=== PATIENT | female | born 1950 | race Caucasian/White ===

== ENCOUNTER 2020-11-15 23:40 | Emergency (ER) | payer MEDICARE, MEDICAID, SELFPAY ==
[2020-11-15 23:39] VITALS: BP 165/71; PULSE 100; RESP 16; TEMP 36.9; O2SAT 99
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
[2020-11-16 00:31] LABS: Basophils Absolute Auto 0.1 K/mm3 (0.0-0.1); Basophils Percent Auto 0.6 % (0.2-1.2); Eosinophils Absolute Auto 0.1 K/mm3 (0-0.3); Eosinophils Percent Auto 1.2 % (0-4.4); Hematocrit 37.6 % (37.0-47.0); Hemoglobin 12.4 g/dL (12.0-15.0); Immature Granulocyte Absolute 0.03 K/mm3 (0.00-0.031); Immature Granulocyte Percent A 0.3 % (0-0.5); Lymphocytes Absolute Auto 2.46 K/mm3 (0.9-3.2); Lymphocytes Percent Auto 27.6 % (18.3-44.2); Mean Corpuscular Hemoglobin 31.6 pg (26-34); Mean Corpuscular Volume 95.7 fl (80-100); Mean Platelet Volume 8.7 fl (7.4-10.4); Monocytes Percent Auto 10.7 % (2.6-8.5); Neutrophils Absolute Auto 5.3 K/mm3 (1.3-6.7); Neutrophils Percent Auto 59.6 % (45.5-73.1); Platelet Count Result 274 k/mm3 (150-375); Red Blood Count 3.93 M/mm3 (4.2-5.4); White Blood Count 8.9 K/mm3 (4.5-10.0)
[2020-11-16 00:46] LABS: Alanine Aminotransferase 27 U/L (4-35); Albumin Level 3.9 g/dL (3.5-5.1); Alkaline Phosphatase 78 U/L (38-126); Anion Gap 6 mmol/L (8-16); Aspartate Amino Transferase 43 U/L (14-36); Bilirubin,Total 0.4 mg/dL (0.2-1.3); Blood Urea Nitrogen 13 mg/dL (7-17); Calcium 9.2 mg/dL (8.4-10.2); Carbon Dioxide 25 mmol/L (22-30); Chloride 108 mmol/L (98-107); Estimated CRCL calculation 72 ml/min; Estimated Glomerular Filt Rate > 60; Glucose 98 mg/dL (65-105); Potassium 3.4 mmol/L (3.4-5.0); Sodium 139 mmol/L (137-145)
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
[2020-11-16 01:16] LABS: Thyroid Stimulating Hormone 0.803 uIU/mL (0.465-4.680)
--- NOTE | 2020-11-16 01:19 | PC.NURSE ---
Pt refusing straight cath at this time. States she will try to urinate soon but wanted to drink some orange juice first.
[2020-11-16 02:11] LABS: Add Urine Microscopic? YES; Appearance Urine Clear (Clear); Bilirubin Urine Negative (Negative); Blood Urine Negative (Negative); Color Urine Yellow (Yellow); Glucose Urine UA Negative (Negative); Ketones Urine 1+ mg/dL (Negative); Leukocyte Esterase Ur Trace LEU/UL (Negative); Mucus Urine Few /lpf; Nitrate Urine Negative (Negative); Protein Urine 1+ mg/dL (Negative); RBC Urine 0-2 /hpf (0-2); Specific Grav Ur 1.017 (1.001-1.035); Squamous Epithelial Cell Urine Rare /hpf (Few); Urobilinogen Urine Negative mg/dL (<2.0)
[2020-11-16 02:20] LABS: Amphetamine Screen Urine Negative (Negative); Barbiturate Screen Urine Negative (Negative); Benzodiazepines Screen Urine Negative (Negative); Cannabinoid Screen Urine Negative (Negative); Cocaine Screen Urine Negative (Negative); Methadone Screen Urine Negative (Negative); Opiate Screen Urine Negative (Negative); Phencyclidine Screen Urine Negative (Negative)
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
[2020-11-16 02:56] LABS: Ethanol < 10 mg/dL (<10)
--- NOTE | 2020-11-16 04:27 | PC.NURSE ---
Attempting to discharge patient. Daughter unable to pick her up at this time. Pt thinks that [place] PD will be picking her up. Pts daughter states that she should have money for a cab. Will discuss this option with patient.
== END 2020-11-16 04:46 | disposition home or self-care (01) ==
PROVIDERS: Emergency Provider Emergency Medicine; PCP Internal Medicine
DX: F23 Brief psychotic disorder (principal); F31.9 Bipolar disorder, unspecified; Z79.899 Other long term (current) drug therapy
CPT/HCPCS: 36415; 80053; 80307; 81001; 84443; 85025; 99283

== ENCOUNTER 2021-05-15 10:29 | Outpatient (CLI) | payer MEDICARE, MEDICAID, SELFPAY ==
--- NOTE | ~2021-05-15 | MM_ITS ---
EXAMINATION: MM screening beatriz BI w [facility] HISTORY: Screening mammogram TECHNIQUE: Craniocaudal and mediolateral oblique 3-D tomosynthesis images were obtained and synthetic 2-D images were generated. CAD analysis was submitted and interpreted. COMPARISON: No prior mammogram is available for comparison at this institution. BREAST PARENCHYMAL COMPOSITION: There are scattered areas of fibroglandular density. FINDINGS: There is no evidence of suspicious mass, calcification, or architectural distortion to sugg est malignancy in either breast. There has been no suspicious interval change. IMPRESSION: 1. No mammographic evidence of malignancy. 2. Recommend routine screening mammography in one year. BI-RADS Category 1: Negative Reviewed, dictated and finalized at location A.
== END 2021-05-15 10:30 | disposition home or self-care (01) ==
PROVIDERS: PCP Internal Medicine
DX: Z12.31 Encounter for screening mammogram for malignant neoplasm of breast (principal)
CPT/HCPCS: 77063; 77067

== ENCOUNTER 2022-02-19 11:04 | Outpatient (CLI) | payer OTHER, SELFPAY | END 2022-02-19 11:05 | disposition home or self-care (01) | PROVIDERS: Visit Provider Otolaryngology | DX: H90.3 Sensorineural hearing loss, bilateral (principal) | CPT/HCPCS: 92557; 92567 ==

== ENCOUNTER 2022-06-11 10:00 | Outpatient (RCR) | payer OTHER, SELFPAY | END 2022-06-11 23:59 | disposition home or self-care (01) | LOC: ANHAUDIO 10:00 | PROVIDERS: Visit Provider Otolaryngology | DX: Z46.1 Encounter for fitting and adjustment of hearing aid (principal) | CPT/HCPCS: 99199; V5160; V5261 ==

== ENCOUNTER 2024-11-06 05:56 | Inpatient (IN) | payer MEDICARE, MEDICAID, SELFPAY ==
[2024-11-06] VITALS (39 sets, daily range): BP systolic 109–150; BP diastolic 47–76; PULSE 73–105; RESP 12–26; TEMP 36.4–38; O2SAT 88–99; BMI 27.8; BMI 28.5
--- NOTE | ~2024-11-06 | XR_ITS ---
CHEST RADIOGRAPH CLINICAL HISTORY: leukocytosis . COMPARISON: 11/06/2024 TECHNIQUE: Single portable view of the chest. FINDINGS The cardiomediastinal silhouette is enlarged, unchanged. The lungs are clear. Visualized osseous structures and soft tissues are unremarkable. IMPRESSION: No focal infiltrate or effusion. Reviewed, dictated and finalized at location A. MENT CONTROL ASSISTANT
--- NOTE | ~2024-11-06 | XR_ITS ---
HISTORY: right hip pain. NO TRAUMA COMPARISON: Reference is made to CT examination of the abdomen and pelvis performed less than 24 lakhwinder rs earlier TECHNIQUE: 2 views of the right hip along with an AP view of the pelvis FINDINGS: Cortical irregularity is identified within the right femoral head, possibly representing an impacted fracture of the right femoral neck for which cross-sectional imaging (noncontrast enhanced CT examina tion of the pelvis) is suggested for further evaluation Normal mineralization. IMPRESSION: As above. Reviewed, dictated and finalized at location A. ANICAL DEVELOPER PROVER IMPRESSION: As above.
--- NOTE | ~2024-11-06 | US_ITS ---
EXAM: PELVIC ULTRASOUND HISTORY: ovarian cyst per CT postmenopausal COMPARISON: . Reference is made to the CT examination of the abdomen and pelvis performed on the same day FINDINGS: UTERUS: 8.6 x 2.5 x 4.6 cm. The uterus is anteverted and anteflexed. The endometrial complex is poorly visualized RIGHT OVARY: Despite prolonged interrogation, the right ovary was not visualized. LEFT OVARY: Despite prolonged interrogation, the left ovary was not visualized. No free fluid is identified within the pelvis. IMPRESSION: Limited evaluation of the female pelvis without visualization of either ovary, as detailed above. Reviewed, dictated and finalized at location A. TRUCTION MANAGER
--- NOTE | ~2024-11-06 | CT_ITS ---
CLINICAL INDICATION: Abdominal pain COMPARISON: None. TECHNIQUE: Multiple contiguous axial images of the abdomen and pelvis were performed following the ad ministration of with 100 mL Omnipaque-350 intravenous contrast. Examination is limited by streak artifact from the patient's left hand remaining along the anterior p ortion of the body. The dose-length product (DLP) was 789.25 mGy-cm. Automated exposure control and iterative reconstruction technique were employed. FINDINGS/OBSERVATIONS: Visualized lower thorax: Bilateral small pleural effusions with adjacent compressive atelectasis. The remainder of the bilateral lung bases are clear. The heart is of normal size, without pericardial effusion. Small hiatal hernia is present. Liver: The liver enhances homogeneously, and is not enlarged measuring 15 cm in longitudinal dimension. Gallbladder and biliary system: The gallbladder is minimally distended, and otherwise unremarkable. Pancreas: The pancreas enhances homogeneously and demonstrates fatty atrophy, without ductal dilatation. Spleen: The spleen enhances homogeneously and is not enlarged measuring 6 cm in longitudinal dimension. Kidneys: 12 x 10 mm exophytic soft tissue attenuation focus within the medial margin of the upper pole of the left kidney, too small to characterize on the current examination. Pararenal cyst within the right kidney. The remainder of the bilateral kidneys enhance symmetrically and are without hydronephrosis or renal calculi. Adrenal glands: Unremarkable. Gastrointestinal tract: Colonic diverticulosis without surrounding inflammatory change. Fecal stasis within the descending colon. Appendix: The appendix is not definitively visualized. However, no pericecal inflammatory change is identified suggest the presence of acute appendicitis. Vasculature: Calcified atherosclerotic disease without aneurysmal dilatation Lymph nodes: No pathologically enlarged or morphologically suspicious lymph nodes within the retroperitoneum or at the root of the mesentery. Pelvic structures: The bladder is distended, and otherwise unremarkable. The uterus is anteverted and anteflexed. Within the right hemipelvis is a rounded oval-shaped focus of decreased attenuation measuring 39 x 32 x 36 mm, for which a ovarian cyst is suspected. Body wall and musculoskeletal: Small fat-containing umbilical hernia. Severe degenerative disease within the lumbosacral and lower thoracic spine, with dextroscoliotic cur vature. IMPRESSION: No acute intra-abdominal findings. Innumerable nonacute findings, as detailed above. Indeterminate soft tissue attenuation focus within the left kidney for which focused ultrasound may b e performed nonemergently versus contrast-enhanced MRI Reviewed, dictated and finalized at location A. ERY STARTER IMPRESSION: No acute intra-abdominal findings. Innumerable nonacute findings, as detailed above. Indeterminate soft tissue attenuation focus within the left kidney for which fo cused ultrasound may be performed nonemergently versus contrast-enhanced MRI
--- NOTE | ~2024-11-06 | CT_ITS ---
History: Lethargy PROCEDURE: CT head without contrast. COMPARISON: 11/06/2024 TECHNIQUE: Axial imaging of the head performed from the skull base to the vertex without IV contrast. Sagittal a nd coronal reformations obtained. DLP: 681 mGy-cm FINDINGS: The ventricles are enlarged. The dilatation of the ventricles is proportional to the degree of sulcal prominence, not uncommon in the senescent brain. Decreased attenuation is identified within the periventricular white matter, likely secondary to micr ovascular ischemic disease, in a patient of this age. There is no mass, mass effect or midline shift. There is no abnormal extra-axial fluid collection or intracranial hemorrhage. Visualized paranasal sinuses are clear. The mastoid air cells are well aerated. No acute displaced fractures within the overlying cranium. Impression: No acute intracranial hemorrhage or suspicious mass effect. Reviewed, dictated and finalized at location A. PRODUCER Impression: No acute intracranial hemorrhage or suspicious mass effect.
--- NOTE | ~2024-11-06 | CT_ITS ---
Non-contrast CT scan of the Pelvis Clinical indication: Right hip pain Technique: 2.5 mm axial scans were obtained through the pelvis without intravenous or oral contrast. Dose reduction technique was used on this scan by utilizing automated exposure control and iterative reconstruction technique. The dose-length product (DLP) was 356.72 mGy-cm. Findings: Visualized bowel loops are unremarkable. There is a probable 3.1 cm right ovarian cyst. No other adnexal mass seen. Urinary bladder unremarkable. No ascites. Visualized aorta demonstrates no e vidence for aneurysm. No soft tissue mass or fluid collection seen about the pelvis. Visualized musculature appears grossly intact. No asymmetric muscle atrophy evident. No acute fracture or dislocation seen. There is mild degenerative change of the right hip joint. Ther e is minimal degenerative change left hip joint. SI joints are intact. There is extensive facet arthr opathy the visualized lower lumbar spine. Impression: No acute fracture or dislocation. Mild degenerative changes overall, as detailed above. Probable 3.1 cm right ovarian cyst. Pelvic ultrasound recommended to further assess given patient age . Reviewed, dictated and finalized at [facility]. EDITATION COORDINATOR Impression: No acute fracture or dislocation. Mild degenerative changes overall, as detailed above. Probable 3.1 cm right ovarian cyst. Pelvic ultrasound recommended to further as sess given patient age.
--- NOTE | ~2024-11-06 | XR_ITS ---
EXAMINATION: [id number] DATE: 11/11/2024 13:04 INDICATION: Right knee pain. TECHNIQUE: 2 views of right knee were obtained. COMPARISON: None. FINDINGS: Alignment is normal. No fracture. There is mild tricompartmental osteoarthritis. No knee cristo int effusion. IMPRESSION: 1. Mild right knee osteoarthritis. Reviewed, dictated and finalized at location B. INSTRUCTOR
--- NOTE | ~2024-11-06 | CT_ITS ---
History: Altered mental status PROCEDURE: CT head without contrast. COMPARISON: None TECHNIQUE: Axial imaging of the head performed from the skull base to the vertex without IV contrast. Sagittal a nd coronal reformations obtained. DLP: 681 mGy-cm FINDINGS: The ventricles are enlarged. The dilatation of the ventricles is proportional to the degree of sulcal prominence, not uncommon in the senescent brain. Decreased attenuation is identified within the periventricular white matter, likely secondary to micr ovascular ischemic disease, in a patient of this age. There is no mass, mass effect or midline shift. There is no abnormal extra-axial fluid collection or intracranial hemorrhage. Visualized paranasal sinuses are clear. The mastoid air cells are well aerated. No acute displaced fractures within the overlying cranium. Impression: No acute intracranial hemorrhage or suspicious mass effect. Reviewed, dictated and finalized at location A. ALLMENT ACCOUNT CHECKER Impression: No acute intracranial hemorrhage or suspicious mass effect.
--- NOTE | ~2024-11-06 | XR_ITS ---
CHEST RADIOGRAPH CLINICAL HISTORY: AMS . COMPARISON: None available TECHNIQUE: Single portable view of the chest. FINDINGS The cardiomediastinal silhouette is unremarkable. Increased interstitial markings within the left mid to lower lung field, possibly an early infiltrate . The remainder of the lungs are clear. Prior right-sided rib fractures are present. Remaining visualized osseous structures are remarkable. IMPRESSION: Possible early infiltrate within the left mid to lower lung field Reviewed, dictated and finalized at location A. SAMPLER
--- NOTE | 2024-11-06 06:11 | ECG_ITS ---
Test Date: 2024-11-06 06:16:18 Measurements Intervals Dresser Rate: 79 P: 73 NH: 130 QRS: 49 QRSD: 108 T: 29 QT: 381 QTc: 437 Interpretive Statements SINUS RHYTHM NONSPECIFIC T-WAVE ABNORMALITY No previous ECG available for comparison Electronically Signed On 11-06-2024 10:07:29 [employer] DRYING MACHINE OPERATOR by Stevenson Munoz M.D.
[2024-11-06 06:25] LABS: Basophils Percent Auto 0.4 % (0.2-1.2); Eosinophils Absolute Auto 0.3 K/mm3 (0-0.3); Eosinophils Percent Auto 2.5 % (0-4.4); Hematocrit 38.5 % (37.0-47.0); Hemoglobin 12.4 g/dL (12.0-15.0); Immature Granulocyte Absolute 0.04 K/mm3 (0.00-0.031); Immature Granulocyte Percent A 0.4 % (0-0.5); Lymphocytes Percent Auto 22.8 % (18.3-44.2); Mean Corpuscular HGB Conc 32.2 g/dl (32-36); Mean Corpuscular Hemoglobin 30.5 pg (26-34); Mean Corpuscular Volume 94.6 fl (80-100); Monocytes Percent Auto 8.7 % (2.6-8.5); Neutrophils Absolute Auto 7.5 K/mm3 (1.3-6.7); Neutrophils Percent Auto 65.2 % (45.5-73.1); Platelet Count Result 297 k/mm3 (150-375); Red Blood Count 4.07 M/mm3 (4.2-5.4); Red Cell Distribution Width 12.6 % (11.5-14.5); White Blood Count 11.4 K/mm3 (4.5-10.0)
[2024-11-06] MEDS: SODIUM CHLORIDE 0.9% IV 1,000 ML 999 ML IV CONT ×2 (06:31)
[2024-11-06] MEDS: ACETAMINOPHEN 650 MG SUPPOSITORY RECTAL (06:32)
[2024-11-06 06:37] LABS: Alanine Aminotransferase 24 U/L (6-35); Albumin Level 3.8 g/dL (3.5-5.1); Alkaline Phosphatase 82 U/L (38-126); Anion Gap 9 mmol/L (4-12); Aspartate Amino Transferase 22 U/L (14-36); Bilirubin,Total 0.6 mg/dL (0.2-1.3); Blood Urea Nitrogen 11 mg/dL (7-17); Calcium 9.3 mg/dL (8.4-10.2); Carbon Dioxide 27 mmol/L (22-30); Chloride 101 mmol/L (98-107); Estimated CRCL calculation 41 ml/min; Estimated Glomerular Filt Rate 53; Glucose 110 mg/dL (65-110); Potassium 4.1 mmol/L (3.4-5.0); Sodium 137 mmol/L (137-145)
[2024-11-06 06:40] LABS: Alveolar/Arterial O2 Gradient 48.5 mmHg; Base Excess ABG 1.2 mEq/l (+/-2.0); Fractional Inspired Oxygen 21 %; HCO3 ABG 25.1 mEq/l (22.0-26.0); Oxygen Content ABG 16.2 %vol (16.0-22.0); Oxygen Saturation ABG 90.6 % (95.0-100.0); Oxyhemoglobin 88.7 % THb (90.0-100.0); PCO2 ABG 37.5 mmHg (35.0-45.0); PO2 ABG 56.3 mmHg (80.0-100.0); PO2 FiO2 Ratio Arterial Blood 2.68 %; pH ABG 7.444 (7.350-7.450)
[2024-11-06 06:41] LABS: Device ROOM AIR; Modified Allen's Test Pass; Site Drawn RIGHT RADIAL
[2024-11-06 06:43] LABS: Lactic Acid Reflex 1.1 mmol/L (0.7-2.0)
[2024-11-06 06:45] LABS: INR 2.7
[2024-11-06 06:46] LABS: Partial Thromboplastin Time 49.6 Seconds (22.3-36.8)
[2024-11-06 06:54] LABS: Amphetamine Screen Urine Negative (Negative); Barbiturate Screen Urine Negative (Negative); Benzodiazepines Screen Urine Negative (Negative); Cannabinoid Screen Urine Negative (Negative); Cocaine Screen Urine Negative (Negative); Methadone Screen Urine Negative (Negative); Opiate Screen Urine Negative (Negative); Phencyclidine Screen Urine Negative (Negative)
[2024-11-06 07:00] LABS: Alanine Aminotransferase 24 U/L (6-35); Albumin Level 3.7 g/dL (3.5-5.1); Alkaline Phosphatase 81 U/L (38-126); Anion Gap 7 mmol/L (4-12); Aspartate Amino Transferase 33 U/L (14-36); Bilirubin,Total 0.7 mg/dL (0.2-1.3); Blood Urea Nitrogen 11 mg/dL (7-17); Calcium 9.3 mg/dL (8.4-10.2); Carbon Dioxide 28 mmol/L (22-30); Chloride 102 mmol/L (98-107); Estimated CRCL calculation 40 ml/min; Estimated Glomerular Filt Rate 52; Glucose 108 mg/dL (65-110); Lipase 21 U/L (23-300); Phosphorus 3.8 mg/dL (2.5-4.5); Potassium 4.1 mmol/L (3.4-5.0); Sodium 137 mmol/L (137-145)
[2024-11-06 07:04] LABS: Ethanol < 10 mg/dL (<10)
[2024-11-06 07:06] LABS: NT Pro B Type Natriuretic Pept 44 pg/mL (19.9-100); Troponin I < 0.012 ng/mL (0.000-0.034)
[2024-11-06 07:08] LABS: Influenza A QL RT-PCR Negative (Negative); Influenza B QL RT-PCR Negative (Negative); RSV RNA, RT-PCR Negative (Negative); SARS-CoV-2 RNA PCR Negative (Negative)
[2024-11-06 07:16] LABS: Creatine Kinase 36 U/L (30-135)
[2024-11-06 07:18] LABS: Add Urine Microscopic? YES; Appearance Urine Cloudy (Clear); Bacteria Urine Rare /hpf; Bilirubin Urine Negative (Negative); Blood Urine Negative (Negative); Color Urine Yellow (Yellow); Glucose Urine UA Negative (Negative); Ketones Urine Negative (Negative); Leukocyte Esterase Ur 3+ LEU/UL (Negative); Need Manual Microscopic Reviewed; Nitrate Urine Negative (Negative); Protein Urine Negative (Negative); RBC Urine 0-2 /hpf (0-2); Specific Grav Ur 1.012 (1.001-1.035); Squamous Epithelial Cell Urine None Seen /hpf (Few); Urobilinogen Urine 0.2 mg/dL (<2.0); WBC Urine >100 /hpf (0-3)
[2024-11-06 07:25] LABS: Thyroid Stimulating Hormone Reflex 0.422 uIU/mL (0.465-4.68)
--- NOTE | 2024-11-06 07:32 | ED_ITS ---
HPI - General Adult General Chief complaint: Shortness of Breath/Dyspnea Stated complaint: Altered Mental Status Time Seen by Provider: 11/06/24 06:52 History of Present Illness HPI narrative: 74-year-old female present to the emergency department for evaluation after being found unresponsive at her care facility. Patient was minimally responsive upon arrival to the emergency department. At time of evaluation patient is more alert and appropriate. Patient does awake to voice and patient denies any major complaints but states she does have some abdominal pain to palpation. Related Data Home Medications ?Medication ?Instructions ?Recorded ?Confirmed ?Last Taken ?Type amlodipine 10 mg tablet (Norvasc) 10 mg PO DAILY 11/06/24 11/06/24 11/05/24 History atorvastatin 10 mg tablet 40 mg 11/06/24 11/05/24 History benztropine 0.5 mg tablet 0.5 mg PO BID 11/06/24 11/06/24 11/05/24 History carvedilol 3.125 mg tablet 3.125 mg PO BID 11/06/24 11/06/24 11/05/24 History cyanocobalamin (vitamin B-12) 1,000 mcg PO DAILY 11/06/24 11/06/24 11/05/24 History 1,000 mcg capsule famotidine 20 mg tablet 20 mg PO DAILY 11/06/24 11/06/24 11/05/24 History furosemide 40 mg tablet 40 mg PO DAILY 11/06/24 11/06/24 11/05/24 History furosemide 40 mg tablet mg 11/06/24 11/05/24 History gabapentin 300 mg capsule mg 11/06/24 11/05/24 History lamotrigine 100 mg tablet 100 mg PO DAILY 11/06/24 11/06/24 11/05/24 History (Lamictal) loratadine 10 mg tablet mg 11/06/24 11/05/24 History montelukast 10 mg tablet 10 mg PO DAILY 11/06/24 11/06/24 11/05/24 History potassium chloride 20 mEq 20 meq PO TID 11/06/24 11/06/24 11/05/24 History tablet,extended release (K-Tab) quetiapine 200 mg tablet 200 mg PO HS 11/06/24 11/06/24 11/05/24 History risperidone 0.25 mg tablet 0.25 mg PO BID 11/06/24 11/06/24 11/05/24 History rivaroxaban 10 mg tablet 20 mg PO DAILY 11/06/24 11/06/24 11/05/24 History sennosides 8.6 mg-docusate sodium 2 tab-cap PO BID 11/06/24 11/06/24 11/05/24 History 50 mg capsule (Senna Plus) sertraline 50 mg tablet 50 mg PO DAILY 11/06/24 11/06/24 11/05/24 History Allergies Allergy/AdvReac Type Severity Reaction Status Date / Time No Known Allergies Allergy Unverified 10/07/18 16:47 Review of Systems 2 Review of Systems: All systems reviewed & are unremarkable except as noted in HPI and below Exam 2 Narrative: APPEARANCE: Somnolent but responsive to voice HEAD: normocephalic, atraumatic. EYES: PERRLA/EOMI, conjunctivae clear. NOSE: Normal no drainage EARS:TMS clear with good light reflex. THROAT: Pharynx clear, no exudate. NECK: Supple. No adenopathy, no masses. RESPIRATORY: Airway patent, respirations nonlabored. Clear to auscultation bilaterally, no rales, rhonchi, wheezing. CARDIOVASCULAR: Regular rate and rhythm without murmurs rubs or gallops. ABDOMINAL: Mild abdominal tenderness to palpation MUSCULOSKELETAL: Moves all extremities. Strength/ROM intact, No edema, No calf tenderness. NEURO: Alert. Cranial nerves II through XII intact. Good gait. Good coordination SKIN: Warm, dry. Normal Color Course Vital Signs Vital signs: Vital Signs Temperature 100.4 F H 11/06/24 05:52 Pulse Rate 83 11/06/24 05:52 Respiratory Rate 13 11/06/24 05:52 Blood Pressure 139/53 L 11/06/24 05:52 Pulse Oximetry 95 11/06/24 05:52 Oxygen Delivery Room Air 11/06/24 05:52 Temperature 98.6 F 11/06/24 16:45 Pulse Rate 94 11/06/24 16:45 Respiratory Rate 20 11/06/24 16:45 Blood Pressure 139/69 11/06/24 16:45 Pulse Oximetry 98 11/06/24 16:45 Oxygen Delivery Room Air 11/06/24 07:18 Medical Decision Making [facility] Narrative Medical decision making narrative: 74-year-old female presented emergency department for evaluation for a unresponsive episode. Patient had a low-grade fever upon arrival to the emergency department. Patient does have a leukocytosis of 11.4 the stable hemoglobin of 12.4. INR is 2.7. No significant abnormalities the patient's CMP with a negative troponin, UA was concerning for infection with leukocyte esterase positive with greater than 100 white blood cells urine cultures were ordered and patient was started on antibiotics for UTI. Patient was negative Phalen's for RSV and for COVID. Patient was reported to be unresponsive when she 1st arrived to the emergency department but patient is now more responsive and denies any current complaints. CT scan was ordered to evaluate for colitis, diverticulitis due to the lower abdominal pain and CT abdomen pelvis showed no acute abnormalities. CT brain was also read as no evidence of acute intracranial hemorrhage, no mass effect, no midline shift. Patient was initially febrile upon arrival emergency department so I suspect this may have been an underlying cause of her increased somnolence. One patient's fever was treated patient became more alert and appropriate. Differential Diagnosis Differential Diagnosis: CVA, TIA, subdural hematoma, subarachnoid hemorrhage, fever, sepsis, UTI Vital Signs Vital Signs: Vital Signs Temperature 100.4 F H 11/06/24 05:52 Pulse Rate 83 11/06/24 05:52 Respiratory Rate 13 11/06/24 05:52 Blood Pressure 139/53 L 11/06/24 05:52 Pulse Oximetry 95 11/06/24 05:52 Oxygen Delivery Room Air 11/06/24 05:52 Temperature 98.6 F 11/06/24 16:45 Pulse Rate 94 11/06/24 16:45 Respiratory Rate 20 11/06/24 16:45 Blood Pressure 139/69 11/06/24 16:45 Pulse Oximetry 98 11/06/24 16:45 Oxygen Delivery Room Air 11/06/24 07:18 Lab Data Lab results reviewed: Yes I reviewed the patient's lab results. 11/06/24 06:16 11/06/24 06:16 Labs: Lab Results 11/06/24 11/06/24 11/06/24 Range/Units 06:16 06:16 06:16 WBC 11.4 H (4.5-10.0) K/mm3 RBC 4.07 L (4.2-5.4) M/mm3 Hgb 12.4 (12.0-15.0) g/dL Hct 38.5 (37.0-47.0) % MCV 94.6 (80-100) fl MCH 30.5 (26-34) pg MCHC 32.2 (32-36) g/dl RDW 12.6 (11.5-14.5) % Plt Count 297 (150-375) k/mm3 MPV 9.0 (7.4-10.4) fl Immature Gran % (Auto) 0.4 (0-0.5) % Neut % (Auto) 65.2 (45.5-73.1) % Lymph % (Auto) 22.8 (18.3-44.2) % [place] % (Auto) 8.7 H (2.6-8.5) % Eos % (Auto) 2.5 (0-4.4) % Baso % (Auto) 0.4 (0.2-1.2) % Lymph # (Auto) 2.60 (0.9-3.2) K/mm3 [place] # (Auto) 1.0 H (0.1-0.6) K/mm3 Eos # (Auto) 0.3 (0-0.3) K/mm3 Baso # (Auto) 0.0 (0.0-0.1) K/mm3 Abs Immat Gran (auto) 0.04 H (0.00-0.031) K/mm3 Absolute Neuts (auto) 7.5 H (1.3-6.7) K/mm3 Absolute Nucleated RBC 0.000 (0.0-0.012) K/mm3 Nucleated RBC % 0.0 (0.0-0.2) % PT 29.0 H (11.1-14.7) Seconds INR 2.7 APTT 49.6 H (22.3-36.8) Seconds Sodium 137 137 (137-145) mmol/L Potassium 4.1 4.1 (3.4-5.0) mmol/L Chloride 101 (98-107) mmol/L Carbon Dioxide (22-30) mmol/L Anion Gap (4-12) mmol/L BUN (7-17) mg/dL Creatinine (0.7-1.0) mg/dL Estim Creat Clear Calc ml/min Estimated GFR (59 - ) Glucose (65-110) mg/dL Lactic Acid (0.7-2.0) mmol/L Calcium (8.4-10.2) mg/dL Phosphorus (2.5-4.5) mg/dL Magnesium (1.6-2.3) mg/dL Total Bilirubin (0.2-1.3) mg/dL AST (14-36) U/L ALT (6-35) U/L Alkaline Phosphatase (38-126) U/L Total Creatine Kinase (30-135) U/L Troponin I (0.000-0.034) ng/mL NT-Pro-B Natriuret Pep (19.9-100) pg/mL Total Protein (6.3-8.2) g/dL Albumin (3.5-5.1) g/dL Lipase (23-300) U/L TSH (Reflex) (0.465-4.68) uIU/mL Free T4 (0.78-2.19) ng/dL Total T3 (0.97-1.69) NG/ML Urine Color (Yellow) Urine Appearance (Clear) Urine pH (5.0-9.0) Ur Specific [place] (1.001-1.035) Urine Protein (Negative) mg/dL Urine Glucose (UA) (Negative) mg/dL Urine Ketones (Negative) mg/dL Ur Blood (Man) (Negative) Urine Nitrate (Negative) Urine Bilirubin (Negative) Urine Urobilinogen (<2.0) mg/dL Add Ur Microanalysis Leukocyte Esterase Rfl (Negative) MARGOTH/UL Urine RBC (0-2) /hpf Urine WBC (0-3) /hpf Ur Squamous Epith Cells (Few) /hpf Urine Bacteria /hpf Urine Casts Urine Opiates Screen (Negative) Urine Methadone Screen (Negative) Ur Barbiturates Screen (Negative) Ur Phencyclidine Scrn (Negative) Ur Amphetamine Screen (Negative) U Benzodiazepines Scrn (Negative) Urine Cocaine Screen (Negative) U Cannabinoids Screen (Negative) Ethyl Alcohol (<10) mg/dL Influenza A (RT-PCR) (Negative) Influenza B (RT-PCR) (Negative) RSV (RT-PCR) (Negative) SARS-CoV-2 RNA (RT-PCR) (Negative) 11/06/24 11/06/24 11/06/24 Range/Units 06:16 06:16 06:16 WBC (4.5-10.0) K/mm3 RBC (4.2-5.4) M/mm3 Hgb (12.0-15.0) g/dL Hct (37.0-47.0) % MCV (80-100) fl MCH (26-34) pg MCHC (32-36) g/dl RDW (11.5-14.5) % Plt Count (150-375) k/mm3 MPV (7.4-10.4) fl Immature Gran % (Auto) (0-0.5) % Neut % (Auto) (45.5-73.1) % Lymph % (Auto) (18.3-44.2) % [place] % (Auto) (2.6-8.5) % Eos % (Auto) (0-4.4) % Baso % (Auto) (0.2-1.2) % Lymph # (Auto) (0.9-3.2) K/mm3 [place] # (Auto) (0.1-0.6) K/mm3 Eos # (Auto) (0-0.3) K/mm3 Baso # (Auto) (0.0-0.1) K/mm3 Abs Immat Gran (auto) (0.00-0.031) K/mm3 Absolute Neuts (auto) (1.3-6.7) K/mm3 Absolute Nucleated RBC (0.0-0.012) K/mm3 Nucleated RBC % (0.0-0.2) % PT (11.1-14.7) Seconds INR APTT (22.3-36.8) Seconds Sodium (137-145) mmol/L Potassium (3.4-5.0) mmol/L Chloride 102 (98-107) mmol/L Carbon Dioxide 27 28 (22-30) mmol/L Anion Gap 9 7 (4-12) mmol/L BUN 11 (7-17) mg/dL Creatinine (0.7-1.0) mg/dL Estim Creat Clear Calc ml/min Estimated GFR (59 - ) Glucose (65-110) mg/dL Lactic Acid (0.7-2.0) mmol/L Calcium (8.4-10.2) mg/dL Phosphorus (2.5-4.5) mg/dL Magnesium (1.6-2.3) mg/dL Total Bilirubin (0.2-1.3) mg/dL AST (14-36) U/L ALT (6-35) U/L Alkaline Phosphatase (38-126) U/L Total Creatine Kinase (30-135) U/L Troponin I (0.000-0.034) ng/mL NT-Pro-B Natriuret Pep (19.9-100) pg/mL Total Protein (6.3-8.2) g/dL Albumin (3.5-5.1) g/dL Lipase (23-300) U/L TSH (Reflex) (0.465-4.68) uIU/mL Free T4 (0.78-2.19) ng/dL Total T3 (0.97-1.69) NG/ML Urine Color (Yellow) Urine Appearance (Clear) Urine pH (5.0-9.0) Ur Specific [place] (1.001-1.035) Urine Protein (Negative) mg/dL Urine Glucose (UA) (Negative) mg/dL Urine Ketones (Negative) mg/dL Ur Blood (Man) (Negative) Urine Nitrate (Negative) Urine Bilirubin (Negative) Urine Urobilinogen (<2.0) mg/dL Add Ur Microanalysis Leukocyte Esterase Rfl (Negative) MARGOTH/UL Urine RBC (0-2) /hpf Urine WBC (0-3) /hpf Ur Squamous Epith Cells (Few) /hpf Urine Bacteria /hpf Urine Casts Urine Opiates Screen (Negative) Urine Methadone Screen (Negative) Ur Barbiturates Screen (Negative) Ur Phencyclidine Scrn (Negative) Ur Amphetamine Screen (Negative) U Benzodiazepines Scrn (Negative) Urine Cocaine Screen (Negative) U Cannabinoids Screen (Negative) Ethyl Alcohol (<10) mg/dL Influenza A (RT-PCR) (Negative) Influenza B (RT-PCR) (Negative) RSV (RT-PCR) (Negative) SARS-CoV-2 RNA (RT-PCR) (Negative) 11/06/24 11/06/24 11/06/24 Range/Units 06:16 06:16 06:16 WBC (4.5-10.0) K/mm3 RBC (4.2-5.4) M/mm3 Hgb (12.0-15.0) g/dL Hct (37.0-47.0) % MCV (80-100) fl MCH (26-34) pg MCHC (32-36) g/dl RDW (11.5-14.5) % Plt Count (150-375) k/mm3 MPV (7.4-10.4) fl Immature Gran % (Auto) (0-0.5) % Neut % (Auto) (45.5-73.1) % Lymph % (Auto) (18.3-44.2) % [place] % (Auto) (2.6-8.5) % Eos % (Auto) (0-4.4) % Baso % (Auto) (0.2-1.2) % Lymph # (Auto) (0.9-3.2) K/mm3 [place] # (Auto) (0.1-0.6) K/mm3 Eos # (Auto) (0-0.3) K/mm3 Baso # (Auto) (0.0-0.1) K/mm3 Abs Immat Gran (auto) (0.00-0.031) K/mm3 Absolute Neuts (auto) (1.3-6.7) K/mm3 Absolute Nucleated RBC (0.0-0.012) K/mm3 Nucleated RBC % (0.0-0.2) % PT (11.1-14.7) Seconds INR APTT (22.3-36.8) Seconds Sodium (137-145) mmol/L Potassium (3.4-5.0) mmol/L Chloride (98-107) mmol/L Carbon Dioxide (22-30) mmol/L Anion Gap (4-12) mmol/L BUN 11 (7-17) mg/dL Creatinine 1.03 H 1.04 H (0.7-1.0) mg/dL Estim Creat Clear Calc 41 40 ml/min Estimated GFR 53 L (59 - ) Glucose (65-110) mg/dL Lactic Acid (0.7-2.0) mmol/L Calcium (8.4-10.2) mg/dL Phosphorus (2.5-4.5) mg/dL Magnesium (1.6-2.3) mg/dL Total Bilirubin (0.2-1.3) mg/dL AST (14-36) U/L ALT (6-35) U/L Alkaline Phosphatase (38-126) U/L Total Creatine Kinase (30-135) U/L Troponin I (0.000-0.034) ng/mL NT-Pro-B Natriuret Pep (19.9-100) pg/mL Total Protein (6.3-8.2) g/dL Albumin (3.5-5.1) g/dL Lipase (23-300) U/L TSH (Reflex) (0.465-4.68) uIU/mL Free T4 (0.78-2.19) ng/dL Total T3 (0.97-1.69) NG/ML Urine Color (Yellow) Urine Appearance (Clear) Urine pH (5.0-9.0) Ur Specific [place] (1.001-1.035) Urine Protein (Negative) mg/dL Urine Glucose (UA) (Negative) mg/dL Urine Ketones (Negative) mg/dL Ur Blood (Man) (Negative) Urine Nitrate (Negative) Urine Bilirubin (Negative) Urine Urobilinogen (<2.0) mg/dL Add Ur Microanalysis Leukocyte Esterase Rfl (Negative) MARGOTH/UL Urine RBC (0-2) /hpf Urine WBC (0-3) /hpf Ur Squamous Epith Cells (Few) /hpf Urine Bacteria /hpf Urine Casts Urine Opiates Screen (Negative) Urine Methadone Screen (Negative) Ur Barbiturates Screen (Negative) Ur Phencyclidine Scrn (Negative) Ur Amphetamine Screen (Negative) U Benzodiazepines Scrn (Negative) Urine Cocaine Screen (Negative) U Cannabinoids Screen (Negative) Ethyl Alcohol (<10) mg/dL Influenza A (RT-PCR) (Negative) Influenza B (RT-PCR) (Negative) RSV (RT-PCR) (Negative) SARS-CoV-2 RNA (RT-PCR) (Negative) 11/06/24 11/06/24 11/06/24 Range/Units 06:16 06:16 06:16 WBC (4.5-10.0) K/mm3 RBC (4.2-5.4) M/mm3 Hgb (12.0-15.0) g/dL Hct (37.0-47.0) % MCV (80-100) fl MCH (26-34) pg MCHC (32-36) g/dl RDW (11.5-14.5) % Plt Count (150-375) k/mm3 MPV (7.4-10.4) fl Immature Gran % (Auto) (0-0.5) % Neut % (Auto) (45.5-73.1) % Lymph % (Auto) (18.3-44.2) % [place] % (Auto) (2.6-8.5) % Eos % (Auto) (0-4.4) % Baso % (Auto) (0.2-1.2) % Lymph # (Auto) (0.9-3.2) K/mm3 [place] # (Auto) (0.1-0.6) K/mm3 Eos # (Auto) (0-0.3) K/mm3 Baso # (Auto) (0.0-0.1) K/mm3 Abs Immat Gran (auto) (0.00-0.031) K/mm3 Absolute Neuts (auto) (1.3-6.7) K/mm3 Absolute Nucleated RBC (0.0-0.012) K/mm3 Nucleated RBC % (0.0-0.2) % PT (11.1-14.7) Seconds INR APTT (22.3-36.8) Seconds Sodium (137-145) mmol/L Potassium (3.4-5.0) mmol/L Chloride (98-107) mmol/L Carbon Dioxide (22-30) mmol/L Anion Gap (4-12) mmol/L BUN (7-17) mg/dL Creatinine (0.7-1.0) mg/dL Estim Creat Clear Calc ml/min Estimated GFR 52 L (59 - ) Glucose 110 108 (65-110) mg/dL Lactic Acid (0.7-2.0) mmol/L Calcium 9.3 9.3 (8.4-10.2) mg/dL Phosphorus 3.8 (2.5-4.5) mg/dL Magnesium 2.0 (1.6-2.3) mg/dL Total Bilirubin 0.6 (0.2-1.3) mg/dL AST (14-36) U/L ALT (6-35) U/L Alkaline Phosphatase (38-126) U/L Total Creatine Kinase (30-135) U/L Troponin I (0.000-0.034) ng/mL NT-Pro-B Natriuret Pep (19.9-100) pg/mL Total Protein (6.3-8.2) g/dL Albumin (3.5-5.1) g/dL Lipase (23-300) U/L TSH (Reflex) (0.465-4.68) uIU/mL Free T4 (0.78-2.19) ng/dL Total T3 (0.97-1.69) NG/ML Urine Color (Yellow) Urine Appearance (Clear) Urine pH (5.0-9.0) Ur Specific [place] (1.001-1.035) Urine Protein (Negative) mg/dL Urine Glucose (UA) (Negative) mg/dL Urine Ketones (Negative) mg/dL Ur Blood (Man) (Negative) Urine Nitrate (Negative) Urine Bilirubin (Negative) Urine Urobilinogen (<2.0) mg/dL Add Ur Microanalysis Leukocyte Esterase Rfl (Negative) MARGOTH/UL Urine RBC (0-2) /hpf Urine WBC (0-3) /hpf Ur Squamous Epith Cells (Few) /hpf Urine Bacteria /hpf Urine Casts Urine Opiates Screen (Negative) Urine Methadone Screen (Negative) Ur Barbiturates Screen (Negative) Ur Phencyclidine Scrn (Negative) Ur Amphetamine Screen (Negative) U Benzodiazepines Scrn (Negative) Urine Cocaine Screen (Negative) U Cannabinoids Screen (Negative) Ethyl Alcohol (<10) mg/dL Influenza A (RT-PCR) (Negative) Influenza B (RT-PCR) (Negative) RSV (RT-PCR) (Negative) SARS-CoV-2 RNA (RT-PCR) (Negative) 11/06/24 11/06/24 11/06/24 Range/Units 06:16 06:16 06:16 WBC (4.5-10.0) K/mm3 RBC (4.2-5.4) M/mm3 Hgb (12.0-15.0) g/dL Hct (37.0-47.0) % MCV (80-100) fl MCH (26-34) pg MCHC (32-36) g/dl RDW (11.5-14.5) % Plt Count (150-375) k/mm3 MPV (7.4-10.4) fl Immature Gran % (Auto) (0-0.5) % Neut % (Auto) (45.5-73.1) % Lymph % (Auto) (18.3-44.2) % [place] % (Auto) (2.6-8.5) % Eos % (Auto) (0-4.4) % Baso % (Auto) (0.2-1.2) % Lymph # (Auto) (0.9-3.2) K/mm3 [place] # (Auto) (0.1-0.6) K/mm3 Eos # (Auto) (0-0.3) K/mm3 Baso # (Auto) (0.0-0.1) K/mm3 Abs Immat Gran (auto) (0.00-0.031) K/mm3 Absolute Neuts (auto) (1.3-6.7) K/mm3 Absolute Nucleated RBC (0.0-0.012) K/mm3 Nucleated RBC % (0.0-0.2) % PT (11.1-14.7) Seconds INR APTT (22.3-36.8) Seconds Sodium (137-145) mmol/L Potassium (3.4-5.0) mmol/L Chloride (98-107) mmol/L Carbon Dioxide (22-30) mmol/L Anion Gap (4-12) mmol/L BUN (7-17) mg/dL Creatinine (0.7-1.0) mg/dL Estim Creat Clear Calc ml/min Estimated GFR (59 - ) Glucose (65-110) mg/dL Lactic Acid (0.7-2.0) mmol/L Calcium (8.4-10.2) mg/dL Phosphorus (2.5-4.5) mg/dL Magnesium (1.6-2.3) mg/dL Total Bilirubin 0.7 (0.2-1.3) mg/dL AST 22 33 (14-36) U/L ALT 24 24 (6-35) U/L Alkaline Phosphatase 82 (38-126) U/L Total Creatine Kinase (30-135) U/L Troponin I (0.000-0.034) ng/mL NT-Pro-B Natriuret Pep (19.9-100) pg/mL Total Protein (6.3-8.2) g/dL Albumin (3.5-5.1) g/dL Lipase (23-300) U/L TSH (Reflex) (0.465-4.68) uIU/mL Free T4 (0.78-2.19) ng/dL Total T3 (0.97-1.69) NG/ML Urine Color (Yellow) Urine Appearance (Clear) Urine pH (5.0-9.0) Ur Specific [place] (1.001-1.035) Urine Protein (Negative) mg/dL Urine Glucose (UA) (Negative) mg/dL Urine Ketones (Negative) mg/dL Ur Blood (Man) (Negative) Urine Nitrate (Negative) Urine Bilirubin (Negative) Urine Urobilinogen (<2.0) mg/dL Add Ur Microanalysis Leukocyte Esterase Rfl (Negative) MARGOTH/UL Urine RBC (0-2) /hpf Urine WBC (0-3) /hpf Ur Squamous Epith Cells (Few) /hpf Urine Bacteria /hpf Urine Casts Urine Opiates Screen (Negative) Urine Methadone Screen (Negative) Ur Barbiturates Screen (Negative) Ur Phencyclidine Scrn (Negative) Ur Amphetamine Screen (Negative) U Benzodiazepines Scrn (Negative) Urine Cocaine Screen (Negative) U Cannabinoids Screen (Negative) Ethyl Alcohol (<10) mg/dL Influenza A (RT-PCR) (Negative) Influenza B (RT-PCR) (Negative) RSV (RT-PCR) (Negative) SARS-CoV-2 RNA (RT-PCR) (Negative) 11/06/24 11/06/24 11/06/24 Range/Units 06:16 06:16 06:16 WBC (4.5-10.0) K/mm3 RBC (4.2-5.4) M/mm3 Hgb (12.0-15.0) g/dL Hct (37.0-47.0) % MCV (80-100) fl MCH (26-34) pg MCHC (32-36) g/dl RDW (11.5-14.5) % Plt Count (150-375) k/mm3 MPV (7.4-10.4) fl Immature Gran % (Auto) (0-0.5) % Neut % (Auto) (45.5-73.1) % Lymph % (Auto) (18.3-44.2) % [place] % (Auto) (2.6-8.5) % Eos % (Auto) (0-4.4) % Baso % (Auto) (0.2-1.2) % Lymph # (Auto) (0.9-3.2) K/mm3 [place] # (Auto) (0.1-0.6) K/mm3 Eos # (Auto) (0-0.3) K/mm3 Baso # (Auto) (0.0-0.1) K/mm3 Abs Immat Gran (auto) (0.00-0.031) K/mm3 Absolute Neuts (auto) (1.3-6.7) K/mm3 Absolute Nucleated RBC (0.0-0.012) K/mm3 Nucleated RBC % (0.0-0.2) % PT (11.1-14.7) Seconds INR APTT (22.3-36.8) Seconds Sodium (137-145) mmol/L Potassium (3.4-5.0) mmol/L Chloride (98-107) mmol/L Carbon Dioxide (22-30) mmol/L Anion Gap (4-12) mmol/L BUN (7-17) mg/dL Creatinine (0.7-1.0) mg/dL Estim Creat Clear Calc ml/min Estimated GFR (59 - ) Glucose (65-110) mg/dL Lactic Acid (0.7-2.0) mmol/L Calcium (8.4-10.2) mg/dL Phosphorus (2.5-4.5) mg/dL Magnesium (1.6-2.3) mg/dL Total Bilirubin (0.2-1.3) mg/dL AST (14-36) U/L ALT (6-35) U/L Alkaline Phosphatase 81 (38-126) U/L Total Creatine Kinase 36 (30-135) U/L Troponin I < 0.012 (0.000-0.034) ng/mL NT-Pro-B Natriuret Pep 44 (19.9-100) pg/mL Total Protein 7.0 7.0 (6.3-8.2) g/dL Albumin 3.8 3.7 (3.5-5.1) g/dL Lipase 21 L (23-300) U/L TSH (Reflex) 0.422 L (0.465-4.68) uIU/mL Free T4 1.70 (0.78-2.19) ng/dL Total T3 1.18 (0.97-1.69) NG/ML Urine Color (Yellow) Urine Appearance (Clear) Urine pH (5.0-9.0) Ur Specific [place] (1.001-1.035) Urine Protein (Negative) mg/dL Urine Glucose (UA) (Negative) mg/dL Urine Ketones (Negative) mg/dL Ur Blood (Man) (Negative) Urine Nitrate (Negative) Urine Bilirubin (Negative) Urine Urobilinogen (<2.0) mg/dL Add Ur Microanalysis Leukocyte Esterase Rfl (Negative) MARGOTH/UL Urine RBC (0-2) /hpf Urine WBC (0-3) /hpf Ur Squamous Epith Cells (Few) /hpf Urine Bacteria /hpf Urine Casts Urine Opiates Screen (Negative) Urine Methadone Screen (Negative) Ur Barbiturates Screen (Negative) Ur Phencyclidine Scrn (Negative) Ur Amphetamine Screen (Negative) U Benzodiazepines Scrn (Negative) Urine Cocaine Screen (Negative) U Cannabinoids Screen (Negative) Ethyl Alcohol < 10 (<10) mg/dL Influenza A (RT-PCR) (Negative) Influenza B (RT-PCR) (Negative) RSV (RT-PCR) (Negative) SARS-CoV-2 RNA (RT-PCR) (Negative) 11/06/24 11/06/24 Range/Units 06:24 09:17 WBC (4.5-10.0) K/mm3 RBC (4.2-5.4) M/mm3 Hgb (12.0-15.0) g/dL Hct (37.0-47.0) % MCV (80-100) fl MCH (26-34) pg MCHC (32-36) g/dl RDW (11.5-14.5) % Plt Count (150-375) k/mm3 MPV (7.4-10.4) fl Immature Gran % (Auto) (0-0.5) % Neut % (Auto) (45.5-73.1) % Lymph % (Auto) (18.3-44.2) % [place] % (Auto) (2.6-8.5) % Eos % (Auto) (0-4.4) % Baso % (Auto) (0.2-1.2) % Lymph # (Auto) (0.9-3.2) K/mm3 [place] # (Auto) (0.1-0.6) K/mm3 Eos # (Auto) (0-0.3) K/mm3 Baso # (Auto) (0.0-0.1) K/mm3 Abs Immat Gran (auto) (0.00-0.031) K/mm3 Absolute Neuts (auto) (1.3-6.7) K/mm3 Absolute Nucleated RBC (0.0-0.012) K/mm3 Nucleated RBC % (0.0-0.2) % PT (11.1-14.7) Seconds INR APTT (22.3-36.8) Seconds Sodium (137-145) mmol/L Potassium (3.4-5.0) mmol/L Chloride (98-107) mmol/L Carbon Dioxide (22-30) mmol/L Anion Gap (4-12) mmol/L BUN (7-17) mg/dL Creatinine (0.7-1.0) mg/dL Estim Creat Clear Calc ml/min Estimated GFR (59 - ) Glucose (65-110) mg/dL Lactic Acid 1.1 (0.7-2.0) mmol/L Calcium (8.4-10.2) mg/dL Phosphorus (2.5-4.5) mg/dL Magnesium (1.6-2.3) mg/dL Total Bilirubin (0.2-1.3) mg/dL AST (14-36) U/L ALT (6-35) U/L Alkaline Phosphatase (38-126) U/L Total Creatine Kinase (30-135) U/L Troponin I < 0.012 (0.000-0.034) ng/mL NT-Pro-B Natriuret Pep (19.9-100) pg/mL Total Protein (6.3-8.2) g/dL Albumin (3.5-5.1) g/dL Lipase (23-300) U/L TSH (Reflex) (0.465-4.68) uIU/mL Free T4 (0.78-2.19) ng/dL Total T3 (0.97-1.69) NG/ML Urine Color Yellow (Yellow) Urine Appearance Cloudy H (Clear) Urine pH 6.0 (5.0-9.0) Ur Specific [place] 1.012 (1.001-1.035) Urine Protein Negative (Negative) mg/dL Urine Glucose (UA) Negative (Negative) mg/dL Urine Ketones Negative (Negative) mg/dL Ur Blood (Man) Negative (Negative) Urine Nitrate Negative (Negative) Urine Bilirubin Negative (Negative) Urine Urobilinogen 0.2 (<2.0) mg/dL Add Ur Microanalysis Reviewed Leukocyte Esterase Rfl 3+ H (Negative) MARGOTH/UL Urine RBC 0-2 (0-2) /hpf Urine WBC >100 H (0-3) /hpf Ur Squamous Epith Cells None seen (Few) /hpf Urine Bacteria Rare /hpf Urine Casts 11-20 Urine Opiates Screen Negative (Negative) Urine Methadone Screen Negative (Negative) Ur Barbiturates Screen Negative (Negative) Ur Phencyclidine Scrn Negative (Negative) Ur Amphetamine Screen Negative (Negative) U Benzodiazepines Scrn Negative (Negative) Urine Cocaine Screen Negative (Negative) U Cannabinoids Screen Negative (Negative) Ethyl Alcohol (<10) mg/dL Influenza A (RT-PCR) Negative (Negative) Influenza B (RT-PCR) Negative (Negative) RSV (RT-PCR) Negative (Negative) SARS-CoV-2 RNA (RT-PCR) Negative (Negative) ABG Data ABG results: 11/06/24 06:30 Puncture Site Right radial ABG pH 7.444 ABG pCO2 37.5 ABG pO2 56.3 L ABG PO2/FiO2 Ratio 2.68 ABG HCO3 25.1 ABG O2 Saturation 90.6 L ABG O2 Content 16.2 ABG Base Excess 1.2 A-a Gradient 48.5 Oxyhemoglobin 88.7 L Total Hemoglobin 13.0 O2 Delivery Device Room air O2 Liters/Min Not Reportable FiO2 21 Imaging Data Radiologist's impression: Impressions Head CT 11/06/24 08:52 Impression: No acute intracranial hemorrhage or suspicious mass effect. Abdomen/Pelvis CT 11/06/24 09:00 IMPRESSION: No acute intra-abdominal findings. Innumerable nonacute findings, as detailed above. Indeterminate soft tissue attenuation focus within the left kidney for which focused ultrasound may be performed nonemergently versus contrast-enhanced MRI Chest X-Ray 11/06/24 09:19 IMPRESSION: Possible early infiltrate within the left mid to lower lung field Discharge Plan Discharge Clinical Impression: AMS (altered mental status), Acute UTI Patient Disposition: Still a Patient Condition: Serious
[2024-11-06] MEDS: SODIUM CHLORIDE 0.9% IV 200 ML 999 ML IV CONT (08:27)
[2024-11-06 08:57] LABS: Total Triiodothyronine (T3) 1.18 NG/ML (0.97-1.69)
--- NOTE | 2024-11-06 09:18 | ECG_ITS ---
Test Date: 2024-11-06 09:28:26 Measurements Intervals [place] Rate: 82 P: 65 WA: 124 QRS: 56 QRSD: 106 T: -25 QT: 368 QTc: 432 Interpretive Statements SINUS RHYTHM NONSPECIFIC T-WAVE ABNORMALITY Compared to ECG 11/06/2024 06:16:18 No significant changes Electronically Signed On 11-06-2024 10:09:20 VINYL INSTALLER by Stevenson Munoz M.D.
[2024-11-06 09:42] LABS: Troponin I < 0.012 ng/mL (0.000-0.034)
--- NOTE | 2024-11-06 10:56 | PC.NURSE ---
Called [facility] spoke with nurse Robert requested facesheet, dx, meds, all paperwork to be faxed to ED at [phone]
[2024-11-06 16:44] LABS: Glucose Point of Care 100 mg/dl (65-105)
--- NOTE | 2024-11-06 17:44 | P.HP_ITS ---
H&P: HPI History of Present Illness Date/Time: 11/06/24 17:44 Chief Complaint: Altered mental status Narrative: ER-HPI narrative: 74-year-old female present to the emergency department for evaluation after being found unresponsive at her care facility. Patient was minimally responsive upon arrival to the emergency department. At time of evaluation patient is more alert and appropriate. Patient does awake to voice and patient denies any major complaints but states she does have some abdominal pain to palpation. Currently patient is more awake, poor historian not sure why she is here, she did complaints of abdominal pain, but not sure about urinary symptoms however her is suspicious for UTI with 3+ leukocytes Esterase and >100 WBC, patient is started on ceftriaxone from ER, will continue will follow up urine culture. With concern for AMS patient had ct scan of head which is showed no acute intracranial hemorrhage or suspicious mass effect. will continue to monitor and have PT/OT evaluate. Review of Systems Review of Systems: All systems reviewed & are unremarkable except as noted in HPI and below PMFSH Social History Social History Smoking status: Never smoker Alcohol intake: never Substance use: never Substance use type: does not use Do You Feel Safe in your Home?: Yes Lack of Transportation: No Lack of Food: Never True Current Housing: I Have Housing Concerned About Future Housing: No Difficulty Paying Gas/Electric Bills: No Difficulty Paying for Meds: No Currently Unemployed: No Education: Decline to Answer Difficulty w/ Childcare or Family Care: No Spiritual care concerns: No Meds Home Medications and Allergies Home Medications ?Medication ?Instructions ?Recorded ?Confirmed ?Type acetaminophen 325 mg tablet 650 mg PO Q6H PRN pain 11/06/24 11/06/24 History (Tylenol) amlodipine 10 mg tablet (Norvasc) 10 mg PO DAILY 11/06/24 11/06/24 History atorvastatin 40 mg tablet (Lipitor) 40 mg PO HS 11/06/24 11/06/24 History benztropine 0.5 mg tablet 0.5 mg PO BID 11/06/24 11/06/24 History bisacodyl 10 mg rectal suppository 10 mg RECTAL DAILY PRN constipation 11/06/24 11/06/24 History carvedilol 3.125 mg tablet 3.125 mg PO BID 11/06/24 11/06/24 History cholecalciferol (vitamin D3) 25 1,000 unit PO DAILY 11/06/24 11/06/24 History mcg (1,000 unit) capsule cyanocobalamin (vitamin B-12) 1,000 mcg PO DAILY 11/06/24 11/06/24 History 1,000 mcg capsule famotidine 20 mg tablet 20 mg PO DAILY 11/06/24 11/06/24 History furosemide 40 mg tablet 40 mg PO DAILY 11/06/24 11/06/24 History furosemide 40 mg tablet 40 mg PO DAILY 11/06/24 11/06/24 History gabapentin 300 mg capsule 300 mg PO HS 11/06/24 11/06/24 History lactulose 10 gram/15 mL oral 30 ml PO PRN 11/06/24 11/06/24 History solution (Enulose) lamotrigine 100 mg tablet 100 mg PO DAILY 11/06/24 11/06/24 History (Lamictal) loperamide 2 mg tablet 2 mg PO Q8H PRN loose stool 11/06/24 11/06/24 History (Anti-Diarrheal (loperamide)) loratadine 10 mg tablet 10 mg PO DAILY 11/06/24 11/06/24 History magnesium citrate 296 ml PO DAILY PRN constipation 11/06/24 11/06/24 History magnesium hydroxide 400 mg/5 mL 30 ml PO HS PRN constipation 11/06/24 11/06/24 History oral suspension montelukast 10 mg tablet 10 mg PO DAILY 11/06/24 11/06/24 History multivitamin with minerals-folic 1 tablet PO DAILY 11/06/24 11/06/24 History acid 0.4 mg tablet ondansetron HCl 4 mg tablet 4 mg PO Q6H PRN nausea and vomiting 11/06/24 11/06/24 History polyethylene glycol 3350 17 17 g PO DAILY 11/06/24 11/06/24 History gram/dose oral powder potassium chloride 20 mEq 20 meq PO TID 11/06/24 11/06/24 History tablet,extended release (K-Tab) quetiapine 200 mg tablet 200 mg PO HS 11/06/24 11/06/24 History risperidone 0.25 mg tablet 0.25 mg PO BID 11/06/24 11/06/24 History risperidone microspheres 25 mg/2 25 mg IM Q14D 11/06/24 11/06/24 History mL intramuscular susp,ext release (Risperdal Consta) rivaroxaban 10 mg tablet 20 mg PO DAILY 11/06/24 11/06/24 History sennosides 8.6 mg-docusate sodium 2 tab-cap PO BID 11/06/24 11/06/24 History 50 mg capsule (Senna Plus) sertraline 50 mg tablet 50 mg PO DAILY 11/06/24 11/06/24 History Allergies Allergy/AdvReac Type Severity Reaction Status Date / Time No Known Allergies Allergy Unverified 10/07/18 16:47 Vital Signs Vital Signs - 24 hr 11/06/24 05:52 11/06/24 06:11 11/06/24 06:11 Temperature 38.0 C H Pulse Rate 83 79 Respiratory Rate 13 Blood Pressure 139/53 L Pulse Oximetry 95 94 Oxygen Delivery Room Air Room Air 11/06/24 06:11 11/06/24 06:16 11/06/24 06:31 Temperature Pulse Rate 79 83 78 Respiratory Rate 26 H 20 13 Blood Pressure 130/53 L 130/54 L 122/69 Pulse Oximetry 94 94 96 Oxygen Delivery 11/06/24 06:32 11/06/24 06:45 11/06/24 07:00 Temperature 36.9 C Pulse Rate 77 73 75 Respiratory Rate 13 13 13 Blood Pressure 134/50 L Pulse Oximetry 92 92 94 Oxygen Delivery 11/06/24 07:18 11/06/24 07:18 11/06/24 08:00 Temperature 37.2 C Pulse Rate 80 Respiratory Rate Blood Pressure Pulse Oximetry 96 Oxygen Delivery Room Air 11/06/24 08:15 11/06/24 08:16 11/06/24 08:30 Temperature Pulse Rate 90 88 93 Respiratory Rate 13 14 17 Blood Pressure 133/48 L Pulse Oximetry 88 L 94 Oxygen Delivery 11/06/24 08:48 11/06/24 09:00 11/06/24 09:01 Temperature Pulse Rate 83 82 82 Respiratory Rate 12 13 13 Blood Pressure 117/53 L Pulse Oximetry 96 98 Oxygen Delivery 11/06/24 09:02 11/06/24 09:17 11/06/24 09:31 Temperature Pulse Rate 81 81 81 Respiratory Rate 13 15 12 Blood Pressure 136/51 L Pulse Oximetry 94 96 99 Oxygen Delivery 11/06/24 09:46 11/06/24 09:47 11/06/24 10:16 Temperature Pulse Rate 90 89 96 Respiratory Rate 16 14 12 Blood Pressure 130/54 L 116/48 L Pulse Oximetry 98 99 Oxygen Delivery 11/06/24 10:17 11/06/24 10:31 11/06/24 10:49 Temperature Pulse Rate 104 H 98 86 Respiratory Rate 13 14 14 Blood Pressure 113/65 Pulse Oximetry Oxygen Delivery 11/06/24 11:16 11/06/24 11:44 11/06/24 11:46 Temperature 36.4 C L Pulse Rate 98 87 Respiratory Rate 18 17 Blood Pressure 126/76 150/60 H Pulse Oximetry 94 98 Oxygen Delivery 11/06/24 12:01 11/06/24 12:16 11/06/24 12:31 Temperature Pulse Rate 82 81 81 Respiratory Rate 12 16 13 Blood Pressure 122/64 109/61 119/68 Pulse Oximetry 96 93 94 Oxygen Delivery 11/06/24 13:31 11/06/24 13:46 11/06/24 14:01 Temperature Pulse Rate 86 85 84 Respiratory Rate 15 15 14 Blood Pressure 145/69 H 132/69 138/69 Pulse Oximetry 97 Oxygen Delivery 11/06/24 14:46 11/06/24 15:16 11/06/24 16:45 Temperature 36.6 C 37.0 C Pulse Rate 103 H 105 H 94 Respiratory Rate 19 20 20 Blood Pressure 150/69 H 143/67 H 139/69 Pulse Oximetry 98 Oxygen Delivery Exam Narrative: Patient is comfortable, NAD HEENT: eyes are clear and none icteric LUNGS:CTA HEART: RR S1S2 ABD: BS+, Soft and nontender Lower extremities: no edema SKIN: nonjaundiced Neuro: grossly intact. H&P: Results Labs Labs: Short CBC 11/06/24 Range/Units 06:16 WBC 11.4 H (4.5-10.0) K/mm3 Hgb 12.4 (12.0-15.0) g/dL Hct 38.5 (37.0-47.0) % Plt Count 297 (150-375) k/mm3 BMP 11/06/24 11/06/24 11/06/24 06:16 06:16 06:16 Sodium 137 137 Potassium 4.1 4.1 Chloride 101 Carbon Dioxide BUN Creatinine Glucose Calcium 11/06/24 11/06/24 11/06/24 06:16 06:16 06:16 Sodium Potassium Chloride 102 Carbon Dioxide 27 28 BUN 11 11 Creatinine 1.03 H Glucose Calcium 11/06/24 11/06/24 11/06/24 06:16 06:16 06:16 Sodium Potassium Chloride Carbon Dioxide BUN Creatinine 1.04 H Glucose 110 108 Calcium 9.3 9.3 Cardiac Enzymes 11/06/24 11/06/24 Range/Units 06:16 09:17 Total Creatine Kinase 36 (30-135) U/L Troponin I < 0.012 < 0.012 (0.000-0.034) ng/mL Liver Function 11/06/24 11/06/24 11/06/24 Range/Units 06:16 06:16 06:16 Total Bilirubin 0.6 0.7 (0.2-1.3) mg/dL AST 22 33 (14-36) U/L ALT 24 (6-35) U/L Alkaline Phosphatase (38-126) U/L Albumin (3.5-5.1) g/dL 11/06/24 11/06/24 11/06/24 Range/Units 06:16 06:16 06:16 Total Bilirubin (0.2-1.3) mg/dL AST (14-36) U/L ALT 24 (6-35) U/L Alkaline Phosphatase 82 81 (38-126) U/L Albumin 3.8 3.7 (3.5-5.1) g/dL Urine 11/06/24 Range/Units 06:24 Urine Color Yellow (Yellow) Urine Appearance Cloudy H (Clear) Urine pH 6.0 (5.0-9.0) Ur Specific [place] 1.012 (1.001-1.035) Urine Protein Negative (Negative) mg/dL Urine Glucose (UA) Negative (Negative) mg/dL Assessment and Plan Assessment and plan (1) Acute UTI: Code(s): N39.0 - Urinary tract infection, site not specified Status: Acute (2) AMS (altered mental status): Code(s): R41.82 - Altered mental status, unspecified Status: Acute (3) Hypertension: Code(s): I10 - Essential (primary) hypertension Status: Acute (4) Bipolar 1 disorder: Code(s): F31.9 - Bipolar disorder, unspecified Status: Acute Plan Currently patient is more awake, poor historian not sure why she is here, she did complaints of abdominal pain, but not sure about urinary symptoms however her is suspicious for UTI with 3+ leukocytes Esterase and >100 WBC, patient is started on ceftriaxone from ER, will continue will follow up urine culture. With concern for AMS patient had ct scan of head which is showed no acute intracranial hemorrhage or suspicious mass effect. will continue to monitor and have PT/OT evaluate. Quality VTE Prophylaxis VTE prophylaxis: pharmacologic ordered Hospitalist [facility] Advance Care Plan I have confirmed that the patient's Advanced Care Plan is present, code status is documented, or surrogate decision maker is listed in patient medical record.: Yes Medication Reconciliation I have utilized all available resources to obtain, update and review the patients current medications (includes all prescriptions, OTC, herbals, cannabis, and nutritional supplements).: Yes
[2024-11-06] MEDS: carvediloL 3.125 MG TABLET PO (21:49)
[2024-11-06] MEDS: QUEtiapine FUMARATE 100 MG TABLET 200 MG PO (21:49)
[2024-11-07] VITALS (10 sets, daily range): BP systolic 128–152; BP diastolic 47–60; PULSE 66–92; RESP 16–18; TEMP 36.6–37.1; O2SAT 92–94; BMI 28.5
[2024-11-07 07:09] LABS: Hematocrit 32.6 % (37.0-47.0); Hemoglobin 10.5 g/dL (12.0-15.0); Mean Corpuscular HGB Conc 32.2 g/dl (32-36); Mean Corpuscular Hemoglobin 30.4 pg (26-34); Mean Corpuscular Volume 94.5 fl (80-100); Mean Platelet Volume 9.4 fl (7.4-10.4); Platelet Count Result 256 k/mm3 (150-375); Red Blood Count 3.45 M/mm3 (4.2-5.4); Red Cell Distribution Width 12.5 % (11.5-14.5); White Blood Count 10.7 K/mm3 (4.5-10.0)
[2024-11-07 07:21] LABS: Anion Gap 6 mmol/L (4-12); Blood Urea Nitrogen 5 mg/dL (7-17); Calcium 8.9 mg/dL (8.4-10.2); Carbon Dioxide 25 mmol/L (22-30); Chloride 107 mmol/L (98-107); Estimated CRCL calculation 63 ml/min; Estimated Glomerular Filt Rate > 60; Glucose 89 mg/dL (65-110); Magnesium 1.7 mg/dL (1.6-2.3); Potassium 3.4 mmol/L (3.4-5.0); Sodium 138 mmol/L (137-145)
[2024-11-07] MEDS: lamoTRIgine 100 MG TABLET PO (09:04)
[2024-11-07] MEDS: POTASSIUM CHLORIDE 20 MEQ ER TABLET PO ×3 (09:04→16:14)
[2024-11-07] MEDS: SENNA/DOCUSATE SODIUM TABLET 2 TAB PO (09:04)
[2024-11-07] MEDS: risperiDONE 0.25 MG TABLET PO ×2 (09:05→16:14)
[2024-11-07] MEDS: CYANOCOBALAMIN 1,000 MCG TABLET 1000 MCG PO (09:05)
[2024-11-07] MEDS: BENZTROPINE MESYLATE 0.5 MG TABLET PO ×2 (09:05→16:15)
[2024-11-07] MEDS: FAMOTIDINE 20 MG TABLET PO (09:05)
[2024-11-07] MEDS: amLODIPine BESYLATE 10 MG TABLET PO (09:05)
[2024-11-07] MEDS: FUROSEMIDE 40 MG TABLET PO (09:05)
[2024-11-07] MEDS: SERTRALINE HCL 50 MG TABLET PO (09:05)
[2024-11-07] MEDS: RIVAROXABAN 10 MG TABLET 20 MG PO (09:05)
[2024-11-07] MEDS: MONTELUKAST SODIUM 10 MG TABLET PO (09:05)
[2024-11-07] MEDS: carvediloL 3.125 MG TABLET PO ×2 (09:06→21:15)
--- NOTE | 2024-11-07 13:35 | PM.IMPN ---
Progress Note: A&P Assessment and Plan (1) Acute UTI: Code(s): N39.0 - Urinary tract infection, site not specified Status: Acute (2) AMS (altered mental status): Code(s): R41.82 - Altered mental status, unspecified Status: Acute (3) Hypertension: Code(s): I10 - Essential (primary) hypertension Status: Acute (4) Bipolar 1 disorder: Code(s): F31.9 - Bipolar disorder, unspecified Status: Acute Plan Currently patient is more awake, poor historian not sure why she is here, she did complaints of abdominal pain, but not sure about urinary symptoms however her is suspicious for UTI with 3+ leukocytes Esterase and >100 WBC, patient is started on ceftriaxone from ER, will continue will follow up urine culture. With concern for AMS patient had ct scan of head which is showed no acute intracranial hemorrhage or suspicious mass effect. will continue to monitor and have PT/OT evaluate. today patient is little more awake, feels better, will conitnue ceftriaxone and follow up with urine culture, will have PT/OT evaluate the patient and patient will benefit going to acute rehab Subjective Date/time seen: 11/07/24 13:35 Interval history: Currently patient is more awake, poor historian not sure why she is here, she did complaints of abdominal pain, but not sure about urinary symptoms however her is suspicious for UTI with 3+ leukocytes Esterase and >100 WBC, patient is started on ceftriaxone from ER, will continue will follow up urine culture. With concern for AMS patient had ct scan of head which is showed no acute intracranial hemorrhage or suspicious mass effect. will continue to monitor and have PT/OT evaluate. today patient is little more awake, feels better, will conitnue ceftriaxone and follow up with urine culture, will have PT/OT evaluate the patient and patient will benefit going to acute rehab Review of Systems Review of Systems: All systems reviewed & are unremarkable except as noted in HPI and below Exam Narrative: Patient is comfortable, NAD HEENT: eyes are clear and none icteric LUNGS:CTA HEART: RR S1S2 ABD: BS+, Soft and nontender Lower extremities: no edema SKIN: nonjaundiced Neuro: grossly intact. Objective Data Vital Signs Vital Signs: Vital Signs - 24 hr 11/06/24 13:46 11/06/24 14:01 11/06/24 14:46 Temperature 36.6 C Pulse Rate 85 84 103 H Respiratory Rate 15 14 19 Blood Pressure 132/69 138/69 150/69 H Pulse Oximetry Oxygen Delivery 11/06/24 15:16 11/06/24 16:45 11/06/24 17:45 Temperature 37.0 C 37.0 C Pulse Rate 105 H 94 100 Respiratory Rate 20 20 Blood Pressure 143/67 H 139/69 143/59 H Pulse Oximetry 98 95 Oxygen Delivery 11/06/24 20:00 11/06/24 20:01 11/06/24 21:48 Temperature 36.6 C Pulse Rate 98 93 Respiratory Rate 16 Blood Pressure 140/47 L Pulse Oximetry 93 Oxygen Delivery Room Air 11/07/24 00:03 11/07/24 04:01 11/07/24 06:00 Temperature 37.1 C Pulse Rate 85 77 85 Respiratory Rate 16 Blood Pressure 149/47 H Pulse Oximetry 92 Oxygen Delivery 11/07/24 09:06 Temperature Pulse Rate 90 Respiratory Rate Blood Pressure Pulse Oximetry Oxygen Delivery Intake/Output Intake/Output: Intake & Output 11/04/24 11/05/24 11/06/24 11/07/24 23:59 23:59 23:59 23:59 Intake Total 2250 450 Output Total 1000 450 Balance 1250 0 Meds/Results Medications: Active Medications Generic Name Dose Route Start Last Admin Trade Name Freq PRN Reason Stop Dose Admin Acetaminophen 650 mg 11/06/24 09:54 Acetaminophen 650 Mg Suppository RECTAL Q6H PRN Mild Pain (1-3) or Fever Amlodipine Besylate 10 mg 11/07/24 09:00 11/07/24 09:05 Amlodipine Besylate 10 Mg Tablet PO 10 mg DAILY ADAM Administration Benztropine Mesylate 0.5 mg 11/07/24 09:00 11/07/24 09:05 Benztropine Mesylate 0.5 Mg Tablet PO 0.5 mg BID ADAM Administration Carvedilol 3.125 mg 11/06/24 21:00 11/07/24 09:06 Carvedilol 3.125 Mg Tablet PO 3.125 mg Q12HR ADAM Administration Cyanocobalamin 1,000 mcg 11/07/24 09:00 11/07/24 09:05 Cyanocobalamin 1,000 Mcg Tablet PO 1,000 mcg DAILY ADAM Administration Famotidine 20 mg 11/07/24 09:00 11/07/24 09:05 Famotidine 20 Mg Tablet PO 20 mg DAILY ADAM Administration Furosemide 40 mg 11/07/24 09:00 11/07/24 09:05 Furosemide 40 Mg Tablet PO 40 mg DAILY ADAM Administration Ceftriaxone Sodium 1 gm in 50 mls @ 100 mls/hr 11/07/24 06:00 11/07/24 05:18 Rocephin 1 Gm/Ns 50 Ml IVPB 100 mls/hr Q24H ADAM Administration Lamotrigine 100 mg 11/07/24 09:00 11/07/24 09:04 Lamotrigine 100 Mg Tablet PO 100 mg DAILY ADAM Administration Montelukast Sodium 10 mg 11/07/24 09:00 11/07/24 09:05 Montelukast Sodium 10 Mg Tablet PO 10 mg DAILY ADAM Administration Potassium Chloride 20 meq 11/07/24 09:00 11/07/24 12:24 Potassium Chloride 20 Meq Er Tablet PO 20 meq TID ADAM Administration Quetiapine Fumarate 200 mg 11/06/24 21:00 11/06/24 21:49 Quetiapine Fumarate 100 Mg Tablet PO 200 mg HS ADAM Administration Risperidone 0.25 mg 11/07/24 09:00 11/07/24 09:05 Risperidone 0.25 Mg Tablet PO 0.25 mg BID ADAM Administration Rivaroxaban 20 mg 11/07/24 09:00 11/07/24 09:05 Rivaroxaban 10 Mg Tablet PO 20 mg DAILY ADAM Administration Senna/Docusate Sodium 2 tab 11/07/24 09:00 11/07/24 09:04 Senna/Docusate Sodium Tablet PO 2 tab BID ADAM Administration Sertraline HCl 50 mg 11/07/24 09:00 11/07/24 09:05 Sertraline Hcl 50 Mg Tablet PO 50 mg DAILY ADAM Administration Radiology Results: ITS Impressions Head CT 11/06/24 08:52 Impression: No acute intracranial hemorrhage or suspicious mass effect. Abdomen/Pelvis CT 11/06/24 09:00 IMPRESSION: No acute intra-abdominal findings. Innumerable nonacute findings, as detailed above. Indeterminate soft tissue attenuation focus within the left kidney for which focused ultrasound may be performed nonemergently versus contrast-enhanced MRI Chest X-Ray 11/06/24 09:19 IMPRESSION: Possible early infiltrate within the left mid to lower lung field Labs Labs: Laboratory Results - last 24 hr 11/06/24 11/07/24 16:42 06:18 WBC 10.7 H RBC 3.45 L Hgb 10.5 L Hct 32.6 L MCV 94.5 MCH 30.4 MCHC 32.2 RDW 12.5 Plt Count 256 MPV 9.4 Sodium 138 Potassium 3.4 Chloride 107 Carbon Dioxide 25 Anion Gap 6 BUN 5 L D Creatinine 0.65 L Estim Creat Clear Calc 63 Estimated GFR > 60 Glucose 89 POC Capillary Glucose 100 Calcium 8.9 Magnesium 1.7 Quality VTE Prophylaxis VTE prophylaxis: pharmacologic ordered
[2024-11-07] MEDS: QUEtiapine FUMARATE 100 MG TABLET 200 MG PO (21:15)
[2024-11-08] VITALS (11 sets, daily range): BP systolic 139–152; BP diastolic 49–67; PULSE 65–93; RESP 18–20; TEMP 36.4–36.5; O2SAT 92–98
[2024-11-08] MEDS: ACETAMINOPHEN 325 MG TABLET 650 MG PO ×2 (00:50→09:16)
[2024-11-08 06:47] LABS: Hematocrit 34.1 % (37.0-47.0); Mean Corpuscular HGB Conc 32.3 g/dl (32-36); Mean Corpuscular Hemoglobin 29.8 pg (26-34); Mean Corpuscular Volume 92.4 fl (80-100); Mean Platelet Volume 9.3 fl (7.4-10.4); Platelet Count Result 279 k/mm3 (150-375); Red Blood Count 3.69 M/mm3 (4.2-5.4); Red Cell Distribution Width 12.2 % (11.5-14.5); White Blood Count 10.4 K/mm3 (4.5-10.0)
[2024-11-08 06:58] LABS: Anion Gap 8 mmol/L (4-12); Blood Urea Nitrogen 6 mg/dL (7-17); Calcium 9.3 mg/dL (8.4-10.2); Carbon Dioxide 26 mmol/L (22-30); Chloride 102 mmol/L (98-107); Estimated CRCL calculation 63 ml/min; Estimated Glomerular Filt Rate > 60; Glucose 112 mg/dL (65-110); Magnesium 1.8 mg/dL (1.6-2.3); Potassium 3.9 mmol/L (3.4-5.0); Sodium 136 mmol/L (137-145)
[2024-11-08] MEDS: SENNA/DOCUSATE SODIUM TABLET 2 TAB PO ×2 (09:17→17:26)
[2024-11-08] MEDS: FUROSEMIDE 40 MG TABLET PO (09:17)
[2024-11-08] MEDS: BENZTROPINE MESYLATE 0.5 MG TABLET PO ×2 (09:17→17:26)
[2024-11-08] MEDS: lamoTRIgine 100 MG TABLET PO (09:17)
[2024-11-08] MEDS: RIVAROXABAN 10 MG TABLET 20 MG PO (09:17)
[2024-11-08] MEDS: POTASSIUM CHLORIDE 20 MEQ ER TABLET PO ×3 (09:17→17:26)
[2024-11-08] MEDS: carvediloL 3.125 MG TABLET PO ×2 (09:17→20:23)
[2024-11-08] MEDS: SERTRALINE HCL 50 MG TABLET PO (09:18)
[2024-11-08] MEDS: MONTELUKAST SODIUM 10 MG TABLET PO (09:18)
[2024-11-08] MEDS: FAMOTIDINE 20 MG TABLET PO (09:18)
[2024-11-08] MEDS: CYANOCOBALAMIN 1,000 MCG TABLET 1000 MCG PO (09:19)
[2024-11-08] MEDS: amLODIPine BESYLATE 10 MG TABLET PO (09:19)
[2024-11-08] MEDS: risperiDONE 0.25 MG TABLET PO ×2 (09:19→17:26)
--- NOTE | 2024-11-08 11:03 | PCPTNOTE ---
1100: HOLD PT evaluation due to increased hip pain; discussed pt with YANNICK Ricci.
[2024-11-08] MEDS: MORPHINE SULFATE (*CRX) 2 MG/ML INJ IV PUSH ×2 (11:10→17:26)
--- NOTE | 2024-11-08 16:49 | PM.IMPN ---
Progress Note: A&P Assessment and Plan (1) Acute UTI: Code(s): N39.0 - Urinary tract infection, site not specified Status: Acute (2) AMS (altered mental status): Code(s): R41.82 - Altered mental status, unspecified Status: Acute (3) Hypertension: Code(s): I10 - Essential (primary) hypertension Status: Acute (4) Bipolar 1 disorder: Code(s): F31.9 - Bipolar disorder, unspecified Status: Acute Plan Acute UTI Continue Rocephin monitor urine cultures AMS improving patient was awake and answering questions ?baseline Right hip pain CT plevis no fractrue ortho consulted to re-examine patient and CT for fracture HTN titrate home meds with clinical course Bipolar disorder continue home meds DVt prophylaxis on Xarelto Subjective Date/time seen: 11/08/24 16:49 Interval history: patient complained of right hip pain and was unable to move it this morning due to pain CT did not show any fracture, ortho consulted Review of Systems Review of Systems: All systems reviewed & are unremarkable except as noted in HPI and below Exam Narrative: Patient is comfortable, NAD HEENT: eyes are clear and none icteric LUNGS:CTA HEART: RR S1S2 ABD: BS+, Soft and nontender Lower extremities: unable to move RLE due to pain at the hip SKIN: nonjaundiced Neuro: grossly intact. Objective Data Vital Signs Vital Signs: Vital Signs - 24 hr 11/07/24 20:00 11/07/24 20:00 11/07/24 21:46 Temperature 97.9 F Pulse Rate 92 91 Respiratory Rate 18 Blood Pressure 152/55 H Pulse Oximetry 94 Oxygen Delivery Room Air 11/08/24 00:00 11/08/24 04:00 11/08/24 06:00 Temperature 97.6 F Pulse Rate 93 65 85 Respiratory Rate 18 Blood Pressure 152/66 H Pulse Oximetry 97 Oxygen Delivery 11/08/24 08:00 11/08/24 09:17 11/08/24 10:18 Temperature Pulse Rate 79 Respiratory Rate Blood Pressure Pulse Oximetry 92 Oxygen Delivery Room Air Room Air 11/08/24 14:00 Temperature 97.6 F Pulse Rate 76 Respiratory Rate 18 Blood Pressure 150/67 H Pulse Oximetry 98 Oxygen Delivery Intake/Output Intake/Output: Intake & Output 11/05/24 11/06/24 11/07/2425 23:59 23:59 23:59 23:59 Intake Total 2250 980 1220 Output Total 1000 4315 1350 Balance 3383 -992 -464 Meds/Results Medications: Active Medications Generic Name Dose Route Start Last Admin Trade Name Freq PRN Reason Stop Dose Admin Acetaminophen 650 mg 11/07/24 23:09 11/08/24 09:16 Acetaminophen 325 Mg Tablet PO 650 mg Q6H PRN Administration Mild Pain (1-3) or Fever Amlodipine Besylate 10 mg 11/07/24 09:00 11/08/24 09:19 Amlodipine Besylate 10 Mg Tablet PO 10 mg DAILY ADAM Administration Benztropine Mesylate 0.5 mg 11/07/24 09:00 11/08/24 09:17 Benztropine Mesylate 0.5 Mg Tablet PO 0.5 mg BID ADAM Administration Carvedilol 3.125 mg 11/06/24 21:00 11/08/24 09:17 Carvedilol 3.125 Mg Tablet PO 3.125 mg Q12HR ADAM Administration Cyanocobalamin 1,000 mcg 11/07/24 09:00 11/08/24 09:19 Cyanocobalamin 1,000 Mcg Tablet PO 1,000 mcg DAILY ADAM Administration Famotidine 20 mg 11/07/24 09:00 11/08/24 09:18 Famotidine 20 Mg Tablet PO 20 mg DAILY ADAM Administration Furosemide 40 mg 11/07/24 09:00 11/08/24 09:17 Furosemide 40 Mg Tablet PO 40 mg DAILY ADAM Administration Ceftriaxone Sodium 1 gm in 50 mls @ 100 mls/hr 11/07/24 06:00 11/08/24 05:45 Rocephin 1 Gm/Ns 50 Ml IVPB 100 mls/hr Q24H ADAM Administration Lamotrigine 100 mg 11/07/24 09:00 11/08/24 09:17 Lamotrigine 100 Mg Tablet PO 100 mg DAILY ADAM Administration Montelukast Sodium 10 mg 11/07/24 09:00 11/08/24 09:18 Montelukast Sodium 10 Mg Tablet PO 10 mg DAILY ADAM Administration Morphine Sulfate 2 mg 11/08/24 09:49 11/08/24 11:10 Morphine Sulfate (*Crx) 2 Mg/Ml Inj IV PUSH 2 mg Q4H PRN Administration Pain Rated 7-10 Potassium Chloride 20 meq 11/07/24 09:00 11/08/24 12:26 Potassium Chloride 20 Meq Er Tablet PO 20 meq TID ADAM Administration Quetiapine Fumarate 200 mg 11/06/24 21:00 11/07/24 21:15 Quetiapine Fumarate 100 Mg Tablet PO 200 mg HS ADAM Administration Risperidone 0.25 mg 11/07/24 09:00 11/08/24 09:19 Risperidone 0.25 Mg Tablet PO 0.25 mg BID ADAM Administration Rivaroxaban 20 mg 11/07/24 09:00 11/08/24 09:17 Rivaroxaban 10 Mg Tablet PO 20 mg DAILY ADAM Administration Senna/Docusate Sodium 2 tab 11/07/24 09:00 11/08/24 09:17 Senna/Docusate Sodium Tablet PO 2 tab BID ADAM Administration Sertraline HCl 50 mg 11/07/24 09:00 11/08/24 09:18 Sertraline Hcl 50 Mg Tablet PO 50 mg DAILY ADAM Administration Radiology Results: ITS Impressions Head CT 11/06/24 08:52 Impression: No acute intracranial hemorrhage or suspicious mass effect. Abdomen/Pelvis CT 11/06/24 09:00 IMPRESSION: No acute intra-abdominal findings. Innumerable nonacute findings, as detailed above. Indeterminate soft tissue attenuation focus within the left kidney for which focused ultrasound may be performed nonemergently versus contrast-enhanced MRI Chest X-Ray 11/06/24 09:19 IMPRESSION: Possible early infiltrate within the left mid to lower lung field Hip/Pelvis X-Ray 11/07/24 22:02 IMPRESSION: As above. Pelvis CT 11/08/24 06:23 Impression: No acute fracture or dislocation. Mild degenerative changes overall, as detailed above. Probable 3.1 cm right ovarian cyst. Pelvic ultrasound recommended to further assess given patient age. Labs Labs: Laboratory Results - last 24 hr 11/08/24 06:04 WBC 10.4 H RBC 3.69 L Hgb 11.0 L Hct 34.1 L MCV 92.4 MCH 29.8 MCHC 32.3 RDW 12.2 Plt Count 279 MPV 9.3 Sodium 136 L Potassium 3.9 Chloride 102 Carbon Dioxide 26 Anion Gap 8 BUN 6 L Creatinine 0.65 L Estim Creat Clear Calc 63 Estimated GFR > 60 Glucose 112 H Calcium 9.3 Magnesium 1.8 Quality VTE Prophylaxis VTE prophylaxis: pharmacologic ordered
[2024-11-08] MEDS: QUEtiapine FUMARATE 100 MG TABLET 200 MG PO (20:23)
[2024-11-09] VITALS (11 sets, daily range): BP systolic 121–167; BP diastolic 56–73; PULSE 87–111; RESP 14–16; TEMP 36.2–37.1; O2SAT 90–97
[2024-11-09 06:29] LABS: Basophils Percent Auto 0.3 % (0.2-1.2); Eosinophils Absolute Auto 0.1 K/mm3 (0-0.3); Hematocrit 37.9 % (37.0-47.0); Hemoglobin 12.5 g/dL (12.0-15.0); Immature Granulocyte Absolute 0.03 K/mm3 (0.00-0.031); Immature Granulocyte Percent A 0.3 % (0-0.5); Lymphocytes Absolute Auto 1.96 K/mm3 (0.9-3.2); Lymphocytes Percent Auto 17.2 % (18.3-44.2); Mean Corpuscular Hemoglobin 30.1 pg (26-34); Mean Corpuscular Volume 91.3 fl (80-100); Mean Platelet Volume 9.2 fl (7.4-10.4); Monocytes Absolute Auto 0.9 K/mm3 (0.1-0.6); Monocytes Percent Auto 8.2 % (2.6-8.5); Neutrophils Absolute Auto 8.3 K/mm3 (1.3-6.7); Platelet Count Result 340 k/mm3 (150-375); Red Blood Count 4.15 M/mm3 (4.2-5.4); Red Cell Distribution Width 12.1 % (11.5-14.5); White Blood Count 11.4 K/mm3 (4.5-10.0)
[2024-11-09 06:42] LABS: Alanine Aminotransferase 27 U/L (6-35); Albumin Level 3.8 g/dL (3.5-5.1); Alkaline Phosphatase 89 U/L (38-126); Anion Gap 11 mmol/L (4-12); Aspartate Amino Transferase 31 U/L (14-36); Bilirubin,Total 0.5 mg/dL (0.2-1.3); Blood Urea Nitrogen 7 mg/dL (7-17); Calcium 10.2 mg/dL (8.4-10.2); Carbon Dioxide 26 mmol/L (22-30); Chloride 101 mmol/L (98-107); Estimated CRCL calculation 61 ml/min; Estimated Glomerular Filt Rate > 60; Glucose 130 mg/dL (65-110); Magnesium 2.1 mg/dL (1.6-2.3); Potassium 4.2 mmol/L (3.4-5.0); Sodium 138 mmol/L (137-145)
--- NOTE | 2024-11-09 08:07 | P.CONOP_ITS ---
Assessment and Plan Assessment and plan (1) Acute right hip pain: Code(s): M25.551 - Pain in right hip Status: Acute Assessment and Plan: 74-year-old with history of altered mental status. Reportedly complained of hip pain prior. No complaints at this time. Radiographs and CT scan show no acute changes. Recommend conservative care with ice and anti-inflammatories. Okay to mobilize and ambulate with weight-bearing as tolerated. May require PT/ OT. Will probably require placement. No further surgical input indicated at this time. History of Present Illness HPI Consult date: 11/09/24 Requesting physician: Casey Maguire MD Chief complaint: RT hip pain Narrative: 74-year-old found down at her care facility and brought to the emergency room. Found to have UTI and altered mental status. After admitting the patient to the floor, apparently she complained of right hip pain. Right hip x-ray and CT scan performed. At this time she has no complaints of pain. Review of Systems 2 Constitutional: Constitutional: Denies fever(s) Eyes: Eyes: Denies blurry vision ENT: Reports Normal hearing present Cardiovascular: Cardiovascular: Denies chest pain and Denies dyspnea Respiratory: Respiratory: Denies dyspnea and Denies wheezing Gastrointestinal: Gastrointestinal: Denies abdominal pain Genitourinary: Genitourinary: Denies urinary urgency Musculoskeletal: Musculoskeletal: Reports as per HPI and Denies numbness Integumentary/Breasts: Skin/Breast: Denies changing lesions and Denies sores Neurologic: Reports Normal hearing present, Denies behavioral changes, Denies confusion, Denies numbness and Denies convulsions Psychiatric: Psychiatric: Denies behavioral changes, Denies confusion and Denies hallucinations Endocrine: Endocrine: Denies heat intolerance Hematologic/Lymphatic: Hematologic/Lymphatic: Denies easy bleeding Allergic/Immunologic: Allergic/Immunologic: Denies wheezing PMFSH Past Medical History Medical History (Updated 11/09/24 @ 08:16 by Jeronimo Osorio MD) Acute right hip pain Social History Social History Smoking status: Never smoker Alcohol intake: never Substance use: never Substance use type: does not use Do You Feel Safe in your Home?: Yes Lack of Transportation: No Lack of Food: Never True Current Housing: I Have Housing Concerned About Future Housing: No Difficulty Paying Gas/Electric Bills: No Difficulty Paying for Meds: No Currently Unemployed: No Education: Decline to Answer Difficulty w/ Childcare or Family Care: No Spiritual care concerns: No Meds Home Medications and Allergies Home Medications ?Medication ?Instructions ?Recorded ?Confirmed ?Type acetaminophen 325 mg tablet 650 mg PO Q6H PRN pain 11/06/24 11/06/24 History (Tylenol) amlodipine 10 mg tablet (Norvasc) 10 mg PO DAILY 11/06/24 11/06/24 History atorvastatin 40 mg tablet (Lipitor) 40 mg PO HS 11/06/24 11/06/24 History benztropine 0.5 mg tablet 0.5 mg PO BID 11/06/24 11/06/24 History bisacodyl 10 mg rectal suppository 10 mg RECTAL DAILY PRN constipation 11/06/24 11/06/24 History carvedilol 3.125 mg tablet 3.125 mg PO BID 11/06/24 11/06/24 History cholecalciferol (vitamin D3) 25 1,000 unit PO DAILY 11/06/24 11/06/24 History mcg (1,000 unit) capsule cyanocobalamin (vitamin B-12) 1,000 mcg PO DAILY 11/06/24 11/06/24 History 1,000 mcg capsule famotidine 20 mg tablet 20 mg PO DAILY 11/06/24 11/06/24 History furosemide 40 mg tablet 40 mg PO DAILY 11/06/24 11/06/24 History furosemide 40 mg tablet 40 mg PO DAILY 11/06/24 11/06/24 History gabapentin 300 mg capsule 300 mg PO HS 11/06/24 11/06/24 History lactulose 10 gram/15 mL oral 30 ml PO PRN 11/06/24 11/06/24 History solution (Enulose) lamotrigine 100 mg tablet 100 mg PO DAILY 11/06/24 11/06/24 History (Lamictal) loperamide 2 mg tablet 2 mg PO Q8H PRN loose stool 11/06/24 11/06/24 History (Anti-Diarrheal (loperamide)) loratadine 10 mg tablet 10 mg PO DAILY 11/06/24 11/06/24 History magnesium citrate 296 ml PO DAILY PRN constipation 11/06/24 11/06/24 History magnesium hydroxide 400 mg/5 mL 30 ml PO HS PRN constipation 11/06/24 11/06/24 History oral suspension montelukast 10 mg tablet 10 mg PO DAILY 11/06/24 11/06/24 History multivitamin with minerals-folic 1 tablet PO DAILY 11/06/24 11/06/24 History acid 0.4 mg tablet ondansetron HCl 4 mg tablet 4 mg PO Q6H PRN nausea and vomiting 11/06/24 11/06/24 History polyethylene glycol 3350 17 17 g PO DAILY 11/06/24 11/06/24 History gram/dose oral powder potassium chloride 20 mEq 20 meq PO TID 11/06/24 11/06/24 History tablet,extended release (K-Tab) quetiapine 200 mg tablet 200 mg PO HS 11/06/24 11/06/24 History risperidone 0.25 mg tablet 0.25 mg PO BID 11/06/24 11/06/24 History risperidone microspheres 25 mg/2 25 mg IM Q14D 11/06/24 11/06/24 History mL intramuscular susp,ext release (Risperdal Consta) rivaroxaban 10 mg tablet 20 mg PO DAILY 11/06/24 11/06/24 History sennosides 8.6 mg-docusate sodium 2 tab-cap PO BID 11/06/24 11/06/24 History 50 mg capsule (Senna Plus) sertraline 50 mg tablet 50 mg PO DAILY 11/06/24 11/06/24 History Allergies Allergy/AdvReac Type Severity Reaction Status Date / Time No Known Allergies Allergy Unverified 10/07/18 16:47 Vital Signs Vital Signs - 24 hr 11/08/24 09:17 11/08/24 10:18 11/08/24 12:00 Temperature Pulse Rate 79 80 Respiratory Rate Blood Pressure Pulse Oximetry 92 Oxygen Delivery Room Air 11/08/24 14:00 11/08/24 20:00 11/08/24 20:23 Temperature 97.6 F Pulse Rate 76 85 76 Respiratory Rate 18 Blood Pressure 150/67 H Pulse Oximetry 98 Oxygen Delivery 11/08/24 21:54 11/09/24 00:00 11/09/24 04:00 Temperature 97.7 F Pulse Rate 88 88 87 Respiratory Rate 20 Blood Pressure 139/49 L Pulse Oximetry 95 Oxygen Delivery 11/09/24 06:00 Temperature 98.0 F Pulse Rate 89 Respiratory Rate 16 Blood Pressure 143/62 H Pulse Oximetry 92 Oxygen Delivery Exam 2 Const: General: healthy appearing; No in distress or confusion HENMT: Head: normal to inspection, normocephalic and atraumatic Eyes: Conjunctivae: conjunctivae normal Sclera: sclerae normal Neck: Neck: supple and nontender Resp: Effort & Inspection: normal respiratory effort and no audible wheezes Cardio: Rate: regular rate Rhythm: regular rhythm Skin: General skin exam: no rashes or lesions noted Extrem: Right upper extremity: normal to inspection Left upper extremity: n ormal to inspection Right lower extremity: hip/thigh Details: tenderness Location: of the hip Location: anteriorly, swelling ( Mild) Location: at the hip, abnormal ROM Details: pain with active ROM during Details: with ABduction and with flexion, pain with resistance to Details: to ABduction and to flexion and with range as follows ( flexion 90, external rotation 30, internal rotation 20, abduction 40) and crepitus Location: at the hip; no deformity and no unusual warmth and foot Details: normal capillary refill, toes with normal ROM, vascular exam Details: dorsalis pedis pulse present and motor-sensory exam Details: light-touch normal; no tenderness; no edema Left lower extremity: normal to inspection Results Labs 11/09/24 05:47 11/09/24 05:47 Labs: Abnormal lab results 11/09/24 Range/Units 05:47 WBC 11.4 H (4.5-10.0) K/mm3 RBC 4.15 L (4.2-5.4) M/mm3 Lymph % (Auto) 17.2 L (18.3-44.2) % [place] # (Auto) 0.9 H (0.1-0.6) K/mm3 Absolute Neuts (auto) 8.3 H (1.3-6.7) K/mm3 Creatinine 0.67 L (0.7-1.0) mg/dL Glucose 130 H (65-110) mg/dL H & H 11/06/24 11/07/24 11/08/24 Range/Units 06:16 06:18 06:04 Hgb 12.4 10.5 L 11.0 L (12.0-15.0) g/dL Hct 38.5 32.6 L 34.1 L (37.0-47.0) % 11/09/24 Range/Units 05:47 Hgb 12.5 (12.0-15.0) g/dL Hct 37.9 (37.0-47.0) % Coagulation 11/06/24 Range/Units 06:16 INR 2.7 All other labs normal. Diagnostic results Hip x-ray: image reviewed ( Pelvis and right hip radiographs show mild degenerative changes, no fracture.) Hip CT: image reviewed ( Right hip CT scan shows mild degenerative changes, no fracture or acute changes.)
--- NOTE | 2024-11-09 08:45 | PC.NURSE ---
RN assessed patient at 0845. Patient sleeping. RN will come back for medication pass.
--- NOTE | 2024-11-09 10:15 | PC.NURSE ---
This RN attempted to do medication pass again. Patient sleeping. RN woke patient up again. Patient said yeah and then fell back asleep. RN had [employer] grab a blood sugar check due to patient looking lethargic and falling back asleep. RN having [employer] grab an updated set of vitals as well (see VITALS).
[2024-11-09 10:19] LABS: Glucose Point of Care 138 mg/dl (65-105)
--- NOTE | 2024-11-09 10:59 | PM.IMPN ---
Progress Note: A&P Assessment and Plan (1) Acute UTI: Code(s): N39.0 - Urinary tract infection, site not specified Status: Acute (2) AMS (altered mental status): Code(s): R41.82 - Altered mental status, unspecified Status: Acute (3) Hypertension: Code(s): I10 - Essential (primary) hypertension Status: Acute (4) Bipolar 1 disorder: Code(s): F31.9 - Bipolar disorder, unspecified Status: Acute Plan Acute UTI Continue Rocephin Urine culture negative AMS improving now at baseline patient was awake and answering questions Right hip pain CT plevis no fractrue ortho re evaluated and noted no fractures and patient will contineu with PT/Ot and placement PRN pain control HTN titrate home meds with clinical course Bipolar disorder continue home meds DVt prophylaxis on Xarelto PT/OT for placement eval Subjective Date/time seen: 11/09/24 10:59 Interval history: patient complained of right hip pain and was unable to move it this morning due to pain CT did not show any fracture, ortho consulted Review of Systems Review of Systems: All systems reviewed & are unremarkable except as noted in HPI and below Exam Narrative: Patient is comfortable, NAD HEENT: eyes are clear and none icteric LUNGS:CTA HEART: RR S1S2 ABD: BS+, Soft and nontender Lower extremities: unable to move RLE due to pain at the hip SKIN: nonjaundiced Neuro: grossly intact. Objective Data Vital Signs Vital Signs: Vital Signs - 24 hr 11/08/24 12:00 11/08/24 14:00 11/08/24 20:00 Temperature 97.6 F Pulse Rate 80 76 85 Respiratory Rate 18 Blood Pressure 150/67 H Pulse Oximetry 98 Oxygen Delivery 11/08/24 20:23 11/08/24 21:54 11/09/24 00:00 Temperature 97.7 F Pulse Rate 76 88 88 Respiratory Rate 20 Blood Pressure 139/49 L Pulse Oximetry 95 Oxygen Delivery 11/09/24 04:00 11/09/24 06:00 11/09/24 08:45 Temperature 98.0 F Pulse Rate 87 89 Respiratory Rate 16 Blood Pressure 143/62 H Pulse Oximetry 92 Oxygen Delivery Room Air 11/09/24 08:45 11/09/24 10:40 Temperature 97.1 F L Pulse Rate 97 93 Respiratory Rate 14 Blood Pressure 143/56 H Pulse Oximetry 90 Oxygen Delivery Intake/Output Intake/Output: Intake & Output 11/06/24 11/07/24 11/08/24 11/09/24 23:59 23:59 23:59 23:59 Intake Total 2250 980 1627 50 Output Total 1000 1400 1950 950 Balance 6960 -420 -323 -900 Meds/Results Medications: Active Medications Generic Name Dose Route Start Last Admin Trade Name Freq PRN Reason Stop Dose Admin Acetaminophen 650 mg 11/07/24 23:09 11/08/24 09:16 Acetaminophen 325 Mg Tablet PO 650 mg Q6H PRN Administration Mild Pain (1-3) or Fever Amlodipine Besylate 10 mg 11/07/24 09:00 11/08/24 09:19 Amlodipine Besylate 10 Mg Tablet PO 10 mg DAILY ADAM Administration Benztropine Mesylate 0.5 mg 11/07/24 09:00 11/08/24 17:26 Benztropine Mesylate 0.5 Mg Tablet PO 0.5 mg BID ADAM Administration Carvedilol 3.125 mg 11/06/24 21:00 11/08/24 20:23 Carvedilol 3.125 Mg Tablet PO 3.125 mg Q12HR ADAM Administration Cyanocobalamin 1,000 mcg 11/07/24 09:00 11/08/24 09:19 Cyanocobalamin 1,000 Mcg Tablet PO 1,000 mcg DAILY ADAM Administration Famotidine 20 mg 11/07/24 09:00 11/08/24 09:18 Famotidine 20 Mg Tablet PO 20 mg DAILY ADAM Administration Furosemide 40 mg 11/07/24 09:00 11/08/24 09:17 Furosemide 40 Mg Tablet PO 40 mg DAILY ADAM Administration Ceftriaxone Sodium 1 gm in 50 mls @ 100 mls/hr 11/07/24 06:00 11/09/24 06:22 Rocephin 1 Gm/Ns 50 Ml IVPB Infused Q24H ADAM Infusion Lamotrigine 100 mg 11/07/24 09:00 11/08/24 09:17 Lamotrigine 100 Mg Tablet PO 100 mg DAILY ADAM Administration Montelukast Sodium 10 mg 11/07/24 09:00 11/08/24 09:18 Montelukast Sodium 10 Mg Tablet PO 10 mg DAILY ADAM Administration Morphine Sulfate 2 mg 11/08/24 09:49 11/08/24 17:26 Morphine Sulfate (*Crx) 2 Mg/Ml Inj IV PUSH 2 mg Q4H PRN Administration Pain Rated 7-10 Potassium Chloride 20 meq 11/07/24 09:00 11/08/24 17:26 Potassium Chloride 20 Meq Er Tablet PO 20 meq TID ADAM Administration Quetiapine Fumarate 200 mg 11/06/24 21:00 11/08/24 20:23 Quetiapine Fumarate 100 Mg Tablet PO 200 mg HS ADAM Administration Risperidone 0.25 mg 11/07/24 09:00 11/08/24 17:26 Risperidone 0.25 Mg Tablet PO 0.25 mg BID ADAM Administration Rivaroxaban 20 mg 11/07/24 09:00 11/08/24 09:17 Rivaroxaban 10 Mg Tablet PO 20 mg DAILY ADAM Administration Senna/Docusate Sodium 2 tab 11/07/24 09:00 11/08/24 17:26 Senna/Docusate Sodium Tablet PO 2 tab BID ADAM Administration Sertraline HCl 50 mg 11/07/24 09:00 11/08/24 09:18 Sertraline Hcl 50 Mg Tablet PO 50 mg DAILY ADAM Administration Radiology Results: ITS Impressions Head CT 11/06/24 08:52 Impression: No acute intracranial hemorrhage or suspicious mass effect. Abdomen/Pelvis CT 11/06/24 09:00 IMPRESSION: No acute intra-abdominal findings. Innumerable nonacute findings, as detailed above. Indeterminate soft tissue attenuation focus within the left kidney for which focused ultrasound may be performed nonemergently versus contrast-enhanced MRI Chest X-Ray 11/06/24 09:19 IMPRESSION: Possible early infiltrate within the left mid to lower lung field Hip/Pelvis X-Ray 11/07/24 22:02 IMPRESSION: As above. Pelvis CT 11/08/24 06:23 Impression: No acute fracture or dislocation. Mild degenerative changes overall, as detailed above. Probable 3.1 cm right ovarian cyst. Pelvic ultrasound recommended to further assess given patient age. Pelvis Ultrasound 11/08/24 18:47 IMPRESSION: Limited evaluation of the female pelvis without visualization of either ovary, as detailed above. Labs Labs: Laboratory Results - last 24 hr 11/09/24 11/09/24 05:47 10:16 WBC 11.4 H RBC 4.15 L Hgb 12.5 Hct 37.9 MCV 91.3 MCH 30.1 MCHC 33.0 RDW 12.1 Plt Count 340 MPV 9.2 Immature Gran % (Auto) 0.3 Neut % (Auto) 73.0 Lymph % (Auto) 17.2 L Forrest % (Auto) 8.2 Eos % (Auto) 1.0 Baso % (Auto) 0.3 Lymph # (Auto) 1.96 Forrest # (Auto) 0.9 H Eos # (Auto) 0.1 Baso # (Auto) 0.0 Abs Immat Gran (auto) 0.03 Absolute Neuts (auto) 8.3 H Absolute Nucleated RBC 0.000 Nucleated RBC % 0.0 Sodium 138 Potassium 4.2 Chloride 101 Carbon Dioxide 26 Anion Gap 11 BUN 7 Creatinine 0.67 L Estim Creat Clear Calc 61 Estimated GFR > 60 Glucose 130 H POC Capillary Glucose 138 H Calcium 10.2 Magnesium 2.1 Total Bilirubin 0.5 AST 31 ALT 27 Alkaline Phosphatase 89 Total Protein 8.0 Albumin 3.8 Quality VTE Prophylaxis VTE prophylaxis: pharmacologic ordered
--- NOTE | 2024-11-09 11:06 | PC.NURSE ---
RN spoke with Joanna (director) of therapy services and informed her that ortho cleared her for PT/OT services. Patient therapy has been on hold until ortho clearence. Joanna stated that she would add patient back to list for PT/OT to see her for evaluation.
--- NOTE | 2024-11-09 13:20 | PC.NURSE ---
RN gave update to patient's daughter Bekah via telephone in regards to patient status. Bekah requested to be updated daily by nursing staff. Bekah also requested patients knee be scanned and to have the hospitalist call her at his convenience. RN will inform hospitalist Andrez know of patient's daughters requests.
--- NOTE | 2024-11-09 17:25 | PC.NURSE ---
RN spoke with hospitalist Andrez in regards to patient sleeping all day, not wanting to wake up and eat dinner, or wake up for medications. New orders placed.
--- NOTE | 2024-11-09 17:26 | PC.NURSE ---
Patient off of unit to CT
[2024-11-09] MEDS: carvediloL 3.125 MG TABLET PO (20:31)
[2024-11-10] VITALS (11 sets, daily range): BP systolic 127–142; BP diastolic 53–65; PULSE 65–98; RESP 12–18; TEMP 36.2–36.8; O2SAT 92–95
[2024-11-10 06:46] LABS: Hematocrit 38.6 % (37.0-47.0); Hemoglobin 12.3 g/dL (12.0-15.0); Mean Corpuscular HGB Conc 31.9 g/dl (32-36); Mean Corpuscular Volume 94.1 fl (80-100); Mean Platelet Volume 9.3 fl (7.4-10.4); Platelet Count Result 340 k/mm3 (150-375); Red Cell Distribution Width 12.5 % (11.5-14.5); White Blood Count 13.1 K/mm3 (4.5-10.0)
[2024-11-10 06:55] LABS: Anion Gap 9 mmol/L (4-12); Blood Urea Nitrogen 16 mg/dL (7-17); Calcium 10.4 mg/dL (8.4-10.2); Carbon Dioxide 27 mmol/L (22-30); Chloride 104 mmol/L (98-107); Estimated CRCL calculation 47 ml/min; Estimated Glomerular Filt Rate > 60; Glucose 119 mg/dL (65-110); Magnesium 2.5 mg/dL (1.6-2.3); Potassium 4.3 mmol/L (3.4-5.0); Sodium 140 mmol/L (137-145)
--- NOTE | 2024-11-10 08:46 | PCPTNOTE ---
attempted PT eval, pt confused and unable to answer her name/location/year, pt refused to get out of bed despite multiple efforts and education on the importance of mobility and getting out of bed for improving pain, will follow
[2024-11-10] MEDS: MONTELUKAST SODIUM 10 MG TABLET PO (09:05)
[2024-11-10] MEDS: POTASSIUM CHLORIDE 20 MEQ ER TABLET PO ×3 (09:05→17:51)
[2024-11-10] MEDS: SERTRALINE HCL 50 MG TABLET PO (09:05)
[2024-11-10] MEDS: risperiDONE 0.25 MG TABLET PO ×2 (09:06→17:50)
[2024-11-10] MEDS: RIVAROXABAN 10 MG TABLET 20 MG PO (09:06)
[2024-11-10] MEDS: CYANOCOBALAMIN 1,000 MCG TABLET 1000 MCG PO (09:06)
[2024-11-10] MEDS: SENNA/DOCUSATE SODIUM TABLET 2 TAB PO ×2 (09:06→17:50)
[2024-11-10] MEDS: carvediloL 3.125 MG TABLET PO ×2 (09:06→22:02)
[2024-11-10] MEDS: FAMOTIDINE 20 MG TABLET PO (09:06)
[2024-11-10] MEDS: amLODIPine BESYLATE 10 MG TABLET PO (09:06)
[2024-11-10] MEDS: BENZTROPINE MESYLATE 0.5 MG TABLET PO ×2 (09:07→17:50)
[2024-11-10] MEDS: FUROSEMIDE 40 MG TABLET PO (09:07)
[2024-11-10] MEDS: lamoTRIgine 100 MG TABLET PO (09:07)
--- NOTE | 2024-11-10 09:52 | PCNFU ---
Nutrition Follow-Up Complete: Suboptimal po intake related to appetite and alertness as evidenced by pt refusal of breakfast PO intake 75% of meals - Goal is not being met. Progressing slowly with intakes 0-40% Goal: Pt current nutrition is Heart healthy diet, Ensure compact with 220 kcal and 9 g protein each. Nutrition recommendation: Encourage PO intake. Wake before mealtime to allow pt to become alert for meal. Continue current orders. Agree with orders. Last recorded weight is 73.1 kg. Bowel Motility: Last BM recorded 11/04/23. senna on board Labs Reviewed: Glu 119, Mag 2.5 Meds Noted: Senna Skin: No skin issues Additional Notes: Pt is more alert, appetite is poor. Supplements are ordered. Continue orders. Monitor intake, wt, labs. Follow up in 5 days.
--- OUTSIDE RECORDS SUMMARY | 2024-11-10 10:05 | XMS_ITS | Referral Summary ---
Author Organization [facility] [place] Address [address] [place] [address] Care Team Providers Care Physical Therapy Manager Name Role Phone SohaDarcy gomez ALINE Primary Care Provider + [phone] Javi Limon MD Unavailable [phone] Encounters Date Type Department Care Team Description 10/21/2024 Telephone [facility] Pulmonology [address] [facility] [address] [place] [address] Javi Limon MD 09/28/2024 10:34 PM [employer] - 10/10/2024 1:22 PM [employer] Hospital Encounter [address] [phone] Es Chakraborty MD Edwards, Cady Beedy, MD Lee, Lyndon K., MD Flores-Ruiz, Jaime E., MD Altered mental status, unspecified altered mental status type (Primary Dx); Fever, unspecified fever cause; Hypoxia; History of lung biopsy; Acute pulmonary embolism without acute cor pulmonale, unspecified pulmonary embolism type (HCC) Discharge Disposition: Discharge to [facility] 10/05/2024 Telephone [facility] Pulmonology [address] [facility] [facility] [address] [place] [address] Javi Limon MD 10/04/2024 8:50 AM [employer] Ancillary Procedure [facility] Vascular Lab [address] [address] 09/28/2024 2:09 PM [employer] - 09/28/2024 11:59 PM [employer] Hospital Encounter [facility] Radiology [address] [place] [address] Rin Cordero MD Discharge Disposition: Discharge to home or self care 09/28/2024 11:58 AM [employer] - 09/28/2024 11:59 PM [employer] Hospital Encounter [facility] Interventional Pulmonology [address] [place] [address] Lung nodule Discharge Disposition: Discharge to home or self care 09/27/2024 Telephone [facility] Interventional Pulmonology [address] [place] [address] Lisa Begum RN 09/05/2024 Telephone [facility] Pulmonary [address] [facility] [address]th [place] [address] [place] [address] Lanre Sanchez, RMA 09/01/2024 Orders Only [facility] Pulmonary [address] [facility] [address]th [place] [address] [place] [address] Lanre Sanchez, RMA Lung nodule (Primary Dx) 09/01/2024 Telephone [facility] Pulmonary [address] [facility] 8th [place] [address] [place] [address] Lanre Sanchez, RMA 08/31/2024 Telephone [facility] Pulmonary [address] [facility] 8th [place] [address] [place] [address] Lanre Sanchez., RMA 08/26/2024 8:00 AM [employer] - 08/26/2024 11:59 PM [employer] Hospital Encounter [facility] Medical Office Building [address] [address] Lung nodule Discharge Disposition: Discharge to home or self care 08/17/2024 2:22 PM CDT - 08/17/2024 11:59 PM CDT Hospital Encounter [facility] Respiratory Therapy [address] [place] [address] Nicotine dependence, cigarettes, uncomplicated Discharge Disposition: Discharge to home or self care 08/12/2024 7:52 AM CDT - 08/12/2024 11:59 PM CDT Hospital Encounter [facility] 1 [facility] 1st [place] [address] Discharge Disposition: Discharge to home or self care 08/10/2024 2:20 PM CDT [facility] [place] [address] Pulmonary embolism, unspecified chronicity, unspecified pulmonary embolism type, unspecified whether acute cor pulmonale present (HCC) from Last 3 Months Allergies Active Allergy Reactions Criticality Noted Date Comments Lorazepam Hives Medium 03/14/2024 Ziprasidone Hcl Shortness of breath High 03/14/2024 Medications gabapentin (NEURONTIN) 300 mg capsule Take 1 capsule (300 mg total) by mouth nightly Active carvediloL (COREG) 3.125 mg tabletIndications: hypertension Take 1 tablet (3.125 mg total) by mouth 2 (two) times a day with meals Active cyanocobalamin (Vitamin B-12) 1,000 mcg tabletIndications: Prevention of Vitamin B12 Deficiency Take 1 tablet (1,000 mcg total) by mouth daily Active famotidine (PEPCID) 20 mg tabletIndications: gastroesophageal reflux disease Take 1 tablet (20 mg total) by mouth daily Active loratadine (CLARITIN) 10 mg tabletIndications: Allergic Rhinitis Take 1 tablet (10 mg total) by mouth daily Active cholecalciferol 25 mcg (1,000 unit) tablet Take 1 tablet (1,000 Units total) by mouth daily Active amLODIPine (NORVASC) 10 mg tablet Take 1 tablet (10 mg total) by mouth daily Active fluticasone propionate (FLONASE) 50 mcg/actuation nasal spray Administer 2 sprays into each nostril daily Active walker misc 1 Units continuously as needed (When Walking) Wheeled [place] 1 each 06/26/20 24 Active furosemide (LASIX) 40 mg tabletIndications: hypertension Take 1 tablet (40 mg total) by mouth daily 30 tablet 07/15/20 24 Active lamoTRIgine (LaMICtal) 100 mg tabletIndications: depression Take 1 tablet (100 mg total) by mouth daily 30 tablet 07/15/20 24 Active montelukast (SINGULAIR) 10 mg tabletIndications: Seasonal Allergic Rhinitis Take 1 tablet (10 mg total) by mouth daily 30 tablet 07/15/20 24 Active polyethylene glycol (MIRALAX) 17 gram packetIndications: constipation Take 1 packet (17 g total) by mouth daily 07/15/20 24 Active senna-docusate (PERICOLACE) 8.6-50 mgIndications:Slow transit constipation Take 2 tablets by mouth 2 (two) times a day 07/15/20 Active sertraline (ZOLOFT) 50 mg tabletIndications: Bipolar affective disorder, currently depressed, moderate (CMS/HCC) (HCC) Take 1 tablet (50 mg total) by mouth daily 30 tablet 07/15/20 Active atorvastatin (LIPITOR) 40 mg tablet Take 1 tablet (40 mg total) by mouth nightly 30 tablet 11 10/10/20 24 Active benztropine (COGENTIN) 0.5 mg tablet Take 1 tablet (0.5 mg total) by mouth 2 (two) times a day as needed for tremors 10/10/20 24 Active QUEtiapine (SEROquel) 200 mg tablet Take 1 tablet (200 mg total) by mouth nightly 30 tablet 10/10/20 24 Active risperiDONE microspheres (RisperDAL CONSTA) 25 mg/2 mL injection Inject 2 mL (25 mg total) into the muscle as instructed every 14 (fourteen) days 10/21/19 25 Active rivaroxaban (XARELTO) 20 mg tabletIndications: Venous Thrombosis Take 1 tablet (20 mg total) by mouth daily with dinner 10/10/20 Active traZODone (DESYREL) 50 mg tablet Take 1 tablet (50 mg total) by mouth nightly as needed for sleep 10/10/20 24 Active ondansetron ODT (ZOFRAN-ODT) 4 mg disintegrating tabletIndications: Nausea and Vomiting Take 1 tablet (4 mg total) by mouth every 6 (six) hours as needed for nausea or vomiting 10/10/20 Active oxyCODONE (ROXICODONE) 5 mg immediate release tabletIndications: Pain Take 1 tablet (5 mg total) by mouth every 6 (six) hours as needed for pain for up to 7 doses 7 tablet 10/10/20 24 Active Active Problems Problem Noted Date Diagnosed Date Positive blood culture 10/05/2024 Pneumonia 10/04/2024 Assessment & Plan (10/09/2024 6:[address] [employer]ER): See fever for more information No more O2 requirement Urinary retention 10/01/2024 Assessment & Plan (10/05/2024 6:12 PM [employer]SEM[employer]ER): Possibly related to psychotropics vs poor mobility - Straight cath 09/30 x 1 - Servin placed 10/01 for PVR > 400 ml - Pass voiding trial on 10/03. Remove servin. Discharge planning issues 09/30/2024 Assessment & Plan (10/10/2024 10:44 AM AIRPLANE [employer] ASSEMBLER): Daughter Bekah Rader expresses concern about functional decline over the past several year/months. Patient reportedly has not been adequately caring for herself (e.g., not bathing) at her [facility]. Daughter is open to the possibility of long-term placement at a NH or even short-term placement as a temporizing measure with the goal of pursuing long-term placement on an outpatient basis. - CM & SW notified of situation - PT & OT engaged for evaluation and assistance - DC SNF today Altered mental status, unspe cified altered mental status type 09/29/2024 Assessment & Plan (10/09/2024 6:47 PM AIRPLANE [employer] ASSEMBLER): She experienced acute onset confusion the day after bronchoscopy. This was attributed to PNM and polypharmacy. A head CT revealed a small area of age-indeterminate hypodensity within the left thalamus, possibly representing an acute or subacute lacunar infarct. A brain MRI and MRA showed no acute intracranial abnormalities. Neurology was consulted and concluded the cause was likely toxic metabolic encephalopathy. Psychiatry was also consulted, and medication adjustments were made. Her mental status subsequently resolved. Resolved Pulmonary embolism 09/29/2024 Assessment & Plan (10/09/2024 6:44 PM [employer]PL[employer]SEMBLER): She was recently diagnosed with acute bilateral segmental PE and started on Xarelto. An outpatient hypercoagulability workup was negative, and she is currently following up with outpatient pulmonology. A CT PE demonstrated a small acute pulmonary embolism in a subsegmental branch of the left lower lobe. It was unclear if this represented a new PE while off Xarelto prior to bronchoscopy or a resolving PE from her prior diagnosis. - She was started on heparin gtt and subsequently transitioned back to home Xarelto. Chronic heart failure with p reserved ejection fraction (HFpEF) ([facility]) 09/29/2024 Assessment & Plan (09/29/2024 6:27 AM AIRPLANE [employer] ASSEMBLER): Chronic diastolic dysfunction noted on TTE in 06/2024. Appears euvolemic. Continue home maintenance Lasix 40 mg daily Fever 09/29/2024 Assessment & Plan (10/09/2024 6:43 PM AIRPL[employer] ASSEMBLER): She underwent an ambulatory bronchoscopy on 09/28 for a right middle lobe nodule. The following day, she developed a fever, tachypnea, fever, confusion and a new oxygen requirement. A CT PE revealed a small PE and right upper lobe pneumonia. UA and RVP were negative. The fever was believed to be due to pneumonia. She was started on cefepime and vancomycin for 2 days, then transitioned to Augmentin to complete a 5-day course of antibiotics. Nicotine dependence, cigarettes, uncomplicated 1 Slow transit constipation 07/12/2024 Assessment & Plan (07/15/2024 11:48 AM CDT): Much improved with daily MiraLax, senna S2 tabs b.i.d. Assessment & Plan (07/12/2024 12:32 PM CDT): We will increase Emely Colace to 2 tablets b.i.d., discontinue Colace. Continue daily MiraLax, add milk of magnesia p.r.n. Chronic renal failure, stage 2 (mild) 07/04/2024 Assessment & Plan (07/15/2024 11:49 AM CDT): Renal function remains at baseline with a GFR of 60 Assessment & Plan (07/05/2024 2:09 PM CDT): Renal function about at baseline, current BUN/creatinine 14/0.99 with a GFR of 60 Bipolar affective disorder, currently depressed, moderate (CMS/HCC) 06/29/2024 Assessment & Plan (07/15/2024 11:53 AM CDT): Vs dx of schizophrenia. Patient follows with psychiatry at [facility]. Patient was noted by family that she was more lethargic during the day. Seroquel q.a.m. was discontinued with benefit. Continue only Seroquel 300 mg q.h.s., no other adjustments were made to psychiatric medications. Patient was encouraged to discuss further medication reduction with Psychiatry as an outpatient. Assessment & Plan (07/12/2024 12:31 PM CDT): Vs schizophrenia. Patient is cooperative with care, no behaviors. She is making good progress in therapy without impulsivity. Continue multidrug regimen including lamotrigine 100 mg daily, lithium 150 mg b.i.d., Seroquel 100 mg daily, 300 mg q.h.s., risperidone 25 mg IM every 2 weeks, 0.25 mg b.i.d. p.o., sertraline 50 mg daily, trazodone 50 mg q.h.s. Assessment & Plan (07/08/2024 4:29 PM CDT): Versus schizophrenia. Mood is stable although patient is anxious to discharge. Patient is without behaviors, she is making progress in therapy and will likely discharge next week. Continue multi-drug regimen with Seroquel, trazodone, Lamictal, sertraline, Risperdal, lithium. Assessment & Plan (07/01/2024 5:41 PM CDT): Per family underlying dx is schizophrenia. Currently mood is stable, patient participating well in therapy and has no behaviors. We will continue multidrug regimen including Risperdal IM every 2 weeks, p.o. b.i.d., sertraline daily, Lamictal daily, trazodone q.h.s., Seroquel b.i.d. and lithium b.i.d. GDR not recommended as patient would be at risk for the stabilization. [facility] follows [facility] Assessment & Plan (07/01/2024 8:34 AM CDT): Her historical records indicate bipolarity but her guardian Inés reports that her active diagnosis is schizophrenia. As she is currently stable, we will continue the intended and ordered lithium 150 mg p.o. b.i.d., Seroquel 100 mg daily, 300 mg HS, risperidone 25 mg IM q.2 weeks, in 0.25 mg p.o. b.i.d., sertraline 50 mg daily, Lamictal 100 mg daily, and trazodone 50 mg HS. I advise against a gradual dose reduction because of risk of destabilization outweighs the benefit of a GDR. Intervertebral disc disorder 06/29/2024 Non-toxic nodular goiter 06/29/2024 Assessment & Plan (07/01/2024 8:31 AM CDT): This is not an active medical problem and she should follow up with the primary provider post discharge Osteoarthritis 06/29/2024 Overview (06/29/2024): bilateral hips Multiple subsegmental pulmon ford emboli without acute cor pulmonale 06/23/2024 Assessment & Plan (07/15/2024 11:48 AM CDT): We will complete starting dose Xarelto, we will discharge home with Xarelto 20 mg daily Assessment & Plan (07/12/2024 12:30 PM CDT): Pulmonary status stable, no chest pain. Continue Xarelto - currently receiving 15 mg b.i.d. through 07/17, then will start 20 mg daily Assessment & Plan (07/08/2024 4:30 PM CDT): Pulmonary status stable, no oxygen requirements, no chest pain. Continue Xarelto Assessment & Plan (07/01/2024 5:42 PM CDT): Pulmonary status currently stable, no need for supplemental O2. Continue Xarelto, transition to 20 mg daily on 07/17/2024. Assessment & Plan (07/01/2024 8:31 AM CDT): This is subacute but currently stable. We will continue Xarelto as ordered by the hospitalist. That is 15 mg p.o. b.i.d. through July 17 then beginning 20 mg daily. This should continue after she leaves the facility and she should follow up with her primary provider. Swelling of left lower extremity 06/23/2024 Pulmonary nodule 06/23/2024 Assessment & Plan (10/09/2024 6:53 PM AIRPLANE [employer] ASSEMBLER): She is being followed by pulmonology for a pulmonary nodule. A recent PET-CT showed findings consistent with bronchogenic carcinoma and mildly FDG-avid right axillary lymph nodes, which are nonspecific but suspicious for metastatic disease. Bronchoscopy was performed on 09/28/24, but cytology was non-diagnostic for the mass lesion. She has a follow-up appointment with pulmonology on 10/21/2024. Assessment & Plan (07/01/2024 8:34 AM CDT): Continue follow up with primary provider and Pulmonary Leukocytosis 06/23/2024 Assessment & Plan (07/15/2024 11:49 AM CDT): Resolved, last WBC 9.8 Assessment & Plan (07/01/2024 8:32 AM CDT): This is a chronic medical problem. It is stable. We will continue to do follow up lab. I plan no active treatment but advised that she follow up with her primary provider post discharge Hyperlipidemia 06/23/2024 Assessment & Plan (09/29/2024 6:27 AM AIRPLANE [employer]SEMBLER): Continue home statin Assessment & Plan (07/15/2024 11:48 AM CDT): Stable, continue atorvastatin Assessment & Plan (07/01/2024 8:30 AM CDT): This is chronic and currently stable. Our dietitian will follow. We will continue atorvastatin 10 mg HS Neuropathic pain 06/23/2024 Assessment & Plan (07/15/2024 11:54 AM CDT): Stable, continue gabapentin Assessment & Plan (07/08/2024 4:30 PM CDT): Pain is well controlled, continue gabapentin 300 mg q.h.s., p.r.n. Tylenol Assessment & Plan (07/05/2024 2:09 PM CDT): Pain overall well controlled, continue gabapentin 300 mg q.h.s. Assessment & Plan (07/01/2024 8:34 AM CDT): This is chronic and stable. Continue gabapentin 300 mg HS Bipolar disorder 06/23/2024 Assessment & Plan (10/05/2024 6:03 PM AIRPLANE [employer] ASSEMBLER): Not currently in exacerbation. - Psychiatry was consulted- Risperdal consta 25mg IM q2 weeks (next dose to be given 10/07/24), benztropine from scheduled to PRN, stop lithium, stop oral risperidone, continue lamotrigine 100mg daily/quetiapine 200mg qHS/ sertraline 50mg. - FU outpatient psychiatry Acute hypoxic respiratory failure 06/23/2024 Primary hypertension 03/15/2024 Assessment & Plan (09/29/2024 6:27 AM AIRPLANE [employer] ASSEMBLER): Continue home amlodipine, carvedilol Assessment & Plan (07/15/2024 11:48 AM CDT): Blood pressure well controlled, continue multi-drug regimen with Lasix, Coreg, Norvasc Assessment & Plan (07/12/2024 12:28 PM CDT): BP stable, continue Norvasc 10 mg daily, Coreg 3.125 mg b.i.d., Lasix 40 mg daily Assessment & Plan (07/08/2024 4:28 PM CDT): Blood pressure remains labile, continue Lasix, carvedilol, Norvasc Assessment & Plan (07/05/2024 2:08 PM CDT): Blood pressure stable, continue Norvasc 10 mg daily, carvedilol 3.125 mg b.i.d., Lasix 40 mg daily, Assessment & Plan (07/01/2024 5:42 PM CDT): Blood pressure controlled, continue multidrug regimen including Lasix, carvedilol, amlodipine Assessment & Plan (07/01/2024 8:30 AM CDT): This is currently stable but we will be monitoring her vital signs for trending. We will continue amlodipine 10 mg daily, carvedilol 3.125 mg p.o. b.i.d., Lasix 40 mg daily, and we will monitor for variation from expectation. Tobacco abuse 03/15/2024 Resolved Problems Problem Noted Date Diagnosed Date Resolved Date Elevated serum creatinine 10/01/2024 Assessment & Plan (10/03/2024 12:[address] [employer]ANE [employer] ASSEMBLER): Baseline 0.9-1, up to 1.16 on 10/01. Does not meet RINKU criteria yet. Poor oral intake, limited urine production (not oliguric) with bladder scans overnight showing only ~300 ml in the bladder. - Stable around 1-1.1 Encephalopathy 10/01/2024 10/01/2024 Hypoxia 09/29/2024 10/04/2024 Assessment & Plan (09/30/2024 12:12 PM AIRPLANE G[employer] ASSEMBLER): Requiring 2L O2 in the ED to maintain oxygenation > 90%. Per ED nursing, desaturation seems to occur while patient is in deep sleep, possibly representing DAYNE. - saturating 98% on 1L NC. Wean to RA and spot check Chest pain 03/20/2024 07/01/2024 Chest pain due to GERD 03/14/202407/01 Social History Tobacco Use Types Packs/Day Years Used Date Smoking Tobacco: Former Cigarettes 0.5 0.8 1 11/19/2022 - 06/19/2024 Smokeless Tobacco: Never Alcohol Use Standard Drinks/Week Comments Yes 0 (1 standard drink = 0.6 oz pur e alcohol) [facility] Utilities Answer Date Recorded In the past 12 months has e electric, gas, oil, or water company threatened to shut off services in your home? No 06/24/2024 Social Connection and Isolat ion Panel [NHANES] Answer Date Recorded In a typical week, how many times do you talk on the phone with family, friends, or neighbors? More than three times a week 06/24/2024 How often do you get togethe r with friends or relatives? More than three times a week 06/24/2024 How often do you attend chur ch or latter day services? Never 06/24/2024 Do you belong to any clubs o r organizations such as restorationist groups, unions, fraternal or athletic groups, or school groups? No 06/24/2024 How often do you attend meet ings of the clubs or organizations you belong to? Never 06/24/2024 Are you , , di vorced, , never , or living with a partner? Never 06/24/2024 AUDIT-C Answer Date Recorded Q1: How often do you have a drink containing alcohol? Never 09/28/2024 Q2: How many drinks containi ng alcohol do you have on a typical day when you are drinking? Patient does not drink Q3: How often do you have si x or more drinks on one occasion? Never 09/28/2024 Overall Financial Resource Strain (CARDIA) Answe r Date Recorded How hard is it for you to pa y for the very basics like food, housing, medical care, and heating? Not hard at all 06/24/2024 Hunger Vital Sign Answer Date Recorded Within the past 12 months, y ou worried that your food would run out before you got the money to buy more. Never true 09/28/20 24 Within the past 12 months, t he food you bought just didn't last and you didn't have money to get more. Never true 09/28/2024 PRAPARE - Transportation Answer Date Re corded In the past 12 months, has l ack of transportation kept you from medical appointments or from getting medications? No 03/2024 In the past 12 months, has l ack of transportation kept you from meetings, work, or from getting things needed for daily living? No 06/24/2024 Housing Stability Vital Sign Answer Patrick e Recorded In the last 12 months, was t here a time when you were not able to pay the mortgage or rent on time? No 06/24/2024 In the past 12 months, how m any times have you moved where you were living? 0 06/24/2024 At any time in the past 12 [address] [place], were you homeless or living in a assisted (including now)? No 06/24/2024 Personal Safety Answer Date Recorded Have you ever been in or are you currently in a harmful physical or emotional relationship or is someone making you feel afraid or unsafe? Denies 09/29/2024 Comments No Sex and Gender Information Value Date Recorded Sex Assigned at Not on file Legal Sex Female 1:18 AM [employer] Gender Identity Not on file Sexual Orientation Not on file Last Filed Vital Signs Vital Sign Reading Time Taken Comments Blood Pressure 115/48 10/10/2024 10:25 AM AIRPLANE [employer]ER Pulse 89 10/10/2024 10:25 AM [employer]PLANE [employer]ER Temperature 36.6 ??C (97.9 ??F) 10/10/2024 7:50 AM CS T Respiratory Rate 19 10/10/2024 7:50 AM AIRPLANE [employer]SEMBLER Oxygen Saturation 96% 10/10/2024 10: 25 AM [employer]PLANE [employer]ER Inhaled Oxygen Concentration - - Weight 71.1 kg (156 lb 12.8 oz) 10/07/2024 4:34 AM AIRPLANE [employer]SEMBLER Height 157.5 cm (5' 2.01 ) 09/29/2024 4:37 PM CS T Body Mass Index 28.67 09/29/2024 4:37 PM [employer]PLANE [employer]BLER Plan of Treatment Not on file Procedures Procedure Name Priority Date/Time Associated Diagnosis Comments EGFR Routine 10/08/2024 5:04 AM [employer]ANE [employer]ER DIFFERENTIAL AUTO Routine 10/08/2024 5:0 4 AM [employer]ANE [employer]ER BASIC METABOLIC PANEL Routine 10/08/2024 5:04 AM [employer]PLANE [employer]ER CBC WITH AUTO DIFFERENTIAL Routine 10/08/2024 5:04 AM [employer]ANE [employer]ER EGFR Routine 10/07/2024 4:39 AM [employer]PLANE [employer]ER DIFFERENTIAL AUTO Routine 10/07/2024 4:3 9 AM [employer]ANE [employer]ER BASIC METABOLIC PANEL Routine 10/07/2024 4:39 AM AIRPLANE [employer] AS[employer]BLER CBC WITH AUTO DIFFERENTIAL Routine 10/07/2024 4:39 AM [employer]PLANE [employer]ER EGFR Routine 10/06/2024 3:57 AM [employer]PLANE [employer]BLER DIFFERENTIAL AUTO Routine 10/06/2024 3:5 7 AM [employer]PLANE [employer]ER BASIC METABOLIC PANEL Routine 10/06/2024 3:57 AM AIRPLANE [employer] ASSEMBLER CBC WITH AUTO DIFFERENTIAL Routine 10/06/2024 3:57 AM AIRPLANE [employer]ER EGFR Routine 10/05/2024 4:30 AM AIRPLANE [employer]BLER DIFFERENTIAL AUTO Routine 10/05/2024 4:3 0 AM [employer]PLANE [employer]ER BASIC METABOLIC PANEL Routine 10/05/2024 4:30 AM AIRPLANE [employer]ER CBC WITH AUTO DIFFERENTIAL Routine 10/05/2024 4:30 AM AIRPLANE [employer] AS[employer]BLER US VEIN DUPLEX UPPER EXTREMITY LEFT LIMITED IP Routine 10/04/2024 9:37 AM [employer]PLANE [employer]ER EGFR Routine 10/04/2024 4:45 AM AIRPLANE [employer] AS[employer]BLER DIFFERENTIAL AUTO Routine 10/04/2024 4:4 5 AM [employer]PLANE [employer]ER BASIC METABOLIC PANEL Routine 10/04/2024 4:45 AM AIRPLANE [employer] ASSEMBLER CBC WITH AUTO DIFFERENTIAL Routine 10/04/2024 4:45 AM AIRPLANE [employer] ASSEMBLER EGFR Routine 10/03/2024 4:27 AM [employer] DIFFERENTIAL AUTO Routine 10/03/2024 4:2 7 AM [employer] BASIC METABOLIC PANEL Routine 10/03/2024 4:27 AM [employer] CBC WITH AUTO DIFFERENTIAL Routine 10/03/2024 4:27 AM [employer] FOLATE Routine 10/02/2024 8:28 PM [employer] VITAMIN B12 Routine 10/02/2024 8:28 PM [employer] HEPATITIS C ANTIBODY Routine 10/02/2024 8:28 PM [employer] HEPATITIS B SURFACE ANTIGEN Routine 10/02/2024 8:28 PM [employer] HIV 1/2 ANTIBODY PLUS P24 ANTIGEN Routine 10/02/2024 8:28 PM [employer] RPR Routine 10/02/2024 8:28 PM [employer] EGFR Routine 10/02/2024 4:39 AM [employer] DIFFERENTIAL AUTO Routine 10/02/2024 4:3 9 AM [employer] BASIC METABOLIC PANEL Routine 10/02/2024 4:39 AM [employer] CBC WITH AUTO DIFFERENTIAL Routine 10/02/2024 4:39 AM [employer] VANCOMYCIN LEVEL TROUGH Timed 10/02/2024 4:39 AM [employer] MRI BRAIN WO CONTRAST IP Routine 10/01/2024 2:33 PM [employer] URINALYSIS, MICROSCOPIC ONLY Routine 10/01/2024 12:52 PM [employer] URINALYSIS AND REFLEX TO MICROSCOPIC AND CULTURE Routine 10/01/2024 12:52 PM [employer] EGFR Routine 10/01/2024 7:01 AM [employer] DIFFERENTIAL AUTO Routine 10/01/2024 7:0 1 AM [employer] BASIC METABOLIC PANEL Routine 10/01/2024 7:01 AM [employer] CBC WITH AUTO DIFFERENTIAL Routine 10/01/2024 7:01 AM [employer] MRI BRAIN W WO MRA HEAD WO CONTRAST MRA NECK W WO CONTRAST IP Routine 10/01/2024 5:46 AM [employer] CT HEAD WO CONTRAST Critical/Life-T hreatening 09/30/2024 2:18 PM [employer] BLOOD GAS, VENOUS STAT 09/30/2024 1:3 5 PM [employer] POCT GLUCOSE DEVICE Routine 09/30/2024 1 :14 PM [employer] EGFR Routine 09/30/2024 4:20 AM [employer] DIFFERENTIAL AUTO Routine 09/30/2024 4:2 0 AM [employer] BASIC METABOLIC PANEL Routine 09/30/2024 4:20 AM [employer]ANE [employer] CBC WITH AUTO DIFFERENTIAL Routine 09/30/2024 4:20 AM [employer] CRITICAL RESULT CALLBACK HEMATOLOGY STAT 09/29/2024 11:37 AM [employer] APTT STAT 09/29/2024 11:37 AM [employer] THYROID FUNCTION CASCADE Timed 09/29/2024 6:39 AM [employer] LITHIUM LEVEL Timed 09/29/2024 6:39 AM [employer]ANE [employer] BLOOD GAS, VENOUS Timed 09/29/2024 6:3 9 AM [employer]ANE [employer] PRO B-TYPE NATRIURETIC PEPTIDE Timed 09/29/2024 6:39 AM [employer] TROPONIN I HIGH-SENSITIVITY Timed 09/29/2024 6:39 AM [employer] INFECTION PREVENTION MRSA ONLY (STAPHYLOCOCCUS AUREUS) CULTURE Routine 09/29/2024 6:39 AM [employer] URINALYSIS, MICROSCOPIC ONLY STAT 09/29/2024 4:23 AM [employer]ANE [employer] APTT STAT 09/29/2024 4:23 AM [employer] PROTIME-INR STAT 09/29/2024 4:23 AM [employer]ANE [employer] RESPIRATORY PATHOGEN PANEL Routine 09/29/2024 4:23 AM [employer] URINALYSIS AND REFLEX TO MICROSCOPIC AND CULTURE STAT 09/29/2024 4:23 AM [employer] CT CHEST PE W CONTRAST ED 09/29/2024 1:26 AM [employer] BLOOD CULTURE Routine 09/29/2024 12:44 AM [employer]ANE [employer] BLOOD CULTURE Routine 09/29/2024 12:44 AM [employer] EGFR STAT 09/28/2024 11:53 PM [employer]ANE [employer] DIFFERENTIAL AUTO STAT 09/28/2024 11:53 PM [employer]ANE [employer] COMPREHENSIVE METABOLIC PANEL STAT 09/28/2024 11:53 PM [employer]ANE [employer] CBC WITH AUTO DIFFERENTIAL STAT 09/28/2024 11:53 PM [employer]ANE [employer] XR CHEST PA LATERAL 2 VIEWS ED 09/28/2024 11:46 PM [employer]ANE [employer] XR CHEST 1 VIEW IP Routine 09/28/2024 2:32 PM [employer]ANE [employer] CYTOLOGY Routine 09/28/2024 1:42 PM [employer] BRONCHOSCOPY Routine 09/28/2024 1:18 PM [employer]ANE [employer] Lung nodule PET/CT FDG SKULL TO THIGH Schedule Routine, Read Routine (OP Routine) 08/26/2024 9:38 AM [employer] Lung nodule POCT GLUCOSE DEVICE Routine 08/26/2024 8 :08 AM [employer] PULMONARY FUNCTION TEST (PFT) Routine 08/17/2024 3:22 PM CDT Nicotine dependence, cigarettes, uncomplicated F5 (FVL) AND F2 (PROTHROMBIN) MUTATIONS Routine 08/10/2024 2:27 PM CDT Pulmonary embolism, unspecified chronicity, unspecified pulmonary embolism type, unspecified whether acute cor pulmonale present (HCC) DIAGNOSTIC MAMMOGRAM BILATERAL W MOHSEN Schedule Routine, Read Routine (OP Routine) 06/10/2024 2:19 PM CDT Mass of right breast, unspecified quadrant from Last 3 Months or Most Recently Relevant to Health Maintenance Results * eGFR (10/08/2024 5:[address] [employer]) eGFR 60 >=60 mL/min/1. 73 m2 Comment: Interpretive Data Reference Interval Normal ?>/= 90 mL/min/1.73m2 Mildly decreased* ? 60 - 89 mL/min/1.73m2 Mildly to moderately decreased ?45 - 59 mL/min/1.73m2 Moderately to severely decreased ??30 - 44 mL/min/1.73m2 Severely decreased ?15 - 29 mL/min/1.73m2 Kidney Failure ?< 15 ??mL/min/1.73m2 *Relative to young adult level Estimated glomerular filtration rate is determined by the 2020 CKD-EPI equation recommended by the National Kidney Foundation (A Unifying Approach to GFR Estimation: Recommendations of the NKF-ASK Task Force on Reassessing the Inclusion of Race in Diagnosing Kidney Disease, JASN 202). The CKD-EPI equation should not be used for patients with unstable renal function and has not been validated in children and those over 70. Current interpretive data was last reviewed 2021. Blood 10/08/2024 5:04 [address] [employer] 10/08/2024 6:02 AM [employer]ANE [employer] us Estuardo Abrams MD LAB BLOOD ORDERABLES Final Resu lt [facility] Department [place] [address] * (ABNORMAL) Differential, auto (10/08/2024 5:[address] [employer]) Neutrophil abs 5.1 1.5 - 6.5 K/cumm Imm gran abs 0.0 0.0 - 0.1 K/cumm [facility] Lymphocyte abs 4.1(H) 0.8 - 3.3 K/cumm [facility] Monocyte abs 1.1(H) 0.2 - 0.8 K/cumm [facility] Eosinophil abs 0.4 0.0 - 0.5 K/cumm [facility] Basophil abs 0.0 0.0 - 0.1 K/cumm [facility] Neutrophil pct 47.4 % [facility] Comment: Interpretive Data Percent cell count reference ranges are not reported, since discordance with absolute values may lead to misinterpretation of CBC data. Current Interpretive Data was last revised on 2018. Imm gran pct 0.4 % [facility] Comment: Interpretive Data Percent cell count reference ranges are not reported, since discordance with absolute values may lead to misinterpretation of CBC data. Current Interpretive Data was last revised on 2018. Lymphocyte pct 38.0 % [facility] Comment: Interpretive Data Percent cell count reference ranges are not reported, since discordance with absolute values may lead to misinterpretation of CBC data. Current Interpretive Data was last revised on 2018. Monocyte pct 10.6 % [facility] Comment: Interpretive Data Percent cell count reference ranges are not reported, since discordance with absolute values may lead to misinterpretation of CBC data. Current Interpretive Data was last revised on 2018. Eosinophil pct 3.3 % [facility] Comment: Interpretive Data Percent cell count reference ranges are not reported, since discordance with absolute values may lead to misinterpretation of CBC data. Current Interpretive Data was last revised on 2018. Basophil pct 0.3 % [facility] Comment: Interpretive Data Percent cell count reference ranges are not reported, since discordance with absolute values may lead to misinterpretation of CBC data. Current Interpretive Data was last revised on 2018. Blood 10/08/2024 5:04 AM [employer] 10/08/2024 6:03 AM [employer]ANE [employer] us Estuardo Abrams MD LAB BLOOD ORDERABLES Final Resu lt [facility] Department [place] [address] * (ABNORMAL) CBC with auto differential (10/08/2024 5:04 AM [employer]ANE [employer]) WBC 10.8(H) 3.8 - 9.9 K/cumm Hgb 11.8(L) 11.9 - 15.5 g/dL [facility] Hct 35.5(L) 35.6 - 45.5 % [facility] Plt 326 150 - 400 K/cumm [facility] MPV 9.5 9.1 - 12.3 fL [facility] RBC 3.85(L) 3.90 - 5.20 M/cumm [facility] MCV 92.2 81.3 - 96.4 fL [facility] MCH 30.6 27.1 - 33.3 pg [facility] MCHC 33.2 32.3 - 35.7 g/dL [facility] RDW CV 12.3 11.1 - 14.9 % [facility] RDW SD 41.3 35.7 - 48.1 fL [facility] NRBC abs 0.00 0.00 - 0.01 K/cumm [facility] Blood 10/08/2024 5:04 AM [employer] 10/08/2024 6:03 AM [employer]ANE [employer] Estuardo Abrams MD LAB BLOOD ORDERABLES Final Resu lt Performing Organization Address City/[facility]/ZIP Co de Phone Number [facility] [place] [address] * Basic metabolic panel (10/08/2024 5:04 AM [employer]ANE [employer]) [facility] Sodium 142 135 - 145 mmol/L Potassium, pl 3.8 3.3 - 4.9 mmol/L [facility] Chloride 103 97 - 110 mmol/L [facility] CO2 28 22 - 32 mmol/L [facility] Anion gap 11 2 - 15 mmol/L [facility] BUN 14 6 - 25 mg/dL [facility] Creatinine 0.99 0.60 - 1.10 mg/dL [facility] Glucose 93 70 - 199 mg/dL [facility] Comment: Interpretive Data Fasting glucose >/= 126 mg/dl is diagnostic for diabetes. ?? Fasting is defined as no caloric intake for at least 8 hours. Fasting glucose between 100 mg/dl to 125 mg/dl is diagnostic of prediabetes. In a patient with classic symptoms of hyperglycemia or hyperglycemic crisis, a random glucose >/= 200 mg/dl is diagnostic for diabetes. In the absence of unequivocal hyperglycemia, results should be confirmed by repeat testing. The classification and Diagnosis of Diabetes Diabetes Care 2021; 46: S19-S40. Current interpretive data was last revised 2022. Calcium 9.9 8.5 - 10.3 mg/dL [facility] Blood 10/08/2024 5:04 AM [employer] 10/08/2024 6:02 AM [employer]ANE [employer] Result [facility] Estuardo Abrams MD LAB BLOOD ORDERABLES Final Resu lt Performing Organization Address [facility]/ZIP Co de Phone Number [facility] Department [place] [address] * (ABNORMAL) eGFR (10/07/2024 4:39 AM AIRPLANE [employer]) eGFR 59(L) >=60 mL/min/1. 73 m2 Comment: Interpretive Data Reference Interval Normal ?>/= 90 mL/min/1.73m2 Mildly decreased* ? 60 - 89 mL/min/1.73m2 Mildly to moderately decreased ?45 - 59 mL/min/1.73m2 Moderately to severely decreased ??30 - 44 mL/min/1.73m2 Severely decreased ?15 - 29 mL/min/1.73m2 Kidney Failure ?< 15 ??mL/min/1.73m2 *Relative to young adult level Estimated glomerular filtration rate is determined by the 2020 CKD-EPI equation recommended by the National Kidney Foundation (A Unifying Approach to GFR Estimation: Recommendations of the NKF-ASK Task Force on Reassessing the Inclusion of Race in Diagnosing Kidney Disease, JASN 2020). The CKD-EPI equation should not be used for patients with unstable renal function and has not been validated in children and those over 70. Current interpretive data was last reviewed 2021. Blood 10/07/2024 4:39 AM [employer]PLANE [employer] 10/07/2024 5:23 AM [employer]ANE [employer] us Estuardo Abrams MD LAB BLOOD ORDERABLES Final Resu lt [facility] Department of Laboratories [place], [place] [id number] * (ABNORMAL) Differential, auto (10/07/2024 4:39 AM AIRPLANE [employer]) Neutrophil abs 5.3 1.5 - 6.5 K/cumm Imm gran abs 0.1 0.0 - 0.1 K/cumm [facility] Lymphocyte abs 3.6(H) 0.8 - 3.3 K/cumm [facility] Monocyte abs 1.1(H) 0.2 - 0.8 K/cumm [facility] Eosinophil abs 0.4 0.0 - 0.5 K/cumm [facility] Basophil abs 0.0 0.0 - 0.1 K/cumm [facility] Neutrophil pct 50.9 % [facility] Comment: Interpretive Data Percent cell count reference ranges are not reported, since discordance with absolute values may lead to misinterpretation of CBC data. Current Interpretive Data was last revised on 2018. Imm gran pct 0.6 % [facility] Comment: Interpretive Data Percent cell count reference ranges are not reported, since discordance with absolute values may lead to misinterpretation of CBC data. Current Interpretive Data was last revised on 2018. Lymphocyte pct 34.5 % [facility] Comment: Interpretive Data Percent cell count reference ranges are not reported, since discordance with absolute values may lead to misinterpretation of CBC data. Current Interpretive Data was last revised on 2018. Monocyte pct 10.1 % [facility] Comment: Interpretive Data Percent cell count reference ranges are not reported, since discordance with absolute values may lead to misinterpretation of CBC data. Current Interpretive Data was last revised on 2018. Eosinophil pct 3.5 % [facility] Comment: Interpretive Data Percent cell count reference ranges are not reported, since discordance with absolute values may lead to misinterpretation of CBC data. Current Interpretive Data was last revised on 2018. Basophil pct 0.4 % [facility] Comment: Interpretive Data Percent cell count reference ranges are not reported, since discordance with absolute values may lead to misinterpretation of CBC data. Current Interpretive Data was last revised on 2018. Blood 10/07/2024 4:39 AM [employer]PLANE [employer] 10/07/2024 5:24 AM AIRPLANE [employer] us Estuardo Abrams MD LAB BLOOD ORDERABLES Final Resu lt [facility] Department [place] [address] * (ABNORMAL) CBC with auto differential (10/07/2024 4:39 AM AIRPLANE [employer]) [facility] WBC 10.5(H) 3.8 - 9.9 K/cumm Hgb 11.5(L) 11.9 - 15.5 g/dL [facility] Hct 35.4(L) 35.6 - 45.5 % [facility] Plt 325 150 - 400 K/cumm [facility] MPV 9.1 9.1 - 12.3 fL [facility] RBC 3.76(L) 3.90 - 5.20 M/cumm [facility] MCV 94.1 81.3 - 96.4 fL [facility] MCH 30.6 27.1 - 33.3 pg [facility] MCHC 32.5 32.3 - 35.7 g/dL [facility] RDW CV 12.5 11.1 - 14.9 % [facility] RDW SD 43.1 35.7 - 48.1 fL [facility] NRBC abs 0.00 0.00 - 0.01 K/cumm [facility] Blood 10/07/2024 4:39 AM AIRPLANE [employer] 10/07/2024 5:24 AM [employer]PLANE [employer] us Estuardo Abrams MD LAB BLOOD ORDERABLES Final Resu lt [facility] Department [place] [address] * Basic metabolic panel (10/07/2024 4:39 AM AIRPLANE [employer]) [facility] Sodium 139 135 - 145 mmol/L Potassium, pl 3.9 3.3 - 4.9 mmol/L [facility] Chloride 104 97 - 110 mmol/L [facility] CO2 29 22 - 32 mmol/L [facility] Anion gap 6 2 - 15 mmol/L [facility] BUN 16 6 - 25 mg/dL [facility] Creatinine 1.01 0.60 - 1.10 mg/dL [facility] Glucose 97 70 - 199 mg/dL [facility] Comment: Interpretive Data Fasting glucose >/= 126 mg/dl is diagnostic for diabetes. ?? Fasting is defined as no caloric intake for at least 8 hours. Fasting glucose between 100 mg/dl to 125 mg/dl is diagnostic of prediabetes. In a patient with classic symptoms of hyperglycemia or hyperglycemic crisis, a random glucose >/= 200 mg/dl is diagnostic for diabetes. In the absence of unequivocal hyperglycemia, results should be confirmed by repeat testing. The classification and Diagnosis of Diabetes Diabetes Care 2022; 46: S19-S40. Current interpretive data was last revised 2022. Calcium 9.6 8.5 - 10.3 mg/dL [facility] Blood 10/07/2024 4:39 AM AIRPLANE [employer] 10/07/2024 5:23 AM AIRPLANE [employer] us Estuardo Abrams MD LAB BLOOD ORDERABLES Final Resu lt [facility] [place] [address] * (ABNORMAL) eGFR (10/06/2024 3:57 AM AIRPLANE [employer]) eGFR 50(L) >=60 mL/min/1. 73 m2 Comment: Interpretive Data Reference Interval Normal ?>/= 90 mL/min/1.73m2 Mildly decreased* ? 60 - 89 mL/min/1.73m2 Mildly to moderately decreased ?45 - 59 mL/min/1.73m2 Moderately to severely decreased ??30 - 44 mL/min/1.73m2 Severely decreased ?15 - 29 mL/min/1.73m2 Kidney Failure ?< 15 ??mL/min/1.73m2 *Relative to young adult level Estimated glomerular filtration rate is determined by the 2020 CKD-EPI equation recommended by the National Kidney Foundation (A Unifying Approach to GFR Estimation: Recommendations of the NKF-ASK Task Force on Reassessing the Inclusion of Race in Diagnosing Kidney Disease, JASN 202). The CKD-EPI equation should not be used for patients with unstable renal function and has not been validated in children and those over 70. Current interpretive data was last reviewed 2021. Blood 10/06/2024 3:57 AM [employer]PLANE [employer] 10/06/2024 4:50 AM AIRPLANE [employer] us Estuardo Abrams MD LAB BLOOD ORDERABLES Final Resu lt [facility] [place] [address] * (ABNORMAL) Differential, auto (10/06/2024 3:57 AM AIRPLANE [employer]) Neutrophil abs 5.0 1.5 - 6.5 K/cumm Imm gran abs 0.0 0.0 - 0.1 K/cumm [facility] Lymphocyte abs 4.0(H) 0.8 - 3.3 K/cumm [facility] Monocyte abs 1.1(H) 0.2 - 0.8 K/cumm [facility] Eosinophil abs 0.4 0.0 - 0.5 K/cumm [facility] Basophil abs 0.0 0.0 - 0.1 K/cumm [facility] Neutrophil pct 47.2 % [facility] Comment: Interpretive Data Percent cell count reference ranges are not reported, since discordance with absolute values may lead to misinterpretation of CBC data. Current Interpretive Data was last revised on 2018. Imm gran pct 0.4 % [facility] Comment: Interpretive Data Percent cell count reference ranges are not reported, since discordance with absolute values may lead to misinterpretation of CBC data. Current Interpretive Data was last revised on 2018. Lymphocyte pct 37.8 % [facility] Comment: Interpretive Data Percent cell count reference ranges are not reported, since discordance with absolute values may lead to misinterpretation of CBC data. Current Interpretive Data was last revised on 2018. Monocyte pct 10.6 % [facility] Comment: Interpretive Data Percent cell count reference ranges are not reported, since discordance with absolute values may lead to misinterpretation of CBC data. Current Interpretive Data was last revised on 2018. Eosinophil pct 3.7 % [facility] Comment: Interpretive Data Percent cell count reference ranges are not reported, since discordance with absolute values may lead to misinterpretation of CBC data. Current Interpretive Data was last revised on 2018. Basophil pct 0.3 % [facility] Comment: Interpretive Data Percent cell count reference ranges are not reported, since discordance with absolute values may lead to misinterpretation of CBC data. Current Interpretive Data was last revised on 2018. Blood 10/06/2024 3:57 AM [employer]PLANE [employer] 10/06/2024 4:50 AM AIRPLANE [employer] us Estuardo Abrams MD LAB BLOOD ORDERABLES Final Resu lt [facility] [place] [address] * (ABNORMAL) CBC with auto differential (10/06/2024 3:57 AM AIRPLANE [employer]) WBC 10.6(H) 3.8 - 9.9 K/cumm Hgb 11.9 11.9 - 15.5 g/dL [facility] Hct 35.5(L) 35.6 - 45.5 % [facility] Plt 307 150 - 400 K/cumm [facility] MPV 9.5 9.1 - 12.3 fL [facility] RBC 3.81(L) 3.90 - 5.20 M/cumm [facility] MCV 93.2 81.3 - 96.4 fL [facility] MCH 31.2 27.1 - 33.3 pg [facility] MCHC 33.5 32.3 - 35.7 g/dL [facility] RDW CV 12.5 11.1 - 14.9 % [facility] RDW SD 42.7 35.7 - 48.1 fL [facility] NRBC abs 0.00 0.00 - 0.01 K/cumm [facility] Blood 10/06/2024 3:57 AM [employer]PLANE [employer] 10/06/2024 4:50 AM [employer]PLANE [employer] Estuardo Abrams MD LAB BLOOD ORDERABLES Final Resu lt Performing Organization Address [facility] Co de Phone Number [facility] Department [place] [address] * (ABNORMAL) Basic metabolic panel (10/06/2024 3:57 AM AIRPLANE [employer]) [facility] Sodium 142 135 - 145 mmol/L Potassium, pl 3.7 3.3 - 4.9 mmol/L [facility] Chloride 104 97 - 110 mmol/L [facility] CO2 27 22 - 32 mmol/L [facility] Anion gap 11 2 - 15 mmol/L [facility] BUN 17 6 - 25 mg/dL [facility] Creatinine 1.15(H) 0.60 - 1.10 mg/dL [facility] Glucose 114 70 - 199 mg/dL [facility] Comment: Interpretive Data Fasting glucose >/= 126 mg/dl is diagnostic for diabetes. ?? Fasting is defined as no caloric intake for at least 8 hours. Fasting glucose between 100 mg/dl to 125 mg/dl is diagnostic of prediabetes. In a patient with classic symptoms of hyperglycemia or hyperglycemic crisis, a random glucose >/= 200 mg/dl is diagnostic for diabetes. In the absence of unequivocal hyperglycemia, results should be confirmed by repeat testing. The classification and Diagnosis of Diabetes Diabetes Care 2021; 46: S19-S40. Current interpretive data was last revised 2022. Calcium 9.9 8.5 - 10.3 mg/dL [facility] Blood 10/06/2024 3:57 AM [employer]PLANE [employer] 10/06/2024 4:50 AM [employer]PLANE [employer] Estuardo Abrams MD LAB BLOOD ORDERABLES Final Resu lt Performing Organization Address [facility]/ZIP Co de Phone Number [facility] [place] [address] * (ABNORMAL) eGFR (10/05/2024 4:30 AM AIRPLANE [employer]) eGFR 54(L) >=60 mL/min/1. 73 m2 Comment: Interpretive Data Reference Interval Normal ?>/= 90 mL/min/1.73m2 Mildly decreased* ? 60 - 89 mL/min/1.73m2 Mildly to moderately decreased ?45 - 59 mL/min/1.73m2 Moderately to severely decreased ??30 - 44 mL/min/1.73m2 Severely decreased ?15 - 29 mL/min/1.73m2 Kidney Failure ?< 15 ??mL/min/1.73m2 *Relative to young adult level Estimated glomerular filtration rate is determined by the 2020 CKD-EPI equation recommended by the National Kidney Foundation (A Unifying Approach to GFR Estimation: Recommendations of the NKF-ASK Task Force on Reassessing the Inclusion of Race in Diagnosing Kidney Disease, JASN 2020). The CKD-EPI equation should not be used for patients with unstable renal function and has not been validated in children and those over 70. Current interpretive data was last reviewed 2021. Blood 10/05/2024 4:30 AM [employer]PLANE [employer] 10/05/2024 5:01 AM [employer]ANE [employer] us Estuardo Abrams MD LAB BLOOD ORDERABLES Final Resu lt [facility] Department [place] [address] * (ABNORMAL) Differential, auto (10/05/2024 4:30 [address] AIR[employer]ANE [employer]) Neutrophil abs 7.4(H) 1.5 - 6.5 K/cumm Imm gran abs 0.1 0.0 - 0.1 K/cumm [facility] Lymphocyte abs 2.9 0.8 - 3.3 K/cumm [facility] Monocyte abs 1.3(H) 0.2 - 0.8 K/cumm [facility] Eosinophil abs 0.3 0.0 - 0.5 K/cumm [facility] Basophil abs 0.0 0.0 - 0.1 K/cumm [facility] Neutrophil pct 61.9 % [facility] Comment: Interpretive Data Percent cell count reference ranges are not reported, since discordance with absolute values may lead to misinterpretation of CBC data. Current Interpretive Data was last revised on 2018. Imm gran pct 0.4 % [facility] Comment: Interpretive Data Percent cell count reference ranges are not reported, since discordance with absolute values may lead to misinterpretation of CBC data. Current Interpretive Data was last revised on 2018. Lymphocyte pct 23.9 % [facility] Comment: Interpretive Data Percent cell count reference ranges are not reported, since discordance with absolute values may lead to misinterpretation of CBC data. Current Interpretive Data was last revised on 2018. Monocyte pct 10.7 % [facility] Comment: Interpretive Data Percent cell count reference ranges are not reported, since discordance with absolute values may lead to misinterpretation of CBC data. Current Interpretive Data was last revised on 2018. Eosinophil pct 2.8 % [facility] Comment: Interpretive Data Percent cell count reference ranges are not reported, since discordance with absolute values may lead to misinterpretation of CBC data. Current Interpretive Data was last revised on 2018. Basophil pct 0.3 % [facility] Comment: Interpretive Data Percent cell count reference ranges are not reported, since discordance with absolute values may lead to misinterpretation of CBC data. Current Interpretive Data was last revised on 2018. Blood 10/05/2024 4:30 AM [employer]ANE [employer] 10/05/2024 5:01 AM AIRPLANE [employer] us Estuardo Abrams MD LAB BLOOD ORDERABLES Final Resu lt [facility] Department [place] [address] * (ABNORMAL) CBC with auto differential (10/05/2024 4:30 AM AIRPLANE [employer]) [facility] WBC 11.9(H) 3.8 - 9.9 K/cumm Hgb 12.4 11.9 - 15.5 g/dL [facility] Hct 37.0 35.6 - 45.5 % [facility] Plt 314 150 - 400 K/cumm [facility] MPV 9.2 9.1 - 12.3 fL [facility] RBC 4.10 3.90 - 5.20 M/cumm [facility] MCV 90.2 81.3 - 96.4 fL [facility] MCH 30.2 27.1 - 33.3 pg [facility] MCHC 33.5 32.3 - 35.7 g/dL [facility] RDW CV 12.5 11.1 - 14.9 % [facility] RDW SD 41.1 35.7 - 48.1 fL [facility] NRBC abs 0.00 0.00 - 0.01 K/cumm [facility] Blood 10/05/2024 4:30 AM [employer]PLANE [employer] 10/05/2024 5:01 AM AIRPLANE [employer] us Estuardo Abrams MD LAB BLOOD ORDERABLES Final Resu lt [facility] [place] [address] * Basic metabolic panel (10/05/2024 4:30 AM AIRPLANE [employer]) [facility] Sodium 140 135 - 145 mmol/L Potassium, pl 3.4 3.3 - 4.9 mmol/L [facility] Chloride 102 97 - 110 mmol/L [facility] CO2 28 22 - 32 mmol/L [facility] Anion gap 10 2 - 15 mmol/L [facility] BUN 17 6 - 25 mg/dL [facility] Creatinine 1.08 0.60 - 1.10 mg/dL [facility] Glucose 100 70 - 199 mg/dL [facility] Comment: Interpretive Data Fasting glucose >/= 126 mg/dl is diagnostic for diabetes. ?? Fasting is defined as no caloric intake for at least 8 hours. Fasting glucose between 100 mg/dl to 125 mg/dl is diagnostic of prediabetes. In a patient with classic symptoms of hyperglycemia or hyperglycemic crisis, a random glucose >/= 200 mg/dl is diagnostic for diabetes. In the absence of unequivocal hyperglycemia, results should be confirmed by repeat testing. The classification and Diagnosis of Diabetes Diabetes Care 202; 46: S19-S40. Current interpretive data was last revised 2022. Calcium 10.0 8.5 - 10.3 mg/dL [facility] Blood 10/05/2024 4:30 AM AIRPLANE [employer] 10/05/2024 5:01 AM AIRPLANE [employer] us Estuardo Abrams MD LAB BLOOD ORDERABLES Final Resu lt [facility] Department [place] [address] * US Vein Duplex Upper Extremity Left Limited, Unilateral (10/04/2024 9:37 AM AIRPLANE [employer]) Anatomical Region Laterality Modality Vascular Left Ultrasound 10/04/2024 9:14 AM AIRPLANE [employer] Narrative 10/06/2024 12:16 AM AIRPLANE [employer] [facility] - Department of Vascular Surgery, Vascular Laboratory [address] [place] [id number] Upper Extremity Venous Ultrasound Report Patient Name: BIRGIT EDWARDS R : 1950 (74y 5m) Study Date: 10/04/2024 9:14:27 AM Gender: F [facility]: [facility] Location: [id number] Ref Provider: ESTUARDO ABRAMS ?Quality: Adequate Order Provider: ESTUARDO ABRAMS ?? PROCEDURES: Vascular Report: Venous Duplex imaging was performed in the left upper extremity. The internal jugular, subclavian and axillary veins were evaluated for patency, spontaneity and phasicity with Doppler, compression and augmentation maneuvers. The brachial, basilic and cephalic veins were also evaluated with compression maneuvers. ?? INDICATIONS: Swelling, Upper Extremity, Left - ?? FINDINGS: Performing Retail Field Supervisor: Dianelys Garcia, [facility], [place]. Left: Venous Doppler signals in the left upper extremity are within normal limits for spontaneity and phasicity; normal response to compression maneuvers. No evidence of superficial vein thrombus in the left upper extremity. Comments: Contralateral subclavian vein is imaged for comparison and is patent. Unilateral (limited study) performed per M.D. order. ?? CONCLUSIONS: 1. No evidence of acute deep vein thrombosis in the left upper extremity. 2. No evidence of superficial vein thrombus in the left upper extremity. ?? HISTORY: Previous thrombophlebitis. ?? PREVIOUS STUDIES: Previous study performed on 06/24/2024 (positive SVT). ?? DISCLAIMER: The study images and the final report will be retained in the patient chart by the Vascular Laboratory for the legally required time period. This chart constitutes the legal record of any testing performed. ?? ATTESTATION: I have reviewed and interpreted the pertinent images and measurements of this study. I attest to the conclusions in the final report that is provided above. Electronically Signed By: Jean Ngo MD FACS 10/06/2024 12:16:15 AM AIRPLANE [employer] Procedure Note Jean Ngo MD - 10/06/2024 [facility] - Department of Vascular Surgery,Vascular Laboratory [address] [place] [address] Upper Extremity Venous Ultrasound Report Patient Name: BIRGIT EDWARDS R : 1950 (74y 5m) Study Date: 10/04/2024 9:14:27 AM Gender: F Tech: [facility] Location: [id number] Ref Provider: ESTUARDO ABRAMS Quality: Adequate Order Provider: ESTUARDO ABRAMS PROCEDURES: Vascular Report: Venous Duplex imaging was performed in the left upper extremity. Theinternal jugular, subclavian and axillary veins were evaluated for patency, spontaneity andphasicity with Doppler, compression and augmentation maneuvers. The brachial, basilic andcephalic veins were also evaluated with compression maneuvers. INDICATIONS: Swelling, Upper Extremity, Left - FINDINGS: Performing Retail Field Supervisor: Dianelys Garcia, [facility], T. Left: Venous Doppler signals in the left upper extremity are within normallimits for spontaneity and phasicity; normal response to compression maneuvers. Noevidence of superficial vein thrombus in the left upper extremity. Comments: Contralateral subclavian vein is imaged for comparison and is patent.Unilateral (limited study) performed per M.D. order. CONCLUSIONS: 1. No evidence of acute deep vein thrombosis in the left upperextremity. 2. No evidence of superficial vein thrombus in the left upper extremity. HISTORY: Previous thrombophlebitis. PREVIOUS STUDIES: Previous study performed on 06/24/2024 (positive SVT). DISCLAIMER: The study images and the final report will be retained in the patientchart by the Vascular Laboratory for the legally required time period. This chartconstitutes the legal record of any testing performed. ATTESTATION: I have reviewed and interpreted the pertinent images and measurements ofthis study. I attest to the conclusions in the final report that is provided above. Electronically Signed By: Jean Ngo MD [facility] 10/06/2024 12:16:15 AM AIRPLANE [employer] us Estuardo Abrams MD [facility] US PROCEDURES Final Result * (ABNORMAL) eGFR (10/04/2024 4:45 [address] AIRPLANE [employer]) eGFR 57(L) >=60 mL/min/1. 73 m2 Comment: Interpretive Data Reference Interval Normal ?>/= 90 mL/min/1.73m2 Mildly decreased* ? 60 - 89 mL/min/1.73m2 Mildly to moderately decreased ?45 - 59 mL/min/1.73m2 Moderately to severely decreased ??30 - 44 mL/min/1.73m2 Severely decreased ?15 - 29 mL/min/1.73m2 Kidney Failure ?< 15 ??mL/min/1.73m2 *Relative to young adult level Estimated glomerular filtration rate is determined by the 2020 CKD-EPI equation recommended by the National Kidney Foundation (A Unifying Approach to GFR Estimation: Recommendations of the NKF-ASK Task Force on Reassessing the Inclusion of Race in Diagnosing Kidney Disease, JASN 202). The CKD-EPI equation should not be used for patients with unstable renal function and has not been validated in children and those over 70. Current interpretive data was last reviewed 2021. Blood 10/04/2024 4:45 AM AIRPLANE [employer] 10/04/2024 5:28 AM AIRPLANE [employer] us Estuardo Abrams MD LAB BLOOD ORDERABLES Final Resu lt [facility] [place] [address] * (ABNORMAL) Differential, auto (10/04/2024 4:45 AM AIRPLANE [employer]) Neutrophil abs 7.0(H) 1.5 - 6.5 K/cumm Imm gran abs 0.1 0.0 - 0.1 K/cumm [facility] Lymphocyte abs 2.6 0.8 - 3.3 K/cumm [facility] Monocyte abs 1.2(H) 0.2 - 0.8 K/cumm [facility] Eosinophil abs 0.4 0.0 - 0.5 K/cumm [facility] Basophil abs 0.0 0.0 - 0.1 K/cumm [facility] Neutrophil pct 61.8 % [facility] Comment: Interpretive Data Percent cell count reference ranges are not reported, since discordance with absolute values may lead to misinterpretation of CBC data. Current Interpretive Data was last revised on 2018. Imm gran pct 0.4 % [facility] Comment: Interpretive Data Percent cell count reference ranges are not reported, since discordance with absolute values may lead to misinterpretation of CBC data. Current Interpretive Data was last revised on 2018. Lymphocyte pct 23.2 % [facility] Comment: Interpretive Data Percent cell count reference ranges are not reported, since discordance with absolute values may lead to misinterpretation of CBC data. Current Interpretive Data was last revised on 2018. Monocyte pct 10.9 % [facility] Comment: Interpretive Data Percent cell count reference ranges are not reported, since discordance with absolute values may lead to misinterpretation of CBC data. Current Interpretive Data was last revised on 2018. Eosinophil pct 3.3 % [facility] Comment: Interpretive Data Percent cell count reference ranges are not reported, since discordance with absolute values may lead to misinterpretation of CBC data. Current Interpretive Data was last revised on 2018. Basophil pct 0.4 % [facility] Comment: Interpretive Data Percent cell count reference ranges are not reported, since discordance with absolute values may lead to misinterpretation of CBC data. Current Interpretive Data was last revised on 2018. Blood 10/04/2024 4:45 AM AIRPLANE [employer] 10/04/2024 5:32 AM AIRPLANE [employer] us Estuardo Abrams MD LAB BLOOD ORDERABLES Final Resu lt Performing Organization Address City/[facility] Co de Phone Number [facility] Department [place] [address] * (ABNORMAL) CBC with auto differential (10/04/2024 4:45 AM AIRPLANE [employer]) WBC 11.3(H) 3.8 - 9.9 K/cumm Hgb 11.9 11.9 - 15.5 g/dL [facility] Hct 35.8 35.6 - 45.5 % [facility] Plt 289 150 - 400 K/cumm [facility] MPV 9.1 9.1 - 12.3 fL [facility] RBC 3.81(L) 3.90 - 5.20 M/cumm [facility] MCV 94.0 81.3 - 96.4 fL [facility] MCH 31.2 27.1 - 33.3 pg [facility] MCHC 33.2 32.3 - 35.7 g/dL [facility] RDW CV 12.5 11.1 - 14.9 % [facility] RDW SD 42.9 35.7 - 48.1 fL [facility] NRBC abs 0.00 0.00 - 0.01 K/cumm [facility] Blood 10/04/2024 4:45 AM AIRPLANE [employer] 10/04/2024 5:32 AM AIRPLANE [employer] Estuardo Abrams MD LAB BLOOD ORDERABLES Final Resu lt [facility] Department [place] [address] * Basic metabolic panel (10/04/2024 4:45 AM AIRPLANE [employer]ER) Pathologist [facility] Sodium 140 135 - 145 mmol/L Potassium, pl 3.5 3.3 - 4.9 mmol/L [facility] Chloride 100 97 - 110 mmol/L [facility] CO2 27 22 - 32 mmol/L [facility] Anion gap 13 2 - 15 mmol/L [facility] BUN 13 6 - 25 mg/dL [facility] Creatinine 1.04 0.60 - 1.10 mg/dL [facility] Glucose 103 70 - 199 mg/dL [facility] Comment: Interpretive Data Fasting glucose >/= 126 mg/dl is diagnostic for diabetes. ?? Fasting is defined as no caloric intake for at least 8 hours. Fasting glucose between 100 mg/dl to 125 mg/dl is diagnostic of prediabetes. In a patient with classic symptoms of hyperglycemia or hyperglycemic crisis, a random glucose >/= 200 mg/dl is diagnostic for diabetes. In the absence of unequivocal hyperglycemia, results should be confirmed by repeat testing. The classification and Diagnosis of Diabetes Diabetes Care 202; 46: S19-S40. Current interpretive data was last revised 2022. Calcium 9.9 8.5 - 10.3 mg/dL [facility] Blood 10/04/2024 4:45 AM AIRPLANE [employer] 10/04/2024 5:28 AM AIRPLANE [employer] us Estuardo Abrams MD LAB BLOOD ORDERABLES Final Resu lt [facility] [place] [address] * (ABNORMAL) eGFR (10/03/2024 4:27 AM AIRPLANE [employer]) Pathologist [facility] eGFR 52(L) >=60 mL/min/1. 73 m2 Comment: Interpretive Data Reference Interval Normal ?>/= 90 mL/min/1.73m2 Mildly decreased* ? 60 - 89 mL/min/1.73m2 Mildly to moderately decreased ?45 - 59 mL/min/1.73m2 Moderately to severely decreased ??30 - 44 mL/min/1.73m2 Severely decreased ?15 - 29 mL/min/1.73m2 Kidney Failure ?< 15 ??mL/min/1.73m2 *Relative to young adult level Estimated glomerular filtration rate is determined by the 2020 CKD-EPI equation recommended by the National Kidney Foundation (A Unifying Approach to GFR Estimation: Recommendations of the NKF-ASK Task Force on Reassessing the Inclusion of Race in Diagnosing Kidney Disease, JASN 2020). The CKD-EPI equation should not be used for patients with unstable renal function and has not been validated in children and those over 70. Current interpretive data was last reviewed 2021. Blood 10/03/2024 4:27 AM AIRPLANE [employer]ER 10/03/2024 5:20 AM AIRPLANE [employer] us Estuardo Abrams MD LAB BLOOD ORDERABLES Final Resu lt [facility] [place] [address] * (ABNORMAL) Differential, auto (10/03/2024 4:27 AM AIRPLANE [employer]BLER) Pathologist [facility] Neutrophil abs 6.0 1.5 - 6.5 K/cumm Imm gran abs 0.1 0.0 - 0.1 K/cumm [facility] Lymphocyte abs 3.2 0.8 - 3.3 K/cumm [facility] Monocyte abs 1.2(H) 0.2 - 0.8 K/cumm [facility] Eosinophil abs 0.3 0.0 - 0.5 K/cumm [facility] Basophil abs 0.1 0.0 - 0.1 K/cumm [facility] Neutrophil pct 55.6 % [facility] Comment: Interpretive Data Percent cell count reference ranges are not reported, since discordance with absolute values may lead to misinterpretation of CBC data. Current Interpretive Data was last revised on 2018. Imm gran pct 0.5 % [facility] Comment: Interpretive Data Percent cell count reference ranges are not reported, since discordance with absolute values may lead to misinterpretation of CBC data. Current Interpretive Data was last revised on 2018. Lymphocyte pct 29.6 % [facility] Comment: Interpretive Data Percent cell count reference ranges are not reported, since discordance with absolute values may lead to misinterpretation of CBC data. Current Interpretive Data was last revised on 2018. Monocyte pct 10.8 % [facility] Comment: Interpretive Data Percent cell count reference ranges are not reported, since discordance with absolute values may lead to misinterpretation of CBC data. Current Interpretive Data was last revised on 2018. Eosinophil pct 3.0 % [facility] Comment: Interpretive Data Percent cell count reference ranges are not reported, since discordance with absolute values may lead to misinterpretation of CBC data. Current Interpretive Data was last revised on 2018. Basophil pct 0.5 % [facility] Comment: Interpretive Data Percent cell count reference ranges are not reported, since discordance with absolute values may lead to misinterpretation of CBC data. Current Interpretive Data was last revised on 2018. Blood 10/03/2024 4:27 AM AIRPLANE [employer] 10/03/2024 5:20 AM AIRPLANE [employer] us Estuardo Abrams MD LAB BLOOD ORDERABLES Final Resu lt [facility] Department of Laboratories [place], [place] [id number] * (ABNORMAL) CBC with auto differential (10/03/2024 4:27 AM AIRPLANE [employer]) WBC 10.8(H) 3.8 - 9.9 K/cumm Hgb 11.8(L) 11.9 - 15.5 g/dL [facility] Hct 36.5 35.6 - 45.5 % [facility] Plt 277 150 - 400 K/cumm [facility] MPV 9.5 9.1 - 12.3 fL [facility] RBC 3.87(L) 3.90 - 5.20 M/cumm [facility] MCV 94.3 81.3 - 96.4 fL [facility] MCH 30.5 27.1 - 33.3 pg [facility] MCHC 32.3 32.3 - 35.7 g/dL [facility] RDW CV 12.6 11.1 - 14.9 % [facility] RDW SD 43.3 35.7 - 48.1 fL [facility] NRBC abs 0.00 0.00 - 0.01 K/cumm [facility] Blood 10/03/2024 4:27 AM AIRPLANE [employer] 10/03/2024 5:20 AM AIRPLANE [employer] us Estuardo Abrams MD LAB BLOOD ORDERABLES Final Resu lt [facility] [place] [address] * (ABNORMAL) Basic metabolic panel (10/03/2024 4:27 AM AIRPLANE [employer]ER) Sodium 142 135 - 145 mmol/L Potassium, pl 4.0 3.3 - 4.9 mmol/L [facility] Chloride 104 97 - 110 mmol/L [facility] CO2 28 22 - 32 mmol/L [facility] Anion gap 10 2 - 15 mmol/L [facility] BUN 16 6 - 25 mg/dL [facility] Creatinine 1.11(H) 0.60 - 1.10 mg/dL [facility] Glucose 86 70 - 199 mg/dL [facility] Comment: Interpretive Data Fasting glucose >/= 126 mg/dl is diagnostic for diabetes. ?? Fasting is defined as no caloric intake for at least 8 hours. Fasting glucose between 100 mg/dl to 125 mg/dl is diagnostic of prediabetes. In a patient with classic symptoms of hyperglycemia or hyperglycemic crisis, a random glucose >/= 200 mg/dl is diagnostic for diabetes. In the absence of unequivocal hyperglycemia, results should be confirmed by repeat testing. The classification and Diagnosis of Diabetes Diabetes Care 2021; 46: S19-S40. Current interpretive data was last revised 2022. Calcium 9.9 8.5 - 10.3 mg/dL [facility] Blood 10/03/2024 4:27 AM AIRPLANE [employer] 10/03/2024 5:20 AM AIRPLANE [employer]ER Estuardo Abrams MD LAB BLOOD ORDERABLES Final Resu lt Performing Organization Address [facility] Co de Phone Number [facility] [place] [address] * HIV 1/2 Antibody plus p24 Antigen Blood (10/02/2024 8:[address] AIRPLANE [employer]ER) HIV 1/2 ab + p24 ag Nonreactive Nonreactive Comment:Nonreactive for HIV- 1 antigen and HIV-1/HIV-2 antibodies. No laboratory evidence of HIV infection. If acute HIV infection is suspected, consider testing for HIV-1 RNA. Current interpretive data was last revised on 22. Blood 10/02/2024 8:28 PM AIRPLANE [employer]ER 10/02/2024 11:03 PM AIRPLANE [employer]ER Estuardo Abrams MD LAB MICROBIOLOGY - GENERAL ORDE RABLES Final Result Performing Organization Address [facility] Co de Phone Number [facility] Department [place] [place] [address] * Hepatitis C antibody Blood (10/02/2024 8:28 PM AIRPLANE [employer]SEMBLER) Hep C Ab Nonreactive Nonreactive Comment:Antibodies to HCV no t detected. Does NOT exclude the possibility of recent exposure to HCV. Current interpretive data was last revised on 22 Blood 10/02/2024 8:28 PM [employer]PLANE [employer] 10/02/2024 9:25 PM AIRPLANE [employer]ER Estuardo Abrams MD LAB MICROBIOLOGY - GENERAL ORDE RABLES Final Result Performing Organization Address [facility] Co de Phone Number [facility] [place] [address] * RPR Blood (10/02/2024 8:28 PM AIRPLANE [employer]SEMBLER) RPR Nonreactive Nonreactive Blood 10/02/2024 8:28 PM AIRPLANE [employer]ER 10/02/2024 9:26 PM AIRPLANE [employer] us Estuardo Abrams MD LAB MICROBIOLOGY - GENERAL ORDE RABLES Final Result Performing Organization Address [facility] Co de Phone Number [facility] [place] [address] * Hepatitis B Surface Antigen Blood (10/02/2024 8:28 PM AIRPLANE [employer]ER) HepBsAg Nonreactive Nonreactive Blood 10/02/2024 8:28 PM AIRPLANE [employer]ER 10/02/2024 9:25 PM AIRPLANE [employer]ER us Estuardo Abrams MD LAB MICROBIOLOGY - GENERAL ORDE RABLES Final Result Performing Organization Address [facility] Co de Phone Number [facility] [place] [address] * Folate (10/02/2024 8:28 PM AIRPLANE [employer]) Folic acid 13.1 >=5.0 ng/mL Blood 10/02/2024 8:28 PM AIRPLANE [employer] 10/02/2024 9:[address] [employer] Estuardo Abrams MD LAB BLOOD ORDERABLES Final Resu lt Performing Organization Address City/[facility] Co de Phone Number [facility] [place] [address] * Vitamin B12 (10/02/2024 8:[address] [employer]) Vitamin B12 793 230 - 1,250 pg/mL Blood 10/02/2024 8:[address] [employer] 10/02/2024 9:[address] [employer] us Estuardo Abrams MD LAB BLOOD ORDERABLES Final Resu lt [facility] [place] [address] * (ABNORMAL) eGFR (10/02/2024 4:[address] [employer]) Pathologist [facility] eGFR 55(L) >=60 mL/min/1. 73 m2 Comment: Interpretive Data Reference Interval Normal ?>/= 90 mL/min/1.73m2 Mildly decreased* ? 60 - 89 mL/min/1.73m2 Mildly to moderately decreased ?45 - 59 mL/min/1.73m2 Moderately to severely decreased ??30 - 44 mL/min/1.73m2 Severely decreased ?15 - 29 mL/min/1.73m2 Kidney Failure ?< 15 ??mL/min/1.73m2 *Relative to young adult level Estimated glomerular filtration rate is determined by the 2020 CKD-EPI equation recommended by the National Kidney Foundation (A Unifying Approach to GFR Estimation: Recommendations of the NKF-ASK Task Force on Reassessing the Inclusion of Race in Diagnosing Kidney Disease, JASN 2020). The CKD-EPI equation should not be used for patients with unstable renal function and has not been validated in children and those over 70. Current interpretive data was last reviewed 2021. Blood 10/02/2024 4:[address] [employer] 10/02/2024 6:35 [address] AIR[address] [employer] us Estuardo Abrams MD LAB BLOOD ORDERABLES Final Resu lt [facility] [place] [address] * (ABNORMAL) Differential, auto (10/02/2024 4:[address] [employer]) Neutrophil abs 6.1 1.5 - 6.5 K/cumm Imm gran abs 0.0 0.0 - 0.1 K/cumm [facility] Lymphocyte abs 2.7 0.8 - 3.3 K/cumm [facility] Monocyte abs 1.2(H) 0.2 - 0.8 K/cumm [facility] Eosinophil abs 0.4 0.0 - 0.5 K/cumm [facility] Basophil abs 0.0 0.0 - 0.1 K/cumm [facility] Neutrophil pct 58.8 % [facility] Comment: Interpretive Data Percent cell count reference ranges are not reported, since discordance with absolute values may lead to misinterpretation of CBC data. Current Interpretive Data was last revised on 2018. Imm gran pct 0.3 % [facility] Comment: Interpretive Data Percent cell count reference ranges are not reported, since discordance with absolute values may lead to misinterpretation of CBC data. Current Interpretive Data was last revised on 2018. Lymphocyte pct 25.6 % [facility] Comment: Interpretive Data Percent cell count reference ranges are not reported, since discordance with absolute values may lead to misinterpretation of CBC data. Current Interpretive Data was last revised on 2018. Monocyte pct 11.6 % [facility] Comment: Interpretive Data Percent cell count reference ranges are not reported, since discordance with absolute values may lead to misinterpretation of CBC data. Current Interpretive Data was last revised on 2018. Eosinophil pct 3.4 % [facility] Comment: Interpretive Data Percent cell count reference ranges are not reported, since discordance with absolute values may lead to misinterpretation of CBC data. Current Interpretive Data was last revised on 2018. Basophil pct 0.3 % [facility] Comment: Interpretive Data Percent cell count reference ranges are not reported, since discordance with absolute values may lead to misinterpretation of CBC data. Current Interpretive Data was last revised on 2018. Blood 10/02/2024 4:[address] [employer] 10/02/2024 6:35 AM [address] [employer] Estuardo Abrams MD LAB BLOOD ORDERABLES Final Resu lt Performing Organization Address City/[facility]/ZIP Co de Phone Number [facility] Department [place] [place] [address] * (ABNORMAL) CBC with auto differential (10/02/2024 4:[address] [employer]) WBC 10.4(H) 3.8 - 9.9 K/cumm Hgb 11.5(L) 11.9 - 15.5 g/dL [facility] Hct 35.7 35.6 - 45.5 % [facility] Plt 305 150 - 400 K/cumm [facility] MPV 9.7 9.1 - 12.3 fL [facility] RBC 3.78(L) 3.90 - 5.20 M/cumm [facility] MCV 94.4 81.3 - 96.4 fL [facility] MCH 30.4 27.1 - 33.3 pg [facility] MCHC 32.2(L) 32.3 - 35.7 g/dL [facility] RDW CV 12.9 11.1 - 14.9 % [facility] RDW SD 44.8 35.7 - 48.1 fL [facility] NRBC abs 0.00 0.00 - 0.01 K/cumm [facility] Blood 10/02/2024 4:39 [address] [employer] 10/02/2024 6:35 AM [address] [employer] us Estuardo Abrams MD LAB BLOOD ORDERABLES Final Resu lt Performing Organization Address [facility]/ZIP Co de Phone Number [facility] Department [place] [place] [address] * (ABNORMAL) Vancomycin level trough 30 minutes prior to 4th dose (10/02/2024 4:[address] [employer]) Vancomycin trough 4.5(L) 10.0 - 20.0 mcg/mL Blood 10/02/2024 4:39 [address] [employer] 10/02/2024 6:35 AM AIRPLANE [employer] Narrative [facility] - 10/02/2024 7:[address] [employer] 30 minutes prior to 4th dose us Estuardo Abrams MD LAB BLOOD ORDERABLES Final Resu lt [facility] Department [place] [address] * Basic metabolic panel (10/02/2024 4:[address] [employer]) Pathologist [facility] Sodium 141 135 - 145 mmol/L Potassium, pl 4.0 3.3 - 4.9 mmol/L [facility] Chloride 105 97 - 110 mmol/L [facility] CO2 25 22 - 32 mmol/L [facility] Anion gap 11 2 - 15 mmol/L [facility] BUN 12 6 - 25 mg/dL [facility] Creatinine 1.07 0.60 - 1.10 mg/dL [facility] Glucose 83 70 - 199 mg/dL [facility] Comment: Interpretive Data Fasting glucose >/= 126 mg/dl is diagnostic for diabetes. ?? Fasting is defined as no caloric intake for at least 8 hours. Fasting glucose between 100 mg/dl to 125 mg/dl is diagnostic of prediabetes. In a patient with classic symptoms of hyperglycemia or hyperglycemic crisis, a random glucose >/= 200 mg/dl is diagnostic for diabetes. In the absence of unequivocal hyperglycemia, results should be confirmed by repeat testing. The classification and Diagnosis of Diabetes Diabetes Care 2021; 46: S19-S40. Current interpretive data was last revised 2022. Calcium 9.5 8.5 - 10.3 mg/dL [facility] Blood 10/02/2024 4:39 AM [address] [employer] 10/02/2024 6:35 AM AIRPLANE [employer] us Estuardo Abrams MD LAB BLOOD ORDERABLES Final Resu lt [facility] [place] [address] * MRI Brain WO Contrast (10/01/2024 2:[address] [employer]) Anatomical Region Laterality Modality Head and Neck N/A Magnetic Resonan ce 10/01/2024 2:[address] [employer] Impressions 10/01/2024 3:[address] [employer] No acute intracranial abnormalities. Dictated by: Danny Choi D.O. The radiology attending physician has personally reviewed this study, and had reviewed and/or edited this written report and agrees with it. Electronically signed by: Lev Carter MD Narrative 10/01/2024 3:[address] [employer] EXAMINATION: Magnetic resonance imaging (MRI) of the brain and brainstem without contrast HISTORY: Mental status change TECHNIQUE: Multiplanar multi-weighted MRI of the brain and brainstem was performed without intravenous contrast using the general brain protocol. COMPARISON: MR brain 10/01/2024 FINDINGS: The scalp and calvarium are normal. The superior sagittal sinus demonstrates normal venous flow. The corpus callosum is normal in shape and signal intensity. The posterior fossa is unremarkable. The pituitary and sella are normal. The brainstem and craniocervical junction are unremarkable. Diffusion weighted images reveal no hyperintensities to suggest acute cerebral infarction. The susceptibility weighted sequences reveal no evidence of acute or chronic hemorrhage. The ventricles are normal in size and position without evidence of hydrocephalus. ??Redemonstrated remote left thalamic infarct.Global parenchymal volume loss with mild periventricular and subcortical T2/FLAIR hyperintensities likely represent mild chronic microangiopathic ischemic changes. Apparent posterior leptomeningeal FLAIR hyperintensity is most likely artifact/technique related. The paranasal sinuses are normal. The visualized portions of the mastoids are unremarkable. The orbits appear normal. Normal flow voids are demonstrated in the carotid arteries and basilar artery. Procedure Note Lev Carter MD PhD - 10/01/2024 EXAMINATION: Magnetic resonance imaging (MRI) of the brain and brainstem without contrast HISTORY: Mental status change TECHNIQUE: Multiplanar multi-weighted MRI of the brain and brainstem was performed without intravenous contrast using the general brain protocol. COMPARISON: MR brain 10/01/2024 FINDINGS: The scalp and calvarium are normal. The superior sagittal sinus demonstrates normal venous flow. The corpus callosum is normal in shape and signal intensity. The posterior fossa is unremarkable. The pituitary and sella are normal. The brainstem and craniocervical junction are unremarkable. Diffusion weighted images reveal no hyperintensities to suggest acute cerebral infarction. The susceptibility weighted sequences reveal no evidence of acute or chronic hemorrhage. The ventricles are normal in size and position without evidence of hydrocephalus. Redemonstrated remote left thalamic infarct.Global parenchymal volume loss with mild periventricular and subcortical T2/FLAIR hyperintensities likely represent mild chronic microangiopathic ischemic changes. Apparent posterior leptomeningeal FLAIR hyperintensity is most likely artifact/technique related. The paranasal sinuses are normal. The visualized portions of the mastoids are unremarkable. The orbits appear normal. Normal flow voids are demonstrated in the carotid arteries and basilar artery. IMPRESSION: No acute intracranial abnormalities. Dictated by: Danny Choi D.O. The radiology attending physician has personally reviewed this study, and had reviewed and/or edited this written report and agrees with it. Electronically signed by: Lev Carter MD Estuardo Abrams MD [facility] MRI PROCEDURES Final Result * (ABNORMAL) Urinalysis reflex to microscopic and culture Urine (10/01/2024 12:[address] [employer]) Color, ur Straw Yellow Clarity, ur Clear Clear [facility] Specific gravity, ur 1.009 1.003 - 1.030 [facility] pH, urine 7.0 [facility] Comment: Interpretive Data ? Urine pH is affected by diet, medications, systemic acid-base disturbances, and renal tubular function. ??pH may affect urinary stone formation. ??For example, urine pH below 6.0 may help reduce the tendency for calcium phosphate stones and pH greater than 6.0 may reduce the tendency for uric acid stone formation. Source: ThromboVision Current Interpretive Data was last revised on 2017 Protein, ur ql Negative Negative [facility] Glucose, ur ql Negative Negative [facility] Ketones, ur Negative Negative [facility] Bilirubin, ur Negative Negative [facility] Blood, ur 2+(A) Negative [facility] Urobilinogen, ur <2.0 <2.0 mg/dL [facility] Nitrite, ur Negative Negative [facility] Leukocyte esterase, ur Negative Negative [facility] UA reflex comment Reflex to microscopic UA will be performed. [facility] Urine 10/01/2024 12:5 [address] [employer] 10/01/2024 1:15 [address] [employer] us Estuardo Abrams MD LAB MICROBIOLOGY - GENERAL ORDE [facility] Final Result Performing Organization Address [facility] de Phone Number [facility] [place] [address] * (ABNORMAL) Urinalysis, microscopic only (10/01/2024 12:[address] [employer]) WBC, ur 0-5 0 - 5 /HPF RBC, ur 21-50(A) 0 - 2 /HPF [facility] Mucous, ur Present(A) [facility] Culture Reflex Comment Reflex conditions for urine culture (WBC >10) not met. [facility] Urine 10/01/2024 12:5 2 [address] [employer] 10/01/2024 1:15 [address] [employer] us Estuardo Abrams MD LAB URINE ORDERABLES Final Resu lt Performing Organization Address [facility] de Phone Number [facility] [place] [address] * (ABNORMAL) eGFR (10/01/2024 7:[address] [employer]) eGFR 50(L) >=60 mL/min/1. 73 m2 Comment: Interpretive Data Reference Interval Normal ?>/= 90 mL/min/1.73m2 Mildly decreased* ? 60 - 89 mL/min/1.73m2 Mildly to moderately decreased ?45 - 59 mL/min/1.73m2 Moderately to severely decreased ??30 - 44 mL/min/1.73m2 Severely decreased ?15 - 29 mL/min/1.73m2 Kidney Failure ?< 15 ??mL/min/1.73m2 *Relative to young adult level Estimated glomerular filtration rate is determined by the 2020 CKD-EPI equation recommended by the National Kidney Foundation (A Unifying Approach to GFR Estimation: Recommendations of the NKF-ASK Task Force on Reassessing the Inclusion of Race in Diagnosing Kidney Disease, JASN 202). The CKD-EPI equation should not be used for patients with unstable renal function and has not been validated in children and those over 70. Current interpretive data was last reviewed 2021. Blood 10/01/2024 7:01 [address] [employer] 10/01/2024 7:35 AM AIRPLANE [employer] us Estuardo Abrams MD LAB BLOOD ORDERABLES Final Resu lt [facility] [place] [address] * (ABNORMAL) Differential, auto (10/01/2024 7:01 [address]ANE [employer]) Neutrophil abs 6.3 1.5 - 6.5 K/cumm Imm gran abs 0.0 0.0 - 0.1 K/cumm [facility] Lymphocyte abs 2.2 0.8 - 3.3 K/cumm [facility] Monocyte abs 1.2(H) 0.2 - 0.8 K/cumm [facility] Eosinophil abs 0.3 0.0 - 0.5 K/cumm [facility] Basophil abs 0.0 0.0 - 0.1 K/cumm [facility] Neutrophil pct 63.2 % [facility] Comment: Interpretive Data Percent cell count reference ranges are not reported, since discordance with absolute values may lead to misinterpretation of CBC data. Current Interpretive Data was last revised on 2018. Imm gran pct 0.4 % [facility] Comment: Interpretive Data Percent cell count reference ranges are not reported, since discordance with absolute values may lead to misinterpretation of CBC data. Current Interpretive Data was last revised on 2018. Lymphocyte pct 21.6 % [facility] Comment: Interpretive Data Percent cell count reference ranges are not reported, since discordance with absolute values may lead to misinterpretation of CBC data. Current Interpretive Data was last revised on 2018. Monocyte pct 11.6 % [facility] Comment: Interpretive Data Percent cell count reference ranges are not reported, since discordance with absolute values may lead to misinterpretation of CBC data. Current Interpretive Data was last revised on 2018. Eosinophil pct 2.9 % [facility] Comment: Interpretive Data Percent cell count reference ranges are not reported, since discordance with absolute values may lead to misinterpretation of CBC data. Current Interpretive Data was last revised on 2018. Basophil pct 0.3 % [facility] Comment: Interpretive Data Percent cell count reference ranges are not reported, since discordance with absolute values may lead to misinterpretation of CBC data. Current Interpretive Data was last revised on 2018. Blood 10/01/2024 7:01 [address] [employer] 10/01/2024 7:21 AM AIRPLANE [employer] us Estuardo Abrams MD LAB BLOOD ORDERABLES Final Resu lt [facility] [place] [address] * (ABNORMAL) CBC with auto differential (10/01/2024 7:01 AM AIRPLANE [employer]) WBC 10.0(H) 3.8 - 9.9 K/cumm Hgb 11.6(L) 11.9 - 15.5 g/dL [facility] Hct 36.1 35.6 - 45.5 % [facility] Plt 289 150 - 400 K/cumm [facility] MPV 9.1 9.1 - 12.3 fL [facility] RBC 3.78(L) 3.90 - 5.20 M/cumm [facility] MCV 95.5 81.3 - 96.4 fL [facility] MCH 30.7 27.1 - 33.3 pg [facility] MCHC 32.1(L) 32.3 - 35.7 g/dL [facility] RDW CV 13.2 11.1 - 14.9 % [facility] RDW SD 46.5 35.7 - 48.1 fL [facility] NRBC abs 0.00 0.00 - 0.01 K/cumm [facility] Blood 10/01/2024 7:01 AM AIRPLANE [employer] 10/01/2024 7:21 AM AIRPLANE [employer] us Estuardo Abrams MD LAB BLOOD ORDERABLES Final Resu lt [facility] [place] [address] * (ABNORMAL) Basic metabolic panel (10/01/2024 7:01 AM AIRPLANE [employer]) Sodium 142 135 - 145 mmol/L Potassium, pl 3.5 3.3 - 4.9 mmol/L [facility] Chloride 106 97 - 110 mmol/L [facility] CO2 26 22 - 32 mmol/L [facility] Anion gap 10 2 - 15 mmol/L [facility] BUN 10 6 - 25 mg/dL [facility] Creatinine 1.16(H) 0.60 - 1.10 mg/dL [facility] Glucose 96 70 - 199 mg/dL [facility] Comment: Interpretive Data Fasting glucose >/= 126 mg/dl is diagnostic for diabetes. ?? Fasting is defined as no caloric intake for at least 8 hours. Fasting glucose between 100 mg/dl to 125 mg/dl is diagnostic of prediabetes. In a patient with classic symptoms of hyperglycemia or hyperglycemic crisis, a random glucose >/= 200 mg/dl is diagnostic for diabetes. In the absence of unequivocal hyperglycemia, results should be confirmed by repeat testing. The classification and Diagnosis of Diabetes Diabetes Care 202; 46: S19-S40. Current interpretive data was last revised 2022. Calcium 9.2 8.5 - 10.3 mg/dL [facility] Blood 10/01/2024 7:01 AM AIRPLANE [employer] 10/01/2024 7:21 AM AIRPLANE [employer] us Estuardo Abrams MD LAB BLOOD ORDERABLES Final Resu lt [facility] [place] [address] * MRI Brain MRA Head MRA Neck W WO Contrast (10/01/2024 5:46 [address] AIRPLANE [employer]) Anatomical Region Laterality Modality Head and Neck N/A Magnetic Resonan ce 10/01/2024 10:3 5 AM AIRPLANE [employer] Impressions 10/01/2024 11:03 [address] AIRPLANE [employer] 1. No acute intracranial abnormalities. 2. No intracranial arterial large vessel occlusion or severe stenosis. 3. Essentially nondiagnostic neck MRA. ??Cannot exclude high-grade left ICA origin stenosis based on the motion limited images. Dictated by: Danny Choi D.O. The radiology attending physician has personally reviewed this study, and had reviewed and/or edited this written report and agrees with it. Electronically signed by: Lev Carter MD Narrative 10/01/2024 11:[address] [employer] EXAMINATION: 1. Magnetic resonance imaging (MRI) of the brain and brainstem without and with contrast 2. Magnetic resonance angiography (MRA) of the [id number] without and with contrast 3. Magnetic resonance angiography (MRA) of the neck without and with contrast HISTORY: Stroke follow-up. ??Left thalamic hypodensity. TECHNIQUE: Multiplanar multi-weighted MRI of the brain and brainstem was performed without and with intravenous contrast using the general brain protocol. Magnetic resonance angiography of the [id number] was performed using a separate data acquisition with a non-contrast iguz-ib-efcqlk technique and a post-contrast technique to produce axial thin-slice source images. These images were then used to generate maximum intensity projection (MIP) images. Magnetic resonance angiography of the neck was performed using a separate data acquisition with a non-contrast awuu-rb-hksrvt technique and a post-contrast technique to produce thin-slice source images. These images were then used to generate maximum intensity projection (MIP) images. Contrast information: 20 mL Gadoterate Meglumine COMPARISON: CT head 09/30/2024. FINDINGS: MRI BRAIN: The scalp and calvarium are normal. The superior sagittal sinus demonstrates normal venous flow. The corpus callosum is normal in shape and signal intensity. The posterior fossa is unremarkable. The pituitary and sella are normal. The brainstem and craniocervical junction are unremarkable. Diffusion weighted images reveal no hyperintensities to suggest acute cerebral infarction. The susceptibility weighted sequences reveal no evidence of acute or chronic hemorrhage. The ventricles are normal in size and position without evidence of hydrocephalus. ??Remote left thalamic lacunar infarct. ??Global parenchymal volume loss with mild periventricular and subcortical T2/FLAIR hyperintensities likely represent mild chronic microangiopathic ischemic changes. The paranasal sinuses are normal. The visualized portions of the mastoids are unremarkable. The orbits appear normal. Normal flow voids are demonstrated in the carotid arteries and basilar artery. There is no abnormal contrast enhancement. MRA NECK: Evaluation is limited due to motion artifact. Essentially nondiagnostic cervical MRA. ??Left internal carotid artery origin stenosis cannot be excluded. MRA HEAD: The internal carotid arteries in the head are of normal caliber. There are no areas of vascular narrowing. The [id number]-ma-Lxicvj is complete with a very small caliber left P-comm. The anterior and middle cerebral arteries are normal. The vertebral arteries are codominant. The basilar artery is normal. The posterior cerebral arteries are normal. There is no aneurysm or vascular malformation identified. Although MRA is a screening examination, catheter angiography remains the definitive study for small aneurysms, vasculitis, and other vascular abnormalities. Procedure Note Lev Carter MD PhD - 10/01/2024 EXAMINATION: 1. Magnetic resonance imaging (MRI) of the brain and brainstem without and with contrast 2. Magnetic resonance angiography (MRA) of the uisufh-xh-Fcbjmz without and with contrast 3. Magnetic resonance angiography (MRA) of the neck without and with contrast HISTORY: Stroke follow-up. Left thalamic hypodensity. TECHNIQUE: Multiplanar multi-weighted MRI of the brain and brainstem was performed without and with intravenous contrast using the general brain protocol. Magnetic resonance angiography of the buhmjm-et-Moglff was performed using a separate data acquisition with a non-contrast yiga-ud-pjhlsj technique and a post-contrast technique to produce axial thin-slice source images. These images were then used to generate maximum intensity projection (MIP) images. Magnetic resonance angiography of the neck was performed using a separate data acquisition with a non-contrast iqwl-jz-eyviul technique and a post-contrast technique to produce thin-slice source images. These images were then used to generate maximum intensity projection (MIP) images. Contrast information: 20 mL Gadoterate Meglumine COMPARISON: CT head 09/30/2024. FINDINGS: MRI BRAIN: The scalp and calvarium are normal. The superior sagittal sinus demonstrates normal venous flow. The corpus callosum is normal in shape and signal intensity. The posterior fossa is unremarkable. The pituitary and sella are normal. The brainstem and craniocervical junction are unremarkable. Diffusion weighted images reveal no hyperintensities to suggest acute cerebral infarction. The susceptibility weighted sequences reveal no evidence of acute or chronic hemorrhage. The ventricles are normal in size and position without evidence of hydrocephalus. Remote left thalamic lacunar infarct. Global parenchymal volume loss with mild periventricular and subcortical T2/FLAIR hyperintensities likely represent mild chronic microangiopathic ischemic changes. The paranasal sinuses are normal. The visualized portions of the mastoids are unremarkable. The orbits appear normal. Normal flow voids are demonstrated in the carotid arteries and basilar artery. There is no abnormal contrast enhancement. MRA NECK: Evaluation is limited due to motion artifact. Essentially nondiagnostic cervical MRA. Left internal carotid artery origin stenosis cannot be excluded. MRA HEAD: The internal carotid arteries in the head are of normal caliber. There are no areas of vascular narrowing. The [id number] is complete with a very small caliber left P-comm. The anterior and middle cerebral arteries are normal. The vertebral arteries are codominant. The basilar artery is normal. The posterior cerebral arteries are normal. There is no aneurysm or vascular malformation identified. Although MRA is a screening examination, catheter angiography remains the definitive study for small aneurysms, vasculitis, and other vascular abnormalities. IMPRESSION: 1. No acute intracranial abnormalities. 2. No intracranial arterial large vessel occlusion or severe stenosis. 3. Essentially nondiagnostic neck MRA. Cannot exclude high-grade left ICA origin stenosis based on the motion limited images. Dictated by: Danny Choi D.O. The radiology attending physician has personally reviewed this study, and had reviewed and/or edited this written report and agrees with it. Electronically signed by: Lev Carter MD us Estuardo Abrams MD IMG MRI PROCEDURES Final Result * CT Head WO Contrast (09/30/2024 2:18 PM [employer]) Anatomical Region Laterality Modality Head and Neck N/A Computed Tomogra phy 09/30/2024 2:[address] [employer] Impressions 09/30/2024 2:[address] [employer] 1. ??Small area of age indeterminate hypodensity within the left thalamus which may represent an acute/subacute lacunar infarct in the appropriate clinical setting. ??Correlate with patient's symptoms and consider MRI of the brain for confirmation as clinically warranted. 2. ??No acute hemorrhage. The Critical results were discussed with Estuardo Abrams MD by Dr. Lau on 09/30/2024 at 2:28 PM. Dictated by: Gama Lau D.O. The radiology attending physician has personally reviewed this study, and had reviewed and/or edited this written report and agrees with it. Electronically signed by: Nayana Hilliard M.D. Narrative 09/30/2024 2:[address] [employer] [employer] EXAMINATION: CT head without contrast HISTORY: 74 years-old Female with Mental status change, unknown cause. Somnolent, sleepiness. TECHNIQUE: CT of the head was performed with images acquired from skull base to vertex without intravenous contrast. COMPARISON: Whole-body PET/CT of 08/26/2024. ??CT sinuses 01/11/2008. FINDINGS: Small area of age indeterminate hypodensity within the left thalamus. There is no acute intracranial hemorrhage. ??Mild generalized cerebral and cerebellar volume loss. ??Mild periventricular hypoattenuation, nonspecific and most commonly seen with chronic small vessel ischemic disease. Ventricles are of normal size and morphology. No mass effect or midline shift is present. ??The visualized portions of the orbits are normal. The visualized portions of the mastoids are normal. The visualized portions of the paranasal sinuses are normal. No fractures are identified. ??Right TMJ arthrosis. Procedure Note Nayana Rachel MD - 09/30/2024 EXAMINATION: CT head without contrast HISTORY: 74 years-old Female with Mental status change, unknown cause. Somnolent, sleepiness. TECHNIQUE: CT of the head was performed with images acquired from skull base to vertex without intravenous contrast. COMPARISON: Whole-body PET/CT of 08/26/2024. CT sinuses 01/11/2008. FINDINGS: Small area of age indeterminate hypodensity within the left thalamus. There is no acute intracranial hemorrhage. Mild generalized cerebral and cerebellar volume loss. Mild periventricular hypoattenuation, nonspecific and most commonly seen with chronic small vessel ischemic disease. Ventricles are of normal size and morphology. No mass effect or midline shift is present. The visualized portions of the orbits are normal. The visualized portions of the mastoids are normal. The visualized portions of the paranasal sinuses are normal. No fractures are identified. Right TMJ arthrosis. IMPRESSION: 1. Small area of age indeterminate hypodensity within the left thalamus which may represent an acute/subacute lacunar infarct in the appropriate clinical setting. Correlate with patient's symptoms and consider MRI of the brain for confirmation as clinically warranted. 2. No acute hemorrhage. The Critical results were discussed with Estuardo Abrams MD by Dr. Lau on 09/30/2024 at 2:28 PM. Dictated by: Gama Lau D.O. The radiology attending physician has personally reviewed this study, and had reviewed and/or edited this written report and agrees with it. Electronically signed by: Nayana Hilliard M.D. Estuardo Abrams MD IMG CT PROCEDURES Final Result * (ABNORMAL) Blood gas, venous (09/30/2024 1:35 [address] [employer]) pH, Venous 7.42 7.32 - 7.43 PCO2, Venous 38(L) 40 - 50 mmHg [facility] PO2, Venous 123 mmHg [facility] Comment: Interpretive Data No Reference Range Established Current Interpretive Data was last revised on 2018. HCO3 Venous, Calculated 26 20 - 30 mmol/L [facility] BE, venous 1 mmol/L [facility] Comment: Interpretive Data No Reference Range Established Current Interpretive Data was last revised on 2018. Blood 09/30/2024 1:[address] [employer] [employer] 09/30/2024 1:[address] [employer] us Estuardo Abrams MD LAB BLOOD ORDERABLES Final Resu lt Performing Organization Address [facility] de Phone Number [facility] [place] [address] * POCT glucose (09/30/2024 1:[address] [employer] [employer]) Glucose, POC 162 70 - 199 mg/dL Blood 09/30/2024 1:[address] [employer] [employer] 09/30/2024 1:[address] [employer] us Estuardo Abrams MD LAB POCT ORDERABLES - DEVICE Fi nal Result Performing Organization Address [facility] Phone Number [facility] [place] [address] * eGFR (09/30/2024 4:[address] [employer] [employer]) eGFR 67 >=60 mL/min/1. 73 m2 Comment: Interpretive Data Reference Interval Normal ?>/= 90 mL/min/1.73m2 Mildly decreased* ? 60 - 89 mL/min/1.73m2 Mildly to moderately decreased ?45 - 59 mL/min/1.73m2 Moderately to severely decreased ??30 - 44 mL/min/1.73m2 Severely decreased ?15 - 29 mL/min/1.73m2 Kidney Failure ?< 15 ??mL/min/1.73m2 *Relative to young adult level Estimated glomerular filtration rate is determined by the 2020 CKD-EPI equation recommended by the National Kidney Foundation (A Unifying Approach to GFR Estimation: Recommendations of the NKF-ASK Task Force on Reassessing the Inclusion of Race in Diagnosing Kidney Disease, JASN 202). The CKD-EPI equation should not be used for patients with unstable renal function and has not been validated in children and those over 70. Current interpretive data was last reviewed 2021. Blood 09/30/2024 4:[address] [employer] 09/30/2024 4:54 AM [employer] us Estuardo Abrams MD LAB BLOOD ORDERABLES Final Resu lt [facility] [place] [address] * (ABNORMAL) Differential, auto (09/30/2024 4:[address] [employer]) Neutrophil abs 9.2(H) 1.5 - 6.5 K/cumm Imm gran abs 0.0 0.0 - 0.1 K/cumm [facility] Lymphocyte abs 1.4 0.8 - 3.3 K/cumm [facility] Monocyte abs 0.8 0.2 - 0.8 K/cumm [facility] Eosinophil abs 0.2 0.0 - 0.5 K/cumm [facility] Basophil abs 0.0 0.0 - 0.1 K/cumm [facility] Neutrophil pct 78.3 % [facility] Comment: Interpretive Data Percent cell count reference ranges are not reported, since discordance with absolute values may lead to misinterpretation of CBC data. Current Interpretive Data was last revised on 2018. Imm gran pct 0.3 % [facility] Comment: Interpretive Data Percent cell count reference ranges are not reported, since discordance with absolute values may lead to misinterpretation of CBC data. Current Interpretive Data was last revised on 2018. Lymphocyte pct 12.1 % [facility] Comment: Interpretive Data Percent cell count reference ranges are not reported, since discordance with absolute values may lead to misinterpretation of CBC data. Current Interpretive Data was last revised on 2018. Monocyte pct 7.0 % [facility] Comment: Interpretive Data Percent cell count reference ranges are not reported, since discordance with absolute values may lead to misinterpretation of CBC data. Current Interpretive Data was last revised on 2018. Eosinophil pct 2.0 % [facility] Comment: Interpretive Data Percent cell count reference ranges are not reported, since discordance with absolute values may lead to misinterpretation of CBC data. Current Interpretive Data was last revised on 2018. Basophil pct 0.3 % [facility] Comment: Interpretive Data Percent cell count reference ranges are not reported, since discordance with absolute values may lead to misinterpretation of CBC data. Current Interpretive Data was last revised on 2018. Blood 09/30/2024 4:20 [address] [employer] 09/30/2024 4:54 AM [employer] us Estuardo Abrams MD LAB BLOOD ORDERABLES Final Resu lt [facility] Department [place] [address] * (ABNORMAL) CBC with auto differential (09/30/2024 4:20 [address] [employer]) WBC 11.8(H) 3.8 - 9.9 K/cumm Hgb 11.4(L) 11.9 - 15.5 g/dL [facility] Hct 35.4(L) 35.6 - 45.5 % [facility] Plt 292 150 - 400 K/cumm [facility] MPV 9.0(L) 9.1 - 12.3 fL [facility] RBC 3.74(L) 3.90 - 5.20 M/cumm [facility] MCV 94.7 81.3 - 96.4 fL [facility] MCH 30.5 27.1 - 33.3 pg [facility] MCHC 32.2(L) 32.3 - 35.7 g/dL [facility] RDW CV 13.5 11.1 - 14.9 % [facility] RDW SD 47.1 35.7 - 48.1 fL [facility] NRBC abs 0.00 0.00 - 0.01 K/cumm [facility] Blood 09/30/2024 4:20 [address] [employer] 09/30/2024 4:54 AM [employer] Estuardo Abrams MD LAB BLOOD ORDERABLES Final Resu lt Performing Organization Address City/[facility]/ZIP Co de Phone Number [facility] Department [place] [address] * (ABNORMAL) Basic metabolic panel (09/30/2024 4:[address] [employer] [employer]) Pathologist [facility] Sodium 142 135 - 145 mmol/L Potassium, pl 3.9 3.3 - 4.9 mmol/L [facility] Chloride 107 97 - 110 mmol/L [facility] CO2 26 22 - 32 mmol/L [facility] Anion gap 9 2 - 15 mmol/L [facility] BUN 5(L) 6 - 25 mg/dL [facility] Creatinine 0.91 0.60 - 1.10 mg/dL [facility] Glucose 126 70 - 199 mg/dL [facility] Comment: Interpretive Data Fasting glucose >/= 126 mg/dl is diagnostic for diabetes. ?? Fasting is defined as no caloric intake for at least 8 hours. Fasting glucose between 100 mg/dl to 125 mg/dl is diagnostic of prediabetes. In a patient with classic symptoms of hyperglycemia or hyperglycemic crisis, a random glucose >/= 200 mg/dl is diagnostic for diabetes. In the absence of unequivocal hyperglycemia, results should be confirmed by repeat testing. The classification and Diagnosis of Diabetes Diabetes Care 202; 46: S19-S40. Current interpretive data was last revised 2022. Calcium 9.2 8.5 - 10.3 mg/dL [facility] Blood 09/30/2024 4:20 [address] [employer] 09/30/2024 4:54 AM [employer] Estuardo Abrams MD LAB BLOOD ORDERABLES Final Resu lt Performing Organization Address [facility]/ZIP Co de Phone Number [facility] Department [place] [address] * Critical Result Callback Hematology (09/29/2024 11:37 [address] [employer]) Date Notified [id number] Time Notified 1456 MANUELA MONIQUE TestName aPTT [facility] Called/Read Back [place] [facility] Credentials MD MANUELA MONIQUE Called By troy LEDESMA Blood 09/29/2024 11:3 7 AM [employer] 09/29/2024 2:15 PM [employer] Anni Dai MD LAB BLOOD ORDERABLES Final Result Performing Organization Address [facility] Co de Phone Number [facility] Department [place] [address] * (ABNORMAL) aPTT (09/29/2024 11:37 [address] [employer]) Pathologist [facility] aPTT >150(C) 28 - 38 sec Comment: No clot detected in sample Repeated and verified - [id number] - 09/29/24, 2:54 PM Interpretive Data Heparin therapeutic range: 66.0 - 100.0 seconds. Range based on correlation with therapeutic heparin activity range of 0.3 - 0.7 Units/mL. Current interpretive data was last revised on 2023. Blood 09/29/2024 11:3 7 AM [employer] 09/29/2024 2:15 PM [employer] Anni Dai MD LAB BLOOD ORDERABLES Final Result [facility] Department [place] [address] * Troponin I high-sensitivity (09/29/2024 6:39 AM AIR[employer]) Pathologist [facility] Trop I hs <4 <=17 ng/L Comment: Interpretive Data For further hscTnI resources including the diagnostic algorithm and an aid in interpretation, copy and paste this link: [email or web address] Current Interpretive Data last revised 2020. Blood 09/29/2024 6:39 AM [employer] 09/29/2024 6:53 AM [employer] us Calvin Chavira MD LAB BLOOD ORDERABLES Fi nal Result [facility] [place] [address] * Pro B-type natriuretic peptide (09/29/2024 6:39 AM [employer]) NT-proBNP 104 <=300 pg/mL Comment: Interpretive Comments: A. Dyspnea in Acute Care Setting All Ages: ?< 300 pg/ml, acute heart failure unlikely. < 50 yrs: ?300 - 450 pg/ml, further investigation warranted. ? > 450 pg/ml, acute heart failure likely. 50 - 74 yrs: ? 300 - 900 pg/ml, further investigation warranted. ? > 900 pg/ml, acute heart failure likely . > or = 75 yrs: ? 450 - 1800 pg/ml, further investigation warranted. ? > 1800 pg/ml, acute heart failure likely. B. Non-acute Setting < 75 yrs ? < 125 pg/ml, rules out heart failure. ? > or = 125 pg/ml, further investigation warranted. > or = 75 yrs ?< 450 pg/ml, rules out heart failure. ? > or = 450 pg/ml, further investigation warranted. - Knowledge of each individual patient's NT-proBNP range may be more useful than using similar cut-points for every patient. Please note that marked elevations in NT-proBNP levels may be observed in state other than Left Ventricular Congestive Failure, including: acute coronary syndromes, right heart strain/failure (including pulmonary embolism and cor pulmonale), critical illness, renal failure, as well as advanced age. - References: 1. [place] COTE et.al. Eur Heart J. 2006:27:330-337. 2. Barbara JAQUEZ, Pete PEREZ. J. AM Kat Cardiol: Cardiovasc Imag. 2009;2: 216- 225. Interpretive Data Last Revised Date: 2018. Blood 09/29/2024 6:39 AM [employer] 09/29/2024 6:53 AM [employer] Calvin Chavira MD LAB BLOOD ORDERABLES Fi nal Result Performing Organization Address [facility] Co de Phone Number [facility] [place] [address] * Thyroid Function [place] (09/29/2024 6:39 AM AIRPLANE [employer]) TSH 2.02 0.30 - 4.20 mcIUnit/mL Blood 09/29/2024 6:39 AM [employer] 09/29/2024 6:53 AM [employer] Result [facility] Calvin Chavira MD LAB BLOOD ORDERABLES Fi nal Result Performing Organization Address [facility] Co de Phone Number [facility] [place] [address] * Infection Prevention MRSA Only (Staphylococcus aureus) Culture Nasal (09/29/2024 6:39 AM [employer]) Report Final Report: Negative Nasal 09/29/2024 6:39 AM [employer] 09/29/2024 7:08 AM [employer] Narrative [facility] 09/30/2024 8:26 AM [employer] Testing performed by [facility] ([phone]). Calvin Chavira MD LAB MICROBIOLOGY - GENE RAL ORDERABLES Final Result Performing Organization Address [facility] de Phone Number [facility] [place] [address] * Blood gas, venous (09/29/2024 6:39 AM AIR[employer]) pH, Venous 7.36 7.32 - 7.43 PCO2, Venous 44 40 - 50 mmHg [facility] PO2, Venous 50 mmHg [facility] Comment: Interpretive Data No Reference Range Established Current Interpretive Data was last revised on 2018. HCO3 Venous, Calculated 25 20 - 30 mmol/L [facility] BE, venous -1 mmol/L [facility] Comment: Interpretive Data No Reference Range Established Current Interpretive Data was last revised on 2018. Blood 09/29/2024 6:39 AM [employer] 09/29/2024 6:53 AM [employer] Calvin Chavira MD LAB BLOOD ORDERABLES Fi nal Result Performing Organization Address [facility] de Phone Number [facility] [place] [address] * (ABNORMAL) Parlier level (09/29/2024 6:39 AM [employer]) [facility] Parlier 0.3(L) 0.6 - 1.2 mmol/L Blood 09/29/2024 6:39 AM [employer] 09/29/2024 6:53 AM [employer] Calvin Chavira MD LAB BLOOD ORDERABLES Fi nal Result Performing Organization Address [facility] de Phone Number [facility] [place] [address] * (ABNORMAL) Urinalysis reflex to microscopic and culture Urine (09/29/2024 4:23 [address] [employer]) Color, ur Straw Yellow Clarity, ur Clear Clear [facility] Specific gravity, ur >1.042(H) 1.003 - 1.030 [facility] pH, urine 7.0 [facility] Comment: Interpretive Data ? Urine pH is affected by diet, medications, systemic acid-base disturbances, and renal tubular function. ??pH may affect urinary stone formation. ??For example, urine pH below 6.0 may help reduce the tendency for calcium phosphate stones and pH greater than 6.0 may reduce the tendency for uric acid stone formation. Source: [facility] Current Interpretive Data was last revised on 2017 Protein, ur ql 1+(A) Negative [facility] Glucose, ur ql Negative Negative [facility] Ketones, ur Negative Negative [facility] Bilirubin, ur Negative Negative [facility] Blood, ur Negative Negative [facility] Urobilinogen, ur <2.0 <2.0 mg/dL [facility] Nitrite, ur Negative Negative [facility] Leukocyte esterase, ur Negative Negative [facility] UA reflex comment Reflex to microscopic UA will be performed. [facility] Urine 09/29/2024 4:23 AM [employer] 09/29/2024 4:29 AM [employer] Es Chakraborty MD LAB MICROBIOLOGY - GENERA L ORDERABLES Final Result [facility] [place] [address] * Respiratory pathogen panel Nasopharyngeal (09/29/2024 4:23 AM [employer]) Influenza A RNA Not Detected Not Detected Influenza B RNA Not Detected Not Detected [facility] RSV RNA Not Detected Not Detected [facility] COVID-19 RNA Not Detected Not Detected [facility] Coronavirus 229E RNA Not Detected Not Detected [facility] Coronavirus HKU1 RNA Not Detected Not Detected [facility] Coronavirus NL63 RNA Not Detected Not Detected [facility] Coronavirus OC43 RNA Not Detected Not Detected [facility] Adenovirus DNA Not Detected Not Detected [facility] Metapneumovirus RNA Not Detected Not Detected [facility] Rhinovirus/Enterov irus RNA Not Detected Not Detected [facility] Parainfluenza 1 RNA Not Detected Not Detected [facility] Parainfluenza 2 RNA Not Detected Not Detected [facility] Parainfluenza 3 RNA Not Detected Not Detected [facility] Parainfluenza 4 RNA Not Detected Not Detected [facility] B. pertussis DNA Not Detected Not Detected [facility] B. parapertussis DNA Not Detected Not Detected [facility] C. pneumoniae DNA Not Detected Not Detected [facility] M. pneumoniae DNA Not Detected Not Detected [facility] Nasopharyngeal 09/29/2024 4: 23 AM [employer] 09/29/2024 5:06 AM [employer] Narrative [facility] - 09/29/2024 8:36 AM [employer] Is the Patient experiencing symptoms consistent with COVID?->Yes Surveillance testing for transplant patient?->No ??Interpretive Data The [employer] FilmArray Respiratory Panel (RP2.1) assay is a multiplexed real-time PCR based nucleic acid test capable of simultaneous qualitative detection and identification of multiple respiratory viral and bacterial nucleic acids, including SARS Coronavirus 2 (the causative agent of COVID-19). The following bacteria, viruses and virus subtypes can be identified using the FilmArray RP2.1 assay: Bordetella pertussis, Bordetella parapertussis, Chlamydia pneumoniae, Mycoplasma pneumoniae, Adenovirus, SARS Coronavirus 2, seasonal coronaviruses (Coronavirus HKU1, Coronavirus NL63, Coronavirus 229E, and Coronavirus OC43), Influenza A, Influenza A subtype H1, Influenza A subtype H3, Influenza A subtype 2009 H1, Influenza B, Metapneumovirus, Parainfluenza 1, Parainfluenza 2, Parainfluenza 3, Parainfluenza 4, RSV, Rhinovirus/Enterovirus. Due to the genetic similarity between human Rhinovirus and Enterovirus, the FilmArray RP2.1 assay cannot reliably differentiate them. Coronavirus OC43 may cross-react with some isolates of Coronavirus HKU1. ??A dual positive result may be due to cross-reactivity or may indicate a co-infection. The detection and identification of specific viral and bacterial nucleic acids from individuals exhibiting signs and symptoms of a respiratory infection aids in the diagnosis of respiratory infection if used in conjunction with other clinical and epidemiological information. ??The results of this test should not be used as the sole basis for diagnosis, treatment, or other management decisions. ??Negative results in the setting of a respiratory illness may be due to infection with pathogens that are not detected by this test. ??Positive results do not rule out infection/co-infection with other organisms. ??The agent(s) detected by the FilmArray RP2.1 may not be the definite cause of disease. ??Additional testing (lab, imaging, etc.) may be necessary when evaluating a patient with possible respiratory tract infection. The FilmArray RP2.1 assay has FDA clearance for testing of [employer] swabs. ??The performance of additional specimen types has been assessed by the performing laboratory. ??The performance characteristics of this assay have been determined by [facility] Infectious Disease Laboratory. Current interpretive data was last revised on 22. Es Chakraborty MD LAB MICROBIOLOGY - GENERA L ORDERABLES Final Result Performing Organization Address [facility] Co de Phone Number [facility] [place] [address] * (ABNORMAL) Urinalysis, microscopic only (09/29/2024 4:[address] [employer]) WBC, ur 0-5 0 - 5 /HPF RBC, ur 0-2 0 - 2 /HPF [facility] Epithelial cells, squamous, ur 1-5 0 - 5 /HPF [facility] Bacteria, ur Trace(A) [facility] Culture Reflex Comment Reflex conditions for urine culture (WBC >10) not met. [facility] Urine 09/29/2024 4:[address] [employer] [employer]ER 09/29/2024 4:29 AM [employer]ER Es Chakraborty MD LAB URINE ORDERABLES Rosie l Result Performing Organization Address [facility] Co de Phone Number [facility] [place] [address] * aPTT (09/29/2024 4:[address] [employer]SEM[employer]ER) aPTT 30 28 - 38 sec Comment: Code Blue Specimen Interpretive Data Heparin therapeutic range: 66.0 - 100.0 seconds. Range based on correlation with therapeutic heparin activity range of 0.3 - 0.7 Units/mL. Current interpretive data was last revised on 2023. Blood 09/29/2024 4:[address] [employer] [employer]ER 09/29/2024 4:29 AM [employer]SEM[employer]ER Lio Montana Jr., MD LAB BLOOD ORDERABLES F inal Result Performing Organization Address [facility] de Phone Number [facility] Department [place] [address] * (ABNORMAL) Protime-INR (09/29/2024 4:[address] [employer]ER) PT 13.8(H) 9.7 - 13.0 sec Comment:Code Blue Specimen INR 1.27(H) 0.90 - 1.20 [facility] Comment: Code Blue Specimen Interpretive data Oral anticoagulant therapeutic ranges: Venous thromboembolism prophylaxis or treatment: 2.0-3.0 CARDIOLOGY Standard range: 2.0-3.0 High-intensity range: 2.5-3.5 Refer to indication-specific guidelines for appropriate target ranges for prosthetic heart valve replacement. Current interpretive data was last revised on 2019. Blood 09/29/2024 4:[address] [employer]ER 09/29/2024 4:29 AM [employer]ER Lio Montana Jr., MD LAB BLOOD ORDERABLES F inal Result Performing Organization Address [facility] de Phone Number [facility] [place] [address] * CT Chest PE (CTA) W Contrast (09/29/2024 1:26 AM AIR[employer]ER) Anatomical Region Laterality Modality Body N/A Computed Tomogra phy 09/29/2024 2:40 AM [employer]ER Impressions 09/29/2024 10:52 AM [employer]ER 1. Small acute pulmonary embolism in a subsegmental branch of the left lower lobe. 2. Redemonstrated 1.1 cm right middle lobe pulmonary nodule with adjacent post bronchoscopic biopsy change. 3. New 9 mm groundglass nodule in the right upper lobe, likely infectious or inflammatory. Attention is recommended on follow-up. This report was telephoned by Dr. Verma to Dr. Montana on 09/29/2024 2:39 AM. Dictated by: Bekah Verma MD The radiology attending physician has personally reviewed this study, and had reviewed and/or edited this written report and agrees with it. Electronically signed by: Jerrell Watts M.D. Narrative 09/29/2024 10:[address] [employer] [employer]ER EXAMINATION: CT CHEST PE (CTA) W CONTRAST HISTORY: 74-year-old woman with a history of pulmonary embolus, off anticoagulation for 2 days for a bronchoscopic right middle lobe biopsy earlier today. Now presents with tachypnea, fever, and new oxygen requirement. TECHNIQUE: Computed tomographic images were acquired using a chest angiographic protocol optimized for pulmonary embolism. ??Contrast enhanced transaxial images were obtained following the intravenous administration of 95 ml of nonionic contrast. ??Multiplanar reformatted images and three-dimensional images were obtained on the 3-D workstation and sent to the PACS archival system. ?? COMPARISON: CT PE protocol 03/14/2024. FINDINGS: Small acute pulmonary embolism in a subsegmental branch of the left lower lobe (series 5, image 157). No evidence of right heart strain. Unchanged 4.0 cm right thyroid nodule. No thoracic lymphadenopathy. Common origin of the right brachiocephalic and left common carotid artery. Normal caliber of the thoracic aorta. Normal caliber of the main pulmonary artery. Stable mild cardiomegaly. No pericardial effusion. Coronary artery calcifications. Small hiatal hernia. No pleural effusion. Redemonstrated 1.1 cm right middle lobe pulmonary nodule, better visualized on the prior exam (series 6, image 72). Adjacent focal consolidation and atelectasis is favored to represent changes of recent bronchoscopic biopsy. New 9 mm groundglass nodule in the right upper lobe (series 6, image 67). Mild dependent atelectasis. No new suspicious pulmonary nodule. No pneumothorax. Limited images of the upper abdomen demonstrate an unchanged hypoattenuating subcentimeter lesion in peripheral segment 8 8, likely a cyst. Unchanged left renal cyst. No suspicious osseous lesion or acute fracture. Old seventh right rib fracture and left seventh left rib fracture. Normal vertebral body heights and alignment with mild degenerative changes in the thoracic spine. Procedure Note Jerrell Watts MD - 09/29/2024 EXAMINATION: CT CHEST PE (CTA) W CONTRAST HISTORY: 74-year-old woman with a history of pulmonary embolus, off anticoagulation for 2 days for a bronchoscopic right middle lobe biopsy earlier today. Now presents with tachypnea, fever, and new oxygen requirement. TECHNIQUE: Computed tomographic images were acquired using a chest angiographic protocol optimized for pulmonary embolism. Contrast enhanced transaxial images were obtained following the intravenous administration of 95 ml of nonionic contrast. Multiplanar reformatted images and three-dimensional images were obtained on the 3-D workstation and sent to the PACS archival system. COMPARISON: CT PE protocol 03/14/2024. FINDINGS: Small acute pulmonary embolism in a subsegmental branch of the left lower lobe (series 5, image 157). No evidence of right heart strain. Unchanged 4.0 cm right thyroid nodule. No thoracic lymphadenopathy. Common origin of the right brachiocephalic and left common carotid artery. Normal caliber of the thoracic aorta. Normal caliber of the main pulmonary artery. Stable mild cardiomegaly. No pericardial effusion. Coronary artery calcifications. Small hiatal hernia. No pleural effusion. Redemonstrated 1.1 cm right middle lobe pulmonary nodule, better visualized on the prior exam (series 6, image 72). Adjacent focal consolidation and atelectasis is favored to represent changes of recent bronchoscopic biopsy. New 9 mm groundglass nodule in the right upper lobe (series 6, image 67). Mild dependent atelectasis. No new suspicious pulmonary nodule. No pneumothorax. Limited images of the upper abdomen demonstrate an unchanged hypoattenuating subcentimeter lesion in peripheral segment 8 8, likely a cyst. Unchanged left renal cyst. No suspicious osseous lesion or acute fracture. Old seventh right rib fracture and left seventh left rib fracture. Normal vertebral body heights and alignment with mild degenerative changes in the thoracic spine. IMPRESSION: 1. Small acute pulmonary embolism in a subsegmental branch of the left lower lobe. 2. Redemonstrated 1.1 cm right middle lobe pulmonary nodule with adjacent post bronchoscopic biopsy change. 3. New 9 mm groundglass nodule in the right upper lobe, likely infectious or inflammatory. Attention is recommended on follow-up. This report was telephoned by Dr. Verma to Dr. Montana on 09/29/2024 2:39 AM. Dictated by: Bekah Vrema MD The radiology attending physician has personally reviewed this study, and had reviewed and/or edited this written report and agrees with it. Electronically signed by: Jerrell Watts M.D. Lio Montana Jr., MD IMG CT PROCEDURES Rosie l Result * Blood culture Blood (09/29/2024 12:44 AM AIR[employer]ER) Report Final Report: No growth Blood 09/29/2024 12:4 4 AM [employer]PLANE [employer]ER 09/29/2024 1:03 AM AIRPLANE [employer]SEMBLER Narrative [facility] - 10/03/2024 7:01 AM AIRPLANE [employer] ASSEMBLER From a different site than #1. Collection->Peripheral 1. ?Blood cultures are incubated for 4 days on a continuously monitored blood culture system. The first report of a negative culture is issued within 24 hours of receipt of the specimen in the laboratory. 2. ?Positive culture results are reported as soon as they are detected. 3. ?The most important factor for detection of microbes in the setting of bloodstream infection is the volume of blood submitted for culture. Failure to collect an optimal blood volume can result in false negative blood cultures. 4. ? For pediatric patients, the recommended blood volume to collect follows a weight based strategy. See the electronic test catalog for collection instructions. 5. ?For positive blood cultures, a rapid molecular test may be performed for organism identification using the bronson ePlex blood culture identification panel for gram positive (BCID-GP) and gram negative (BCID-GN) organisms. This nucleic acid amplification test detects microbial DNA in positive blood culture broth. This assay has been cleared by the [place] Food and Drug Administration and its performance characteristics have been verified by the [facility] Microbiology Laboratory. For questions about this culture, contact the Microbiology Laboratory at [phone]. Interpretive data was last revised on 24. Lio Montana Jr., MD LAB MICROBIOLOGY - GEN ERAL ORDERABLES Final Result [facility]EL[facility] [place] [address] * (ABNORMAL) Blood culture Blood (09/29/2024 12:[address] [employer]SEMBLER) Pathologist [facility] Direct Specimen Exam Molecular Analysis: Corynebacterium detected by bronson ePlex BCID-GP panel. Single positive culture may represent contamination. This test does not exclude the possibility of a mixed bacterial infection. Notification of: Corynebacterium ??called to and read back by: Victor Hugo Jenkins. [phone] on 09/30/2024 21:58:03 by: Corazon Hector.SD Direct Specimen Exam Stain: Gram Positive Bacilli Time to culture positivity (aerobic media): 41.9 hours Notification of: Gram Positive Bacilli called to and read back by: Victor Hugo Jenkins. [phone] on 09/30/2024 19:37:15 by: Corazon Hector.SD MANUELA MONIQUE Report Final Report: Corynebacterium species Single blood culture positive for this microorganism. ??Isolate is a possible contaminant. If a similar isolate is recovered from a second blood culture collected within 3 days of this culture, both will be evaluated and, if determined to be the same species, antimicrobial susceptibility testing will be performed. (.) [facility] Organism CORYNEBACTERIUM SPECIES [facility] Blood 09/29/2024 12:4 [address] [employer]ER 09/29/2024 1:03 AM [employer]ANE [employer]SEMBLER Narrative [facility] - 10/05/2024 2:34 [address] AIR[employer] [employer] ASSEMBLER Collection->Peripheral 1. ?Blood cultures are incubated for 4 days on a continuously monitored blood culture system. The first report of a negative culture is issued within 24 hours of receipt of the specimen in the laboratory. 2. ?Positive culture results are reported as soon as they are detected. 3. ?The most important factor for detection of microbes in the setting of bloodstream infection is the volume of blood submitted for culture. Failure to collect an optimal blood volume can result in false negative blood cultures. 4. ? For pediatric patients, the recommended blood volume to collect follows a weight based strategy. See the electronic test catalog for collection instructions. 5. ?For positive blood cultures, a rapid molecular test may be performed for organism identification using the bronson ePlex blood culture identification panel for gram positive (BCID-GP) and gram negative (BCID-GN) organisms. This nucleic acid amplification test detects microbial DNA in positive blood culture broth. This assay has been cleared by the [place] Food and Drug Administration and its performance characteristics have been verified by the [facility] Microbiology Laboratory. For questions about this culture, contact the Microbiology Laboratory at [phone]. Interpretive data was last revised on 24. us Lio Montana Jr., MD LAB MICROBIOLOGY - GEN ERAL ORDERABLES Final Result [facility] Department [place] [address] * (ABNORMAL) eGFR (09/28/2024 11:[address] [employer]SEMBLER) [facility] Signature eGFR 55(L) >=60 mL/min/1. 73 m2 Comment: Interpretive Data Reference Interval Normal ?>/= 90 mL/min/1.73m2 Mildly decreased* ? 60 - 89 mL/min/1.73m2 Mildly to moderately decreased ?45 - 59 mL/min/1.73m2 Moderately to severely decreased ??30 - 44 mL/min/1.73m2 Severely decreased ?15 - 29 mL/min/1.73m2 Kidney Failure ?< 15 ??mL/min/1.73m2 *Relative to young adult level Estimated glomerular filtration rate is determined by the 2020 CKD-EPI equation recommended by the National Kidney Foundation (A Unifying Approach to GFR Estimation: Recommendations of the NKF-ASK Task Force on Reassessing the Inclusion of Race in Diagnosing Kidney Disease, JASN 2020). The CKD-EPI equation should not be used for patients with unstable renal function and has not been validated in children and those over 70. Current interpretive data was last reviewed 2021. Blood 09/28/2024 11:5 3 [address] [employer] [employer]SEMBLER 09/29/2024 12:24 AM AIRPLANE [employer]SEM[employer]ER us Es Chakraborty MD LAB BLOOD ORDERABLES Rosie barnes Result [facility] Department [place] [address] * (ABNORMAL) Differential, auto (09/28/2024 11:[address] [employer]ER) Neutrophil abs 13.7(H) 1.5 - 6.5 K/cumm Imm gran abs 0.1 0.0 - 0.1 K/cumm [facility] Lymphocyte abs 1.8 0.8 - 3.3 K/cumm [facility] Monocyte abs 1.0(H) 0.2 - 0.8 K/cumm [facility] Eosinophil abs 0.0 0.0 - 0.5 K/cumm [facility] Basophil abs 0.0 0.0 - 0.1 K/cumm [facility] Neutrophil pct 82.4 % [facility] Comment: Interpretive Data Percent cell count reference ranges are not reported, since discordance with absolute values may lead to misinterpretation of CBC data. Current Interpretive Data was last revised on 2018. Imm gran pct 0.4 % [facility] Comment: Interpretive Data Percent cell count reference ranges are not reported, since discordance with absolute values may lead to misinterpretation of CBC data. Current Interpretive Data was last revised on 2018. Lymphocyte pct 10.6 % [facility] Comment: Interpretive Data Percent cell count reference ranges are not reported, since discordance with absolute values may lead to misinterpretation of CBC data. Current Interpretive Data was last revised on 2018. Monocyte pct 6.2 % [facility] Comment: Interpretive Data Percent cell count reference ranges are not reported, since discordance with absolute values may lead to misinterpretation of CBC data. Current Interpretive Data was last revised on 2018. Eosinophil pct 0.2 % [facility] Comment: Interpretive Data Percent cell count reference ranges are not reported, since discordance with absolute values may lead to misinterpretation of CBC data. Current Interpretive Data was last revised on 2018. Basophil pct 0.2 % [facility] Comment: Interpretive Data Percent cell count reference ranges are not reported, since discordance with absolute values may lead to misinterpretation of CBC data. Current Interpretive Data was last revised on 2018. Blood 09/28/2024 11:5 3 PM [employer]ER 09/29/2024 12:24 AM [employer]PLANE [employer]ER Es Chakraborty MD LAB BLOOD ORDERABLES Rosie barnes Result [facility] Department [place] [address] * (ABNORMAL) CBC with auto differential (09/28/2024 11:53 PM [employer] [employer]ER) WBC 16.6(H) 3.8 - 9.9 K/cumm Hgb 11.9 11.9 - 15.5 g/dL [facility] Hct 36.4 35.6 - 45.5 % [facility] Plt 299 150 - 400 K/cumm [facility] MPV 9.1 9.1 - 12.3 fL [facility] RBC 3.82(L) 3.90 - 5.20 M/cumm [facility] MCV 95.3 81.3 - 96.4 fL [facility] MCH 31.2 27.1 - 33.3 pg [facility] MCHC 32.7 32.3 - 35.7 g/dL [facility] RDW CV 13.3 11.1 - 14.9 % [facility] RDW SD 46.6 35.7 - 48.1 fL [facility] NRBC abs 0.00 0.00 - 0.01 K/cumm [facility] Blood 09/28/2024 11:5 3 PM [employer]ER 09/29/2024 12:24 AM [employer]PLANE [employer] Es Chakraborty MD LAB BLOOD ORDERABLES Rosie barnes Result [facility] [place] [address] * Comprehensive metabolic panel (09/28/2024 11:53 PM AIRPLANE [employer]ER) Sodium 142 135 - 145 mmol/L Potassium, pl 4.0 3.3 - 4.9 mmol/L [facility] Chloride 105 97 - 110 mmol/L [facility] CO2 24 22 - 32 mmol/L [facility] Anion gap 13 2 - 15 mmol/L [facility] BUN 8 6 - 25 mg/dL [facility] Creatinine 1.06 0.60 - 1.10 mg/dL [facility] Glucose 156 70 - 199 mg/dL [facility] Comment: Interpretive Data Fasting glucose >/= 126 mg/dl is diagnostic for diabetes. ?? Fasting is defined as no caloric intake for at least 8 hours. Fasting glucose between 100 mg/dl to 125 mg/dl is diagnostic of prediabetes. In a patient with classic symptoms of hyperglycemia or hyperglycemic crisis, a random glucose >/= 200 mg/dl is diagnostic for diabetes. In the absence of unequivocal hyperglycemia, results should be confirmed by repeat testing. The classification and Diagnosis of Diabetes Diabetes Care 202; 46: S19-S40. Current interpretive data was last revised 2022. Calcium 9.3 8.5 - 10.3 mg/dL [facility] Bilirubin, total 0.2 0.1 - 1.2 mg/dL [facility] Protein, pl 7.2 6.5 - 8.5 g/dL [facility] Albumin 3.9 3.5 - 5.0 g/dL [facility] Alk phos 65 40 - 130 Units/L [facility] ALT 7 7 - 45 Units/L [facility] AST 18 10 - 45 Units/L [facility] Blood 09/28/2024 11:5 3 PM [employer]ER 09/29/2024 12:24 AM [employer]PLANE [employer] Es Chakraborty MD LAB BLOOD ORDERABLES Rosie molly Result [facility] [place] [address] * XR Chest Pa Lateral 2 Vw (09/28/2024 11:46 PM AIR[employer] [employer]SEMBLER) Anatomical Region Laterality Modality Body, Chest N/A Computed Radiogr aphy 09/28/2024 11:5 4 [address] [employer] [employer]ER Impressions 09/29/2024 10:30 AM AIRPLANE [employer]ER The patient's known right lung nodule is better evaluated on prior PET/CT. No pleural effusion, pneumothorax, or new consolidation. Resolution of the mild opacity in the right mid lung. Stable cardiomediastinal silhouette. Dictated by: Bekah Verma MD The radiology attending physician has personally reviewed this study, and had reviewed and/or edited this written report and agrees with it. Electronically signed by: Jerrell Watts M.D. Narrative 09/29/2024 10:30 [address] [employer]ER EXAMINATION: XR CHEST PA LATERAL 2 VIEWS HISTORY: 74-year-old woman who presents with fever. COMPARISON: Chest radiograph 09/28/2024. Procedure Note Jerrell Watts MD - 09/29/2024 EXAMINATION: XR CHEST PA LATERAL 2 VIEWS HISTORY: 74-year-old woman who presents with fever. COMPARISON: Chest radiograph 09/28/2024. IMPRESSION: The patient's known right lung nodule is better evaluated on prior PET/CT. No pleural effusion, pneumothorax, or new consolidation. Resolution of the mild opacity in the right mid lung. Stable cardiomediastinal silhouette. Dictated by: Bekah Verma MD The radiology attending physician has personally reviewed this study, and had reviewed and/or edited this written report and agrees with it. Electronically signed by: Jerrell Watts M.D. Es Chakraborty MD IMG XR PROCEDURES Final R esult * XR Chest 1 View (09/28/2024 2:32 PM AIRPLANE [employer]SEM[employer]ER) Anatomical Region Laterality Modality Body, Chest N/A Digital Radiogra phy 09/28/2024 3:18 [address] [employer] [employer]ER Impressions 09/28/2024 3:19 PM [employer]PL[employer]ER The current study is compared with the prior radiograph dated ??06/23/2024. Patient's known right lung nodule is better evaluated on prior PET/CT 08/26/[address] 06/23/2024. ??Hazy right mid lung opacity may be posterior layering effusion, post bronchoscopic change, or atelectasis. ??No pneumothorax. ??The cardiomediastinal silhouette is stable. Dictated by: Gregory Weiss M.D. The radiology attending physician has personally reviewed this study, and had reviewed and/or edited this written report and agrees with it. Electronically signed by: Lev Ramos M.D. Narrative 09/28/2024 3:19 [address] [employer] [employer]ER EXAMINATION: 1 view chest radiograph Procedure Note Lev Ramos MD - 09/28/2024 EXAMINATION: 1 view chest radiograph IMPRESSION: The current study is compared with the prior radiograph dated 06/23/2024. Patient's known right lung nodule is better evaluated on prior PET/CT 08/26/[address] 06/23/2024. Hazy right mid lung opacity may be posterior layering effusion, post bronchoscopic change, or atelectasis. No pneumothorax. The cardiomediastinal silhouette is stable. Dictated by: Gregory Weiss M.D. The radiology attending physician has personally reviewed this study, and had reviewed and/or edited this written report and agrees with it. Electronically signed by: Lev Ramos M.D. Rin Cordero MD IMG XR PROCEDURES Final Result * Cytology (09/28/2024 1:42 PM AIRPL[address] [employer]SEMBLER) Fluid (Lung (Cytology)) 09/28/2024 1:42 PM [employer] [employer]ER 09/28/2024 2:54 PM AIRPLANE [employer]ER Narrative [facility] - 10/02/2024 8:53 PM AIRPL[employer]ER EPIC results best viewed via link to PDF [facility] [place] [address] Note to Patients: This report may contain a detailed description of human tissue sent by a health care provider to the laboratory for pathologic evaluation. The content of this report is essential for diagnosis and may provide important critical findings. This information may be unfamiliar to patients to review without a medical professional present. It is advised that the patient review this report in the presence of a health care provider who can answer questions and explain the details. CYTOPATHOLOGY REPORT FINAL Patient Name: ?? BIRGIT EDWARDSMagen Gender: ??F : ??1950 (Age: 74) Address: ??[address] [place] [address] ??[id number] Hospital #: ??[id number] Taken:09/28/2024 Received:09/28/2024 Reported: 10/02/2024 Patient Type: [facility] Ancillary ?? Service: Pulmonary Location: Physician(s): ??MD Ced Almeida M.D. Amber Pendegraft, NP FINAL DIAGNOSIS A. ??Lung, right middle lobe, endobronchial ultrasound-guided fluoroscopy- assisted fine needle aspiration: ?- Non-diagnostic for mass lesion Comments The cell block confirms the diagnosis. pamo/09/29/2024 15:58 By this signature, I attest that the above diagnosis is based upon my personal examination of the slides(and/or other material indicated in the diagnosis). Kymberly R. Krigman, M.D. Report Electronically Reviewed and Signed Out By ??Kymberly Nick M.D. 10/02/2024 20:53:08 Cyrus CasasMagen Jimenez MS, CT(ASCP)PA Gross Description A. ??Lung, right middle lobe, endobronchial ultrasound guided, fluoroscopy assisted fine needle aspiration: ??6 Pap stained smear(s) and 6 Diff-Quik stained smear(s). ??1 cell block prepared from needle rinse tube. ??Aspirated by clinician. ??(LL) Clinical Diagnosis and History The patient is a 74-year-old woman with history of smoking who presents with a 1.2 cm lung nodule. Immediate Evaluation A. ??Lung, right middle lobe, endobronchial ultrasound guided, fluoroscopy assisted fine needle aspiration: ?? Evaluation Episode 1 Overall Adequacy: Inadequate for interpretation Evaluation Episode 2 Overall Adequacy: Inadequate for interpretation Evaluation Episode 3 Overall Adequacy: Inadequate for interpretation Total Evaluation Episodes: 3 Preliminary Diagnosis: Non- Diagnostic for mass lesion Apryl Wong 09-28-2024 REPORT IMAGES AND SCANNED DOCUMENTS, IF INCLUDED, ONLY VIEWABLE IN PDF VERSION OF REPORT The performance characteristics of some immunohistochemical stains, in-situ hybridization and fluorescence in-situ hybridization tests and immunophenotyping by flow cytometry cited in this report (if any) were determined by the Surgical Pathology and Flow Cytometry Departments at [facility] as part of an ongoing air quality technician program and in compliance with federally mandated regulations drawn from the Clinical Laboratory Improvement Act of 1988 (CLIA '88). ??Some of these tests rely on the use of analyte specific reagents and are subject to specific labeling requirements by the US Food and Drug Administration. ??Such diagnostic tests may only be performed in a facility that is certified by the Department of Health and Human Services as a high complexity laboratory under CLIA '88. ??The FDA has determined that such clearance or approval is not necessary. ??This test is used for clinical purposes. ??It should not be regarded as investigational or for research. ??Nevertheless, federal rules concerning the medical use of analyte specific reagents require that the following disclaimer be attached to the report: ??This test was developed and its performance characteristics determined by the Surgical Pathology and Flow Cytometry Departments of [facility]. ??It has not been cleared or approved by the U. S. Food and Drug Administration. Rin Cordero MD LAB CYTOLOGY ORDERABLES Final Result PATHOLOGY [facility] 3rd Floor [place], SUDHAKAR [phone] * Bronchoscopy -[facility] Interventional Pulm; Bronchoscopy, RADIAL BIOPSY (09/28/2024 1:[address] AIRPLANE GAST[employer]ER ASSEMBLER) Anatomical Region Laterality Modality Other Narrative Procedure Note Ced Price Chi, MD - 09/28/2024 1:18 PM CST [facility] Interventional Pulmonary Patient Name: Birgit Edwards Procedure Date: 09/28/2024 1:18 PM Date of : 1950 Admit Type: Outpatient Age: 74 Room: ROOM 1 Gender: Female Note Status: Finalized Procedure: Bronchoscopy, Convex EBUS, Radial EBUS, TBNA Indications: Right middle lobe nodule Providers: Ced Price M.D. Referring MD: Javi Limon M.D. Medicines: Lidocaine 1% applied to cords 10 mL, Lidocaine 1% subglottic space 20 mL, Remimazolam 17 mg IV,Fentanyl 200 mcg IV Complications: No immediate complications Procedure: Pre-Anesthesia Assessment: - The risks and benefits of the procedure and the sedation options and risks were discussed with the patient. All questions were answered and informed consent was obtained. After obtaining informed consent, the Bronchoscopewas introduced through the mouth, via laryngeal mask airway and advanced to the tracheobronchial tree of both lungs. the Bronchoscope was introduced through the and advanced to the. The procedure was accomplished without difficulty. The patienttolerated the procedure well. Estimated Blood Loss: Estimated blood loss was minimal. Findings: 1. Airway inspection The laryngeal mask airway is in good position. The vocal cords appear normal. The subglottic space is normal. The trachea is of normal caliber. The reymundo is sharp. The tracheobronchial tree was examinedto at least the first subsegmental level. Bronchial mucosa and anatomyare normal; there are no endobronchial lesions, and no secretions. 2. Convex EBUS The linear array EBUS scope was introduced through the mouth to the right middle lobe bronchus. No lesion could be identified within the right middle lobe using convex EBUS. 3. Radial EBUS The 1.7mm 20Mhz radial EBUS probe was advanced through the working channel of the 4mm bronchoscope and was used to examine the distal airways and lung parenchyma. A lesion was identified in a branch ofthe medial segment of the right middle lobe (RB5) using radial EBUS. The radial probe was positioned adjacent to the RML lesion. 4. TBNA Transbronchial needle aspiration times 6 was performed using aPeriview Flex 21 gauge needle advanced to the lesion in the RML through the working channel of the 4mm bronchoscope and was sent for routine cytology. The procedure was fluoroscopically guided. Moderate Sedation: Moderate (conscious) sedation was administered by the nurse and supervised by the physician performing the procedure. The patient's oxygen saturation, heart rate, blood pressure and response to carewere monitored. Total physician intraservice time was 56 minutes. Impression: - Radial EBUS, TBNA were performed from the right middle lobe Recommendation: - Await cytology results. Attending Participation: I was present and participated. Electronically signed by Dr. Price Ced Price M.D. 09/28/2024 2:18:41 PM Number of Addenda: 0 Note Initiated On: 09/28/2024 1:18 PM us Ced Price MD BRONCH ORDERABLES Final Re sult * PET/CT FDG Skull to Thigh (08/26/2024 9:38 [address] AIRPLANE [employer]AST[employer] ASSEMBLER) Anatomical Region Laterality Modality N/A Positron Emissio n Tomography (PET) 08/26/2024 11:4 [address] AIRPLANE [employer]ASTANK [employer]ER ASSEMBLER Narrative 08/26/2024 11:[address] AIRPLANE [employer]ASTANK [employer]ER ASSEMBLER EXAM DESCRIPTION: ?? PET/CT FDG SKULL TO THIGH REASON FOR STUDY: Pulmonary nodule, PET-CT for diagnosis and initial treatment strategy. RADIOPHARMACEUTICAL: 11.2 ??mCi F-18 Fluorodeoxyglucose (FDG) via a ??right hand IV site. TECHNIQUE: The patient's fasting blood glucose level, measured by glucometer before injection of FDG, was ??109 ??mg/dL. ??After intravenous administration of FDG, noncontrast CT images were obtained for attenuation correction and for fusion with emission PET images to allow for anatomical localization of PET findings. ??Emission PET images were then obtained. The area imaged spanned the region from the skull base to the thighs. The uptake time was approximately ?? 60 ??minutes. SUV max was normalized to body weight. COMPARISON: Chest CT 06/23/2024. ??Thyroid ultrasound 07/01/2021. FINDINGS: For reference, a region of interest of the ascending thoracic aorta has a maximal SUV of ??3.0 . ??For reference, a region of interest of the right hepatic lobe of the liver has a maximal SUV of ??4.0. Head: ??Normal FDG uptake is seen in the included portion of the brain. Neck: ??Moderate FDG activity of the lymphoid structures of the head neck. ?? There is enlargement of the right thyroid lobe, with a low-density right thyroid nodule 3.4 cm having low level metabolic activity. ??This has a maximal SUV of 3.1. Chest: ??In the medial aspect of the right middle lobe there is a 1.1 x 1 cm nodule maximal SUV 3.7. ??No other metabolically active nodules or masses. ??The heart is moderately enlarged. ??There is trace pleural fluid bilaterally with atelectasis. ??There is a mildly FDG avid right axillary lymph node level I posteriorly, this is 1.2 x 0.7 cm, maximal SUV 4.0. ??There are few other small mildly FDG avid right axillary lymph nodes, the other lymph nodes have a maximal SUV up to 2.1. ??No hypermetabolic supraclavicular, mediastinal, or hilar lymphadenopathy. Abdomen and Pelvis: Liver and spleen demonstrate normal physiologic activity. ?? Gallbladder is distended. ??Spleen, pancreas, and both adrenal glands are normal. ??There is a moderate hiatal hernia. ??There is activity of the distal esophagus maximal SUV 5.2. ??Physiologic excretion of FDG from the kidneys with expected accumulation of radiotracer within the urinary bladder. ??Physiologic bowel activity is seen elsewhere. ??No hypermetabolic abdominal or pelvic lymphadenopathy. ??There is a right adnexal cystic structure, 2.7 x 2.6 cm. ?? Bones: No acute or aggressive appearing osseous lesions are seen. ??There is a mild S shaped curvature of the thoracolumbar spine. 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 Mildly FDG avid right axillary lymph nodes are nonspecific but suspicious for metastatic disease. No evidence of FDG avid extrathoracic metastasis. Moderate hiatal hernia with activity of the distal esophagus, may consider endoscopy for further assessment. Non FDG avid right adnexal cystic structure 2.7 cm. ??A nonemergent outpatient routine ultrasound is recommended for further assessment. Right thyroid nodule 3.4 cm with low level metabolic activity, see previous ultrasound from 07/01/2021. ?? THIS IS AN ELECTRONICALLY VERIFIED FINAL REPORT 08/26/2024 11:53 AM - Electronically signed by ??Mateo Anderson M.D. CH: SUPA D: ??08/26/2024 11:53 AM T: ??08/26/2024 11:53 AM Report ID: [id number] Reading Location: ??[id number] Procedure Note Mateo Anderson Jr., MD - 08/26/2024 EXAM DESCRIPTION: PET/CT FDG SKULL TO THIGH REASON FOR STUDY: Pulmonary nodule, PET-CT for diagnosis and initialtreatment strategy. RADIOPHARMACEUTICAL: 11.2 mCi F-18 Fluorodeoxyglucose (FDG) via a righthand IV site. TECHNIQUE: The patient's fasting blood glucose level, measured byglucometer before injection of FDG, was 109 mg/dL. After intravenousadministration of FDG, noncontrast CT images were obtained for attenuation correction andfor fusion with emission PET images to allow for anatomical localization ofPET findings. Emission PET images were then obtained. The area imaged spannedthe region from the skull base to the thighs. The uptake time wasapproximately 60 minutes. SUV max was normalized to body weight. COMPARISON: Chest CT 06/23/2024. Thyroid ultrasound 07/01/2021. FINDINGS: For reference, a region of interest of the ascending thoracicaorta has a maximal SUV of 3.0 . For reference, a region of interest of theright hepatic lobe of the liver has a maximal SUV of 4.0. Head: Normal FDG uptake is seen in the included portion of the brain. Neck: Moderate FDG activity of the lymphoid structures of the head neck. There is enlargement of the right thyroid lobe, with a low-density right thyroid nodule 3.4 cm having low level metabolic activity. This has amaximal SUV of 3.1. Chest: In the medial aspect of the right middle lobe there is a 1.1 x 1cm nodule maximal SUV 3.7. No other metabolically active nodules or masses.The heart is moderately enlarged. There is trace pleural fluid bilaterallywith atelectasis. There is a mildly FDG avid right axillary lymph node level I posteriorly, this is 1.2 x 0.7 cm, maximal SUV 4.0. There are few othersmall mildly FDG avid right axillary lymph nodes, the other lymph nodes have a maximal SUV up to 2.1. No hypermetabolic supraclavicular, mediastinal, or hilar lymphadenopathy. Abdomen and Pelvis: Liver and spleen demonstrate normal physiologicactivity. Gallbladder is distended. Spleen, pancreas, and both adrenal glands are normal. There is a moderate hiatal hernia. There is activity of thedistal esophagus maximal SUV 5.2. Physiologic excretion of FDG from the kidneyswith expected accumulation of radiotracer within the urinary bladder.Physiologic bowel activity is seen elsewhere. No hypermetabolic abdominal or pelvic lymphadenopathy. There is a right adnexal cystic structure, 2.7 x 2.6 cm. Bones: No acute or aggressive appearing osseous lesions are seen. Thereis a mild S shaped curvature of the thoracolumbar spine. 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 Mildly FDG avid right axillary lymph nodes are nonspecific but suspiciousfor metastatic disease. No evidence of FDG avid extrathoracic metastasis. Moderate hiatal hernia with activity of the distal esophagus, mayconsider endoscopy for further assessment. Non FDG avid right adnexal cystic structure 2.7 cm. A nonemergentoutpatient routine ultrasound is recommended for further assessment. Right thyroid nodule 3.4 cm with low level metabolic activity, seeprevious ultrasound from 07/01/2021. THIS IS AN ELECTRONICALLY VERIFIED FINAL REPORT 08/26/2024 11:53 AM - Electronically signed by Mateo Anderson M.D. CH: Report ID: [id number] Reading Location: [place] [address] Javi Lmion MD IMG PET PROCEDURES Final Res ult * POCT glucose (08/26/2024 8:[address] [employer] ASSEM[employer]ER) [facility] Glucose, POC 109 70 - 199 mg/dL Comment:Testing performed by : [facility], [address] [place] [address]., [id number] Blood 08/26/2024 8:[address] [employer] [employer]ER ASSEMBLER 08/26/2024 8:[address] AIR[address] [employer]ER ASSEMBLER us Darcy Pendegraft [employer] LAB POCT ORDERABLES - DEVICE Final Result [facility] [address] [facility] Department [place] [address] * (ABNORMAL) Pulmonary Function Test - (08/17/2024 3:22 PM CDT) [facility] FVC POST 1.73(A) 1.84 - 3.30 L [facility] FEV1 POST 1.38(A) 1.42 - 2.51 L [facility] [id number] 80.18 64.22 - 89.88 % [facility] WTD01-61% POST 1.38 0.75 - 3.03 L/s [facility] PEF POST 4.33 3.88 - 6.84 L/s [facility] DLCOc SB 9.01(A) 13.87 - 25.34 ml/(min*mm Hg) [facility] DLCO/VA PRE 3.09 2.71 - 5.80 ml/(min*mm Hg*L) [facility] VA 2.91(A) 4.45 - 4.45 L [facility] TLC PRE 3.10(A) 3.62 - 5.59 L [facility] VC PRE 1.79 1.62 - 3.00 L [facility] IC PRE 1.26(A) 1.72 - 1.72 L [facility] FRC PL PRE 1.84 1.78 - 3.42 L [facility] ERV PRE 0.53(A) 0.58 - 0.58 L [facility] RV PRE 1.32(A) 1.44 - 2.59 L [facility] VTG 1.89 L [facility] RAW PRE 4.45(A) 3.06 - 3.06 cmH2O*s/L [facility] FVC PRE 1.66(A) 1.84 - 3.30 L [facility] FEV1 PRE 1.23(A) 1.42 - 2.51 L [facility] [id number]-UCG 74.36 64.22 - 89.88 % [facility] IRI67-83% PRE 0.88 0.75 - 3.03 L/s [facility] PEF PRE 4.20 3.88 - 6.84 L/s [facility] Anatomical Region Laterality Modality PFT 08/17/2024 2:35 PM CDT Narrative 08/19/2024 4:18 PM CDT Spirometry does not show obstruction. ?? No significant response to bronchodilators. ?? Flow volume loop is suggestive of restrictive pattern. ?? Lung volumes show mild restrictive ventilatory defect. ?? Gas exchange capacity is moderately reduced. ?? Electronically signed by Myah Tapia MD Javi Limon MD PFT ORDERABLES Final Result * F5 (FVL) and F2 (Prothrombin) Mutations (08/10/2024 2:27 PM CDT) [facility] Factor V Leiden F5 Normal Normal [facility] Comment:Testing performed by : [facility], [address] [place]., [address] Factor V Leiden Interpretation The patient is negative for the Factor V Leiden mutation (F5:c.1601G>A, p.R534Q) with two copies of the normal allele. MAN[facility]ELA Comment:Testing performed by : [facility], [address] [place]., [address] Prothrombin F2 Mutation Normal Normal [facility] Comment:Testing performed by : [facility], [address] [place] [address]., [address] Prothrombin F2 Interpretation The patient is negative for the prothrombin gene mutation (F2 c.*97G>A ([id number])) with two copies of the normal allele). MAN[facility]ELA Comment:Testing performed by : [facility], [address] [place]., [address] FVL and Prothrombin Specimen Blood [facility] Comment:Testing performed by : [facility], [address] [place] [address]., [address] FVL and Prothrombin Result Review Final report reviewed by: DANIELA Cohen, Bowstring Maker, on 08/12/2024 07:51:59 CDT. MAN[facility]ELA Comment: Interpretive Data Testing was performed simultaneously for the presence of the F5:c.1601G>A(R534Q) (aka Factor V Leiden) mutation and the F2:c.*97G>A mutation. The presence of either of these F5 or F2 variants increases the relative risk of venous thromboembolism (VTE) but is not predictive of a thrombotic event. The population allele frequency for F5:c.1601G>A(R534Q) is up to 5% in persons of ancestry and 1.2% in those with ancestry. ??The reported frequency among other ethnicities is less than 3%. The increased risk of VTE for adults is 4-8 fold for F5 heterozygotes and 80-fold higher for F5 homozygotes. The population allele frequency for the F2:c.*97G>A mutation is approximately 1-3% in persons of ancestry and 0.3% in those with ancestry. ??The reported frequency among other ethnicities is less than 2%. The increased risk of VTE for adults is 2-5 fold for F2 heterozygotes and is higher, though not well-defined, for F2 homozygotes. The risk of VTE in individuals heterozygous for both F2 & F5 is 20-fold higher. Absence of these mutations does not indicate a lack of risk for VTE. Genetic counseling is recommended. Method: This assay utilizes the Graphicly Xpert?? FII & FV qualitative in vitro diagnostic genotyping test for the detection of targeted FV and F2 alleles from sodium citrate or EDTA anticoagulated whole blood. This test is performed on the InstyBook?? Dx System which automates and integrates sample purification, nucleic acid amplification, and detection of the target sequence in whole blood using real- time Polymerase Chain Reaction (PCR) assays based on BioVidriaorpion?? PCR technology. Note: F5 (NM_000130.5):c.1601G>A, R534Q or Factor V Leiden is also referred to as c.1691G>A, p.R506Q in the literature. ?? FDA statement: The ProtoExchangeid Xpert?? FII & FV qualitative in vitro diagnostic genotyping test for use on specimens from adult populations. The case assistant did not evaluate testing on samples from pediatric patients (<18 years of age). The performance characteristics of this test on specimens from pediatric patients have been assessed by the [facility] and deemed acceptable for clinical reporting. The CepMeetings.ioid Xpert?? FII & FV genotyping test is FDA-cleared for testing unprocessed peripheral blood specimens containing either EDTA or sodium citrate. Processing of specimens submitted for reflex testing requires modifications from the case assistant's instructions. The performance characteristics of those modifications, if necessary, have been determined by [facility] in a manner consistent with CLIA requirements. Limitations and interfering substances: The performance of the Xpert?? Factor II & Factor V Assay was validated using the procedures provided in the package insert only. Results from the Xpert Factor II & Factor V Assay should be interpreted in conjunction with other laboratory and clinical data available to the clinician. Rare Factor V variants including but not limited to: F5:c.1599G>A, F5:c.1602A>C, F5:c.1606A>G, rare Factor II mutations and any additional SNPs in the probe binding region, may interfere with the target detection and yield an invalid result. Patients on heparin therapy and receiving blood transfusions may have interfering substances that potentially lead to invalid or erroneous results. References: 1. Cepheid Xpert?? Factor II and Factor V package insert. 301-0590, Rev. B. May 2017. 2. Bhanu RAMOS, et al; MG Factor V Leiden Working Group. Carolyn Med. 2001. 3:139- 48. 3. NAIN Waters, et al. Nature. 2019. 581:434? 443 4. Kristen COTE. Factor V Leiden Thrombophilia. 1998March 01 [Updated 2018 Oct 22]. Available from: https://www.ncbi.nlm.nih.gov/books/GVM4992/ 5. Philip PM, et al. N Engl J Med. 1995. 332:912-17. 6. Erich ALEGRE and Ruben PH. J Thromb Haemost. 2009. 7 Suppl 1:301? 4. 7. James S., et al. Carolyn Med. 2018. 20:1489? 1498 This test was performed at: [facility], [facility], [facility]#[id number], Eden Durbin, Ph.D., [place], [address], [place] Current interpretive data was last revised 2023. Testing performed by: [facility], [address] [facility], [place]., [address] Blood 08/10/2024 2:27 PM CDT 08/11/2024 9:07 AM CDT Javi Limon MD LAB GENETIC TESTING Final Re sult [facility] [place] [address] [facility] Department [place] [address] [facility] * Diagnostic Mammogram Bilateral W Mohsen (06/10/2024 2:19 PM CDT) Anatomical Region Laterality Modality Breast Bilateral Mammography 06/10/2024 3:51 PM CDT Narrative 06/10/2024 4:05 PM CDT EXAM DESCRIPTION: DIAGNOSTIC MAMMOGRAM BILATERAL W MOHSEN REASON FOR STUDY: 74-year-old female presents for evaluation of a reported palpable lump in her right breast, location of which is unspecified. ??Both the patient and her daughter deny any known palpable lump in either breast or other current breast complaint. ??Reviewing the patient's chart in [facility], no note specifying the location of the reported lump could be found. TECHNIQUE: ??CC and MLO views of the bilateral breasts were obtained with digital technique using breast tomosynthesis with C view. ?? COMPARISON: Mammograms dated 07/14/2022, 08/13/2018, and 03/23/2017 FINDINGS: DENSITY: There are scattered areas of fibroglandular density. MAMMOGRAM FINDINGS: There are multiple small scattered similar appearing round and oval circumscribed masses in both breasts. ??There are no suspicious microcalcifications or architectural distortion associated with any of these masses. ??The majority of these masses have increased in size from prior mammograms. ??However, based on their similar morphology, multiplicity, and bilaterality, these masses are considered to be benign, favored to represent benign cysts or other benign entities. ??No new suspicious masses, suspicious microcalcifications, or other suspicious findings are identified in either breast. IMPRESSION: 1. ?? Multiple similar appearing small round and oval circumscribed masses in both breasts are most consistent with benign entities (i.e. cysts or other benign masses) based on their morphology, multiplicity, and bilaterality. ??The site of the patient's reported palpable right breast lump has not been specified, and both the patient and her daughter deny any known palpable lump or other current breast complaint. ??Clinical follow-up and monthly breast self physical examination are recommended. ??If there is a specific location of the reported palpable breast lump, the patient could return for repeat diagnostic evaluation with the site of concern specified on the study order. ??Otherwise, annual screening mammography to be performed in 1 year is recommended. 2. ?? No definite new suspicious finding in either breast on mammogram. BIRADS: 2 ??Benign findings. I discussed these findings and recommendations with patient at the time of the examination. THIS IS AN ELECTRONICALLY VERIFIED FINAL REPORT 06/10/2024 4:05 PM - Electronically signed by ??Ulises Hernandez M.D. MD: D: ??06/10/2024 4:05 PM T: ??06/10/2024 4:05 PM Report ID: [id number] Reading Location: ??[facility] Corazon Humphrey PUTTY AND PATCH WORKER IMG MAMMO PROCEDURES Final Result from Last 3 Months or Most Recently Relevant to Health Maintenance Insurance * Guarantor: Birgit Edwards Account Type Relation to Patient Date of Phone Billing Address Personal/Family Self 1950 [id number] [place] [address] [employer] MEDICARE GOLD * Guarantor: Birgit Edwards Account Type Relation to Patient Date of Phone Billing Address Personal/Family Self [id number] [place] [address] [employer] MEDICARE * Guarantor: Birgit Edwards Account Type Relation to Patient Date of Phone Billing Address Personal/Family Self 1950 [id number] [place] [address] Advance Directives For more information, please contact: [phone] * Full Code (Latest Code Status on File) Date Activated Date Inactivated Comments 09/29/2024 5:10 AM 10/10/2024 10:51 PM * Full Code Date Activated Date Inactivated Comments 06/23/2024 5:52 PM 06/28/2024 6:18 PM * Full Code Date Activated Date Inactivated Comments 03/14/2024 4:39 PM 03/16/2024 12:35 AM * Full Code Date Activated Date Inactivated Comments 03/14/2024 2:40 PM 03/14/2024 4:39 PM Care Teams Physical Therapy Manager Relationship Specialty Start Date End Date Darcy Reddy NP PCP - General Family Medicine 11/29/21 Javi Limon MD [address] [place] [address] [place] [id number] Consulting Physician Pulmonary Disease 06/26/24
--- OUTSIDE RECORDS SUMMARY | 2024-11-10 10:05 | XMS_ITS | Referral Summary ---
Author Organization [facility] Address [address] [address] Care Team Providers Care Net Software Architect Name Role Phone Rashawn Fields MD Primary Care Provider [phone] Source Comments [facility],non-owned Affiliates and Associated Physician Practices is amultiple site organization consisting of ambulatory clinics and hospital sitesin [place], [place], [place] and [place]. This disclosure is being madepursuant to the Care Everywhere program and may not contain all information available regarding this patient. Last updated 18.[facility] Allergies No known active allergies Medications * Be aware that medications may not be up to date on this document. Alwaysverify current medications with the patient. Medication Sig Dispensed Refills Start Date End Date Status amLODIPine (NORVASC) 5 MG tablet Take 5 mg by mouth once daily Active atorvastatin (LIPITOR) 20 MG tablet Take 20 mg by mouth at bedtime Active fluticasone propionate (FLONASE) 50 MCG/ACT nasal spray [place] 2 sprays into each nostril once daily Active Azelastine HCl 137 MCG/SPRAY SOLN Active famotidine (PEPCID) 20 MG tablet Take 20 mg by mouth once daily Active gabapentin (NEURONTIN) 800 MG tablet Take 800 mg by mouth 2 times daily Active lamoTRIgine (LAMICTAL) 100 MG tablet Take 100 mg by mouth once daily 150 mg in the morning and 100 mg at night Active lamoTRIgine (LAMICTAL) 150 MG tablet Take 150 mg by mouth once daily 150 mg in the morning and 100 mg at night Active montelukast (SINGULAIR) 10 MG tablet Take 10 mg by mouth at bedtime Active Polyethylene Glycol 3350 (MIRALAX PO) Active QUEtiapine XR 24hr (SEROQUEL XR) 300 MG tablet Take 300 mg by mouth at bedtime Takes with 50 mg tab for total of 350 mg daily at hs Active valACYclovir (VALTREX) 500 MG tablet Take 500 mg by mouth 2 times daily Active QUEtiapine XR 24hr (SEROQUEL XR) 50 MG tablet Take 50 mg by mouth at bedtime Take with 300 mg tab; total of 350 mg daily Active azelastine (OPTIVAR) 0.05 % ophthalmic solution 1 drop once daily as needed Active acetaminophen (TYLENOL) 325 MG tablet Take 650 mg by mouth every 6 hours as needed Active aspirin (ASPIRIN) 81 MG chew tablet 81 mg once daily Acti ve carvedilol (COREG) 3.125 MG tablet 04/25/2022 Active vitamin D3 (CHOLECALCIFEROL) 25 MCG (1000 UNITS) tablet 10/26/2021 Active furosemide (LASIX) 40 MG tablet 05/05/2022 Active magnesium hydroxide (MILK OF MAGNESIA CONC) 2400 MG/10ML suspension Active sertraline (ZOLOFT) 25 MG tablet 05/14/2022 Active Active Problems No known active problems Social History Tobacco Use Types Packs/Day Years Used Date Smoking Tobacco: Never Smokeless Tobacco: Never Sex and Gender Information Value Date Recorded Sex Assigned at Not on file Gender Identity Not on file Sexual Orientation Not on file Last Filed Vital Signs Vital Sign Reading Time Taken Comments Blood Pressure 124/64 09/03/2018 4:29 PM OUTSIDE SALES INSPECTOR Pulse 75 09/03/2018 4:29 PM OUTSIDE SALES INSPECTOR Temperature 37 ??C (98.6 ??F) 09/03/2018 4:29 PM OUTSIDE SALES INSPECTOR Respiratory Rate 16 09/03/2018 4:29 PM OUTSIDE SALES INSPECTOR Oxygen Saturation - - Inhaled Oxygen Concentration - - Weight 68 kg (150 lb) 09/03/2018 4:29 PM OUTSIDE SALES INSPECTOR Height 157.5 cm (5' 2 ) 09/03/2018 4:29 PM OUTSIDE SALES INSPECTOR Body Mass Index 27.44 09/03/2018 4:29 PM OUTSIDE SALES INSPECTOR Plan of Treatment Not on file Procedures Procedure Name Priority Date/Time Associated Diagnosis Comments MAMMO BILAT SCREENING W DRU Routine 07/14/2022 11:23 AM CDT Breast cancer screening by mammogram DEXA BONE DENSITY AXIAL SKELETON Routine 07/08/2022 9:27 AM CDT Menopause Osteoporosis screening from Last 3 Months or Most Recently Relevant to Health Maintenance Results * MAMMO BILAT SCREENING W DUR (07/14/2022 11:23 AM CDT) Anatomical Region Laterality Modality Breast Bilateral Mammography 07/16/2022 2:00 PM CDT Impressions 07/16/2022 3:11 PM CDT IMPRESSION: ??Benign mammogram, without evidence of malignancy. RECOMMENDATION: Screening mammography in one year, pending no interval breast concerns. OVERALL ASSESSMENT: BI-RADS CATEGORY 2: BENIGN. Report dictated by Phillip Doe MD (vice president investor relations). Angelica Rodriguez MD (vice president investor relations) also assisted in the interpretation of this study. I, Natanael Davies MD have personally reviewed and interpreted this examination/study. > Interpreting Provider: Natanael Davies MD on 07/16/2022 3:11 PM Narrative 07/16/2022 3:11 PM CDT EX AMINATION: DIGITAL MAMMO BILAT SCREENING W DRU DATE: ??07/14/2022 HISTORY: ??Screening. ??Patient is not having any breast complaints today. COMPARISON: Bilateral screening mammogram dated 05/15/2021 from [facility] and 08/13/2018 from [facility] TECHNIQUE: ??Bilateral synthetic 2-D (C-view) digital mammogram images and bilateral digital breast tomosynthesis were obtained in the craniocaudal and mediolateral oblique projections. ??Additional projections were obtained to include the breasts in their entirety. ??10 views were obtained. Computer-aided detection (CAD) was utilized. BREAST PARENCHYMAL COMPOSITION: Category B: There are scattered areas of fibroglandular density. FINDINGS: There are no suspicious findings or evidence of malignancy on mammography. There are benign findings noted. Vascular and benign calcifications are noted. There is no significant change from the prior. Rashawn Fields MD MAMMO ORDERABLES * BONE DENSITY AXIAL SKELETON(1OR MORE SITES)[id number] (07/08/2022 9:27 AM CDT) Anatomical Region Laterality Modality Other 07/08/2022 1:47 PM CDT Narrative 07/08/2022 2:14 PM CDT PROCEDURE: ??DEXA BONE DENSITY AXIAL SKELETON, DATE/TIME OF EXAM: ??07/08/2022 9:27 AM, LOCATION ??[facility] INDICATION: Z78.0: Menopause Z13.820: Osteoporosis screening COMPARISON: None. LUMBAR SPINE (L1-L4): Bone mineral density (g/cm2): ??1.022 Current T-score: -0.2 ? LEFT FEMORAL NECK: ?? Bone mineral density (g/cm2): ??0.698 Current T-score: -1.4 ? BONE DENSITY ASSESSMENT: WHO Category: ??Osteopenia. FRAX CALCULATION The 10-year risk for a major osteoporotic fracture, %: 9.9 The 10-year risk for a hip fracture, %: ??1.4 Please see the PACS images for additional details. World Health Organization definitions of standard deviations relative to the mean T-score: Normal bone density = -1.0 and above Osteopenia = between -1.0 and -2.5 Osteoporosis = -2.5 and below > Dictated by Saeed Rubio MD (Public Policy Associate) 07/08/2022 1:48 PM Megan Sorensen DO have personally reviewed and interpreted this examination/study. > Interpreting Provider: Megan Robbins DO on 07/08/2022 2:14 PM Procedure Note Megan Robbins DO - 07/08/2022 PROCEDURE: DEXA BONE DENSITY AXIAL SKELETON, DATE/TIME OF EXAM:07/08/2022 9:27 AM, LOCATION [facility] INDICATION: Z78.0: Menopause Z13.820: Osteoporosis screening COMPARISON: None. LUMBAR SPINE (L1-L4): Bone mineral density (g/cm2): 1.022 Current T-score: -0.2 LEFT FEMORAL NECK: Bone mineral density (g/cm2): 0.698 Current T-score: -1.4 BONE DENSITY ASSESSMENT: WHO Category: Osteopenia. FRAX CALCULATION The 10-year risk for a major osteoporotic fracture, %: 9.9 The 10-year risk for a hip fracture, %: 1.4 Please see the PACS images for additional details. World Health Organization definitions of standard deviations relative to the mean T-score: Normal bone density = -1.0 and above Osteopenia = between -1.0 and -2.5 Osteoporosis = -2.5 and below > Dictated by Saeed Rubio MD (Public Policy Associate) 07/08/2022 1:48PM IMegan DO have personally reviewed and interpreted this examination/study. > Interpreting Provider: Megan Robbins DO on 07/08/2022 2:14 PM Ordering Provider Unlisted DEXA ORDER SHAWN from Last 3 Months or Most Recently Relevant to Health Maintenance Insurance Payer Benefit Plan / Group Subscriber ID Effective Dates Phone Address Type [place]ICARE [place] [id number] 2003-Pre sent [address] [place] [address] Medicare [facility] MEDICAID [id number] 2022-Pres ent [address] [place] [address] Medicaid Managed Care MEDICARE MANAGED CARE PLAN GENERIC MEDICARE AD[place]TE MEDIC[place] OF [place] [id number] 2021-Pre sent [address] [place] [address] Medicare-[place] aged Care Care Teams Net Software Architect Relationship Specialty Start Date End Date Rashawn Fields MD [address] [phone] PCP - General 01/07/22
--- OUTSIDE RECORDS SUMMARY | 2024-11-10 10:05 | XMS_ITS | Clinical Summary ---
Author Organization [facility] Address [address] [place] [address] Care Team Providers Care Hand Or Machine Paster Name Role Phone Rashawn Fields MD Primary Care Provider [phone] Source Comments [facility],non-owned Affiliates and Associated Physician Practices is amultiple site organization consisting of ambulatory clinics and hospital sitesin [place], [place], [place] and [place]. This disclosure is being madepursuant to the Care Everywhere program and may not contain all information available regarding this patient. Last updated 18.[facility] Allergies No known active allergies Medications * [...] fluticasone propionate (FLONASE) 50 MCG/ACT nasal spray [place] 2 sprays into each nostril once daily [...] Comments Blood Pressure 124/64 09/03/2018 4:29 PM PRIMER INSERTING MACHINE ADJUSTER Pulse 75 09/03/2018 4:29 PM PRIMER INSERTING MACHINE ADJUSTER Temperature 37 ??C (98.6 ??F) 09/03/2018 4:29 PM PRIMER INSERTING MACHINE ADJUSTER Respiratory Rate 16 09/03/2018 4:29 PM PRIMER INSERTING MACHINE ADJUSTER Oxygen Saturation - - Inhaled Oxygen Concentration - - Weight 68 kg (150 lb) 09/03/2018 4:29 PM PRIMER INSERTING MACHINE ADJUSTER Height 157.5 cm (5' 2 ) 09/03/2018 4:29 PM PRIMER INSERTING MACHINE ADJUSTER Body Mass Index 27.44 09/03/2018 4:29 PM PRIMER INSERTING MACHINE ADJUSTER Plan of Treatment Health Maintenance Due Date Last Done Comments COLOGUARD (AGES 45-75) - COL ON CA SCREENING 1950 COLON MONITORING 1950 COLONOSCOPY - COLON CA SCREENING 1950 CT COLONOGRAPHY - COLON CA SCREENING 1950 Colorectal Cancer Screening 1950 FIT - COLON CA SCREENING 1950 FLEX SIG - COLON CA SCREENING 1950 MEDICARE AWV ? 12 MONTHS 1950 HEPATITIS C SCREENING 04/02/1969 DTAP/TDAP/TD VACCINES (1 - Tdap) 1970 PNEUMOCOCCAL VACCINE 50+ (1 of 1 - PCV) 2001 ZOSTER VACCINE (1 of 2) 2001 COVID-19 VACCINE (1 - 2023-2 5 season) 2024 INFLUENZA VACCINE (#1) 2024 MAMMOGRAM 07/14/2024 07/14/2022 DEPRESSION SCREENING 10/19/2024 Respiratory Syncytial Virus (RSV) Vaccine Pt: or over 60 yrs (1 - 1-dose 75+ series) 2026 BONE DENSITY TESTING Completed 07/08/2022 HEPATITIS B VACCINE Aged Out No longe r eligible based on patient's age to complete this topic HIB VACCINE Aged Out No longer eligi ble based on patient's age to complete this topic HPV VACCINE Aged Out No longer eligi ble based on patient's age to complete this topic MENINGOCOCCAL (Group B) VACCINE Aged Out No longer eligible based on patient's age to complete this topic MENINGOCOCCAL VACCINE Aged Out No bria marshal eligible based on patient's age to complete this topic Procedures Procedure Name Priority Date/Time Associated Diagnosis Comments MAMMO BILAT SCREENING W DRU Routine 07/14/2022 11:23 AM CDT Breast cancer screening by mammogram DEXA BONE DENSITY AXIAL SKELETON Routine 07/08/2022 9:27 AM CDT Menopause Osteoporosis screening from Last 3 Months or Most Recently Relevant to Health Maintenance Results * MAMMO BILAT SCREENING W DRU (07/14/2022 11:23 AM CDT) Anatomical Region Laterality Modality Breast Bilateral Mammography 07/16/2022 2:00 PM CDT Impressions 07/16/2022 3:11 PM CDT IMPRESSION: ??Benign mammogram, without evidence of malignancy. RECOMMENDATION: Screening mammography in one year, pending no interval breast concerns. OVERALL ASSESSMENT: BI-RADS CATEGORY 2: BENIGN. Report dictated by Phillip Doe MD (vice president network development). Angelica Rodriguez MD (vice president network development) also assisted in the interpretation of this study. I, Natanael Davies MD have personally reviewed and interpreted this examination/study. > Interpreting Provider: Natanael Davies MD on 07/16/2022 3:11 PM Narrative 07/16/2022 3:11 PM CDT EX AMINATION: DIGITAL MAMMO BILAT SCREENING W DRU DATE: ??07/14/2022 HISTORY: ??Screening. ??Patient is not having any breast complaints today. COMPARISON: Bilateral screening mammogram dated 05/15/20[facility] and 08/13/2018 from [facility] TECHNIQUE: ??Bilateral synthetic 2-D (C-view) digital [...] ORDERABLES * BONE DENSITY AXIAL SKELETON(1OR MORE SITES)[id number] (07/08/2022 9:27 AM CDT) Anatomical Region Laterality Modality Other 07/08/2022 1:47 PM CDT Narrative 07/08/2022 2:14 PM CDT PROCEDURE: ??DEXA BONE DENSITY AXIAL SKELETON, DATE/TIME OF EXAM: ??07/08/2022 9:27 AM, LOCATION ??[facility] INDICATION: Z78.0: Menopause Z13.820: Osteoporosis screening COMPARISON: [...] below > Dictated by Saeed Rubio MD (Railroad Dispatcher) 07/08/2022 1:48 PM IMegan DO have personally reviewed and interpreted this examination/study. > Interpreting Provider: Megan Robbins DO on 07/08/2022 2:14 PM Procedure Note Megan Robbins DO - 07/08/2022 PROCEDURE: DEXA BONE DENSITY AXIAL SKELETON, DATE/TIME OF EXAM:07/08/2022 9:27 AM, LOCATION [facility] INDICATION: Z78.0: Menopause Z13.820: Osteoporosis screening COMPARISON: [...] below > Dictated by Saeed Rubio MD (Railroad Dispatcher) 07/08/2022 1:48PM IMegan DO have personally reviewed and interpreted this examination/study. > Interpreting Provider: Megan Robbins DO on 07/08/2022 2:14 PM Ordering Provider Unlisted DEXA ORDER SHAWN from Last 3 Months or Most Recently Relevant to Health Maintenance Insurance Payer Benefit Plan / Group Subscriber ID Effective Dates Phone Address Type [place] [id number] 2003-Pre sent [address] [facility] [address] Medicare [facility] MEDICAID [id number] 2022-Pres ent [address] [place] [address] Medicaid Managed Care MEDICARE MANAGED CARE PLAN GENERIC MEDICARE ADV [place] COMPLETE MEDICARE [place] OF [place] [id number] 2021-Pre sent [address] [place] [address] Medicare-[place] aged Care Care Teams Hand Or Machine Paster Relationship Specialty [place] [address] [place] [phone] [facility] - General 01/07/22
--- OUTSIDE RECORDS SUMMARY | 2024-11-10 10:05 | XMS_ITS | Clinical Summary ---
Author Organization [facility] Address [address] [place] [address]. [place], [place] [address] [place] [address] Care Team Providers Care Rolling Mill Operator Name Role Phone Corazon Humphrey MOTOR PATROL OPERATOR Primary Care Provider [phone] Social History Tobacco Use Types Packs/Day Years Used Date Smoking Tobacco: Never Assessed Comments Unknown Sex and Gender Information Value Date Recorded Sex Assigned at Not on file Legal Sex Female 4:16 PM CDT Gender Identity Not on file Sexual Orientation Not on file Plan of Treatment Health Maintenance Due Date Last Done Comments Colorectal Cancer Screening Colonoscopy (10 Years) 1950 Hepatitis C 1969 DTaP, Tdap and Td Vaccines ( 1 - Tdap) 1970 Mammogram Screening 1991 Zoster Vaccines (1 of 2) 2001 Annual Medicare Wellness Visit 2016 Dexa Scan (General) 2016 Pneumococcal Vaccine: 65+ Ye ars (1 of 1 - PCV) 2016 COVID-19 Vaccine ( - 2023-2 5 season) 2024 Influenza Adult (#1) 2024 RSV Immunization or 60+ Years (1 - 1-dose 75+ series) 2026 Meningococcal Vaccine Aged Out No bria marshal eligible based on patient's age to complete this topic RSV Immunizations Under 20 Months Aged Out No longer eligible based on patient's age to complete this topic Insurance [employer] Care Teams Rolling Mill Operator Relationship Specialty Start Date End Date Corazon Humphrey FNP [address] [phone] PCP - General NURSE PRACTITIONER 10/23/23
--- OUTSIDE RECORDS SUMMARY | 2024-11-10 10:05 | XMS_ITS | Patient Health Summary ---
Author Organization [facility] Address [address] [place] [address] Care Team Providers Care Bleach Liquor Maker Name Role Phone Rashawn Fields MD Primary Care Provider [phone] Note from [facility],non-owned Affiliates and Associated Physician Practices is amultiple site organization consisting of ambulatory clinics and hospital sitesin [place], [place], [place] and [place]. This disclosure is being madepursuant to the Care Everywhere program and may not contain all information available regarding this patient. Last updated 18.[facility] Allergies No known active allergies Medications * Be aware that medications may not be up to date on this document. Alwaysverify current medications with the patient. * amLODIPine (NORVASC) 5 MG tablet Take 5 mg by mouth once daily * atorvastatin (LIPITOR) 20 MG tablet Take 20 mg by mouth at bedtime * fluticasone propionate (FLONASE) 50 MCG/ACT nasal spray [place] 2 sprays into each nostril once daily * Azelastine HCl 137 MCG/SPRAY SOLN * famotidine (PEPCID) 20 MG tablet Take 20 mg by mouth once daily * gabapentin (NEURONTIN) 800 MG tablet Take 800 mg by mouth 2 times daily * lamoTRIgine (LAMICTAL) 100 MG tablet Take 100 mg by mouth once daily 150 mg in the morning and 100 mg at night * lamoTRIgine (LAMICTAL) 150 MG tablet Take 150 mg by mouth once daily 150 mg in the morning and 100 mg at night * montelukast (SINGULAIR) 10 MG tablet Take 10 mg by mouth at bedtime * Polyethylene Glycol 3350 (MIRALAX PO) * QUEtiapine XR 24hr (SEROQUEL XR) 300 MG tablet Take 300 mg by mouth at bedtime Takes with 50 mg tab for total of 350 mg daily at hs * valACYclovir (VALTREX) 500 MG tablet Take 500 mg by mouth 2 times daily * QUEtiapine XR 24hr (SEROQUEL XR) 50 MG tablet Take 50 mg by mouth at bedtime Take with 300 mg tab; total of 350 mg daily * azelastine (OPTIVAR) 0.05 % ophthalmic solution 1 drop once daily as needed * acetaminophen (TYLENOL) 325 MG tablet Take 650 mg by mouth every 6 hours as needed * aspirin (ASPIRIN) 81 MG chew tablet 81 mg once daily * carvedilol (COREG) 3.125 MG tablet(Started 04/25/2022) * vitamin D3 (CHOLECALCIFEROL) 25 MCG (1000 UNITS) tablet(Started 10/26/2021) * furosemide (LASIX) 40 MG tablet(Started 05/05/2022) * magnesium hydroxide (MILK OF MAGNESIA CONC) 2400 MG/10ML suspension * sertraline (ZOLOFT) 25 MG tablet(Started 05/14/2022) Active Problems No known active problems Social History Tobacco Use Types Packs/Day Years Used Date Smoking Tobacco: Never Smokeless Tobacco: Never Sex and Gender Information Value Date Recorded Sex Assigned at Not on file Gender Identity Not on file Sexual Orientation Not on file Last Filed Vital Signs Vital Sign Reading Time Taken Comments Blood Pressure 124/64 09/03/2018 4:29 PM [employer] Pulse 75 09/03/2018 4:29 PM [employer] Temperature 37 ??C (98.6 ??F) 09/03/2018 4:29 PM [employer] Respiratory Rate 16 09/03/2018 4:29 PM [employer] Oxygen Saturation - - Inhaled Oxygen Concentration - - Weight 68 kg (150 lb) 09/03/2018 4:29 PM [employer] Height 157.5 cm (5' 2 ) 09/03/2018 4:29 PM [employer] Body Mass Index 27.44 09/03/2018 4:29 PM [employer] Procedures * MAMMO BILAT SCREENING W DRU(Performed 07/14/2022) Performed for Breast cancer screening by mammogram * DEXA BONE DENSITY AXIAL SKELETON(Performed 07/08/2022) Performed for Menopause, Osteoporosis screening * INFLUENZA A+B - POINT OF CARE (AMB)(Performed 09/03/2018) Performed for Acute URI Results * MAMMO BILAT SCREENING W DRU (07/14/2022 11:23 AM CDT) Anatomical Region Laterality Modality Breast Bilateral Mammography 07/16/2022 2:00 PM CDT Impressions 07/16/2022 3:11 PM CDT IMPRESSION: ??Benign mammogram, without evidence of malignancy. RECOMMENDATION: Screening mammography in one year, pending no interval breast concerns. OVERALL ASSESSMENT: BI-RADS CATEGORY 2: BENIGN. Report dictated by Phillip Doe MD (regional vice president surgical sales). Angelica Rodriguez MD (regional vice president surgical sales) also assisted in the interpretation of this study. I, Natanael Davies MD have personally reviewed and interpreted this examination/study. > Interpreting Provider: Natanael Davies MD on 07/16/2022 3:11 PM Narrative 07/16/2022 3:11 PM CDT EX AMINATION: DIGITAL MAMMO BILAT SCREENING W DRU DATE: ??07/14/2022 HISTORY: ??Screening. ??Patient is not having any breast complaints today. COMPARISON: Bilateral screening mammogram dated [facility]15/2021 [facility] and 08/13/2018 from [facility] TECHNIQUE: ??Bilateral synthetic 2-D (C-view) digital [...] ORDERABLES * BONE DENSITY AXIAL SKELETON(1OR MORE SITES)[id number] (07/08/2022 9:27 AM CDT) Anatomical Region Laterality Modality Other 07/08/2022 1:47 PM CDT Narrative 07/08/2022 2:14 PM CDT PROCEDURE: ??DEXA BONE DENSITY AXIAL SKELETON, DATE/TIME OF EXAM: ??07/08/2022 9:27 AM, LOCATION ??[facility] INDICATION: Z78.0: Menopause Z13.820: Osteoporosis screening COMPARISON: [...] below > Dictated by Saeed Rubio MD (Placement Interviewer) 07/08/2022 1:48 PM IMegan DO have personally reviewed and interpreted this examination/study. > Interpreting Provider: Megan Robbins DO on 07/08/2022 2:14 PM Procedure Note Megan Robbins DO - 07/08/2022 PROCEDURE: DEXA BONE DENSITY AXIAL SKELETON, DATE/TIME OF EXAM:07/08/2022 9:27 AM, LOCATION [facility] INDICATION: Z78.0: Menopause Z13.820: Osteoporosis screening COMPARISON: [...] below > Dictated by Saeed Rubio MD (Placement Interviewer) 07/08/2022 1:48PM IMegan DO have personally reviewed and interpreted this examination/study. > Interpreting Provider: Megan Robbins DO on 07/08/2022 2:14 PM Ordering Provider Unlisted DEXA ORDER SHAWN * INFLUENZA A+B - POINT OF CARE (AMB) (09/03/2018 5:05 PM [employer]) Influenza A Antigen Rapid Negative Negative Influenza B Antigen Rapid Negative Negative Influenza Internal Control positive NEGATIVE - POSITIVE Influenza Lot Number [id number] Influenza Expiration Date 12/14/2019 Other NASOPHARYNGEAL SWAB / Unknown 09/03/2018 5:05 PM [employer] Nikki Abdi [employer]YING [employer] TENDER-HEALTH CARE MANAGER LAB - POINT OF CARE ORDERABLES Care Teams Bleach Liquor Maker Relationship Specialty Start Date End Date Rashawn Fields MD [address] [place] [id number] PCP - General 01/07/22
--- OUTSIDE RECORDS SUMMARY | 2024-11-10 10:05 | XMS_ITS | Clinical Summary ---
Author Organization [facility] Address [address] [place] [address] Care Team Providers Care Garage Hand Name Role Phone Barry Darcy MIRELES Primary Care Provider + [phone] Javi Limon MD Unavailable [phone] Allergies Active Allergy Reactions Criticality Noted Date [...] as instructed every 14 (fourteen) days 10/21/19 Active rivaroxaban (XARELTO) 20 mg tabletIndications: Venous Thrombosis Take 1 tablet (20 mg total) by mouth daily with dinner 10/10/20 Active traZODone (DESYREL) 50 mg tablet Take 1 tablet (50 mg total) by mouth nightly as needed for sleep 10/10/20 Active ondansetron ODT (ZOFRAN-ODT) 4 mg disintegrating tabletIndications: Nausea and Vomiting Take 1 tablet (4 mg total) by mouth every 6 (six) hours as needed for nausea or vomiting 10/10/20 24 Active oxyCODONE (ROXICODONE) 5 mg immediate release tabletIndications: Pain Take 1 tablet (5 mg total) by mouth every 6 (six) hours as needed for pain for up to 7 doses 7 tablet 10/10/20 Active Active Problems Problem Noted Date Diagnosed Date Positive blood culture 10/05/2024 Pneumonia 10/04/2024 Assessment & Plan (10/09/2024 6:43 PM LOOM CLEANER): See fever for more information No more O2 requirement Urinary retention 10/01/2024 Assessment & Plan (10/05/2024 6:12 PM LOOM CLEANER): Possibly related to psychotropics vs poor mobility - Straight cath 09/30 x 1 - Servin placed 10/01 for PVR > 400 ml - Pass voiding trial on 10/03. Remove servin. Discharge planning issues 09/30/2024 Assessment & Plan (10/10/2024 10:44 AM LOOM CLEANER): Daughter Bekah Rader expresses concern about functional decline over the past several year/months. Patient reportedly has not been adequately caring for herself (e.g., not bathing) at her [facility]. Daughter is open to the possibility of [...] 09/29/2024 Assessment & Plan (10/09/2024 6:47 PM LOOM CLEANER): She experienced acute onset confusion the day [...] 09/29/2024 Assessment & Plan (10/09/2024 6:44 PM LOOM CLEANER): She was recently diagnosed with acute bilateral [...] fraction (HFpEF) ([facility]) 09/29/2024 Assessment & Plan (09/29/2024 6:27 AM LOOM CLEANER): Chronic diastolic dysfunction noted on TTE in 06/2024. Appears euvolemic. Continue home maintenance Lasix 40 mg daily Fever 09/29/2024 Assessment & Plan (10/09/2024 6:43 PM LOOM CLEANER): She underwent an ambulatory bronchoscopy on 09/28 [...] of schizophrenia. Patient follows with psychiatry at [place]. Patient was noted by family that she [...] 06/23/2024 Assessment & Plan (10/09/2024 6:53 PM LOOM CLEANER): She is being followed by pulmonology for [...] 06/23/2024 Assessment & Plan (09/29/2024 6:27 AM LOOM CLEANER): Continue home statin Assessment & Plan (07/15/2024 [...] 06/23/2024 Assessment & Plan (10/05/2024 6:03 PM LOOM CLEANER): Not currently in exacerbation. - Psychiatry was consulted- Risperdal consta 25mg IM q2 weeks (next dose to be given 10/07/24), benztropine from scheduled to PRN, stop lithium, stop oral risperidone, continue lamotrigine 100mg daily/quetiapine 200mg qHS/ sertraline 50mg. - FU outpatient psychiatry Acute hypoxic respiratory failure 06/23/2024 Primary hypertension 03/15/2024 Assessment & Plan (09/29/2024 6:27 AM LOOM CLEANER): Continue home amlodipine, carvedilol Assessment & Plan [...] 10/01/2024 Assessment & Plan (10/03/2024 12:08 PM LOOM CLEANER): Baseline 0.9-1, up to 1.16 on 10/01. Does not meet RINKU criteria yet. Poor oral intake, limited urine production (not oliguric) with bladder scans overnight showing only ~300 ml in the bladder. - Stable around 1-1.1 Encephalopathy 10/01/2024 10/01/2024 Hypoxia 09/29/2024 10/04/2024 Assessment & Plan (09/30/2024 12:12 PM LOOM CLEANER): Requiring 2L O2 in the ED to maintain oxygenation > 90%. Per ED nursing, desaturation seems to occur while patient is in deep sleep, possibly representing DAYNE. - saturating 98% on 1L NC. Wean to RA and spot check Chest pain 03/20/2024 07/01/2024 Chest pain due to GERD 03/14/202407/01 Encounters Date Type Department Care Team Description 10/21/2024 Telephone [facility] Pulmonology [address] [facility] [address] [place] [phone] Javi Limon MD 10/05/2024 Telephone [facility] Pulmonology [address] [facility] [address] [place] [address] Javi Limon MD 10/04/2024 8:50 AM LOOM CLEANER Ancillary Procedure [facility] Vascular Lab IP [address] [phone] 09/28/2024 10:34 PM LOOM CLEANER - 10/10/2024 1:22 PM LOOM CLEANER Hospital Encounter [address] [address] Es Chakraborty MD Edwards, MD Savage Shanks Lyndon K., MD Flores-Ruiz, Jaime E., MD Altered mental status, unspecified altered mental status type (Primary Dx); Fever, unspecified fever cause; Hypoxia; History of lung biopsy; Acute pulmonary embolism without acute cor pulmonale, unspecified pulmonary embolism type (HCC) Discharge Disposition: Discharge to SNF 09/28/2024 2:09 PM LOOM CLEANER - 09/28/2024 11:59 PM LOOM CLEANER Hospital Encounter [facility] Radiology [address] [place] [address] Rin Cordero MD Discharge Disposition: Discharge to home or self care 09/28/2024 11:58 AM LOOM CLEANER - 09/28/2024 11:59 PM LOOM CLEANER Hospital Encounter [facility] Interventional Pulmonology [address] [place] [address] Lung nodule Discharge Disposition: Discharge to home or self care 09/27/2024 Telephone [facility] Interventional Pulmonology 1 [place] [address] Lisa Begum RN 09/05/2024 Telephone [facility] Pulmonary [address] [facility] [address]th [place] [address] [place] [phone] Lanre Sanchez., RMA 09/01/2024 Orders Only [facility] Pulmonary [address] [facility] [address] [place] [address] [place] [phone] AlgLanre enriquez S., RMA Lung nodule (Primary Dx) 09/01/2024 Telephone [facility] Pulmonary [address] [facility] [address] [place] [address] [place] [phone] Lanre Sanchez S., RMA 08/31/2024 Telephone [facility] Pulmonary [address] [facility] [address] [place] [address] [place] [address] Lanre Sanchez S., RMA 08/26/2024 8:00 AM LOOM CLEANER - 08/26/2024 11:59 PM LOOM CLEANER Hospital Encounter [facility] [address] [address] Lung nodule Discharge Disposition: Discharge to home or self care 08/17/2024 2:22 PM CDT - 08/17/2024 11:59 PM CDT Hospital Encounter [facility] Respiratory Therapy [facility] [place] [address] Nicotine dependence, cigarettes, uncomplicated Discharge Disposition: Discharge to home or self care 08/12/2024 7:52 AM CDT - 08/12/2024 11:59 PM CDT Hospital Encounter [facility] [address] [facility] 1st [place] [address] Discharge Disposition: Discharge to home or self care 08/10/2024 2:20 PM CDT Lab [facility] Lab [address] [place] [address] Pulmonary embolism, unspecified chronicity, unspecified pulmonary embolism type, unspecified whether acute cor pulmonale present (HCC) from Last 3 Months Medical History Medical History Date Comments Hypercholesteremia Hypertension Depression Hyperlipidemia Bipolar disorder (HCC) GERD (gastroesophageal reflux disease) Elevated serum creatinine 10/01/2024 Hypoxia 09/29/2024 Family History Medical History Relation Name Comments Stroke Father Relation Name Status Comments Father Social History Tobacco Use Types Packs/Day Years Used Date Smoking Tobacco: Former Cigarettes 0.5 0.8 1 11/19/2022 - 06/19/2024 Smokeless Tobacco: Never Alcohol Use Standard Drinks/Week Comments Yes 0 (1 standard drink = 0.6 oz pur e alcohol) [facility] Utilities Answer Date Recorded In the [...] often do you attend chur ch or sabianism services? Never 06/24/2024 Do you belong to any clubs o r organizations such as nondenominational groups, unions, fraternal or athletic groups, or [...] any time in the past 12 m [facility], were you homeless or living in a nursing home (including now)? No 06/24/2024 Personal Safety Answer Date Recorded Have you ever been in or are you currently in a harmful physical or emotional relationship or is someone making you feel afraid or unsafe? Denies 09/29/2024 Comments No Sex and Gender Information Value Date Recorded Sex Assigned at Not on file Legal Sex Female 1:18 AM LOOM CLEANER Gender Identity Not on file Sexual Orientation Not on file Obstetrics History Last Filed Vital Signs Vital Sign Reading Time Taken Comments Blood Pressure 115/48 10/10/2024 10:25 AM LOOM CLEANER Pulse 89 10/10/2024 10:25 AM LOOM CLEANER Temperature 36.6 ??C (97.9 ??F) 10/10/2024 7:50 AM CS T Respiratory Rate 19 10/10/2024 7:50 AM LOOM CLEANER Oxygen Saturation 96% 10/10/2024 10: 25 AM LOOM CLEANER Inhaled Oxygen Concentration - - Weight 71.1 kg (156 lb 12.8 oz) 10/07/2024 4:34 AM LOOM CLEANER Height 157.5 cm (5' 2.01 ) 09/29/2024 4:37 PM CS T Body Mass Index 28.67 09/29/2024 4:37 PM LOOM CLEANER Plan of Treatment Health Maintenance Due Date Last Done Comments Colon Cancer Screening-Colonoscopy 1950 Depression Screening 1950 Hepatitis B Screening 1969 Well Visit 65+ 2016 Osteoporosis Screening-Bone Density Scan 07/08/2024 07/08/2022, 07/08/2022, 01/06/2018, Additional history exists Breast Cancer Screening-Mammogram 06/10/2025 06/10/2024, 07/14/2022, 07/14/2022, Additional history exists Fall Risk Assessment 10/10/2025 10/10/2024 DTaP/Tdap/Td Vaccine (3 - Td or Tdap) 07/08/2027 07/08/2017, 07/07/2017 Pneumococcal vaccine 65+ Completed 019, 09/03/2018, 07/08/2017, Additional history exists Zoster Vaccine Completed 09/07/2019, 07/04/2019 Influenza Vaccine Completed 09/13/2024, , 09/03/2018, Additional history exists Hepatitis C Screening Completed 10/02/2024 Procedures Procedure Name Priority Date/Time Associated Diagnosis Comments EGFR Routine 10/08/2024 5:04 AM LOOM CLEANER DIFFERENTIAL AUTO Routine 10/08/2024 5:0 4 AM LOOM CLEANER BASIC METABOLIC PANEL Routine 10/08/2024 5:04 AM LOOM CLEANER CBC WITH AUTO DIFFERENTIAL Routine 10/08/2024 5:04 AM LOOM CLEANER EGFR Routine 10/07/2024 4:39 AM LOOM CLEANER DIFFERENTIAL AUTO Routine 10/07/2024 4:3 9 AM LOOM CLEANER BASIC METABOLIC PANEL Routine 10/07/2024 4:39 AM LOOM CLEANER CBC WITH AUTO DIFFERENTIAL Routine 10/07/2024 4:39 AM LOOM CLEANER EGFR Routine 10/06/2024 3:57 AM LOOM CLEANER DIFFERENTIAL AUTO Routine 10/06/2024 3:5 7 AM LOOM CLEANER BASIC METABOLIC PANEL Routine 10/06/2024 3:57 AM LOOM CLEANER CBC WITH AUTO DIFFERENTIAL Routine 10/06/2024 3:57 AM LOOM CLEANER EGFR Routine 10/05/2024 4:30 AM LOOM CLEANER DIFFERENTIAL AUTO Routine 10/05/2024 4:3 0 AM LOOM CLEANER BASIC METABOLIC PANEL Routine 10/05/2024 4:30 AM LOOM CLEANER CBC WITH AUTO DIFFERENTIAL Routine 10/05/2024 4:30 AM LOOM CLEANER US VEIN DUPLEX UPPER EXTREMITY LEFT LIMITED IP Routine 10/04/2024 9:37 AM LOOM CLEANER EGFR Routine 10/04/2024 4:45 AM LOOM CLEANER DIFFERENTIAL AUTO Routine 10/04/2024 4:4 5 AM LOOM CLEANER BASIC METABOLIC PANEL Routine 10/04/2024 4:45 AM LOOM CLEANER CBC WITH AUTO DIFFERENTIAL Routine 10/04/2024 4:45 AM LOOM CLEANER EGFR Routine 10/03/2024 4:27 AM LOOM CLEANER DIFFERENTIAL AUTO Routine 10/03/2024 4:2 7 AM LOOM CLEANER BASIC METABOLIC PANEL Routine 10/03/2024 4:27 AM LOOM CLEANER CBC WITH AUTO DIFFERENTIAL Routine 10/03/2024 4:27 AM LOOM CLEANER FOLATE Routine 10/02/2024 8:28 PM LOOM CLEANER VITAMIN B12 Routine 10/02/2024 8:28 PM LOOM CLEANER HEPATITIS C ANTIBODY Routine 10/02/2024 8:28 PM LOOM CLEANER HEPATITIS B SURFACE ANTIGEN Routine 10/02/2024 8:28 PM LOOM CLEANER HIV 1/2 ANTIBODY PLUS P24 ANTIGEN Routine 10/02/2024 8:28 PM LOOM CLEANER RPR Routine 10/02/2024 8:28 PM LOOM CLEANER EGFR Routine 10/02/2024 4:39 AM LOOM CLEANER DIFFERENTIAL AUTO Routine 10/02/2024 4:3 9 AM LOOM CLEANER BASIC METABOLIC PANEL Routine 10/02/2024 4:39 AM LOOM CLEANER CBC WITH AUTO DIFFERENTIAL Routine 10/02/2024 4:39 AM LOOM CLEANER VANCOMYCIN LEVEL TROUGH Timed 10/02/2024 4:39 AM LOOM CLEANER MRI BRAIN WO CONTRAST IP Routine 10/01/2024 2:33 PM LOOM CLEANER URINALYSIS, MICROSCOPIC ONLY Routine 10/01/2024 12:52 PM LOOM CLEANER URINALYSIS AND REFLEX TO MICROSCOPIC AND CULTURE Routine 10/01/2024 12:52 PM LOOM CLEANER EGFR Routine 10/01/2024 7:01 AM LOOM CLEANER DIFFERENTIAL AUTO Routine 10/01/2024 7:0 1 AM LOOM CLEANER BASIC METABOLIC PANEL Routine 10/01/2024 7:01 AM LOOM CLEANER CBC WITH AUTO DIFFERENTIAL Routine 10/01/2024 7:01 AM LOOM CLEANER MRI BRAIN W WO MRA HEAD WO CONTRAST MRA NECK W WO CONTRAST IP Routine 10/01/2024 5:[address] HEAD WO CONTRAST Critical/Life-T hreatening 09/30/2024 2:18 PM LOOM CLEANER BLOOD GAS, VENOUS STAT 09/30/2024 1:3 5 PM LOOM CLEANER POCT GLUCOSE DEVICE Routine 09/30/2024 1 :14 PM LOOM CLEANER EGFR Routine 09/30/2024 4:20 AM LOOM CLEANER DIFFERENTIAL AUTO Routine 09/30/2024 4:2 0 AM LOOM CLEANER BASIC METABOLIC PANEL Routine 09/30/2024 4:20 AM LOOM CLEANER CBC WITH AUTO DIFFERENTIAL Routine 09/30/2024 4:20 AM LOOM CLEANER CRITICAL RESULT CALLBACK HEMATOLOGY STAT 09/29/2024 11:37 AM LOOM CLEANER APTT STAT 09/29/2024 11:37 AM LOOM CLEANER THYROID FUNCTION CASCADE Timed 09/29/2024 6:39 AM LOOM CLEANER LITHIUM LEVEL Timed 09/29/2024 6:39 AM LOOM CLEANER BLOOD GAS, VENOUS Timed 09/29/2024 6:3 9 AM LOOM CLEANER PRO B-TYPE NATRIURETIC PEPTIDE Timed 09/29/2024 6:39 AM LOOM CLEANER TROPONIN I HIGH-SENSITIVITY Timed 09/29/2024 6:39 AM LOOM CLEANER INFECTION PREVENTION MRSA ONLY (STAPHYLOCOCCUS AUREUS) CULTURE Routine 09/29/2024 6:39 AM LOOM CLEANER URINALYSIS, MICROSCOPIC ONLY STAT 09/29/2024 4:23 AM LOOM CLEANER APTT STAT 09/29/2024 4:23 AM LOOM CLEANER PROTIME-INR STAT 09/29/2024 4:23 AM LOOM CLEANER RESPIRATORY PATHOGEN PANEL Routine 09/29/2024 4:23 AM LOOM CLEANER URINALYSIS AND REFLEX TO MICROSCOPIC AND CULTURE STAT 09/29/2024 4:[address] CHEST PE W CONTRAST ED 09/29/2024 1:26 AM LOOM CLEANER BLOOD CULTURE Routine 09/29/2024 12:44 AM LOOM CLEANER BLOOD CULTURE Routine 09/29/2024 12:44 AM LOOM CLEANER EGFR STAT 09/28/2024 11:53 PM LOOM CLEANER DIFFERENTIAL AUTO STAT 09/28/2024 11:53 PM LOOM CLEANER COMPREHENSIVE METABOLIC PANEL STAT 09/28/2024 11:53 PM LOOM CLEANER CBC WITH AUTO DIFFERENTIAL STAT 09/28/2024 11:53 PM LOOM CLEANER XR CHEST PA LATERAL 2 VIEWS ED 09/28/2024 11:46 PM LOOM CLEANER XR CHEST 1 VIEW IP Routine 09/28/2024 2:32 PM LOOM CLEANER CYTOLOGY Routine 09/28/2024 1:42 PM LOOM CLEANER BRONCHOSCOPY Routine 09/28/2024 1:18 PM LOOM CLEANER Lung nodule PET/CT FDG SKULL TO THIGH Schedule Routine, Read Routine (OP Routine) 08/26/2024 9:38 AM LOOM CLEANER Lung nodule POCT GLUCOSE DEVICE Routine 08/26/2024 8 :08 AM LOOM CLEANER PULMONARY FUNCTION TEST (PFT) Routine 08/17/2024 3:22 [...] Maintenance Results * eGFR (10/08/2024 5:04 AM LOOM CLEANER) eGFR 60 >=60 mL/min/1. 73 m2 Comment: [...] last reviewed 2021. Blood 10/08/2024 5:04 AM LOOM CLEANER 10/08/2024 6:02 AM LOOM CLEANER us Moreno Abrams MD LAB BLOOD ORDERABLES Final Resu lt [facility] Department [place] [address] * (ABNORMAL) Differential, auto (10/08/2024 5:04 AM LOOM CLEANER) Neutrophil abs 5.1 1.5 - 6.5 K/cumm Imm gran abs 0.0 0.0 - 0.1 K/cumm [facility] Lymphocyte abs 4.1(H) 0.8 - 3.3 K/cumm [facility] Monocyte abs 1.1(H) 0.2 - 0.8 K/cumm [facility] Eosinophil abs 0.4 0.0 - 0.5 K/cumm [facility] Basophil abs 0.0 0.0 - 0.1 K/cumm [facility] Neutrophil pct 47.4 % [facility] Comment: Interpretive Data Percent cell count reference ranges are not reported, since discordance with absolute values may lead to misinterpretation of CBC data. Current Interpretive Data was last revised on 2018. Imm gran pct 0.4 % [facility] Comment: Interpretive Data Percent cell count reference ranges are not reported, since discordance with absolute values may lead to misinterpretation of CBC data. Current Interpretive Data was last revised on 2018. Lymphocyte pct 38.0 % [facility] Comment: Interpretive Data Percent cell count reference ranges are not reported, since discordance with absolute values may lead to misinterpretation of CBC data. Current Interpretive Data was last revised on 2018. Monocyte pct 10.6 % [facility] Comment: Interpretive Data Percent cell count reference ranges are not reported, since discordance with absolute values may lead to misinterpretation of CBC data. Current Interpretive Data was last revised on 2018. Eosinophil pct 3.3 % [facility] Comment: Interpretive Data Percent cell count reference ranges are not reported, since discordance with absolute values may lead to misinterpretation of CBC data. Current Interpretive Data was last revised on 2018. Basophil pct 0.3 % [facility] Comment: Interpretive Data Percent cell count reference ranges are not reported, since discordance with absolute values may lead to misinterpretation of CBC data. Current Interpretive Data was last revised on 2018. Blood 10/08/2024 5:04 AM LOOM CLEANER 10/08/2024 6:03 AM LOOM CLEANER us Moreno Abrams MD LAB BLOOD ORDERABLES Final Resu lt Performing Organization Address [facility] de Phone Number [facility] Department [place] [address] * (ABNORMAL) CBC with auto differential (10/08/2024 5:04 AM LOOM CLEANER) [facility] WBC 10.8(H) 3.8 - 9.9 K/cumm Hgb 11.8(L) 11.9 - 15.5 g/dL [facility] Hct 35.5(L) 35.6 - 45.5 % [facility] Plt 326 150 - 400 K/cumm [facility] MPV 9.5 9.1 - 12.3 fL [facility] RBC 3.85(L) 3.90 - 5.20 M/cumm [facility] MCV 92.2 81.3 - 96.4 fL [facility] MCH 30.6 27.1 - 33.3 pg [facility] MCHC 33.2 32.3 - 35.7 g/dL [facility] RDW CV 12.3 11.1 - 14.9 % [facility] RDW SD 41.3 35.7 - 48.1 fL [facility] NRBC abs 0.00 0.00 - 0.01 K/cumm [facility] Blood 10/08/2024 5:04 AM LOOM CLEANER 10/08/2024 6:03 AM LOOM CLEANER Moreno Abrams MD LAB BLOOD ORDERABLES Final Resu lt Performing Organization Address [facility]/ZIP Co de Phone Number [facility] Department [place] [address] * Basic metabolic panel (10/08/2024 5:04 AM LOOM CLEANER) [facility] Sodium 142 135 - 145 mmol/L Potassium, pl 3.8 3.3 - 4.9 mmol/L [facility] Chloride 103 97 - 110 mmol/L [facility] CO2 28 22 - 32 mmol/L [facility] Anion gap 11 2 - 15 mmol/L [facility] BUN 14 6 - 25 mg/dL [facility] Creatinine 0.99 0.60 - 1.10 mg/dL [facility] Glucose 93 70 - 199 mg/dL [facility] Comment: Interpretive Data Fasting glucose >/= [...] 2022. Calcium 9.9 8.5 - 10.3 mg/dL [facility] Blood 10/08/2024 5:04 AM LOOM CLEANER 10/08/2024 6:02 AM LOOM CLEANER us Moreno Abrams MD LAB BLOOD ORDERABLES Final Resu lt [facility] One [facility] Department [place] [address] * (ABNORMAL) eGFR (10/07/2024 4:39 AM LOOM CLEANER) [facility] eGFR 59(L) >=60 mL/min/1. 73 m2 Comment: [...] last reviewed 2021. Blood 10/07/2024 4:39 AM LOOM CLEANER 10/07/2024 5:23 AM LOOM CLEANER us Moreno Abrams MD LAB BLOOD ORDERABLES Final Resu lt [facility] One [facility] Department [place] [address] * (ABNORMAL) Differential, auto (10/07/2024 4:39 AM LOOM CLEANER) Pathologist [facility] Neutrophil abs 5.3 1.5 - 6.5 K/cumm Imm gran abs 0.1 0.0 - 0.1 K/cumm [facility] Lymphocyte abs 3.6(H) 0.8 - 3.3 K/cumm [facility] Monocyte abs 1.1(H) 0.2 - 0.8 K/cumm [facility] Eosinophil abs 0.4 0.0 - 0.5 K/cumm [facility] Basophil abs 0.0 0.0 - 0.1 K/cumm [facility] Neutrophil pct 50.9 % [facility] Comment: Interpretive Data Percent cell count reference ranges are not reported, since discordance with absolute values may lead to misinterpretation of CBC data. Current Interpretive Data was last revised on 2018. Imm gran pct 0.6 % [facility] Comment: Interpretive Data Percent cell count reference ranges are not reported, since discordance with absolute values may lead to misinterpretation of CBC data. Current Interpretive Data was last revised on 2018. Lymphocyte pct 34.5 % [facility] Comment: Interpretive Data Percent cell count reference ranges are not reported, since discordance with absolute values may lead to misinterpretation of CBC data. Current Interpretive Data was last revised on 2018. Monocyte pct 10.1 % [facility] Comment: Interpretive Data Percent cell count reference ranges are not reported, since discordance with absolute values may lead to misinterpretation of CBC data. Current Interpretive Data was last revised on 2018. Eosinophil pct 3.5 % [facility] Comment: Interpretive Data Percent cell count reference ranges are not reported, since discordance with absolute values may lead to misinterpretation of CBC data. Current Interpretive Data was last revised on 2018. Basophil pct 0.4 % [facility] Comment: Interpretive Data Percent cell count reference ranges are not reported, since discordance with absolute values may lead to misinterpretation of CBC data. Current Interpretive Data was last revised on 2018. Blood 10/07/2024 4:39 AM LOOM CLEANER 10/07/2024 5:24 AM LOOM CLEANER us Moreno Abrams MD LAB BLOOD ORDERABLES Final Resu lt [facility] One [facility] Department [place] [address] * (ABNORMAL) CBC with auto differential (10/07/2024 4:39 AM LOOM CLEANER) WBC 10.5(H) 3.8 - 9.9 K/cumm Hgb 11.5(L) 11.9 - 15.5 g/dL [facility] Hct 35.4(L) 35.6 - 45.5 % [facility] Plt 325 150 - 400 K/cumm [facility] MPV 9.1 9.1 - 12.3 fL [facility] RBC 3.76(L) 3.90 - 5.20 M/cumm [facility] MCV 94.1 81.3 - 96.4 fL [facility] MCH 30.6 27.1 - 33.3 pg [facility] MCHC 32.5 32.3 - 35.7 g/dL [facility] RDW CV 12.5 11.1 - 14.9 % [facility] RDW SD 43.1 35.7 - 48.1 fL [facility] NRBC abs 0.00 0.00 - 0.01 K/cumm [facility] Blood 10/07/2024 4:39 AM LOOM CLEANER 10/07/2024 5:24 AM LOOM CLEANER Moreno Abrams MD LAB BLOOD ORDERABLES Final Resu lt Performing Organization Address City/State/[facility] Co de Phone Number [facility] One [facility] Department [place] [address] * Basic metabolic panel (10/07/2024 4:39 AM LOOM CLEANER) Sodium 139 135 - 145 mmol/L Potassium, pl 3.9 3.3 - 4.9 mmol/L [facility] Chloride 104 97 - 110 mmol/L [facility] CO2 29 22 - 32 mmol/L [facility] Anion gap 6 2 - 15 mmol/L [facility] BUN 16 6 - 25 mg/dL [facility] Creatinine 1.01 0.60 - 1.10 mg/dL [facility] Glucose 97 70 - 199 mg/dL [facility] Comment: Interpretive Data Fasting glucose >/= [...] 2022. Calcium 9.6 8.5 - 10.3 mg/dL [facility] Blood 10/07/2024 4:39 AM LOOM CLEANER 10/07/2024 5:23 AM LOOM CLEANER Moreno Abrams MD LAB BLOOD ORDERABLES Final Resu lt Performing Organization Address City/[facility]/ZIP Co de Phone Number MANUELA MONIQUE One [facility] Department [place] [address] * (ABNORMAL) eGFR (10/06/2024 3:57 AM LOOM CLEANER) Pathologist [facility] eGFR 50(L) >=60 mL/min/1. 73 m2 Comment: [...] last reviewed 2021. Blood 10/06/2024 3:57 AM LOOM CLEANER 10/06/2024 4:50 AM LOOM CLEANER us Moreno Abrams MD LAB BLOOD ORDERABLES Final Resu lt Performing Organization Address City/[facility]/ZIP Co de Phone Number MANUELA MONIQUE Maris [facility] Department [place] [address] * (ABNORMAL) Differential, auto (10/06/2024 3:57 AM LOOM CLEANER) Neutrophil abs 5.0 1.5 - 6.5 K/cumm Imm gran abs 0.0 0.0 - 0.1 K/cumm [facility] Lymphocyte abs 4.0(H) 0.8 - 3.3 K/cumm [facility] Monocyte abs 1.1(H) 0.2 - 0.8 K/cumm [facility] Eosinophil abs 0.4 0.0 - 0.5 K/cumm [facility] Basophil abs 0.0 0.0 - 0.1 K/cumm [facility] Neutrophil pct 47.2 % [facility] Comment: Interpretive Data Percent cell count reference ranges are not reported, since discordance with absolute values may lead to misinterpretation of CBC data. Current Interpretive Data was last revised on 2018. Imm gran pct 0.4 % [facility] Comment: Interpretive Data Percent cell count reference ranges are not reported, since discordance with absolute values may lead to misinterpretation of CBC data. Current Interpretive Data was last revised on 2018. Lymphocyte pct 37.8 % [facility] Comment: Interpretive Data Percent cell count reference ranges are not reported, since discordance with absolute values may lead to misinterpretation of CBC data. Current Interpretive Data was last revised on 2018. Monocyte pct 10.6 % [facility] Comment: Interpretive Data Percent cell count reference ranges are not reported, since discordance with absolute values may lead to misinterpretation of CBC data. Current Interpretive Data was last revised on 2018. Eosinophil pct 3.7 % [facility] Comment: Interpretive Data Percent cell count reference ranges are not reported, since discordance with absolute values may lead to misinterpretation of CBC data. Current Interpretive Data was last revised on 2018. Basophil pct 0.3 % [facility] Comment: Interpretive Data Percent cell count reference ranges are not reported, since discordance with absolute values may lead to misinterpretation of CBC data. Current Interpretive Data was last revised on 2018. Blood 10/06/2024 3:57 AM LOOM CLEANER 10/06/2024 4:50 AM LOOM CLEANER us Moreno Abrams MD LAB BLOOD ORDERABLES Final Resu lt Performing Organization Address City/[facility]/ZIP Co de Phone Number [facility] Department [place] [address] * (ABNORMAL) CBC with auto differential (10/06/2024 3:57 AM LOOM CLEANER) [facility] WBC 10.6(H) 3.8 - 9.9 K/cumm Hgb 11.9 11.9 - 15.5 g/dL [facility] Hct 35.5(L) 35.6 - 45.5 % [facility] Plt 307 150 - 400 K/cumm [facility] MPV 9.5 9.1 - 12.3 fL [facility] RBC 3.81(L) 3.90 - 5.20 M/cumm [facility] MCV 93.2 81.3 - 96.4 fL [facility] MCH 31.2 27.1 - 33.3 pg [facility] MCHC 33.5 32.3 - 35.7 g/dL [facility] RDW CV 12.5 11.1 - 14.9 % [facility] RDW SD 42.7 35.7 - 48.1 fL [facility] NRBC abs 0.00 0.00 - 0.01 K/cumm [facility] Blood 10/06/2024 3:57 AM LOOM CLEANER 10/06/2024 4:50 AM LOOM CLEANER Moreno Abrams MD LAB BLOOD ORDERABLES Final Resu lt Performing Organization Address City/[facility]/ZIP Co de Phone Number [facility] Department [place] [address] * (ABNORMAL) Basic metabolic panel (10/06/2024 3:57 AM LOOM CLEANER) [facility] Sodium 142 135 - 145 mmol/L Potassium, pl 3.7 3.3 - 4.9 mmol/L [facility] Chloride 104 97 - 110 mmol/L [facility] CO2 27 22 - 32 mmol/L [facility] Anion gap 11 2 - 15 mmol/L [facility] BUN 17 6 - 25 mg/dL [facility] Creatinine 1.15(H) 0.60 - 1.10 mg/dL [facility] Glucose 114 70 - 199 mg/dL [facility] Comment: Interpretive Data Fasting glucose >/= [...] 2022. Calcium 9.9 8.5 - 10.3 mg/dL [facility] Blood 10/06/2024 3:57 AM LOOM CLEANER 10/06/2024 4:50 AM LOOM CLEANER us Moreno Abrams MD LAB BLOOD ORDERABLES Final Resu lt [facility] One [facility] Department [place] [address] * (ABNORMAL) eGFR (10/05/2024 4:30 AM LOOM CLEANER) eGFR 54(L) >=60 mL/min/1. 73 m2 Comment: [...] last reviewed 2021. Blood 10/05/2024 4:30 AM LOOM CLEANER 10/05/2024 5:01 AM LOOM CLEANER us Moreno Abrams MD LAB BLOOD ORDERABLES Final Resu lt [facility] One [facility] Department [place] [address] * (ABNORMAL) Differential, auto (10/05/2024 4:30 AM LOOM CLEANER) Neutrophil abs 7.4(H) 1.5 - 6.5 K/cumm Imm gran abs 0.1 0.0 - 0.1 K/cumm [facility] Lymphocyte abs 2.9 0.8 - 3.3 K/cumm [facility] Monocyte abs 1.3(H) 0.2 - 0.8 K/cumm [facility] Eosinophil abs 0.3 0.0 - 0.5 K/cumm [facility] Basophil abs 0.0 0.0 - 0.1 K/cumm [facility] Neutrophil pct 61.9 % [facility] Comment: Interpretive Data Percent cell count reference ranges are not reported, since discordance with absolute values may lead to misinterpretation of CBC data. Current Interpretive Data was last revised on 2018. Imm gran pct 0.4 % [facility] Comment: Interpretive Data Percent cell count reference ranges are not reported, since discordance with absolute values may lead to misinterpretation of CBC data. Current Interpretive Data was last revised on 2018. Lymphocyte pct 23.9 % [facility] Comment: Interpretive Data Percent cell count reference ranges are not reported, since discordance with absolute values may lead to misinterpretation of CBC data. Current Interpretive Data was last revised on 2018. Monocyte pct 10.7 % [facility] Comment: Interpretive Data Percent cell count reference ranges are not reported, since discordance with absolute values may lead to misinterpretation of CBC data. Current Interpretive Data was last revised on 2018. Eosinophil pct 2.8 % [facility] Comment: Interpretive Data Percent cell count reference ranges are not reported, since discordance with absolute values may lead to misinterpretation of CBC data. Current Interpretive Data was last revised on 2018. Basophil pct 0.3 % [facility] Comment: Interpretive Data Percent cell count reference ranges are not reported, since discordance with absolute values may lead to misinterpretation of CBC data. Current Interpretive Data was last revised on 2018. Blood 10/05/2024 4:30 AM LOOM CLEANER 10/05/2024 5:01 AM LOOM CLEANER us Moreno Abrams MD LAB BLOOD ORDERABLES Final Resu lt [facility] One [facility] Department [place] [address] * (ABNORMAL) CBC with auto differential (10/05/2024 4:30 AM LOOM CLEANER) WBC 11.9(H) 3.8 - 9.9 K/cumm Hgb 12.4 11.9 - 15.5 g/dL [facility] Hct 37.0 35.6 - 45.5 % [facility] Plt 314 150 - 400 K/cumm [facility] MPV 9.2 9.1 - 12.3 fL [facility] RBC 4.10 3.90 - 5.20 M/cumm [facility] MCV 90.2 81.3 - 96.4 fL [facility] MCH 30.2 27.1 - 33.3 pg [facility] MCHC 33.5 32.3 - 35.7 g/dL [facility] RDW CV 12.5 11.1 - 14.9 % [facility] RDW SD 41.1 35.7 - 48.1 fL [facility] NRBC abs 0.00 0.00 - 0.01 K/cumm [facility] Blood 10/05/2024 4:30 AM LOOM CLEANER 10/05/2024 5:01 AM LOOM CLEANER Moreno Abrams MD LAB BLOOD ORDERABLES Final Resu lt Performing Organization Address City/[facility]/ZIP Co de Phone Number [facility] One [facility] Department [place] [address] * Basic metabolic panel (10/05/2024 4:30 AM LOOM CLEANER) Sodium 140 135 - 145 mmol/L Potassium, pl 3.4 3.3 - 4.9 mmol/L [facility] Chloride 102 97 - 110 mmol/L [facility] CO2 28 22 - 32 mmol/L [facility] Anion gap 10 2 - 15 mmol/L [facility] BUN 17 6 - 25 mg/dL [facility] Creatinine 1.08 0.60 - 1.10 mg/dL [facility] Glucose 100 70 - 199 mg/dL [facility] Comment: Interpretive Data Fasting glucose >/= [...] 2022. Calcium 10.0 8.5 - 10.3 mg/dL [facility] Blood 10/05/2024 4:30 AM LOOM CLEANER 10/05/2024 5:01 AM LOOM CLEANER Moreno Abrams MD LAB BLOOD ORDERABLES Final Resu lt [facility] One [facility] Department [place] [address] * US Vein Duplex Upper Extremity Left Limited, Unilateral (10/04/2024 9:37 AM LOOM CLEANER) Anatomical Region Laterality Modality Vascular Left Ultrasound 10/04/2024 9:14 AM LOOM CLEANER Narrative 10/06/2024 12:16 AM LOOM CLEANER [facility] - Department of Vascular Surgery, Vascular Laboratory [address] [place] [id number] Upper Extremity Venous Ultrasound Report Patient Name: BIRGIT EDWARDS R : 1950 (74y 5m) Study Date: 10/04/2024 9:14:27 AM Gender: F Tech: [facility] Location: [id number] Ref Provider: MORENO ABRAMS ?Quality: Adequate Order Provider: MORENO ABRAMS ?? PROCEDURES: Vascular Report: Venous Duplex imaging was performed in the left upper extremity. The internal jugular, subclavian and axillary veins were evaluated for patency, spontaneity and phasicity with Doppler, compression and augmentation maneuvers. The brachial, basilic and cephalic veins were also evaluated with compression maneuvers. ?? INDICATIONS: Swelling, Upper Extremity, Left - ?? FINDINGS: Performing [employer] Landfill Technician: Dianelys Garcia RDMS, RVT. Left: Venous Doppler signals in the left [...] Jean Ngo MD FACS 10/06/2024 12:16:15 AM LOOM CLEANER Procedure Note Jean Ngo MD - 10/06/2024 [facility] - Department of Vascular Surgery,Vascular Laboratory [address] [place] [address] Upper Extremity Venous Ultrasound Report Patient Name: BIRGIT EDWARDS R : 1950 (74y 5m) Study Date: 10/04/2024 9:14:27 AM Gender: F Tech: [facility] Location: [id number] Ref Provider: MORENO ABRAMS Quality: Adequate Order Provider: MORENO ABRAMS PROCEDURES: Vascular Report: Venous Duplex imaging was performed in the left upper extremity. Theinternal jugular, subclavian and axillary veins were evaluated for patency, spontaneity andphasicity with Doppler, compression and augmentation maneuvers. The brachial, basilic andcephalic veins were also evaluated with compression maneuvers. INDICATIONS: Swelling, Upper Extremity, Left - FINDINGS: Performing [employer] Land[employer] Technician: Dianelys Garcia, RDMS, RVT. Left: Venous Doppler signals in the left [...] above. Electronically Signed By: Jean Ngo MD [facility] 10/06/2024 12:16:15 AM LOOM CLEANER us Moreno Abrams MD [facility] US PROCEDURES Final Result * (ABNORMAL) eGFR (10/04/2024 4:45 AM LOOM CLEANER) eGFR 57(L) >=60 mL/min/1. 73 m2 Comment: [...] last reviewed 2021. Blood 10/04/2024 4:45 AM LOOM CLEANER 10/04/2024 5:28 AM LOOM CLEANER us Moreno Abrams MD LAB BLOOD ORDERABLES Final Resu lt [facility] One [facility] [place] [address] * (ABNORMAL) Differential, auto (10/04/2024 4:45 AM LOOM CLEANER) [facility] Neutrophil abs 7.0(H) 1.5 - 6.5 K/cumm Imm gran abs 0.1 0.0 - 0.1 K/cumm [facility] Lymphocyte abs 2.6 0.8 - 3.3 K/cumm [facility] Monocyte abs 1.2(H) 0.2 - 0.8 K/cumm [facility] Eosinophil abs 0.4 0.0 - 0.5 K/cumm [facility] Basophil abs 0.0 0.0 - 0.1 K/cumm [facility] Neutrophil pct 61.8 % [facility] Comment: Interpretive Data Percent cell count reference ranges are not reported, since discordance with absolute values may lead to misinterpretation of CBC data. Current Interpretive Data was last revised on 2018. Imm gran pct 0.4 % [facility] Comment: Interpretive Data Percent cell count reference ranges are not reported, since discordance with absolute values may lead to misinterpretation of CBC data. Current Interpretive Data was last revised on 2018. Lymphocyte pct 23.2 % [facility] Comment: Interpretive Data Percent cell count reference ranges are not reported, since discordance with absolute values may lead to misinterpretation of CBC data. Current Interpretive Data was last revised on 2018. Monocyte pct 10.9 % [facility] Comment: Interpretive Data Percent cell count reference ranges are not reported, since discordance with absolute values may lead to misinterpretation of CBC data. Current Interpretive Data was last revised on 2018. Eosinophil pct 3.3 % [facility] Comment: Interpretive Data Percent cell count reference ranges are not reported, since discordance with absolute values may lead to misinterpretation of CBC data. Current Interpretive Data was last revised on 2018. Basophil pct 0.4 % [facility] Comment: Interpretive Data Percent cell count reference ranges are not reported, since discordance with absolute values may lead to misinterpretation of CBC data. Current Interpretive Data was last revised on 2018. Blood 10/04/2024 4:45 AM LOOM CLEANER 10/04/2024 5:32 AM LOOM CLEANER us Moreno Abrams MD LAB BLOOD ORDERABLES Final Resu lt [facility] One [facility] Department [place] [address] * (ABNORMAL) CBC with auto differential (10/04/2024 4:45 AM LOOM CLEANER) [facility] WBC 11.3(H) 3.8 - 9.9 K/cumm Hgb 11.9 11.9 - 15.5 g/dL [facility] Hct 35.8 35.6 - 45.5 % [facility] Plt 289 150 - 400 K/cumm [facility] MPV 9.1 9.1 - 12.3 fL [facility] RBC 3.81(L) 3.90 - 5.20 M/cumm [facility] MCV 94.0 81.3 - 96.4 fL [facility] MCH 31.2 27.1 - 33.3 pg [facility] MCHC 33.2 32.3 - 35.7 g/dL [facility] RDW CV 12.5 11.1 - 14.9 % [facility] RDW SD 42.9 35.7 - 48.1 fL [facility] NRBC abs 0.00 0.00 - 0.01 K/cumm [facility] Blood 10/04/2024 4:45 AM LOOM CLEANER 10/04/2024 5:32 AM LOOM CLEANER us Moreno Abrams MD LAB BLOOD ORDERABLES Final Resu lt [facility] One [facility] Department [place] [address] * Basic metabolic panel (10/04/2024 4:45 AM LOOM CLEANER) [facility] Sodium 140 135 - 145 mmol/L Potassium, pl 3.5 3.3 - 4.9 mmol/L [facility] Chloride 100 97 - 110 mmol/L [facility] CO2 27 22 - 32 mmol/L [facility] Anion gap 13 2 - 15 mmol/L [facility] BUN 13 6 - 25 mg/dL [facility] Creatinine 1.04 0.60 - 1.10 mg/dL [facility] Glucose 103 70 - 199 mg/dL [facility] Comment: Interpretive Data Fasting glucose >/= [...] 2022. Calcium 9.9 8.5 - 10.3 mg/dL [facility] Blood 10/04/2024 4:45 AM LOOM CLEANER 10/04/2024 5:28 AM LOOM CLEANER us Moreno Abrams MD LAB BLOOD ORDERABLES Final Resu lt [facility] One [facility] Department [place] [address] * (ABNORMAL) eGFR (10/03/2024 4:27 AM LOOM CLEANER) eGFR 52(L) >=60 mL/min/1. 73 m2 Comment: [...] last reviewed 2021. Blood 10/03/2024 4:27 AM LOOM CLEANER 10/03/2024 5:20 AM LOOM CLEANER us Moreno Abrams MD LAB BLOOD ORDERABLES Final Resu lt [facility] One [facility] Department [place] [address] * (ABNORMAL) Differential, auto (10/03/2024 4:27 AM LOOM CLEANER) Neutrophil abs 6.0 1.5 - 6.5 K/cumm Imm gran abs 0.1 0.0 - 0.1 K/cumm [facility] Lymphocyte abs 3.2 0.8 - 3.3 K/cumm [facility] Monocyte abs 1.2(H) 0.2 - 0.8 K/cumm [facility] Eosinophil abs 0.3 0.0 - 0.5 K/cumm [facility] Basophil abs 0.1 0.0 - 0.1 K/cumm [facility] Neutrophil pct 55.6 % [facility] Comment: Interpretive Data Percent cell count reference ranges are not reported, since discordance with absolute values may lead to misinterpretation of CBC data. Current Interpretive Data was last revised on 2018. Imm gran pct 0.5 % [facility] Comment: Interpretive Data Percent cell count reference ranges are not reported, since discordance with absolute values may lead to misinterpretation of CBC data. Current Interpretive Data was last revised on 2018. Lymphocyte pct 29.6 % [facility] Comment: Interpretive Data Percent cell count reference ranges are not reported, since discordance with absolute values may lead to misinterpretation of CBC data. Current Interpretive Data was last revised on 2018. Monocyte pct 10.8 % [facility] Comment: Interpretive Data Percent cell count reference ranges are not reported, since discordance with absolute values may lead to misinterpretation of CBC data. Current Interpretive Data was last revised on 2018. Eosinophil pct 3.0 % [facility] Comment: Interpretive Data Percent cell count reference ranges are not reported, since discordance with absolute values may lead to misinterpretation of CBC data. Current Interpretive Data was last revised on 2018. Basophil pct 0.5 % [facility] Comment: Interpretive Data Percent cell count reference ranges are not reported, since discordance with absolute values may lead to misinterpretation of CBC data. Current Interpretive Data was last revised on 2018. Blood 10/03/2024 4:27 AM LOOM CLEANER 10/03/2024 5:20 AM LOOM CLEANER us Moreno Abrams MD LAB BLOOD ORDERABLES Final Resu lt [facility] One [facility] Department [place] [address] * (ABNORMAL) CBC with auto differential (10/03/2024 4:27 AM LOOM CLEANER) WBC 10.8(H) 3.8 - 9.9 K/cumm Hgb 11.8(L) 11.9 - 15.5 g/dL [facility] Hct 36.5 35.6 - 45.5 % [facility] Plt 277 150 - 400 K/cumm [facility] MPV 9.5 9.1 - 12.3 fL [facility] RBC 3.87(L) 3.90 - 5.20 M/cumm [facility] MCV 94.3 81.3 - 96.4 fL [facility] MCH 30.5 27.1 - 33.3 pg [facility] MCHC 32.3 32.3 - 35.7 g/dL [facility] RDW CV 12.6 11.1 - 14.9 % [facility] RDW SD 43.3 35.7 - 48.1 fL [facility] NRBC abs 0.00 0.00 - 0.01 K/cumm [facility] Blood 10/03/2024 4:27 AM LOOM CLEANER 10/03/2024 5:20 AM LOOM CLEANER Moreno Abrams MD LAB BLOOD ORDERABLES Final Resu lt Performing Organization Address City/[facility]/ZIP Co de Phone Number [facility] [place] [address] * (ABNORMAL) Basic metabolic panel (10/03/2024 4:27 AM LOOM CLEANER) [facility] Sodium 142 135 - 145 mmol/L Potassium, pl 4.0 3.3 - 4.9 mmol/L [facility] Chloride 104 97 - 110 mmol/L [facility] CO2 28 22 - 32 mmol/L [facility] Anion gap 10 2 - 15 mmol/L [facility] BUN 16 6 - 25 mg/dL [facility] Creatinine 1.11(H) 0.60 - 1.10 mg/dL [facility] Glucose 86 70 - 199 mg/dL [facility] Comment: Interpretive Data Fasting glucose >/= [...] 2022. Calcium 9.9 8.5 - 10.3 mg/dL [facility] Blood 10/03/2024 4:27 AM LOOM CLEANER 10/03/2024 5:20 AM LOOM CLEANER Moreno Abrams MD LAB BLOOD ORDERABLES Final Resu lt Performing Organization Address [facility]/ZIP Co de Phone Number [facility] Maris [facility] Department [place] [address] * HIV 1/2 Antibody plus p24 Antigen Blood (10/02/2024 8:28 PM LOOM CLEANER) [facility] HIV 1/2 ab + p24 ag Nonreactive Nonreactive Comment:Nonreactive for HIV- 1 antigen and HIV-1/HIV-2 antibodies. No laboratory evidence of HIV infection. If acute HIV infection is suspected, consider testing for HIV-1 RNA. Current interpretive data was last revised on 22. Blood 10/02/2024 8:28 PM LOOM CLEANER 10/02/2024 11:03 PM LOOM CLEANER Moreno Abrams MD LAB MICROBIOLOGY - GENERAL ORDE RABSUELLEN Final Result Performing Organization Address [facility] Co de Phone Number [facility] [place] [address] * Hepatitis C antibody Blood (10/02/2024 8:28 PM LOOM CLEANER) Pathologist [facility] Hep C Ab Nonreactive Nonreactive Comment:Antibodies to HCV no t detected. Does NOT exclude the possibility of recent exposure to HCV. Current interpretive data was last revised on 22 Blood 10/02/2024 8:28 PM LOOM CLEANER 10/02/2024 9:25 PM LOOM CLEANER Moreno Abrams MD LAB MICROBIOLOGY - GENERAL ORDJosé PARISI Final Result Performing Organization Address [facility] Co de Phone Number [facility] [place] [address] * RPR Blood (10/02/2024 8:28 PM LOOM CLEANER) Pathologist [facility] RPR Nonreactive Nonreactive Blood 10/02/2024 8:28 PM LOOM CLEANER 10/02/2024 9:26 PM LOOM CLEANER Moreno Abrams MD LAB MICROBIOLOGY - GENERAL ORDE RABSUELLEN Final Result Performing Organization Address City/[facility] Co de Phone Number [facility] [place] [address] * Hepatitis B Surface Antigen Blood (10/02/2024 8:28 PM LOOM CLEANER) [facility] HepBsAg Nonreactive Nonreactive Blood 10/02/2024 8:28 PM LOOM CLEANER 10/02/2024 9:25 PM LOOM CLEANER Moreno Abrams MD LAB MICROBIOLOGY - GENERAL ORDE RABLES Final Result Performing Organization Address [facility] de Phone Number [facility] [place] [address] * Folate (10/02/2024 8:28 PM LOOM CLEANER) [facility] Folic acid 13.1 >=5.0 ng/mL Blood 10/02/2024 8:28 PM LOOM CLEANER 10/02/2024 9:25 PM LOOM CLEANER Moreno Abrams MD LAB BLOOD ORDERABLES Final Resu lt Performing Organization Address [facility] de Phone Number [facility] [place] [address] * Vitamin B12 (10/02/2024 8:28 PM LOOM CLEANER) [facility] Vitamin B12 793 230 - 1,250 pg/mL Blood 10/02/2024 8:28 PM LOOM CLEANER 10/02/2024 9:25 PM LOOM CLEANER Moreno Abrams MD LAB BLOOD ORDERABLES Final Resu lt Performing Organization Address [facility] de Phone Number [facility] [facility] [place] [address] * (ABNORMAL) eGFR (10/02/2024 4:39 AM LOOM CLEANER) [facility] eGFR 55(L) >=60 mL/min/1. 73 m2 Comment: [...] last reviewed 2021. Blood 10/02/2024 4:39 AM LOOM CLEANER 10/02/2024 6:35 AM LOOM CLEANER us Moreno Abrams MD LAB BLOOD ORDERABLES Final Resu lt [facility] One [facility] Department [place] [address] * (ABNORMAL) Differential, auto (10/02/2024 4:39 AM LOOM CLEANER) Neutrophil abs 6.1 1.5 - 6.5 K/cumm Imm gran abs 0.0 0.0 - 0.1 K/cumm [facility] Lymphocyte abs 2.7 0.8 - 3.3 K/cumm [facility] Monocyte abs 1.2(H) 0.2 - 0.8 K/cumm [facility] Eosinophil abs 0.4 0.0 - 0.5 K/cumm [facility] Basophil abs 0.0 0.0 - 0.1 K/cumm [facility] Neutrophil pct 58.8 % [facility] Comment: Interpretive Data Percent cell count reference ranges are not reported, since discordance with absolute values may lead to misinterpretation of CBC data. Current Interpretive Data was last revised on 2018. Imm gran pct 0.3 % [facility] Comment: Interpretive Data Percent cell count reference ranges are not reported, since discordance with absolute values may lead to misinterpretation of CBC data. Current Interpretive Data was last revised on 2018. Lymphocyte pct 25.6 % [facility] Comment: Interpretive Data Percent cell count reference ranges are not reported, since discordance with absolute values may lead to misinterpretation of CBC data. Current Interpretive Data was last revised on 2018. Monocyte pct 11.6 % [facility] Comment: Interpretive Data Percent cell count reference ranges are not reported, since discordance with absolute values may lead to misinterpretation of CBC data. Current Interpretive Data was last revised on 2018. Eosinophil pct 3.4 % [facility] Comment: Interpretive Data Percent cell count reference ranges are not reported, since discordance with absolute values may lead to misinterpretation of CBC data. Current Interpretive Data was last revised on 2018. Basophil pct 0.3 % [facility] Comment: Interpretive Data Percent cell count reference ranges are not reported, since discordance with absolute values may lead to misinterpretation of CBC data. Current Interpretive Data was last revised on 2018. Blood 10/02/2024 4:39 AM LOOM CLEANER 10/02/2024 6:35 AM LOOM CLEANER us Moreno Abrams MD LAB BLOOD ORDERABLES Final Resu lt [facility] One [facility] Department [place] [address] * (ABNORMAL) CBC with auto differential (10/02/2024 4:39 AM LOOM CLEANER) WBC 10.4(H) 3.8 - 9.9 K/cumm Hgb 11.5(L) 11.9 - 15.5 g/dL [facility] Hct 35.7 35.6 - 45.5 % [facility] Plt 305 150 - 400 K/cumm [facility] MPV 9.7 9.1 - 12.3 fL [facility] RBC 3.78(L) 3.90 - 5.20 M/cumm [facility] MCV 94.4 81.3 - 96.4 fL [facility] MCH 30.4 27.1 - 33.3 pg [facility] MCHC 32.2(L) 32.3 - 35.7 g/dL [facility] RDW CV 12.9 11.1 - 14.9 % [facility] RDW SD 44.8 35.7 - 48.1 fL [facility] NRBC abs 0.00 0.00 - 0.01 K/cumm [facility] Blood 10/02/2024 4:39 AM LOOM CLEANER 10/02/2024 6:35 AM LOOM CLEANER Moreno Abrams MD LAB BLOOD ORDERABLES Final Resu lt Performing Organization Address [facility] Co de Phone Number [facility] Department [place] [address] * (ABNORMAL) Vancomycin level trough 30 minutes prior to 4th dose (10/02/2024 4:39 AM LOOM CLEANER) Pathologist [facility] Vancomycin trough 4.5(L) 10.0 - 20.0 mcg/mL Blood 10/02/2024 4:39 AM LOOM CLEANER 10/02/2024 6:35 AM LOOM CLEANER Narrative [facility] - 10/02/2024 7:04 AM LOOM CLEANER 30 minutes prior to 4th dose Moreno Abrams MD LAB BLOOD ORDERABLES Final Resu lt Performing Organization Address City/[facility] Co de Phone Number [facility] [place] [address] * Basic metabolic panel (10/02/2024 4:39 AM LOOM CLEANER) Pathologist [facility] Sodium 141 135 - 145 mmol/L Potassium, pl 4.0 3.3 - 4.9 mmol/L [facility] Chloride 105 97 - 110 mmol/L [facility] CO2 25 22 - 32 mmol/L [facility] Anion gap 11 2 - 15 mmol/L [facility] BUN 12 6 - 25 mg/dL [facility] Creatinine 1.07 0.60 - 1.10 mg/dL [facility] Glucose 83 70 - 199 mg/dL [facility] Comment: Interpretive Data Fasting glucose >/= [...] 2022. Calcium 9.5 8.5 - 10.3 mg/dL [facility] Blood 10/02/2024 4:39 AM LOOM CLEANER 10/02/2024 6:35 AM LOOM CLEANER us Moreno Abrams MD LAB BLOOD ORDERABLES Final Resu lt [facility] One [facility] Department [place] [address] * MRI Brain WO Contrast (10/01/2024 2:33 PM LOOM CLEANER) Anatomical Region Laterality Modality Head and Neck N/A Magnetic Resonan ce 10/01/2024 2:50 PM LOOM CLEANER Impressions 10/01/2024 3:03 PM LOOM CLEANER No acute intracranial abnormalities. Dictated by: Danny Choi D.O. The radiology attending physician has personally reviewed this study, and had reviewed and/or edited this written report and agrees with it. Electronically signed by: Lev Carter MD Narrative 10/01/2024 3:03 PM LOOM CLEANER EXAMINATION: Magnetic resonance imaging (MRI) of the [...] it. Electronically signed by: Lev Carter MD Moreno Abrams MD IMG MRI PROCEDURES Final Result * (ABNORMAL) Urinalysis reflex to microscopic and culture Urine (10/01/2024 12:52 PM LOOM CLEANER) Color, ur Straw Yellow Clarity, ur Clear Clear [facility] Specific gravity, ur 1.009 1.003 - 1.030 [facility] pH, urine 7.0 [facility] Comment: Interpretive Data ? Urine pH is affected by diet, medications, systemic acid-base disturbances, and renal tubular function. ??pH may affect urinary stone formation. ??For example, urine pH below 6.0 may help reduce the tendency for calcium phosphate stones and pH greater than 6.0 may reduce the tendency for uric acid stone formation. Source: [facility] [place]. Current Interpretive Data was last revised on 2017 Protein, ur ql Negative Negative [facility] Glucose, ur ql Negative Negative [facility] Ketones, ur Negative Negative [facility] Bilirubin, ur Negative Negative [facility] Blood, ur 2+(A) Negative [facility] Urobilinogen, ur <2.0 <2.0 mg/dL [facility] Nitrite, ur Negative Negative [facility] Leukocyte esterase, ur Negative Negative [facility] UA reflex comment Reflex to microscopic UA will be performed. [facility] Urine 10/01/2024 12:5 2 PM LOOM CLEANER 10/01/2024 1:15 PM LOOM CLEANER Moreno Abrams MD LAB MICROBIOLOGY - [facility] Final Result [facility] One [facility] [place] [address] * (ABNORMAL) Urinalysis, microscopic only (10/01/2024 12:52 PM LOOM CLEANER) WBC, ur 0-5 0 - 5 /HPF RBC, ur 21-50(A) 0 - 2 /HPF [facility] Mucous, ur Present(A) [facility] Culture Reflex Comment Reflex conditions for urine culture (WBC >10) not met. [facility] Urine 10/01/2024 12:5 2 PM LOOM CLEANER 10/01/2024 1:15 PM LOOM CLEANER us Moreno Abrams MD LAB URINE ORDERABLES Final Resu lt [facility] One [facility] Department [place] [address] * (ABNORMAL) eGFR (10/01/2024 7:01 AM LOOM CLEANER) eGFR 50(L) >=60 mL/min/1. 73 m2 Comment: [...] last reviewed 2021. Blood 10/01/2024 7:01 AM LOOM CLEANER 10/01/2024 7:35 AM LOOM CLEANER us Moreno Abrams MD LAB BLOOD ORDERABLES Final Resu lt [facility] One [facility] Department [place] [address] * (ABNORMAL) Differential, auto (10/01/2024 7:01 AM LOOM CLEANER) Neutrophil abs 6.3 1.5 - 6.5 K/cumm Imm gran abs 0.0 0.0 - 0.1 K/cumm [facility] Lymphocyte abs 2.2 0.8 - 3.3 K/cumm [facility] Monocyte abs 1.2(H) 0.2 - 0.8 K/cumm [facility] Eosinophil abs 0.3 0.0 - 0.5 K/cumm [facility] Basophil abs 0.0 0.0 - 0.1 K/cumm [facility] Neutrophil pct 63.2 % [facility] Comment: Interpretive Data Percent cell count reference ranges are not reported, since discordance with absolute values may lead to misinterpretation of CBC data. Current Interpretive Data was last revised on 2018. Imm gran pct 0.4 % [facility] Comment: Interpretive Data Percent cell count reference ranges are not reported, since discordance with absolute values may lead to misinterpretation of CBC data. Current Interpretive Data was last revised on 2018. Lymphocyte pct 21.6 % [facility] Comment: Interpretive Data Percent cell count reference ranges are not reported, since discordance with absolute values may lead to misinterpretation of CBC data. Current Interpretive Data was last revised on 2018. Monocyte pct 11.6 % [facility] Comment: Interpretive Data Percent cell count reference ranges are not reported, since discordance with absolute values may lead to misinterpretation of CBC data. Current Interpretive Data was last revised on 2018. Eosinophil pct 2.9 % [facility] Comment: Interpretive Data Percent cell count reference ranges are not reported, since discordance with absolute values may lead to misinterpretation of CBC data. Current Interpretive Data was last revised on 2018. Basophil pct 0.3 % [facility] Comment: Interpretive Data Percent cell count reference ranges are not reported, since discordance with absolute values may lead to misinterpretation of CBC data. Current Interpretive Data was last revised on 2018. Blood 10/01/2024 7:01 AM LOOM CLEANER 10/01/2024 7:21 AM LOOM CLEANER us Moreno Abrams MD LAB BLOOD ORDERABLES Final Resu lt [facility] Department [place] [address] * (ABNORMAL) CBC with auto differential (10/01/2024 7:01 AM LOOM CLEANER) WBC 10.0(H) 3.8 - 9.9 K/cumm Hgb 11.6(L) 11.9 - 15.5 g/dL [facility] Hct 36.1 35.6 - 45.5 % [facility] Plt 289 150 - 400 K/cumm [facility] MPV 9.1 9.1 - 12.3 fL [facility] RBC 3.78(L) 3.90 - 5.20 M/cumm [facility] MCV 95.5 81.3 - 96.4 fL [facility] MCH 30.7 27.1 - 33.3 pg [facility] MCHC 32.1(L) 32.3 - 35.7 g/dL [facility] RDW CV 13.2 11.1 - 14.9 % [facility] RDW SD 46.5 35.7 - 48.1 fL [facility] NRBC abs 0.00 0.00 - 0.01 K/cumm [facility] Blood 10/01/2024 7:01 AM LOOM CLEANER 10/01/2024 7:21 AM LOOM CLEANER us Moreno Abrams MD LAB BLOOD ORDERABLES Final Resu lt [facility] Department [place] [address] * (ABNORMAL) Basic metabolic panel (10/01/2024 7:01 AM LOOM CLEANER) Sodium 142 135 - 145 mmol/L Potassium, pl 3.5 3.3 - 4.9 mmol/L [facility] Chloride 106 97 - 110 mmol/L [facility] CO2 26 22 - 32 mmol/L [facility] Anion gap 10 2 - 15 mmol/L [facility] BUN 10 6 - 25 mg/dL [facility] Creatinine 1.16(H) 0.60 - 1.10 mg/dL [facility] Glucose 96 70 - 199 mg/dL [facility] Comment: Interpretive Data Fasting glucose >/= [...] 2022. Calcium 9.2 8.5 - 10.3 mg/dL [facility] Blood 10/01/2024 7:01 AM LOOM CLEANER 10/01/2024 7:21 AM LOOM CLEANER us Moreno Abrams MD LAB BLOOD ORDERABLES Final Resu lt [facility] Department [place] [address] * MRI Brain MRA Head MRA Neck W WO Contrast (10/01/2024 5:46 AM LOOM CLEANER) Anatomical Region Laterality Modality Head and Neck N/A Magnetic Resonan ce 10/01/2024 10:3 5 AM LOOM CLEANER Impressions 10/01/2024 11:03 AM LOOM CLEANER 1. No acute intracranial abnormalities. 2. No [...] Lev Carter MD Narrative 10/01/2024 11:03 AM LOOM CLEANER EXAMINATION: 1. Magnetic resonance imaging (MRI) of the brain and brainstem without and with contrast 2. Magnetic resonance angiography (MRA) of the tsndiu-ri-Tftujw without and with contrast 3. Magnetic resonance angiography (MRA) of the neck without and with contrast HISTORY: Stroke follow-up. ??Left thalamic hypodensity. TECHNIQUE: Multiplanar multi-weighted MRI of the brain and brainstem was performed without and with intravenous contrast using the general brain protocol. Magnetic resonance angiography of the iaopux-um-Faglwt was performed using a separate data acquisition with a non-contrast andg-nz-abohno technique and a post-contrast technique to produce axial thin-slice source images. These images were then used to generate maximum intensity projection (MIP) images. Magnetic resonance angiography of the neck was performed using a separate data acquisition with a non-contrast cnid-bc-hevkrr technique and a post-contrast technique to produce [...] are no areas of vascular narrowing. The hgpllm-zv-Anwoel is complete with a very small caliber [...] 2. Magnetic resonance angiography (MRA) of the eohbiw-sw-Eghvia without and with contrast 3. Magnetic resonance angiography (MRA) of the neck without and with contrast HISTORY: Stroke follow-up. Left thalamic hypodensity. TECHNIQUE: Multiplanar multi-weighted MRI of the brain and brainstem was performed without and with intravenous contrast using the general brain protocol. Magnetic resonance angiography of the jhukrw-ii-Grzqmd was performed using a separate data acquisition with a non-contrast depi-oz-ykmpdv technique and a post-contrast technique to produce axial thin-slice source images. These images were then used to generate maximum intensity projection (MIP) images. Magnetic resonance angiography of the neck was performed using a separate data acquisition with a non-contrast ibfh-nz-dpnnmm technique and a post-contrast technique to produce [...] are no areas of vascular narrowing. The pnosfy-se-Hvfxgs is complete with a very small caliber [...] it. Electronically signed by: Lev Carter MD Moreno Abrams MD IMG MRI PROCEDURES Final Result * CT Head WO Contrast (09/30/2024 2:18 PM LOOM CLEANER) Anatomical Region Laterality Modality Head and Neck N/A Computed Tomogra phy 09/30/2024 2:36 PM LOOM CLEANER Impressions 09/30/2024 2:55 PM LOOM CLEANER 1. ??Small area of age indeterminate hypodensity within the left thalamus which may represent an acute/subacute lacunar infarct in the appropriate clinical setting. ??Correlate with patient's symptoms and consider MRI of the brain for confirmation as clinically warranted. 2. ??No acute hemorrhage. The Critical results were discussed with Moreno Abrams MD by Dr. Lau on 09/30/2024 at 2:28 PM. Dictated by: Gama Lau D.O. The radiology attending physician has personally reviewed this study, and had reviewed and/or edited this written report and agrees with it. Electronically signed by: Nayana Hilliard M.D. Narrative 09/30/2024 2:55 PM LOOM CLEANER EXAMINATION: CT head without contrast HISTORY: 74 [...] are identified. ??Right TMJ arthrosis. Procedure Note Rusty Hilliard, Nayana Moreno MD - 09/30/2024 EXAMINATION: CT head without [...] hemorrhage. The Critical results were discussed with Moreno Abrams MD by Dr. Lau on 09/30/2024 at 2:28 PM. Dictated by: Gama Lau D.O. The radiology attending physician has personally reviewed this study, and had reviewed and/or edited this written report and agrees with it. Electronically signed by: Nayana Hilliard M.D. Moreno Abrams MD IMG CT PROCEDURES Final Result * (ABNORMAL) Blood gas, venous (09/30/2024 1:35 PM LOOM CLEANER) pH, Venous 7.42 7.32 - 7.43 PCO2, Venous 38(L) 40 - 50 mmHg [facility] PO2, Venous 123 mmHg [facility] Comment: Interpretive Data No Reference Range Established Current Interpretive Data was last revised on 2018. HCO3 Venous, Calculated 26 20 - 30 mmol/L [facility] BE, venous 1 mmol/L [facility] Comment: Interpretive Data No Reference Range Established Current Interpretive Data was last revised on 2018. Blood 09/30/2024 1:35 PM LOOM CLEANER 09/30/2024 1:44 PM LOOM CLEANER Moreno Abrams MD LAB BLOOD ORDERABLES Final Resu lt [facility] One [facility] [place] [address] * POCT glucose (09/30/2024 1:14 PM LOOM CLEANER) Glucose, POC 162 70 - 199 mg/dL Blood 09/30/2024 1:14 PM LOOM CLEANER 09/30/2024 1:14 PM LOOM CLEANER Moreno Abrams MD LAB POCT ORDERABLES - DEVICE Fi nal Result Performing Organization Address [facility]/ZIP Co de Phone Number [facility] [place] [address] * eGFR (09/30/2024 4:20 AM LOOM CLEANER) eGFR 67 >=60 mL/min/1. 73 m2 Comment: [...] last reviewed 2021. Blood 09/30/2024 4:20 AM LOOM CLEANER 09/30/2024 4:54 AM LOOM CLEANER us Moreno Abrams MD LAB BLOOD ORDERABLES Final Resu lt Performing Organization Address [facility]/ZIP Co de Phone Number MANUELA MONIQUE Maris [facility] [place] [address] * (ABNORMAL) Differential, auto (09/30/2024 4:20 AM LOOM CLEANER) Neutrophil abs 9.2(H) 1.5 - 6.5 K/cumm Imm gran abs 0.0 0.0 - 0.1 K/cumm [facility] Lymphocyte abs 1.4 0.8 - 3.3 K/cumm [facility] Monocyte abs 0.8 0.2 - 0.8 K/cumm [facility] Eosinophil abs 0.2 0.0 - 0.5 K/cumm [facility] Basophil abs 0.0 0.0 - 0.1 K/cumm [facility] Neutrophil pct 78.3 % [facility] Comment: Interpretive Data Percent cell count reference ranges are not reported, since discordance with absolute values may lead to misinterpretation of CBC data. Current Interpretive Data was last revised on 2018. Imm gran pct 0.3 % [facility] Comment: Interpretive Data Percent cell count reference ranges are not reported, since discordance with absolute values may lead to misinterpretation of CBC data. Current Interpretive Data was last revised on 2018. Lymphocyte pct 12.1 % [facility] Comment: Interpretive Data Percent cell count reference ranges are not reported, since discordance with absolute values may lead to misinterpretation of CBC data. Current Interpretive Data was last revised on 2018. Monocyte pct 7.0 % [facility] Comment: Interpretive Data Percent cell count reference ranges are not reported, since discordance with absolute values may lead to misinterpretation of CBC data. Current Interpretive Data was last revised on 2018. Eosinophil pct 2.0 % [facility] Comment: Interpretive Data Percent cell count reference ranges are not reported, since discordance with absolute values may lead to misinterpretation of CBC data. Current Interpretive Data was last revised on 2018. Basophil pct 0.3 % [facility] Comment: Interpretive Data Percent cell count reference ranges are not reported, since discordance with absolute values may lead to misinterpretation of CBC data. Current Interpretive Data was last revised on 2018. Blood 09/30/2024 4:20 AM LOOM CLEANER 09/30/2024 4:54 AM LOOM CLEANER us Moreno Abrams MD LAB BLOOD ORDERABLES Final Resu lt Performing Organization Address [facility] Co de Phone Number [facility] Department [place] [address] * (ABNORMAL) CBC with auto differential (09/30/2024 4:20 AM LOOM CLEANER) [facility] WBC 11.8(H) 3.8 - 9.9 K/cumm Hgb 11.4(L) 11.9 - 15.5 g/dL [facility] Hct 35.4(L) 35.6 - 45.5 % [facility] Plt 292 150 - 400 K/cumm [facility] MPV 9.0(L) 9.1 - 12.3 fL [facility] RBC 3.74(L) 3.90 - 5.20 M/cumm [facility] MCV 94.7 81.3 - 96.4 fL [facility] MCH 30.5 27.1 - 33.3 pg [facility] MCHC 32.2(L) 32.3 - 35.7 g/dL [facility] RDW CV 13.5 11.1 - 14.9 % [facility] RDW SD 47.1 35.7 - 48.1 fL [facility] NRBC abs 0.00 0.00 - 0.01 K/cumm [facility] Blood 09/30/2024 4:20 AM LOOM CLEANER 09/30/2024 4:54 AM LOOM CLEANER Moreno Abrams MD LAB BLOOD ORDERABLES Final Resu lt Performing Organization Address City/[facility]/ZIP Co de Phone Number [facility] Department [place] [address] * (ABNORMAL) Basic metabolic panel (09/30/2024 4:20 AM LOOM CLEANER) [facility] Sodium 142 135 - 145 mmol/L Potassium, pl 3.9 3.3 - 4.9 mmol/L [facility] Chloride 107 97 - 110 mmol/L [facility] CO2 26 22 - 32 mmol/L [facility] Anion gap 9 2 - 15 mmol/L [facility] BUN 5(L) 6 - 25 mg/dL [facility] Creatinine 0.91 0.60 - 1.10 mg/dL [facility] Glucose 126 70 - 199 mg/dL [facility] Comment: Interpretive Data Fasting glucose >/= [...] 2022. Calcium 9.2 8.5 - 10.3 mg/dL [facility] Blood 09/30/2024 4:20 AM LOOM CLEANER 09/30/2024 4:54 AM LOOM CLEANER us Moreno Abrams MD LAB BLOOD ORDERABLES Final Resu lt Performing Organization Address City/[facility]/ZIP Co de Phone Number [facility] [place] [address] * Critical Result Callback Hematology (09/29/2024 11:37 AM LOOM CLEANER) Date Notified [id number] Time Notified 1456 [facility] TestName aPTT [facility] Called/Read Back [place] [facility] Credentials MD MANUELA MONIQUE Called By [facility] Blood 09/29/2024 11:3 7 AM LOOM CLEANER 09/29/2024 2:15 PM LOOM CLEANER us Anni Dai MD LAB BLOOD ORDERABLES Final Result [facility] [place] [address] * (ABNORMAL) aPTT (09/29/2024 11:37 AM LOOM CLEANER) Pathologist [facility] aPTT >150(C) 28 - 38 sec Comment: No clot detected in sample Repeated and verified - [id number] - 09/29/24, 2:54 PM Interpretive Data Heparin therapeutic range: 66.0 - 100.0 seconds. Range based on correlation with therapeutic heparin activity range of 0.3 - 0.7 Units/mL. Current interpretive data was last revised on 2023. Blood 09/29/2024 11:3 7 AM LOOM CLEANER 09/29/2024 2:15 PM LOOM CLEANER Anni Dai MD LAB BLOOD ORDERABLES Final Result Performing Organization Address [facility] Co de Phone Number MANUELA [facility] [employer] [place] [address] * Troponin I high-sensitivity (09/29/2024 6:39 AM LOOM CLEANER) Pathologist [facility] Trop I hs <4 <=17 ng/L Comment: Interpretive Data For further hscTnI resources including the diagnostic algorithm and an aid in interpretation, copy and paste this link: [email or web address] Current Interpretive Data last revised 2020. Blood 09/29/2024 6:39 AM LOOM CLEANER 09/29/2024 6:53 AM LOOM CLEANER Calvin Chavira MD LAB BLOOD ORDERABLES Fi nal Result Performing Organization Address [facility] Co de Phone Number MANUELA [facility] [address] [place] [address] * Pro B-type natriuretic peptide (09/29/2024 6:39 AM LOOM CLEANER) [facility] NT-proBNP 104 <=300 pg/mL Comment: Interpretive Comments: [...] et.al. Eur Heart J. 2006:27:330-337. 2. Barbara RW, Pete PEREZ. J. AM Kat Cardiol: Cardiovasc Imag. 2009;2: 216- 225. Interpretive Data Last Revised Date: 2018. Blood 09/29/2024 6:39 AM LOOM CLEANER 09/29/2024 6:53 AM LOOM CLEANER us Calvin Chavira MD LAB BLOOD ORDERABLES Fi nal Result [facility] One [facility] Department [place] [address] * Thyroid Function Mineral (09/29/2024 6:39 AM LOOM CLEANER) TSH 2.02 0.30 - 4.20 mcIUnit/mL Blood 09/29/2024 6:39 AM LOOM CLEANER 09/29/2024 6:53 AM LOOM CLEANER Calvin Chavira MD LAB BLOOD ORDERABLES Fi nal Result Performing Organization Address [facility] de Phone Number [facility] Department [place] [address] * Infection Prevention MRSA Only (Staphylococcus aureus) Culture Nasal (09/29/2024 6:39 AM LOOM CLEANER) Pathologist [facility] Report Final Report: Negative Nasal 09/29/2024 6:39 AM LOOM CLEANER 09/29/2024 7:08 AM LOOM CLEANER Narrative [facility] - 09/30/2024 8:26 AM LOOM CLEANER Testing performed by [facility] Microbiology Laboratory ([phone]). Calvin Chavira MD LAB MICROBIOLOGY - GENE RAL ORDERABLES Final Result Performing Organization Address [facility] de Phone Number [facility] Department [place] [address] * Blood gas, venous (09/29/2024 6:39 AM LOOM CLEANER) pH, Venous 7.36 7.32 - 7.43 PCO2, Venous 44 40 - 50 mmHg [facility] PO2, Venous 50 mmHg [facility] Comment: Interpretive Data No Reference Range Established Current Interpretive Data was last revised on 2018. HCO3 Venous, Calculated 25 20 - 30 mmol/L [facility] BE, venous -1 mmol/L [facility] Comment: Interpretive Data No Reference Range Established Current Interpretive Data was last revised on 2018. Blood 09/29/2024 6:39 AM LOOM CLEANER 09/29/2024 6:53 AM LOOM CLEANER Calvin Chavira MD LAB BLOOD ORDERABLES Fi nal Result Performing Organization Address [facility] [place] [address] * (ABNORMAL) [place] level (09/29/2024 6:39 AM LOOM CLEANER) [place] 0.3(L) 0.6 - 1.2 mmol/L Blood 09/29/2024 6:39 AM LOOM CLEANER 09/29/2024 6:53 AM LOOM CLEANER Calvin Chavira MD LAB BLOOD ORDERABLES Fi nal Result Performing Organization Address [facility] de Phone Number [facility] [place] [address] * (ABNORMAL) Urinalysis reflex to microscopic and culture Urine (09/29/2024 4:23 AM LOOM CLEANER) Color, ur Straw Yellow Clarity, ur Clear Clear [facility] Specific gravity, ur >1.042(H) 1.003 - 1.030 [facility] pH, urine 7.0 [facility] Comment: Interpretive Data ? Urine pH is affected by diet, medications, systemic acid-base disturbances, and renal tubular function. ??pH may affect urinary stone formation. ??For example, urine pH below 6.0 may help reduce the tendency for calcium phosphate stones and pH greater than 6.0 may reduce the tendency for uric acid stone formation. Source: [facility] Beam. Current Interpretive Data was last revised on 2017 Protein, ur ql 1+(A) Negative [facility] Glucose, ur ql Negative Negative [facility] Ketones, ur Negative Negative [facility] Bilirubin, ur Negative Negative [facility] Blood, ur Negative Negative [facility] Urobilinogen, ur <2.0 <2.0 mg/dL [facility] Nitrite, ur Negative Negative [facility] Leukocyte esterase, ur Negative Negative [facility] UA reflex comment Reflex to microscopic UA will be performed. [facility] Urine 09/29/2024 4:23 AM LOOM CLEANER 09/29/2024 4:29 AM LOOM CLEANER Es Chakraborty MD LAB MICROBIOLOGY - GENERA L ORDERABLES Final Result [facility] One [facility] Department [place] [address] * Respiratory pathogen panel Nasopharyngeal (09/29/2024 4:23 AM LOOM CLEANER) Pathologist [facility] Influenza A RNA Not Detected Not Detected Influenza B RNA Not Detected Not Detected [facility] RSV RNA Not Detected Not Detected [facility] COVID-19 RNA Not Detected Not Detected [facility] Coronavirus 229E RNA Not Detected Not Detected [facility] Coronavirus HKU1 RNA Not Detected Not Detected [facility] Coronavirus NL63 RNA Not Detected Not Detected [facility] Coronavirus OC43 RNA Not Detected Not Detected [facility] Adenovirus DNA Not Detected Not Detected [facility] Metapneumovirus RNA Not Detected Not Detected [facility] Rhinovirus/Enterov irus RNA Not Detected Not Detected [facility] Parainfluenza 1 RNA Not Detected Not Detected [facility] Parainfluenza 2 RNA Not Detected Not Detected [facility] Parainfluenza 3 RNA Not Detected Not Detected [facility] Parainfluenza 4 RNA Not Detected Not Detected [facility] B. pertussis DNA Not Detected Not Detected [facility] B. parapertussis DNA Not Detected Not Detected [facility] C. pneumoniae DNA Not Detected Not Detected [facility] M. pneumoniae DNA Not Detected Not Detected [facility] Nasopharyngeal 09/29/2024 4: 23 AM LOOM CLEANER 09/29/2024 5:06 AM LOOM CLEANER Narrative [facility] - 09/29/2024 8:36 AM LOOM CLEANER Is the Patient experiencing symptoms consistent with COVID?->Yes Surveillance testing for transplant patient?->No ??Interpretive Data The Magic Leap FilmArray Respiratory Panel (RP2.1) assay is a [...] assay has FDA clearance for testing of SAFETY LEADER swabs. ??The performance of additional specimen types has been assessed by the performing laboratory. ??The performance characteristics of this assay have been determined by [facility] Molecular Infectious Disease Laboratory. Current interpretive data was last revised on 22. Es Chakraborty MD LAB MICROBIOLOGY - GENERA L [place] [address] * (ABNORMAL) Urinalysis, microscopic only (09/29/2024 4:23 AM LOOM CLEANER) WBC, ur 0-5 0 - 5 /HPF RBC, ur 0-2 0 - 2 /HPF [facility] Epithelial cells, squamous, ur 1-5 0 - 5 /HPF [facility] Bacteria, ur Trace(A) [facility] Culture Reflex Comment Reflex conditions for urine culture (WBC >10) not met. [facility] Urine 09/29/2024 4:23 AM LOOM CLEANER 09/29/2024 4:29 AM LOOM CLEANER us Es Chakraborty MD LAB URINE ORDERABLES Rosie l Result Performing Organization Address [facility] [place] [address] * aPTT (09/29/2024 4:23 AM LOOM CLEANER) aPTT 30 28 - 38 sec Comment: Code Blue Specimen Interpretive Data Heparin therapeutic range: 66.0 - 100.0 seconds. Range based on correlation with therapeutic heparin activity range of 0.3 - 0.7 Units/mL. Current interpretive data was last revised on 2023. Blood 09/29/2024 4:23 AM LOOM CLEANER 09/29/2024 4:29 AM LOOM CLEANER us Lio Montana Jr., MD LAB BLOOD ORDERABLES F inal Result Performing Organization Address City/[facility]/[place] [address] * (ABNORMAL) Protime-INR (09/29/2024 4:23 AM LOOM CLEANER) PT 13.8(H) 9.7 - 13.0 sec Comment:Code Blue Specimen INR 1.27(H) 0.90 - 1.20 [facility]ELA [facility] Comment: Code Blue Specimen Interpretive data Oral anticoagulant therapeutic ranges: Venous thromboembolism prophylaxis or treatment: 2.0-3.0 CARDIOLOGY Standard range: 2.0-3.0 High-intensity range: 2.5-3.5 Refer to indication-specific guidelines for appropriate target ranges for prosthetic heart valve replacement. Current interpretive data was last revised on 2019. Blood 09/29/2024 4:23 AM LOOM CLEANER 09/29/2024 4:29 AM LOOM CLEANER us Lio Montana Jr., MD LAB BLOOD ORDERABLES F inal Result [facility] One [facility] Department [place] [address] * CT Chest PE (CTA) W Contrast (09/29/2024 1:26 AM LOOM CLEANER) Anatomical Region Laterality Modality Body N/A Computed Tomogra phy 09/29/2024 2:40 AM LOOM CLEANER Impressions 09/29/2024 10:52 AM LOOM CLEANER 1. Small acute pulmonary embolism in a [...] Jerrell Watts M.D. Narrative 09/29/2024 10:52 AM LOOM CLEANER EXAMINATION: CT CHEST PE (CTA) W CONTRAST [...] * Blood culture Blood (09/29/2024 12:44 AM LOOM CLEANER) Report Final Report: No growth Blood 09/29/2024 12:4 4 AM LOOM CLEANER 09/29/2024 1:03 AM LOOM CLEANER Narrative MANUELA [facility]ESMA - 10/03/2024 7:01 AM LOOM CLEANER From a different site than #1. Collection->Peripheral [...] performance characteristics have been verified by the [facility] Microbiology Laboratory. For questions about this culture, contact the Microbiology Laboratory at [phone]. Interpretive data was last revised on 24. Lio Montana Jr., MD LAB MICROBIOLOGY - GEN ERAL ORDERABLES Final Result [facility] One [facility] Department [place] [address] * (ABNORMAL) Blood culture Blood (09/29/2024 12:44 AM LOOM CLEANER) Direct Specimen Exam Molecular Analysis: Corynebacterium detected by bronson ePlex BCID-GP panel. Single positive culture may represent contamination. This test does not exclude the possibility of a mixed bacterial infection. Notification of: Corynebacterium ??called to and read back by: Victor Hugo Norris [phone] on 09/30/2024 21:58:03 by: Corazon Flores Direct Specimen Exam Stain: Gram Positive Bacilli Time to culture positivity (aerobic media): 41.9 hours Notification of: Gram Positive Bacilli called to and read back by: Victor Hugo Norris [phone] on 09/30/2024 19:37:15 by: Corazon Hector.[facility] Report Final Report: Corynebacterium species Single blood culture positive for this microorganism. ??Isolate is a possible contaminant. If a similar isolate is recovered from a second blood culture collected within 3 days of this culture, both will be evaluated and, if determined to be the same species, antimicrobial susceptibility testing will be performed. (.) [facility] Organism CORYNEBACTERIUM SPECIES [facility] Blood 09/29/2024 12:4 4 AM LOOM CLEANER 09/29/2024 1:03 AM LOOM CLEANER Narrative [facility] - 10/05/2024 2:34 PM LOOM CLEANER Collection->Peripheral 1. ?Blood cultures are incubated for [...] performance characteristics have been verified by the [facility] Microbiology Laboratory. For questions about this culture, contact the Microbiology Laboratory at [phone]. Interpretive data was last revised on 24. us Lio Montana Jr., MD LAB MICROBIOLOGY - GEN ERAL ORDERABLES Final Result Performing Organization Address [facility] Co de Phone Number MANUELA [facility] Maris [facility] Department [place] [address] * (ABNORMAL) eGFR (09/28/2024 11:53 PM LOOM CLEANER) eGFR 55(L) >=60 mL/min/1. 73 m2 Comment: [...] reviewed 2021. Blood 09/28/2024 11:5 3 PM LOOM CLEANER 09/29/2024 12:24 AM LOOM CLEANER us Es Chakraborty MD LAB BLOOD ORDERABLES Rosie l Result Performing Organization Address [facility] Co de Phone Number MANUELA MONIQUE Maris [facility] Department [place] [address] * (ABNORMAL) Differential, auto (09/28/2024 11:53 PM LOOM CLEANER) Neutrophil abs 13.7(H) 1.5 - 6.5 K/cumm Imm gran abs 0.1 0.0 - 0.1 K/cumm [facility] Lymphocyte abs 1.8 0.8 - 3.3 K/cumm [facility] Monocyte abs 1.0(H) 0.2 - 0.8 K/cumm [facility] Eosinophil abs 0.0 0.0 - 0.5 K/cumm [facility] Basophil abs 0.0 0.0 - 0.1 K/cumm [facility] Neutrophil pct 82.4 % [facility] Comment: Interpretive Data Percent cell count reference ranges are not reported, since discordance with absolute values may lead to misinterpretation of CBC data. Current Interpretive Data was last revised on 2018. Imm gran pct 0.4 % [facility] Comment: Interpretive Data Percent cell count reference ranges are not reported, since discordance with absolute values may lead to misinterpretation of CBC data. Current Interpretive Data was last revised on 2018. Lymphocyte pct 10.6 % [facility] Comment: Interpretive Data Percent cell count reference ranges are not reported, since discordance with absolute values may lead to misinterpretation of CBC data. Current Interpretive Data was last revised on 2018. Monocyte pct 6.2 % [facility] Comment: Interpretive Data Percent cell count reference ranges are not reported, since discordance with absolute values may lead to misinterpretation of CBC data. Current Interpretive Data was last revised on 2018. Eosinophil pct 0.2 % [facility] Comment: Interpretive Data Percent cell count reference ranges are not reported, since discordance with absolute values may lead to misinterpretation of CBC data. Current Interpretive Data was last revised on 2018. Basophil pct 0.2 % [facility] Comment: Interpretive Data Percent cell count reference ranges are not reported, since discordance with absolute values may lead to misinterpretation of CBC data. Current Interpretive Data was last revised on 2018. Blood 09/28/2024 11:5 3 PM LOOM CLEANER 09/29/2024 12:24 AM LOOM CLEANER Es Chakraborty MD LAB BLOOD ORDERABLES Rosie l Result Performing Organization Address [facility]/ZIP Co de Phone Number [facility] Department [place] [address] * (ABNORMAL) CBC with auto differential (09/28/2024 11:53 PM LOOM CLEANER) [facility] WBC 16.6(H) 3.8 - 9.9 K/cumm Hgb 11.9 11.9 - 15.5 g/dL [facility] Hct 36.4 35.6 - 45.5 % [facility] Plt 299 150 - 400 K/cumm [facility] MPV 9.1 9.1 - 12.3 fL [facility] RBC 3.82(L) 3.90 - 5.20 M/cumm [facility] MCV 95.3 81.3 - 96.4 fL [facility] MCH 31.2 27.1 - 33.3 pg [facility] MCHC 32.7 32.3 - 35.7 g/dL [facility] RDW CV 13.3 11.1 - 14.9 % [facility] RDW SD 46.6 35.7 - 48.1 fL [facility] NRBC abs 0.00 0.00 - 0.01 K/cumm [facility] Blood 09/28/2024 11:5 3 PM LOOM CLEANER 09/29/2024 12:24 AM LOOM CLEANER Es Chakraborty MD LAB BLOOD ORDERABLES Rosie l Result Performing Organization Address City/[facility]/ZIP Co de Phone Number [facility] Department [place] [address] * Comprehensive metabolic panel (09/28/2024 11:53 PM LOOM CLEANER) Pathologist [facility] Sodium 142 135 - 145 mmol/L Potassium, pl 4.0 3.3 - 4.9 mmol/L [facility] Chloride 105 97 - 110 mmol/L [facility] CO2 24 22 - 32 mmol/L [facility] Anion gap 13 2 - 15 mmol/L [facility] BUN 8 6 - 25 mg/dL [facility] Creatinine 1.06 0.60 - 1.10 mg/dL [facility] Glucose 156 70 - 199 mg/dL [facility] Comment: Interpretive Data Fasting glucose >/= [...] 2022. Calcium 9.3 8.5 - 10.3 mg/dL [facility] Bilirubin, total 0.2 0.1 - 1.2 mg/dL [facility] Protein, pl 7.2 6.5 - 8.5 g/dL [facility] Albumin 3.9 3.5 - 5.0 g/dL [facility] Alk phos 65 40 - 130 Units/L [facility] ALT 7 7 - 45 Units/L [facility] AST 18 10 - 45 Units/L [facility] Blood 09/28/2024 11:5 3 PM LOOM CLEANER 09/29/2024 12:24 AM LOOM CLEANER Es Chakraborty MD LAB BLOOD ORDERABLES Rosie l Result [facility] One [facility] Department [place] [address] * XR Chest Pa Lateral 2 Vw (09/28/2024 11:46 PM LOOM CLEANER) Anatomical Region Laterality Modality Body, Chest N/A Computed Radiogr aphy 09/28/2024 11:5 4 PM LOOM CLEANER Impressions 09/29/2024 10:30 AM LOOM CLEANER The patient's known right lung nodule is [...] Jerrell Watts M.D. Narrative 09/29/2024 10:30 AM LOOM CLEANER EXAMINATION: XR CHEST PA LATERAL 2 VIEWS [...] XR Chest 1 View (09/28/2024 2:32 PM LOOM CLEANER) Anatomical Region Laterality Modality Body, Chest N/A Digital Radiogra phy 09/28/2024 3:18 PM LOOM CLEANER Impressions 09/28/2024 3:19 PM LOOM CLEANER The current study is compared with the [...] Lev Ramos M.D. Narrative 09/28/2024 3:19 PM LOOM CLEANER EXAMINATION: 1 view chest radiograph Procedure Note [...] Final Result * Cytology (09/28/2024 1:42 PM LOOM CLEANER) Fluid (Lung (Cytology)) 09/28/2024 1:42 PM LOOM CLEANER 09/28/2024 2:54 PM LOOM CLEANER Narrative PATHOLOGY [facility] - 10/02/2024 8:53 PM LOOM CLEANER EPIC results best viewed via link to PDF [facility] Radha Zhou [facility] of Surgical Path[place] [address] Note to Patients: This report may contain [...] CYTOPATHOLOGY REPORT FINAL Patient Name: ?? BIRGIT EDWARDS Gender: ??F : ??1950 (Age: 74) Address: ??[address], [place], [place] ??[address] Hospital #: ??[id number] Taken:09/28/2024 Received:09/28/2024 Reported: 10/02/2024 Patient Type: [facility] Ancillary ?? Service: Pulmonary Location: Physician(s): ??MD [...] other material indicated in the diagnosis). Kymberly Nick M.D. Report Electronically Reviewed and Signed Out By ??Kymberly Nick M.D. 10/02/2024 20:53:08 Cyrus Jimenez MS, [facility]PA Gross Description A. ??Lung, right middle lobe, [...] Surgical Pathology and Flow Cytometry Departments at [facility] as part of an ongoing quality engineer medical device program and in compliance with federally mandated [...] Surgical Pathology and Flow Cytometry Departments of [facility]. ??It has not been cleared or approved by the U. S. Food and Drug Administration. Rin Cordero MD LAB CYTOLOGY ORDERABLES Final Result PATHOLOGY [facility] 3rd Floor [place], [place] [phone] * Bronchoscopy -[facility] Interventional Pulm; Bronchoscopy, RADIAL BIOPSY (09/28/2024 1:18 PM LOOM CLEANER) Anatomical Region Laterality Modality Other Narrative Procedure Note Ced Price Chi, MD - 09/28/2024 1:18 PM CST [facility] Interventional Pulmonary Patient Name: Birgit Edwards [...] FDG Skull to Thigh (08/26/2024 9:38 AM LOOM CLEANER) Anatomical Region Laterality Modality N/A Positron Emissio n Tomography (PET) 08/26/2024 11:4 1 AM LOOM CLEANER Narrative 08/26/2024 11:53 AM LOOM CLEANER EXAM DESCRIPTION: ?? PET/CT FDG SKULL TO [...] Electronically signed by ??Mateo Anderson M.D. CH: D: ??08/26/2024 11:53 AM T: ??08/26/2024 11:53 AM Report ID: [id number] Reading Location: ??[id number] Procedure Note Mateo Anderson Jr., MD - [...] Electronically signed by Mateo Anderson M.D. CH: SUPA Report ID: [id number] Reading Location: [id number] us Javi Limon MD IMG PET PROCEDURES Final Res ult * POCT glucose (08/26/2024 8:08 AM LOOM CLEANER) Glucose, POC 109 70 - 199 mg/dL Comment:Testing performed by : [facility], [address] [place] [address], [id number] Blood 08/26/2024 8:08 AM LOOM CLEANER 08/26/2024 8:08 AM LOOM CLEANER us Darcy Pendegraft SAFETY LEADER LAB POCT ORDERABLES - DEVICE Final Result [place] [id number] Department of Laboratories [place], [place] [id number] * (ABNORMAL) Pulmonary Function Test - (08/17/2024 3:22 PM CDT) FVC POST 1.73(A) 1.84 - 3.30 L [facility] FEV1 POST 1.38(A) 1.42 - 2.51 L [facility] [id number] 80.18 64.22 - 89.88 % [facility] UXR75-54% POST 1.38 0.75 - 3.03 L/s [facility] PEF POST 4.33 3.88 - 6.84 L/s [facility] DLCOc SB 9.01(A) 13.87 - 25.34 ml/(min*mm Hg) [facility] DLCO/VA PRE 3.09 2.71 - 5.80 ml/(min*mm Hg*L) [facility] VA 2.91(A) 4.45 - 4.45 L [facility] TLC PRE 3.10(A) 3.62 - 5.59 L [facility] VC PRE 1.79 1.62 - 3.00 L [facility] IC PRE 1.26(A) 1.72 - 1.72 L [facility] FRC PL PRE 1.84 1.78 - 3.42 L [facility] ERV PRE 0.53(A) 0.58 - 0.58 L [facility] RV PRE 1.32(A) 1.44 - 2.59 L [facility] VTG 1.89 L [facility] RAW PRE 4.45(A) 3.06 - 3.06 cmH2O*s/L [facility] FVC PRE 1.66(A) 1.84 - 3.30 L [facility] FEV1 PRE 1.23(A) 1.42 - 2.51 L [facility] [id number] 74.36 64.22 - 89.88 % [facility] VWK83-63% PRE 0.88 0.75 - 3.03 L/s [facility] PEF PRE 4.20 3.88 - 6.84 L/s [facility] Anatomical Region Laterality Modality PFT 08/17/2024 2:35 [...] F2 (Prothrombin) Mutations (08/10/2024 2:27 PM CDT) [facility] Factor V Leiden F5 Normal Normal [facility] Comment:Testing performed by : [facility], [address] [place] [address], [place]., [address] Factor V Leiden Interpretation The patient is negative for the Factor V Leiden mutation (F5:c.1601G>A, [id number]) with two copies of the normal allele. [facility] Comment:Testing performed by : [facility], [address] [place] [address], [place]., [address] Prothrombin F2 Mutation Normal Normal [facility] Comment:Testing performed by : [facility], [address] [place]., [address] Prothrombin F2 Interpretation The patient is negative for the prothrombin gene mutation (F2 c.*97G>A ([id number])) with two copies of the normal allele). [facility]UELA [facility] Comment:Testing performed by : [facility], [address] [place]., [address] FVL and Prothrombin Specimen Blood [facility] Comment:Testing performed by : [facility], [address] [place]., [address] FVL and Prothrombin Result Review Final report reviewed by: DANIELA Cohen, Keyseating Machine Set Up Operator, on 08/12/2024 07:51:59 CDT. [facility] Comment: Interpretive Data Testing was performed simultaneously [...] is recommended. Method: This assay utilizes the [employer] Xpert?? FII & FV qualitative in vitro diagnostic genotyping test for the detection of targeted FV and F2 alleles from sodium citrate or EDTA anticoagulated whole blood. This test is performed on the Cepheid GeneXpert?? Dx System which automates and integrates sample purification, nucleic acid amplification, and detection of the target sequence in whole blood using real- time Polymerase Chain Reaction (PCR) assays based on Scorpion?? PCR technology. Note: F5 (NM_[id number]):c.1601G>A, R534Q or Factor V Leiden is also referred to as c.1691G>A, p.R506Q in the literature. ?? FDA statement: The Meuugame Xpert?? FII & FV qualitative in vitro diagnostic genotyping test for use on specimens from adult populations. The sheet manufacturing supervisor did not evaluate testing on samples from pediatric patients (<18 years of age). The performance characteristics of this test on specimens from pediatric patients have been assessed by the [facility] and deemed acceptable for clinical reporting. The StackMobid Xpert?? FII & FV genotyping test is FDA-cleared for testing unprocessed peripheral blood specimens containing either EDTA or sodium citrate. Processing of specimens submitted for reflex testing requires modifications from the sheet manufacturing supervisor's instructions. The performance characteristics of those modifications, if necessary, have been determined by [facility] in a manner consistent [...] May 2017. 2. Bhanu RAMOS, et al; [facility] Factor V Leiden Working Group. Carolyn Med. 2001. 3:139- 48. 3. NAIN Waters, et al. Nature. 2019. 581:434? 443 4. Kristen COTE. Factor V Leiden Thrombophilia. 1998March 01 [Updated 2017Oct 22]. Available from: https://www.ncbi.nlm.nih.gov/books/CDJ9400/ 5. Philip PM, et al. N Engl J Med. 1994. 332:912-17. 6. Erich Gilliland PH. J Thromb Haemost. 2009. 7 Suppl 1:301? 4. 7. James S., et al. Carolyn Med. 2018. 20:1489? 1498 This test was performed at: [facility], [address] [facility], [facility]#[id number], Eden Durbin, Ph.D., [place], [address], [place] Current interpretive data was last revised 2023. Testing performed by: [facility], [address] [place] [address], [place]., [address] Blood 08/10/2024 2:27 PM CDT 08/11/2024 9:07 AM CDT Javi Limon MD LAB GENETIC TESTING Final Re sult [facility] [address] [facility] [place] [address] [facility] * Diagnostic Mammogram Bilateral W Mohsen (06/10/2024 [...] breast complaint. ??Reviewing the patient's chart in [facility], no note specifying the location of [...] PM - Electronically signed by ??Ulises Hernandez M.D., MD: D: ??06/10/2024 4:05 PM T: ??06/10/2024 4:05 PM Report ID: [id number] Reading Location: ??MAMMMHE Corazon Humphrey SAFETY LEADER IMG MAMMO PROCEDURES Final Result from Last 3 Months or Most Recently Relevant to Health Maintenance Insurance * Guarantor: Birgit Edwards Account Type Relation to Patient Date of Phone Billing Address Personal/Family Self [id number] [place] [address] [employer] GOLD * Guarantor: Birgit Edwards Account Type Relation to Patient Date of Phone Billing Address Personal/Family Self [id number] [place] [address] [employer] MEDICARE * Guarantor: Birgit Edwards Account Type Relation to Patient Date of Phone Billing Address Personal/Family Self [id number] [place] [address] Advance Directives For more information, please contact: [phone] * Full Code (Latest Code Status on File) Date Activated Date Inactivated Comments 09/29/2024 5:10 AM 10/10/2024 10:51 PM * Full Code Date Activated Date Inactivated Comments 06/23/2024 5:52 PM 06/28/2024 6:18 PM * Full Code Date Activated Date Inactivated Comments 03/14/2024 4:39 PM 03/16/2024 12:35 AM * Full Code Date Activated Date Inactivated Comments 03/14/2024 2:40 PM 03/14/2024 4:39 PM Care Teams Garage Hand Relationship Specialty Start Date End Date Darcy Reddy NP PCP - General Family Medicine 11/29/21 Javi Limon MD [address] [facility] [address] [address] Consulting Physician Pulmonary Disease 06/26/24
--- OUTSIDE RECORDS SUMMARY | 2024-11-10 10:05 | XMS_ITS | Encounter Summary ---
Author Organization [facility] Address [address] [place] [address]. [place] [address] [place] [address] Care Team Providers Care Slp Teacher Name Role Phone Corazon Humphrey Primary Care Provider [phone] Encounter Details Date Type Department Care Team (Late st Contact Info) Description 08/01/2019 Hospital Orders Only [facility] [address] [place] [address] Kayode Henry MD [address] [place] [address] Social History Tobacco Use Types Packs/Day Years Used Date Smoking Tobacco: Never Assessed Comments Unknown Sex and Gender Information Value Date Recorded Sex Assigned at Not on file Legal Sex Female 4:16 PM CDT Gender Identity Not on file Sexual Orientation Not on file documented as of this encounter Plan of Treatment Not on file documented as of this encounter Visit Diagnoses Not on filedocumented in this encounter Care Teams Slp Teacher Relationship Specialty Start Date End Date Corazon Humphrey FNP [address] [facility] [address] [place] [address] PCP - General NURSE PRACTITIONER 10/23/23 documented as of this encounter
--- NOTE | 2024-11-10 15:40 | PM.IMPN ---
Progress Note: A&P Assessment and Plan (1) Acute UTI: Code(s): N39.0 - Urinary tract infection, site not specified Status: Acute (2) AMS (altered mental status): Code(s): R41.82 - Altered mental status, unspecified Status: Acute (3) Hypertension: Code(s): I10 - Essential (primary) hypertension Status: Acute (4) Bipolar 1 disorder: Code(s): F31.9 - Bipolar disorder, unspecified Status: Acute Plan Acute UTI S/p Rocephin Urine culture negative AMS patient somnolent CT head no acute change CXR pending continue PT/OT Right hip pain CT pelvis no fracture ortho re evaluated and noted no fractures and patient will continue with PT/Ot and placement PRN pain control HTN titrate home meds with clinical course Bipolar disorder continue home meds Leukocytosis WBC worsening WBC 11.3 today CXR pending DVt prophylaxis on Xarelto PT/OT for placement eval Subjective Date/time seen: 11/10/24 15:40 Interval history: patient somnolent today CT head from yesterday no acute changes Review of Systems Review of Systems: All systems reviewed & are unremarkable except as noted in HPI and below Exam Narrative: Patient is comfortable, NAD HEENT: eyes are clear and none icteric LUNGS:CTA HEART: RR S1S2 ABD: BS+, Soft and nontender Lower extremities: unable to move RLE due to pain at the hip SKIN: nonjaundiced Neuro: grossly intact. Objective Data Vital Signs Vital Signs: Vital Signs - 24 hr 11/09/24 16:00 11/09/24 20:00 11/09/24 20:31 Temperature Pulse Rate 104 H 106 H 111 H Respiratory Rate Blood Pressure Pulse Oximetry Oxygen Delivery 11/09/24 21:24 11/10/24 00:00 11/10/24 04:00 Temperature 97.3 F L Pulse Rate 111 H 87 87 Respiratory Rate 16 Blood Pressure 121/63 Pulse Oximetry 97 Oxygen Delivery 11/10/24 05:29 11/10/24 08:00 11/10/24 09:05 Temperature 98.3 F Pulse Rate 98 83 Respiratory Rate 12 Blood Pressure 134/56 L Pulse Oximetry 94 Oxygen Delivery Room Air 11/10/24 09:05 11/10/24 09:06 11/10/24 12:00 Temperature Pulse Rate 96 96 65 Respiratory Rate Blood Pressure 133/59 L Pulse Oximetry 92 Oxygen Delivery 11/10/24 13:56 Temperature 97.2 F L Pulse Rate 72 Respiratory Rate 16 Blood Pressure 127/53 L Pulse Oximetry 95 Oxygen Delivery Intake/Output Intake/Output: Intake & Output 11/07/24 11/08/24 11/09/24 11/10/24 23:59 23:59 23:59 23:59 Intake Total 980 1627 50 Output Total 1400 1950 1300 850 [facility] -[phone] Meds/Results Medications: Active Medications Generic Name Dose Route Start Last Admin Trade Name Freq PRN Reason Stop Dose Admin Acetaminophen 650 mg 11/07/24 23:09 11/08/24 09:16 Acetaminophen 325 Mg Tablet PO 650 mg Q6H PRN Administration Mild Pain (1-3) or Fever Amlodipine Besylate 10 mg 11/07/24 09:00 11/10/24 09:06 Amlodipine Besylate 10 Mg Tablet PO 10 mg DAILY ADAM Administration Benztropine Mesylate 0.5 mg 11/07/24 09:00 11/10/24 09:07 Benztropine Mesylate 0.5 Mg Tablet PO 0.5 mg BID ADAM Administration Carvedilol 3.125 mg 11/06/24 21:00 11/10/24 09:06 Carvedilol 3.125 Mg Tablet PO 3.125 mg Q12HR ADAM Administration Cyanocobalamin 1,000 mcg 11/07/24 09:00 11/10/24 09:06 Cyanocobalamin 1,000 Mcg Tablet PO 1,000 mcg DAILY ADAM Administration Famotidine 20 mg 11/07/24 09:00 11/10/24 09:06 Famotidine 20 Mg Tablet PO 20 mg DAILY ADAM Administration Furosemide 40 mg 11/07/24 09:00 11/10/24 09:07 Furosemide 40 Mg Tablet PO 40 mg DAILY ADAM Administration Lamotrigine 100 mg 11/07/24 09:00 11/10/24 09:07 Lamotrigine 100 Mg Tablet PO 100 mg DAILY ADAM Administration Montelukast Sodium 10 mg 11/07/24 09:00 11/10/24 09:05 Montelukast Sodium 10 Mg Tablet PO 10 mg DAILY ADAM Administration Morphine Sulfate 2 mg 11/08/24 09:49 11/08/24 17:26 Morphine Sulfate (*Crx) 2 Mg/Ml Inj IV PUSH 2 mg Q4H PRN Administration Pain Rated 7-10 Potassium Chloride 20 meq 11/07/24 09:00 11/10/24 13:17 Potassium Chloride 20 Meq Er Tablet PO 20 meq TID ADAM Administration Quetiapine Fumarate 200 mg 11/06/24 21:00 11/09/24 20:31 Quetiapine Fumarate 100 Mg Tablet PO Not Given HS ADAM Risperidone 0.25 mg 11/07/24 09:00 11/10/24 09:06 Risperidone 0.25 Mg Tablet PO 0.25 mg BID ADAM Administration Rivaroxaban 20 mg 11/07/24 09:00 11/10/24 09:06 Rivaroxaban 10 Mg Tablet PO 20 mg DAILY ADAM Administration Senna/Docusate Sodium 2 tab 11/07/24 09:00 11/10/24 09:06 Senna/Docusate Sodium Tablet PO 2 tab BID ADAM Administration Sertraline HCl 50 mg 11/07/24 09:00 11/10/24 09:05 Sertraline Hcl 50 Mg Tablet PO 50 mg DAILY ADAM Administration Radiology Results: ITS Impressions Abdomen/Pelvis CT 11/06/24 09:00 IMPRESSION: No acute intra-abdominal findings. Innumerable nonacute findings, as detailed above. Indeterminate soft tissue attenuation focus within the left kidney for which focused ultrasound may be performed nonemergently versus contrast-enhanced MRI Chest X-Ray 11/06/24 09:19 IMPRESSION: Possible early infiltrate within the left mid to lower lung field Hip/Pelvis X-Ray 11/07/24 22:02 IMPRESSION: As above. Pelvis CT 11/08/24 06:23 Impression: No acute fracture or dislocation. Mild degenerative changes overall, as detailed above. Probable 3.1 cm right ovarian cyst. Pelvic ultrasound recommended to further assess given patient age. Pelvis Ultrasound 11/08/24 18:47 IMPRESSION: Limited evaluation of the female pelvis without visualization of either ovary, as detailed above. Head CT 11/09/24 17:44 Impression: No acute intracranial hemorrhage or suspicious mass effect. Labs Labs: Laboratory Results - last 24 hr 11/10/24 05:59 WBC 13.1 H RBC 4.10 L Hgb 12.3 Hct 38.6 MCV 94.1 MCH 30.0 MCHC 31.9 L RDW 12.5 Plt Count 340 MPV 9.3 Sodium 140 Potassium 4.3 Chloride 104 Carbon Dioxide 27 Anion Gap 9 BUN 16 Creatinine 0.90 Estim Creat Clear Calc 47 Estimated GFR > 60 Glucose 119 H Calcium 10.4 H Magnesium 2.5 H Quality VTE Prophylaxis VTE prophylaxis: pharmacologic ordered
[2024-11-10] MEDS: SODIUM CHLORIDE 0.9% IV 1,000 ML 75 ML IV CONT (19:01)
[2024-11-10] MEDS: droNABinol (*CRX) 2.5 MG CAPSULE 5 MG PO (22:02)
[2024-11-11] VITALS: PULSE 69
[2024-11-11 04:00] VITALS: PULSE 69
[2024-11-11 05:25] VITALS: BP 147/50; PULSE 89; RESP 16; TEMP 36.8; O2SAT 90
[2024-11-11 07:28] LABS: Basophils Percent Auto 0.3 % (0.2-1.2); Eosinophils Absolute Auto 0.2 K/mm3 (0-0.3); Eosinophils Percent Auto 1.2 % (0-4.4); Hematocrit 36.5 % (37.0-47.0); Hemoglobin 11.4 g/dL (12.0-15.0); Immature Granulocyte Absolute 0.06 K/mm3 (0.00-0.031); Immature Granulocyte Percent A 0.5 % (0-0.5); Lymphocytes Percent Auto 16.2 % (18.3-44.2); Mean Corpuscular HGB Conc 31.2 g/dl (32-36); Mean Corpuscular Hemoglobin 30.1 pg (26-34); Mean Corpuscular Volume 96.3 fl (80-100); Mean Platelet Volume 9.2 fl (7.4-10.4); Monocytes Absolute Auto 1.2 K/mm3 (0.1-0.6); Monocytes Percent Auto 9.7 % (2.6-8.5); Neutrophils Absolute Auto 8.9 K/mm3 (1.3-6.7); Neutrophils Percent Auto 72.1 % (45.5-73.1); Platelet Count Result 317 k/mm3 (150-375); Red Blood Count 3.79 M/mm3 (4.2-5.4); Red Cell Distribution Width 12.6 % (11.5-14.5); White Blood Count 12.3 K/mm3 (4.5-10.0)
[2024-11-11 07:40] LABS: Lactic Acid Reflex 0.8 mmol/L (0.7-2.0)
[2024-11-11 07:44] LABS: Alanine Aminotransferase 45 U/L (6-35); Albumin Level 3.5 g/dL (3.5-5.1); Alkaline Phosphatase 80 U/L (38-126); Anion Gap 7 mmol/L (4-12); Aspartate Amino Transferase 43 U/L (14-36); Bilirubin,Total 0.5 mg/dL (0.2-1.3); Blood Urea Nitrogen 20 mg/dL (7-17); Calcium 9.9 mg/dL (8.4-10.2); Carbon Dioxide 27 mmol/L (22-30); Chloride 108 mmol/L (98-107); Estimated CRCL calculation 54 ml/min; Estimated Glomerular Filt Rate > 60; Glucose 117 mg/dL (65-110); Magnesium 2.6 mg/dL (1.6-2.3); Potassium 4.6 mmol/L (3.4-5.0); Sodium 142 mmol/L (137-145)
[2024-11-11 08:00] VITALS: PULSE 81
[2024-11-11] MEDS: BENZTROPINE MESYLATE 0.5 MG TABLET PO ×2 (10:16→17:09)
[2024-11-11] MEDS: CYANOCOBALAMIN 1,000 MCG TABLET 1000 MCG PO (10:16)
[2024-11-11] MEDS: FUROSEMIDE 40 MG TABLET PO (10:16)
[2024-11-11] MEDS: FAMOTIDINE 20 MG TABLET PO (10:16)
[2024-11-11] MEDS: SERTRALINE HCL 50 MG TABLET PO (10:16)
[2024-11-11] MEDS: RIVAROXABAN 10 MG TABLET 20 MG PO (10:16)
[2024-11-11] MEDS: POTASSIUM CHLORIDE 20 MEQ ER TABLET PO ×3 (10:16→17:09)
[2024-11-11] MEDS: MONTELUKAST SODIUM 10 MG TABLET PO (10:16)
[2024-11-11] MEDS: risperiDONE 0.25 MG TABLET PO ×2 (10:16→17:09)
[2024-11-11] MEDS: lamoTRIgine 100 MG TABLET PO (10:17)
[2024-11-11] MEDS: amLODIPine BESYLATE 10 MG TABLET PO (10:17)
[2024-11-11] MEDS: carvediloL 3.125 MG TABLET PO (10:17)
[2024-11-11] MEDS: SODIUM CHLORIDE 0.9% IV 1,000 ML 75 ML IV CONT (10:17)
--- NOTE | 2024-11-11 10:40 | PCPTNOTE ---
attempted PT eval, pt working with OT and just got back to bed, will attempt eval again later today
[2024-11-11 12:00] VITALS: PULSE 93
[2024-11-11] MEDS: droNABinol (*CRX) 2.5 MG CAPSULE 5 MG PO ×2 (12:45→17:09)
--- NOTE | 2024-11-11 13:34 | PM.DS ---
DS: Admitting Diagnosis Discharge Date 11/11/24 Admitting Diagnosis Altered mental status DS: Discharge Diagnosis Discharge Diagnosis (1) Acute right hip pain: Code(s): M25.551 - Pain in right hip Status: Acute DS: Summary Hospital Course Hospital Course: 74-year-old female present to the emergency department for evaluation after being found unresponsive at her care facility. Patient was minimally responsive upon arrival to the emergency department. At time of evaluation patient is more alert and appropriate. Patient does awake to voice and patient denies any major complaints but states she does have some abdominal pain to palpation. Currently patient is more awake, poor historian not sure why she is here, she did complaints of abdominal pain, but not sure about urinary symptoms however her is suspicious for UTI with 3+ leukocytes Esterase and >100 WBC, patient is started on ceftriaxone from ER, will continue will follow up urine culture. With concern for AMS patient had ct scan of head which is showed no acute intracranial hemorrhage or suspicious mass effect. will continue to monitor and have PT/OT evaluate. Pelvic Xray adn right hip CT did not show any fractures or dislocation, ortho was consulted and they evaluated patient and images and re-affirmed there is no acute changes. Conservative management and PT was recommended. PT/OT was consulted and SNF was recommended. Patient was started on Rocpehin on suspicion of UTI however urine culture was negative adn Abx was discontinued Patient 2 days ago was more somnolent and CT head was unremarkable. However, Seroquel 200mg at night which she takes at home was discontinued and patient mental status improved markedly. Discussed with the daughter and recommended follow up with Psychiatry for further medication adjustment. Mandie discharged today to SNF continued thereapy F/u with PCP in 3-5 days and F/u with PSych as discussed with Daughter. UTI ruled out S/p Rocephin Urine culture negative AMS patient somnolent from Medication CT head no acute change CXR no acute changes Discontinued Seroquel and mental status is markedly improved continue PT/OT F/u with Psych Right hip pain CT pelvis no fracture ortho re evaluated and noted no fractures and patient will continue with PT/Ot and placement PRN pain control HTN titrate home meds with clinical course Bipolar disorder continue home meds Leukocytosis resolving from dehydration giving poor oral intake due to ams CXR and lactic acid unremarkable Time Spent with Patient Time attestation: Total time spent providing and/or coordinating discharge services: DS: Data Data Completed and Pending Labs on day of discharge: Labs from last 24 hours 11/11/24 07:03 WBC 12.3 H RBC 3.79 L Hgb 11.4 L Hct 36.5 L MCV 96.3 MCH 30.1 MCHC 31.2 L RDW 12.6 Plt Count 317 MPV 9.2 Immature Gran % (Auto) 0.5 Neut % (Auto) 72.1 Lymph % (Auto) 16.2 L [place] % (Auto) 9.7 H Eos % (Auto) 1.2 Baso % (Auto) 0.3 Lymph # (Auto) 2.00 [place] # (Auto) 1.2 H Eos # (Auto) 0.2 Baso # (Auto) 0.0 Abs Immat Gran (auto) 0.06 H Absolute Neuts (auto) 8.9 H Absolute Nucleated RBC 0.000 Nucleated RBC % 0.0 Sodium 142 Potassium 4.6 Chloride 108 H Carbon Dioxide 27 Anion Gap 7 BUN 20 H Creatinine 0.77 Estim Creat Clear Calc 54 Estimated GFR > 60 Glucose 117 H Lactic Acid 0.8 Calcium 9.9 Magnesium 2.6 H Total Bilirubin 0.5 AST 43 H ALT 45 H Alkaline Phosphatase 80 Total Protein 7.0 Albumin 3.5 Preliminary micro results at discharge 11/06/24 06:16 Blood Culture - Preliminary Blood 11/06/24 07:43 Blood Culture - Preliminary Blood Discharge Plan Discharge Attending physician on discharge: Casey Maguire Consulting providers: Jeronimo Osorio Discharging Clinician: Casey Maguire Anticipated Discharge Date/Time: 11/10/24 15:37 Patient Disposition: SNF Activity: as tolerated Diet: as tolerated Patient Instructions: Rivaroxaban (By mouth) Patient Language: Yemeni Stand Alone Forms: General Discharge Information Follow-up/Referrals: Jeronimo Osorio MD [Physician] - (F/u with Ortho as instructed ) UNKNOWN,DOCTOR [Primary Care Provider] - (F/u with PCP in 3-5 days) Discharge Medications: New dronabinol [Marinol] 2.5 mg Capsule 5 mg PO BID 3 Days Qty: 12 0RF oxycodone 5 mg tablet 5 mg PO Q8H PRN (Reason: pain) 5 Days Qty: 10 0RF Continued amlodipine [Norvasc] 10 mg tablet 10 mg PO DAILY benztropine 0.5 mg tablet 0.5 mg PO BID carvedilol 3.125 mg tablet 3.125 mg PO BID Rx Instructions: must administer with a meal/food cyanocobalamin (vitamin B-12) 1,000 mcg capsule 1,000 mcg PO DAILY famotidine 20 mg tablet 20 mg PO DAILY furosemide 40 mg tablet 40 mg PO DAILY furosemide 40 mg tablet 40 mg PO DAILY gabapentin 300 mg capsule 300 mg PO HS loratadine 10 mg tablet 10 mg PO DAILY lamotrigine [Lamictal] 100 mg tablet 100 mg PO DAILY montelukast 10 mg tablet 10 mg PO DAILY potassium chloride [K-Tab] 20 mEq tablet extended release 20 meq PO TID risperidone 0.25 mg tablet 0.25 mg PO BID rivaroxaban 10 mg tablet 20 mg PO DAILY Senna Plus 8.6-50 mg capsule 2 tab-cap PO BID sertraline 50 mg tablet 50 mg PO DAILY acetaminophen [Tylenol] 325 mg tablet 650 mg PO Q6H PRN (Reason: pain) atorvastatin [Lipitor] 40 mg tablet 40 mg PO HS bisacodyl 10 mg suppository 10 mg RECTAL DAILY PRN (Reason: constipation) Rx Instructions: if no results from MOM cholecalciferol (vitamin D3) 25 mcg (1,000 unit) capsule 1,000 unit PO DAILY magnesium citrate Solution 296 ml PO DAILY PRN (Reason: constipation) lactulose [Enulose] 10 gram/15 mL solution 30 ml PO PRN polyethylene glycol 3350 17 gram/dose powder 17 g PO DAILY loperamide [Anti-Diarrheal (loperamide)] 2 mg tablet 2 mg PO Q8H PRN (Reason: loose stool) magnesium hydroxide 400 mg/5 mL suspension 30 ml PO HS PRN (Reason: constipation) multivit with min-folic acid 0.4 mg tablet 1 tablet PO DAILY ondansetron HCl 4 mg tablet 4 mg PO Q6H PRN (Reason: nausea and vomiting) risperidone microspheres [Risperdal Consta] 25 mg/2 mL suspension,extended rel recon 25 mg IM Q14D Discontinued quetiapine 200 mg tablet 200 mg PO HS Date of admission: 11/09/24 15:40 Primary Care Provider: UNKNOWN,DOCTOR Admitting Provider: Chet Bradley Attending physician on admission: Chet Bradley Condition: Serious
--- NOTE | 2024-11-11 13:57 | PCPTNOTE ---
attempted PT eval again, pt refused to get out of bed stating it's too hard , PT educated on the importance of mobility and participation in therapy and asked patient how she planed on moving when she left the hospital, pt then closed her eyes and turned her head away and would not speak again ignoring PT, will follow
[2024-11-11 14:00] VITALS: BP 126/54; PULSE 92; RESP 20; TEMP 36.6; O2SAT 93
== END 2024-11-11 18:35 | DRG 690 ==
LOC: ANHED 09:53 → ANH3MEDSUR 16:42
PROVIDERS: Emergency Medicine; Family Medicine; Admitting Provider Hospitalist; Emergency Provider Emergency Medicine; PCP Nurse Practitioner Family; Visit Provider Internal Medicine
DX: N39.0 Urinary tract infection, site not specified (principal); I10 Essential (primary) hypertension; M25.551 Pain in right hip; F31.9 Bipolar disorder, unspecified; Z20.822 Contact with and (suspected) exposure to COVID-19; Z79.01 Long term (current) use of anticoagulants
CPT/HCPCS: 36415; 36600; 70450; 71045; 72192; 73502; 73560; 74177; 76856; 80048; 80053; 80307; 81001; 82077; 82550; 82805; 82948; 83605; 83690; 83735; 83880; 84100; 84439; 84443; 84480; 84484; 85018; 85025; 85027; 85610; 85730; 87040; 87086; 87637; 93005; 96361; 96365; 96366; 96375; 96376; 97165; 97530; 97535; 99285; A9270; G0378; J0696; J2270; J7030; Q9967

== ENCOUNTER 2025-01-31 16:52 | Emergency (ER) | payer MEDICARE, MEDICAID, SELFPAY ==
[2025-01-31 16:48] VITALS: BP 127/58; PULSE 100; RESP 16; TEMP 36.8; O2SAT 98
--- NOTE | 2025-01-31 16:59 | ECG_ITS ---
Test Date: 2025-01-31 17:09:40 Measurements Intervals Geronimo Rate: 99 P: 74 PA: 138 QRS: 53 QRSD: 104 T: 31 QT: 322 QTc: 414 Interpretive Statements PROBABLY SINUS RHYTHM (SIGNIFICANT BASELINE ARTIFACT) DELAYED PRECORDIAL R/S TRANSITION BORDERLINE T WAVE ABNORMALITY- ANT/INF LEADS BASELINE ARTIFACT- I, II, III, AVR, AVL, AVF, V1-V6 BORDERLINE ECG Compared to ECG 11/06/2024 09:28:26 NO SIGNIFICANT CHANGE Electronically Signed On 01-31-2025 18:41:43 CDT by Bhavik Taylor D.O.
[2025-01-31 17:12] VITALS: O2SAT 98
[2025-01-31 17:14] VITALS: PULSE 99
--- OUTSIDE RECORDS SUMMARY | 2025-01-31 17:42 | XMS_ITS | Patient Health Record ---
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 Yelena Bragg Primary Care Provider Allergies Allergen (clinical drug ingredient) Drug/Non Drug Allergy documented on EMR Reaction Allergy Type Onset Date Status lorazepam Ativan Unknown Drug Allergy Active ziprasidone Geodon Unknown Drug Allergy Activ e Reason For Referral No Information Medications Medication SIG (Take, Route, Frequency, Duration) Notes Start Date End Date Status Docusate Sodium 100 MG 1 capsule as need ed Orally Twice a day Active SEROquel 300 MG 1 tablet at bedtime Orally Once a day for 30 days Active Furosemide 40 MG 1 tablet Orally Once a day Active Benztropine Mesylate 0.5 MG 1 tablet Ora lly twice a day for 30 days Active Fluticasone Propionate 50 MCG/ACT 1 spray in each nostril Nasally Once a day Active Fish Oil 1200 MG 1 capsule Orally Thr ee times a day Active Famotidine 20 MG 1 tablet at bedtime as needed Orally Once a day Active traZODone HCl 50 MG 1 tablet at bedtime Orally Once a day for 30 days Active Loratadine 10 MG 1 tablet Orally Once a day Active Sertraline HCl 50 MG 1 tablet Orally Onc e a day for 30 days Active LaMICtal 100 MG 1 tablet Orally Once a day Active risperiDONE 0.25 MG 1 tablet Orally Twic e a day for 30 days Active Radha-Lanta 200-200-20 MG/5ML 10 mL as needed Orally Four times a day Active risperiDONE ER 25 MG as directed Intramu scular every 14 days for 14 days Active Gabapentin 300 MG 1 capsule Orally Onc e a day at bedtime Active Eudora Carbonate 150 MG 1 capsule Orall y Twice a day for 30 days Active Montelukast Sodium 10 MG 1 tablet Orally Once a day Active valACYclovir HCl 1 GM 1 tablet Orally Ev carter 12 hours as needed Active SEROquel 100 MG 1 tablet Orally Once a day Active Artificial Tears 0.5-0.6 % as directed Ophthalmic Active Vitamin D3 25 MCG (1000 UT) 1 capsule Or ally Once a day Active Atorvastatin Calcium 10 MG 1 tablet Oral ly Once a day at bedtime Active Aspirin 81 81 MG 1 tablet Orally Once a day Active amLODIPine Besylate 10 MG 1 tablet Orall y Once a day Active Cyanocobalamin 1000 MCG 1 tablet Orally Once a day Active Carvedilol 3.125 MG 1 tablet with food O rally Twice a day Active Immunizations Vaccine Route Administration Date Status Comme nts Influenza, virus vaccine, trivalent, preservative free IM Intramuscular 09/13/2024 Administered Social History Tobacco Use: Social History Observation Description Date Details (start date - stop date) Former Smoker NA - NA Sex Assigned At : Social History Observation Description Sex Assigned At Female Tobacco Control (Standard) Question Answer Notes Tobacco use: Former smoker How long has it been since you last smoked? 1-3 months Problems Problem Type SNOMED Code ICD Code Onset Dates Problem Status W/U Status Risk Notes Problem Bipolar disorder (28016744) Bipolar disorder (F31.9) Active confirmed Vital Signs Heart Rate 93 /min 09/13/2024 Respiratory Rate 16 /min 09/13/2024 Blood pressure diastolic 82 mm Hg 09/13/2024 Oximetry 96 % 09/13/2024 Height 61.5 in 09/13/2024 Blood pressure systolic 142 mm Hg 09/13/2024 Weight 175.6 lbs 06/21/2024 BMI 32.64 kg/m2 06/21/2024 Encounters Encounter Location Date Provider Diagnosis [address] [place] [address] 02/02/2024 Arif Habib Bipolar disorder F31 .[address] [place] [address] 03/29/2024 Arif Habib Bipolar disorder F31 .[address] [place] [address] 06/21/2024 Arif Habib Bipolar disorder F31 .[address] [place] [address] 09/13/2024 Ari Habib Encounter for immunization Z23 and Bipolar disorder F31.[address] [place] [address] 02/17/2024 Arif Habib [address] [place] [address] 02/19/2024 Arif Habib [address] [place] [address] 02/26/2024 Arif Habib [address] [place] [address] 04/12/2024 Arif Habib [address] [place] [address] 06/15/2024 Arif Habib [address] [place] [address] 06/23/2024 Arif Habib [address] [place] [address] 06/24/2024 Ari Habib Assessments Encounter Date Diagnosis (ICD Code) Assessment Notes Treatment Notes Treatment Clinical Notes Section Notes 06/21/2024 Bipolar disorder (ICD-10 - F31.9) Lower Risperdal 0.25 mg BID due to side effects including shakes & shuffling gait. Add Cogentin 0.5 mg BID. Continue other traetment. Side effects disxussed. Supportive treatment provided 09/13/2024 Encounter for immunization (ICD-10 - Z23) Ordered per standing orders for administering influenza vaccine to adults. 03/29/2024 Bipolar disorder (ICD-10 - F31.9) 02/02/2024 Bipolar disorder (ICD-10 - F31.9) 09/13/2024 Bipolar disorder (ICD-10 - F31.9) Dose of Risperdal was lowered to 0.25 mg BID due to side effects including shakes & shuffling gait. Add Cogentin 0.5 mg BID. Continue other traetment. Side effects disxussed. Supportive treatment provided 02/02/2024 Other Side effects discussed. Supportive treatment discussed. Continue current treatment. 03/29/2024 Other side effects discussed . Continue current treatment. Plan Of Treatment No Information Insurance Providers Payer Name Payer Address Payer Phone Subscriber Number Group Number Insured Name Patient Relationship to Insured Coverage Start Date Coverage End Date [employer] Medicare [address] [place] [address] [id number] Birgit Stern Self - patient is the insured 4 4 [facility] Claims Department [address] [place] [address] [id number] Birgit Stern Self - patient is the insured 4 [facility] Claims Department [address] [place] [address] [id number] Birgit Stern Self - patient is the insured 4 4 MEDICARE PART A [address] [place] [address] [id number] Birgit Stern Self - patient is the insured 4 MEDICARE PART A [address] [place] [address] [id number] Birgit Stern Self - patient is the insured 4 4 Medical (General) History Surgical History Surgery Date(Month/Year) Hospitalization History Reason Date(Month/Year) pulmonary embolism-[facility] 0 06/2024 [facility]
--- OUTSIDE RECORDS SUMMARY | 2025-01-31 17:42 | XMS_ITS | Clinical Summary ---
Author Organization [facility] Address [address] [place] [address] Care Team Providers Care Bottom Turner Name Role Phone Rashawn Fields MD Primary Care Provider [phone] Source Comments [facility],non-owned Affiliates and Associated Physician Practices is amultiple site organization consisting of ambulatory clinics and hospital sitesin [place], [place]. This disclosure is being madepursuant to the Care Everywhere program and may not contain all information available regarding this patient. Last updated 18.[facility] Allergies No known active allergies Medications * Be aware that medications may not be up to date on this document. Alwaysverify current medications with the patient. amLODIPine (NORVASC) 5 MG tablet Take 5 mg by mouth once daily Active atorvastatin (LIPITOR) 20 MG tablet Take 20 mg by mouth at bedtime Active fluticasone propionate (FLONASE) 50 MCG/ACT nasal spray [place] 2 sprays into each nostril once daily [...] MG chew tablet 81 mg once daily Active carvedilol (COREG) 3.125 MG tablet 04/25/2022 Active vitamin D3 (CHOLECALCIFERO L) 25 MCG (1000 UNITS) tablet 10/26/2021 Activ e furosemide (LASIX) 40 MG tablet 05/05/2022 Active magnesium hydroxide (MILK OF MAGNESIA CONC) 2400 MG/10ML suspension Active sertraline (ZOLOFT) 25 MG tablet 05/14/2022 Active Active Problems No known active problems Social History Tobacco Use Types Packs/Day Years Used Date Smoking Tobacco: Never Smokeless Tobacco: Never Comments No Sex and Gender Information Value Date Recorded Sex Assigned at Not on file Legal Sex Female 5:27 PM [employer] Gender Identity Not on file Sexual Orientation Not on file Last Filed Vital Signs Vital Sign Reading Time Taken Comments Blood Pressure 124/64 09/03/2018 4:29 PM [employer] Pulse 75 09/03/2018 4:29 PM [employer] MEMBER Temperature 37 C (98.6 F) 09/03/2018 4:29 PM [employer] MEMBER Respiratory Rate 16 09/03/2018 4:29 PM [employer] MEMBER Oxygen Saturation - - Inhaled Oxygen Concentration - - Weight 68 kg (150 lb) 09/03/2018 4:29 PM [employer] MEMBER Height 157.5 cm (5' 2 ) 09/03/2018 4:29 PM [employer] MEMBER Body Mass Index 27.44 09/03/2018 4:29 PM [employer] MEMBER Plan of Treatment Health Maintenance Due Date Last Done Comments COLOGUARD (AGES 45-75) - COL ON CA SCREENING 1950 COLON MONITORING 1950 COLONOSCOPY - COLON CA SCREENING 1950 CT COLONOGRAPHY - COLON CA SCREENING 1950 Colorectal Cancer Screening 1950 FIT - COLON CA SCREENING 1950 FLEX SIG - COLON CA SCREENING 1950 MEDICARE AWV 12 MONTHS 1950 HEPATITIS C SCREENING 04/02/1969 DTAP/TDAP/TD VACCINES (1 - Tdap) 1970 PNEUMOCOCCAL VACCINE 50+ (1 of 1 - PCV) 2001 ZOSTER VACCINE (1 of 2) 2001 COVID-19 VACCINE (1 - 2023-2 5 season) 2024 MAMMOGRAM 07/14/2024 07/14/2022 DEPRESSION SCREENING 10/19/2024 INFLUENZA VACCINE (Season Ended) 2025 Respiratory Syncytial Virus (RSV) Vaccine Pt: or [...] to complete this topic MENINGOCOCCAL (Group B) VACC INE SHARED DECISION-MAKING Aged Out No longer eligibl e based on patient's age to complete this topic MENINGOCOCCAL GROUPS A/C/Y/W VACCINE Aged Out No longer eligible b ased on patient's age to complete this topic [...] CDT Impressions 07/16/2022 3:11 PM CDT IMPRESSION: Benign mammogram, without evidence of malignancy. RECOMMENDATION: Screening mammography in one year, pending no interval breast concerns. OVERALL ASSESSMENT: BI-RADS CATEGORY 2: BENIGN. Report dictated by Phillip Doe MD (associate vice president). Angelica Rodriguez MD (associate vice president) also assisted in the interpretation of this study. I, Natanael Davies MD have personally reviewed and interpreted this examination/study. > Interpreting Provider: Natanael Davies MD on 07/16/2022 3:11 PM Narrative 07/16/2022 3:11 PM CDT EX AMINATION: DIGITAL MAMMO BILAT SCREENING W DRU DATE: 07/14/2022 HISTORY: Screening. Patient is not having any breast complaints today. COMPARISON: Bilateral screening mammogram dated 05/15/2021 from [facility] and 08/13/2018 from [facility] TECHNIQUE: Bilateral synthetic 2-D (C-view) digital mammogram images and bilateral digital breast tomosynthesis were obtained in the craniocaudal and mediolateral oblique projections. Additional projections were obtained to include the breasts in their entirety. 10 views were obtained. Computer-aided detection (CAD) was utilized. BREAST PARENCHYMAL COMPOSITION: Category B: There are scattered areas of fibroglandular density. FINDINGS: There are no suspicious findings or evidence of malignancy on mammography. There are benign findings noted. Vascular and benign calcifications are noted. There is no significant change from the prior. us Rashawn Fields MD MAMMO ORDERABLES Final Result * BONE DENSITY AXIAL SKELETON(1OR MORE SITES)[id number] (07/08/2022 9:27 AM CDT) Anatomical Region Laterality Modality Other 07/08/2022 1:47 PM CDT Narrative 07/08/2022 2:14 PM CDT PROCEDURE: DEXA BONE DENSITY AXIAL SKELETON, DATE/TIME OF EXAM: 07/08/2022 9:27 AM, LOCATION [facility] INDICATION: Z78.0: Menopause Z13.820: Osteoporosis screening [...] below > Dictated by Saeed Rubio MD (Oral Health Therapist) 07/08/2022 1:48 PM IMegan DO have personally reviewed and interpreted this examination/study. > Interpreting Provider: Megan Robbins DO on 07/08/2022 2:14 PM Procedure Note Megan Robbins DO - 07/08/2022 PROCEDURE: DEXA BONE DENSITY AXIAL SKELETON, DATE/TIME OF EXAM:07/08/2022 9:27 AM, LOCATION [facility] INDICATION: Z78.0: Menopause Z13.820: Osteoporosis screening [...] below > Dictated by Saeed Rubio MD (Oral Health Therapist) 07/08/2022 1:48PM IMegan DO have personally reviewed and interpreted this examination/study. > Interpreting Provider: Megan Robbins DO on 07/08/2022 2:14 PM us Ordering Provider Unlisted DEXA ORDERABLES Fi nal Result from Last 3 Months or Most Recently Relevant to Health Maintenance Insurance MEDICARE [facility] MEDICARE MANAGED CARE PLAN GENERIC MEDICARE [facility] Care Teams Bottom Turner Relationship Specialty Start Date End Date Rashawn Fields MD [address] [place] [phone] PCP - General 01/07/22
--- OUTSIDE RECORDS SUMMARY | 2025-01-31 17:42 | XMS_ITS | Referral Summary ---
Author Organization [facility] Address [address] [place] [address] Care Team Providers Care Staff Command And Control Officer Name Role Phone Darcy Reddy NP Primary Care Provider + [phone] Javi Limon MD Unavailable [phone] Encounters Date Type Department Care Team Description 12/19/2024 5:42 PM DESKTOP ARCHITECT - 12/19/2024 11:59 PM DESKTOP ARCHITECT Hospital Encounter [facility] Emergency, Room R Discharge Disposition: Discharge to home or self care 12/14/2024 10:25 AM DESKTOP ARCHITECT - 12/19/2024 5:36 PM DESKTOP ARCHITECT Hospital Encounter [facility] [address] [place] [address] Kayla Escobar MD Nations, Matthew Austin, DO Kheirkhahan, Nazanin, MD Closed right hip fracture, initial encounter (HCC) (Primary Dx); Dementia, unspecified dementia severity, unspecified dementia type, unspecified whether behavioral, psychotic, or mood disturbance or anxiety (HCC); Cyst of left ovary Discharge Disposition: Discharge to fpc facility from Last 3 Months Allergies Active Allergy [...] Wheeled Walker 1 each 06/26/20 24 Active montelukast (SINGULAIR) 10 mg tabletIndications: Seasonal Allergic Rhinitis Take 1 tablet (10 mg total) by mouth daily 30 tablet 07/15/20 24 Active polyethylene glycol (MIRALAX) 17 gram packetIndications: constipation Take 1 packet (17 g total) by mouth daily 07/15/20 24 Active senna-docusate (PERICOLACE) 8.6-50 mgIndications:Slow transit constipation Take 2 tablets by mouth 2 (two) times a day 07/15/20 24 Active sertraline (ZOLOFT) 50 mg tabletIndications: Bipolar affective disorder, currently depressed, moderate (HCC) Take 1 tablet (50 mg total) by mouth daily 30 tablet 07/15/20 24 Active atorvastatin (LIPITOR) 40 mg tablet Take 1 tablet (40 mg total) by mouth nightly 30 tablet 11 10/10/20 24 025 Active benztropine (COGENTIN) 0.5 mg tablet Take 1 tablet (0.5 mg total) by mouth 2 (two) times a day as needed for tremors 10/10/20 24 025 Active rivaroxaban (XARELTO) 20 mg tabletIndications: Venous Thrombosis Take 1 tablet (20 mg total) by mouth daily with dinner 10/10/20 24 Active ondansetron ODT (ZOFRAN-ODT) 4 mg disintegrating tabletIndications: Nausea and Vomiting Take 1 tablet (4 mg total) by mouth every 6 (six) hours as needed for nausea or vomiting 10/10/20 24 Active zinc sulfate (ZINCATE) 50 mg zinc (220 mg) capsule Take 1 capsule (220 mg total) by mouth daily Active loperamide (IMODIUM A-D) 2 mg tablet Take 1 tablet (2 mg total) by mouth every 8 (eight) hours as needed for diarrhea Active tpeawiou-upp-hkedg acid-vit K 400-80 mcg capsule Take 1 tablet by mouth daily Active acetaminophen (TYLENOL) 325 mg tablet Take 2 tablets (650 mg total) by mouth every 6 (six) hours as needed for pain Active ascorbic acid 500 mg tablet,chewable Take 1 tablet/chew tab (500 mg total) by mouth daily Active QUEtiapine (SEROquel) 100 mg tablet Take 1 tablet (100 mg total) by mouth nightly 30 tablet 12/20/19 25 Active Active Problems Problem Noted Date Diagnosed Date Constipation 12/17/2024 Closed right hip fracture, initial encounter Positive blood culture 10/05/2024 Pneumonia 10/04/2024 Assessment & Plan (10/09/2024 6:43 PM DESKTOP ARCHITECT): See fever for more information No more O2 requirement Urinary retention 10/01/2024 Assessment & Plan (10/05/2024 6:12 PM DESKTOP ARCHITECT): Possibly related to psychotropics vs poor mobility - Straight cath 09/30 x 1 - Servin placed 10/01 for PVR > 400 ml - Pass voiding trial on 10/03. Remove servin. Discharge planning issues 09/30/2024 Assessment & Plan (10/10/2024 10:44 AM DESKTOP ARCHITECT): Daughter Bekah Rader expresses concern about functional decline over the past several year/months. Patient reportedly has not been adequately caring for herself (e.g., not bathing) at her SNF. Daughter is open to the possibility of [...] 09/29/2024 Assessment & Plan (10/09/2024 6:47 PM DESKTOP ARCHITECT): She experienced acute onset confusion the day [...] 09/29/2024 Assessment & Plan (10/09/2024 6:44 PM DESKTOP ARCHITECT): She was recently diagnosed with acute bilateral [...] failure with p reserved ejection fraction (HFpEF) 09/29/2024 Assessment & Plan (09/29/2024 6:27 AM DESKTOP ARCHITECT): Chronic diastolic dysfunction noted on TTE in 06/2024. Appears euvolemic. Continue home maintenance Lasix 40 mg daily Fever 09/29/2024 Assessment & Plan (10/09/2024 6:43 PM DESKTOP ARCHITECT): She underwent an ambulatory bronchoscopy on 09/28 [...] 60 Bipolar affective disorder, currently depressed, moderate 06/29/2024 Assessment & Plan (07/15/2024 11:53 AM CDT): Vs dx of schizophrenia. Patient follows with psychiatry at [place]. Patient was noted by family that she [...] risk for the stabilization. Patient follows at [facility]. Assessment & Plan (07/01/2024 8:34 AM CDT): [...] 06/23/2024 Assessment & Plan (10/09/2024 6:53 PM DESKTOP ARCHITECT): She is being followed by pulmonology for [...] 06/23/2024 Assessment & Plan (09/29/2024 6:27 AM DESKTOP ARCHITECT): Continue home statin Assessment & Plan (07/15/2024 [...] 06/23/2024 Assessment & Plan (10/05/2024 6:03 PM DESKTOP ARCHITECT): Not currently in exacerbation. - Psychiatry was consulted- Risperdal consta 25mg IM q2 weeks (next dose to be given 10/07/24), benztropine from scheduled to PRN, stop lithium, stop oral risperidone, continue lamotrigine 100mg daily/quetiapine 200mg qHS/ sertraline 50mg. - FU outpatient psychiatry Acute hypoxic respiratory failure 06/23/2024 Primary hypertension 03/15/2024 Assessment & Plan (09/29/2024 6:27 AM DESKTOP ARCHITECT): Continue home amlodipine, carvedilol Assessment & Plan [...] 10/01/2024 Assessment & Plan (10/03/2024 12:08 PM DESKTOP ARCHITECT): Baseline 0.9-1, up to 1.16 on 10/01. Does not meet RINKU criteria yet. Poor oral intake, limited urine production (not oliguric) with bladder scans overnight showing only ~300 ml in the bladder. - Stable around 1-1.1 Encephalopathy 10/01/2024 10/01/2024 Hypoxia 09/29/2024 10/04/2024 Assessment & Plan (09/30/2024 12:12 PM DESKTOP ARCHITECT): Requiring 2L O2 in the ED to [...] drink = 0.6 oz pur e alcohol) [facility] Utilities Answer Date Recorded In the past 12 months has th [employer] electric, gas, oil, or water [employer] threatened to shut off services in your home? No 12/15/2024 Social Connection and Isolation Panel [NHANES] A nswer Date Recorded In a typical week, how many times do you talk on the phone with family, friends, or neighbors? Patient declined 12/15/2024 How often do you get togethe r with friends or relatives? Patient declined 12/15/2024 How often do you attend jewish or yazidism serv ices? Patient declined 12/15/2024 Do you belong to any clubs o r organizations such as jewish groups, unions, fraternal or athletic groups, or school groups? Patient declined 12/15/2024 How often do you attend meet ings of the clubs or organizations you belong to? Patient declined 12/15/2024 Are you , , di vorced, , never , or living with a partner? Never 12/15/2024 AUDIT-C Answer Date Recorded Q1: How often [...] like food, housing, medical care, and heating? Somewhat hard 12/15/2024 Hunger Vital Sign Answer Date Recorded Within the past 12 months, y ou worried that your food would run out before you got the money to buy more. Patient declined Within the past 12 months, t he food you bought just didn't last and you didn't have money to get more. Patient declined PRAPARE - Transportation Answer Date Re corded In the past 12 months, has l ack of transportation kept you from medical appointments or from getting medications? No 11/20 In the past 12 months, has l ack of transportation kept you from meetings, work, or from getting things needed for daily living? No 12/15/2024 Housing Stability Vital Sign Answer Patrick e Recorded In the last 12 months, was t here a time when you were not able to pay the mortgage or rent on time? Patient declined 12/15/19 25 In the past 12 months, how m any times have you moved where you were living? 0 12/15/2024 At any time in the past 12 m [facility], were you homeless or living in a alf (including now)? Patient declined 12/15/2024 Personal Safety Answer Date Recorded Have you ever been in or are you currently in a harmful physical or emotional relationship or is someone making you feel afraid or unsafe? Patient unable to answer 12/14/2024 Comments No Sex and Gender Information Value Date Recorded Sex Assigned at Not on file Legal Sex Female 1:18 AM DESKTOP ARCHITECT Gender Identity Not on file Sexual Orientation Not on file Last Filed Vital Signs Vital Sign Reading Time Taken Comments Blood Pressure 113/58 12/19/2024 11:00 AM DESKTOP ARCHITECT Pulse 92 12/19/2024 11:00 AM DESKTOP ARCHITECT Temperature 36.7 C (98.1 F) 12/19/2024 11:00 AM DESKTOP ARCHITECT Respiratory Rate 16 12/19/2024 11:0 0 AM DESKTOP ARCHITECT Oxygen Saturation 92% 12/19/2024 11: 00 AM DESKTOP ARCHITECT Inhaled Oxygen Concentration - - Weight 61.2 kg (134 lb 14.7 oz) 12/14/2024 8:12 PM DESKTOP ARCHITECT Height 152.4 cm (5') 12/14/2024 8:12 PM DESKTOP ARCHITECT Body Mass Index 26.35 12/14/2024 8:12 PM DESKTOP ARCHITECT Plan of Treatment Not on file Procedures Procedure Name Priority Date/Time Associated Diagnosis Comments EGFR Routine 12/17/2024 9:55 AM DESKTOP ARCHITECT CBC WITHOUT DIFFERENTIAL Routine 12/17/2024 9:55 AM DESKTOP ARCHITECT BASIC METABOLIC PANEL Routine 12/17/2024 9:55 AM DESKTOP ARCHITECT URINALYSIS, MICROSCOPIC ONLY STAT 12/16/2024 2:46 PM DESKTOP ARCHITECT URINE CULTURE STAT 12/16/2024 2:46 PM DESKTOP ARCHITECT URINALYSIS AND REFLEX TO MICROSCOPIC AND CULTURE STAT 12/16/2024 2:[address] HEAD WO CONTRAST ED Urgent/IP Urgent 12/15/2024 3:42 PM DESKTOP ARCHITECT XR CHEST 1 VIEW ED Urgent/IP Urgent 12/15/2024 3:26 PM DESKTOP ARCHITECT MRI HIP RIGHT WO CONTRAST ED Urgent/IP Urgent 12/15/2024 6:57 AM DESKTOP ARCHITECT EGFR Routine 12/15/2024 4:04 AM DESKTOP ARCHITECT DIFFERENTIAL AUTO Routine 12/15/2024 4:0 4 AM DESKTOP ARCHITECT COMPREHENSIVE METABOLIC PANEL Routine 12/15/2024 4:04 AM DESKTOP ARCHITECT CBC WITH AUTO DIFFERENTIAL Routine 12/15/2024 4:04 AM DESKTOP ARCHITECT URINALYSIS AND REFLEX TO MICROSCOPIC AND CULTURE STAT 12/14/2024 3:[address] HIP RIGHT WO CONTRAST ED 12/14/2024 2:12 PM DESKTOP ARCHITECT XR HIP RIGHT W PELVIS 2 OR 3 VIEWS ED 12/14/2024 11:14 AM DESKTOP ARCHITECT INFLUENZA A/B, RSV, AND COVID-19 PCR STAT 12/14/2024 10:40 AM DESKTOP ARCHITECT ECG 12-LEAD STAT 12/14/2024 10:34 AM DESKTOP ARCHITECT EGFR STAT 12/14/2024 10:33 AM DESKTOP ARCHITECT DIFFERENTIAL AUTO STAT 12/14/2024 10: 33 AM DESKTOP ARCHITECT SEPSIS LACTATE WITH REFLEX STAT 12/14/2024 10:33 AM DESKTOP ARCHITECT COMPREHENSIVE METABOLIC PANEL STAT 12/14/2024 10:33 AM DESKTOP ARCHITECT CBC WITH AUTO DIFFERENTIAL STAT 12/14/2024 10:33 AM DESKTOP ARCHITECT HEPATITIS C ANTIBODY Routine 10/02/2024 8:28 PM DESKTOP ARCHITECT DIAGNOSTIC MAMMOGRAM BILATERAL W MOHSEN Schedule Routine, Read Routine (OP Routine) 06/10/2024 2:19 PM CDT Mass of right breast, unspecified quadrant from Last 3 Months or Most Recently Relevant to Health Maintenance Results * eGFR (12/17/2024 9:55 AM DESKTOP ARCHITECT) eGFR >90 >=60 mL/min/1. 73 m2 Comment: Interpretive Data Reference Interval Normal >/= 90 mL/min/1.73m2 Mildly decreased* 60 - 89 mL/min/1.73m2 Mildly to moderately decreased 45 - 59 mL/min/1.73m2 Moderately to severely decreased 30 - 44 mL/min/1.73m2 Severely decreased 15 - 29 mL/min/1.73m2 Kidney Failure < 15 mL/min/1.73m2 *Relative to young adult level Estimated glomerular [...] interpretive data was last reviewed 2021. Blood 12/17/2024 9:55 AM DESKTOP ARCHITECT 12/17/2024 10:03 AM DESKTOP ARCHITECT us Eli Brasher MD LAB BLOOD ORDERABLES Rosie barnes Result [facility] ([place]) 1 [facility] [place] [address] * (ABNORMAL) CBC without differential (12/17/2024 9:55 AM DESKTOP ARCHITECT) WBC 9.5 3.8 - 9.9 K/cumm Hgb 10.8(L) 11.9 - 15.5 g/dL [facility] ([place]) Hct 34.3(L) 35.6 - 45.5 % [facility] Plt 266 150 - 400 K/cumm [facility] ([place]) MPV 9.1 9.1 - 12.3 fL [facility]) RBC 3.59(L) 3.90 - 5.20 M/cumm [facility] ([place]) MCV 95.5 81.3 - 96.4 fL [facility] MCH 30.1 27.1 - 33.3 pg [facility] ([place]) MCHC 31.5(L) 32.3 - 35.7 g/dL [facility]) RDW CV 13.1 11.1 - 14.9 % [facility] RDW SD 45.6 35.7 - 48.1 fL [facility]) NRBC abs 0.00 0.00 - 0.01 K/cumm [facility] ([place]) Blood 12/17/2024 9:55 AM DESKTOP ARCHITECT 12/17/2024 10:03 AM DESKTOP ARCHITECT Eli Brasher MD LAB BLOOD ORDERABLES Rosie l Result [facility] ([place] 1 [facility] Department [place] [address] * (ABNORMAL) Basic metabolic panel (12/17/2024 9:55 AM DESKTOP ARCHITECT) Sodium 136 135 - 145 mmol/L Potassium, pl 3.3 3.3 - 4.9 mmol/L [facility] Chloride 101 97 - 110 mmol/L [facility] CO2 24 22 - 32 mmol/L [facility] Anion gap 12 2 - 15 mmol/L [facility]) BUN 9 6 - 25 mg/dL [facility]) Creatinine 0.48(L) 0.60 - 1.10 mg/dL [facility]) Glucose 139 70 - 199 mg/dL [facility] ([place]) Comment: Interpretive Data Fasting glucose >/= 126 mg/dl is diagnostic for diabetes. Fasting is defined as no caloric intake [...] 2022. Calcium 9.5 8.5 - 10.3 mg/dL [facility]) Blood 12/17/2024 9:55 AM DESKTOP ARCHITECT 12/17/2024 10:03 AM DESKTOP ARCHITECT Eli Brasher MD LAB BLOOD ORDERABLES Rosie l Result [facility] ([place]) 1 [facility] [place] [address] * (ABNORMAL) Urinalysis reflex to microscopic and culture Urine (12/16/2024 2:46 PM DESKTOP ARCHITECT) Color, ur [place] Clarity, ur Turbid(A) Clear [facility] ([place]) Specific gravity, ur 1.014 1.003 - 1.030 [facility]) pH, urine 6.5 [facility] ([place]) Comment: Interpretive Data U rine pH is affected by diet, medications, systemic acid-base disturbances, and renal tubular function. pH may affect urinary stone formation. For example, urine pH below 6.0 may help reduce the tendency for calcium phosphate stones and pH greater than 6.0 may reduce the tendency for uric acid stone formation. Source: [facility] Current Interpretive Data was last revised on 2017 Protein, ur ql 3+(A) Negative [facility] ([place]) Glucose, ur ql Negative Negative [facility] ([place]) Ketones, ur Negative Negative [facility] ([place]) Bilirubin, ur Negative Negative [facility] ([place]) Blood, ur 2+(A) Negative [facility] ([place]) Urobilinogen, ur <2.0 <2.0 mg/dL [facility] ([place]) Nitrite, ur Positive(A) Negative [facility] ([place]) Leukocyte esterase, ur 4+(A) Negative [facility] ([place]) UA reflex comment Reflex to microscopic UA will be performed. [facility] ([place]) Urine 12/16/2024 2:46 PM DESKTOP ARCHITECT 12/16/2024 2:49 PM DESKTOP ARCHITECT Jami Schumacher NP LAB MICROBIOLOGY - GENERAL ORDERABLES Final Result [facility] ([place] 1 [facility] [place] [address] * (ABNORMAL) Urinalysis, microscopic only (12/16/2024 2:46 PM DESKTOP ARCHITECT) WBC, ur >50(A) 0 - 5 /HPF RBC, ur >50(A) 0 - 2 /HPF [facility] ([place]) Epithelial cells, squamous, ur 11-20(A) 0 - 5 /HPF [facility] ([place]) Comment:Suggestive of contam ination. Consider recollection by clean catch. Mucous, ur Present(A) [facility] ([place]) Hyaline casts, ur >50(A) 0 - 10 /LPF [facility] ([place]) Culture Reflex Comment Reflex to urine culture will be performed. [facility] ([place]) Urine 12/16/2024 2:46 PM DESKTOP ARCHITECT 12/16/2024 2:49 PM DESKTOP ARCHITECT Jami Schumacher NP LAB URINE ORDERABLE S Final Result [facility] ([place]) 1 [facility] [place] [address] * (ABNORMAL) Urine culture Urine (12/16/2024 2:46 PM DESKTOP ARCHITECT) Report Final Report: Greater than or equal to 100,000 colonies/mL of Proteus mirabilis Greater than or equal to 100,000 colonies/mL of Escherichia coli (.) Comment:Testing performed by : [facility], [address] [facility] [place] [address] Organism PROTEUS MIRABILIS [facility] ([place]) Organism ESCHERICHIA COLI [facility] ([place]) Urine 12/16/2024 2:46 PM DESKTOP ARCHITECT 12/16/2024 6:50 PM DESKTOP ARCHITECT Narrative [facility] ([place]) - 12/18/2024 10:09 AM DESKTOP ARCHITECT Urine culture reflexed based upon urinalysis results. Testing performed by [facility] ([phone]) Organism Antibiotic Method Susceptibility Proteus mirabilis Ampicillin INTERPRETATION Susceptible Proteus mirabilis Cefazolin INTERPRETATION Susceptible Proteus mirabilis Nitrofurantoin INTERPRETATION Resistant Proteus mirabilis Gentamicin INTERPRETATION Susceptible Proteus mirabilis Trimethoprim with Sulfamethoxazole I NTERPRETATION Susceptible Proteus mirabilis Meropenem INTERPRETATION Susceptible Proteus mirabilis Cefepime INTERPRETATION Susceptible Proteus mirabilis Ciprofloxacin INTERPRETATION Susceptible Proteus mirabilis Ceftazidime INTERPRETATION Susceptible Proteus mirabilis Ceftriaxone INTERPRETATION Susceptible Proteus mirabilis Piperacillin/Tazobactam INTERPRETATI ON Susceptible Proteus mirabilis Cephalexin INTERPRETATION Susceptible Proteus mirabilis Cefuroxime-axetil INTERPRETATION Susceptible Proteus mirabilis Cefdinir INTERPRETATION Susceptible Escherichia coli Ampicillin INTERPRETATION Susceptible Escherichia coli Cefazolin INTERPRETATION Susceptible Escherichia coli Nitrofurantoin INTERPRETATION Susceptible Escherichia coli Gentamicin INTERPRETATION Susceptible Escherichia coli Trimethoprim with Sulfamethoxazole IN TERPRETATION Susceptible Escherichia coli Meropenem INTERPRETATION Susceptible Escherichia coli Cefepime INTERPRETATION Susceptible Escherichia coli Ciprofloxacin INTERPRETATION Susceptible Escherichia coli Ceftazidime INTERPRETATION Susceptible Escherichia coli Ceftriaxone INTERPRETATION Susceptible Escherichia coli Piperacillin/Tazobactam INTERPRETATIO N Susceptible Escherichia coli Cephalexin INTERPRETATION Susceptible Escherichia coli Cefuroxime-axetil INTERPRETATION Susceptible Escherichia coli Cefdinir INTERPRETATION Susceptible Jami Schumacher NP LAB MICROBIOLOGY - GENERAL ORDERABLES Final Result [facility] [place] 1 [facility] Department [place] [address] * CT Head WO Contrast (12/15/2024 3:42 PM DESKTOP ARCHITECT) Anatomical Region Laterality Modality Head and Neck N/A Computed Tomogra phy 12/15/2024 4:01 PM DESKTOP ARCHITECT Narrative 12/15/2024 4:11 PM DESKTOP ARCHITECT EXAM DESCRIPTION: CT HEAD WO CONTRAST REASON FOR STUDY: altered mental status, unclear etiology Altered mental status today TECHNIQUE: Axial images acquired through the brain without intravenous contrast. Images stored on PACS. Automated exposure control was used as a dose optimization technique for this examination. COMPARISON: Head CT comparison from 09/30/2024. FINDINGS: BRAIN: No acute hemorrhage, edema or mass effect. No recent infarct. Stable patchy low density of white matter in periventricular and subcortical regions in keeping with microvascular change. EXTRA-AXIAL SPACES: No fluid collections. No masses. CALVARIUM: No fracture. SINUSES/MASTOIDS: No fluid or mucosal thickening. ORBITS: No significant abnormality. OTHER: No other significant abnormality. IMPRESSION: No acute intracranial findings. THIS IS AN ELECTRONICALLY VERIFIED FINAL REPORT 12/15/2024 4:11 PM - Electronically signed by eHtal Harley M.D. LC: CESAR Report ID: [id number] Reading Location: [id number] Procedure Note Tracy Harley MD - 12/15/2024 EXAM DESCRIPTION: CT HEAD WO CONTRAST REASON FOR STUDY: altered mental status, unclear etiology Altered mental status today TECHNIQUE: Axial images acquired through the brain without intravenous contrast. Images stored on PACS. Automated exposure control was used asa dose optimization technique for this examination. COMPARISON: Head CT comparison from 09/30/2024. FINDINGS: BRAIN: No acute hemorrhage, edema or mass effect. No recent infarct. Stable patchy low density of white matter in periventricular andsubcortical regions in keeping with microvascular change. EXTRA-AXIAL SPACES: No fluid collections. No masses. CALVARIUM: No fracture. SINUSES/MASTOIDS: No fluid or mucosal thickening. ORBITS: No significant abnormality. OTHER: No other significant abnormality. IMPRESSION: No acute intracranial findings. THIS IS AN ELECTRONICALLY VERIFIED FINAL REPORT 12/15/2024 4:11 PM - Electronically signed by Hetal Harley M.D. LC: CESAR Report ID: [id number] Reading Location: [place] [address] Jami Schumacher NP IMMustapha CT PROCEDURES F inal Result * XR CHEST 1 VIEW PORTABLE (12/15/2024 3:26 PM DESKTOP ARCHITECT) Anatomical Region Laterality Modality Body, Chest N/A Computed Radiogr aphy 12/15/2024 3:56 PM DESKTOP ARCHITECT Narrative 12/15/2024 4:01 PM DESKTOP ARCHITECT EXAM DESCRIPTION: XR CHEST 1 VIEW REASON FOR STUDY: altered mental status, known pulmonary nodule altered mental status, known pulmonary nodule TECHNIQUE: AP radiographic view(s) of the chest. COMPARISON: Chest comparison 09/28/2024. FINDINGS: LUNGS: No focal opacity, pleural effusion, or pneumothorax. HEART/MEDIASTINUM: Cardiac silhouette normal in size. Mediastinal and hilar contours appear normal. LINES/TUBES: None. BONES: No acute osseous abnormality. IMPRESSION: No acute cardiopulmonary abnormality. THIS IS AN ELECTRONICALLY VERIFIED FINAL REPORT 12/15/2024 4:01 PM - Electronically signed by Hetal Harley M.D. LC: CESAR Report ID: [id number] Reading Location: [id number] Procedure Note Tracy Harley MD - 12/15/2024 EXAM DESCRIPTION: XR CHEST 1 VIEW REASON FOR STUDY: altered mental status, known pulmonary nodule altered mental status, known pulmonary nodule TECHNIQUE: AP radiographic view(s) of the chest. COMPARISON: Chest comparison 09/28/2024. FINDINGS: LUNGS: No focal opacity, pleural effusion, or pneumothorax. HEART/MEDIASTINUM: Cardiac silhouette normal in size. Mediastinal andhilar contours appear normal. LINES/TUBES: None. BONES: No acute osseous abnormality. IMPRESSION: No acute cardiopulmonary abnormality. THIS IS AN ELECTRONICALLY VERIFIED FINAL REPORT 12/15/2024 4:01 PM - Electronically signed by Hetal Harley M.D. LC: CESAR Report ID: [id number] Reading Location: [id number] Jami Schumacher NP IMG XR PROCEDURES F inal Result * MRI Hip Right WO Contrast (12/15/2024 6:57 AM DESKTOP ARCHITECT) Anatomical Region Laterality Modality Lower Extremities Right Magnetic Reson ance 12/15/2024 9:52 AM DESKTOP ARCHITECT Narrative 12/15/2024 10:18 AM DESKTOP ARCHITECT EXAM DESCRIPTION: MRI HIP RIGHT WO CONTRAST REASON FOR STUDY: Hip trauma, fracture suspected, xray done Unable to tape feet together or get her completely flat for test due to pain. Possible fx. TECHNIQUE: Multiplanar, multisequence MRI of the right hip was performed without contrast. COMPARISON: 12/14/2024, CT 06/23/2024 FINDINGS: There is no MR evidence of a right hip fracture. Within the right hip, there is degenerative fraying of the superolateral acetabulum. [id number] right hip chondrosis is present, greatest posteriorly. A physiologic amount of fluid is present within the hip joint. The ligamentum teres is intact. There is soft tissue edema involving the superior and inferior gemellus musculature. There is additional mild edema about the right hip girdle. The left femoral head is well seated. A physiologic amount of fluid is present within the joint space. There is mild left hip chondrosis. There is no evidence of femoral head osteonecrosis or femoral neck stress fracture. The piriformis muscles are symmetric. The sciatic nerves are normal in course and morphology. There is mild edema about the right sciatic nerve as it courses posterior to the gemellus musculature. The adductor tendons appear intact. There is right-sided insertional gluteus minimus tendinopathy. There is mild bilateral greater trochanteric bursitis. There is mild bilateral hamstring origin tendinopathy. Edema is present involving the left quadratus femoris with narrowing of ischial femoral interval. 3.6 cm lobular T2 hyperintense right ovarian cystic lesion is noted. Lumbar scoliosis with degenerative disc disease and facet osteoarthritis is present. IMPRESSION: No MR evidence of a right hip fracture. Gagz-jz-eeeqzsdo right hip chondrosis with degenerative fraying of the superolateral acetabulum. Soft tissue edema involving the right superior and inferior gemellus musculature posterior to the hip, with additional mild edema about the right hip girdle. These findings can be associated right strains. There is mild edema about the right sciatic nerve as it courses posterior to the gemellus musculature. Mild bilateral greater trochanteric bursitis. Edema involving the left quadratus femoris with narrowing of the ischial femoral interval. This can be associated with ischiofemoral impingement. 3.6 cm lobular right ovarian cystic lesion. Recommend further evaluation with pelvic ultrasound. THIS IS AN ELECTRONICALLY VERIFIED FINAL REPORT 12/15/2024 10:18 AM - Electronically signed by Emanuel Smith M.D. MF: [email or web address] Report ID: [id number] Reading Location: [id number] Procedure Note Emanuel Smith MD - 12/15/2024 EXAM DESCRIPTION: MRI HIP RIGHT WO CONTRAST REASON FOR STUDY: Hip trauma, fracture suspected, xray done Unable to tape feet together or get her completely flat for test due topain. Possible fx. TECHNIQUE: Multiplanar, multisequence MRI of the right hip was performed without contrast. COMPARISON: 12/14/2024, CT 06/23/2024 FINDINGS: There is no MR evidence of a right hip fracture. Within the right hip, there is degenerative fraying of the superolateral acetabulum. Wrwx-uw-kgoslcsw right hip chondrosis is present, greatest posteriorly. A physiologic amount of fluid is present within the hipjoint. The ligamentum teres is intact. There is soft tissue edema involving the superior and inferior gemellus musculature. There is additional mildedema about the right hip girdle. The left femoral head is well seated. A physiologic amount of fluid ispresent within the joint space. There is mild left hip chondrosis. There is no evidence of femoral head osteonecrosis or femoral neck stress fracture. The piriformis muscles are symmetric. The sciatic nerves are normal incourse and morphology. There is mild edema about the right sciatic nerve as it courses posterior to the gemellus musculature. The adductor tendonsappear intact. There is right-sided insertional gluteus minimus tendinopathy.There is mild bilateral greater trochanteric bursitis. There is mild bilateral hamstring origin tendinopathy. Edema is present involving the leftquadratus femoris with narrowing of ischial femoral interval. 3.6 cm lobular T2 hyperintense right ovarian cystic lesion is noted.Lumbar scoliosis with degenerative disc disease and facet osteoarthritis ispresent. IMPRESSION: No MR evidence of a right hip fracture. Mvcy-qi-lympdwau right hip chondrosis with degenerative fraying of the superolateral acetabulum. Soft tissue edema involving the right superior and inferior gemellus musculature posterior to the hip, with additional mild edema about theright hip girdle. These findings can be associated right strains. There is mild edema about the right sciatic nerve as it courses posterior to thegemellus musculature. Mild bilateral greater trochanteric bursitis. Edema involving the left quadratus femoris with narrowing of the ischial femoral interval. This can be associated with ischiofemoral impingement. 3.6 cm lobular right ovarian cystic lesion. Recommend further evaluation with pelvic ultrasound. THIS IS AN ELECTRONICALLY VERIFIED FINAL REPORT 12/15/2024 10:18 AM - Electronically signed by Emanuel mSith M.D. MF: [email or web address] Report ID: [id number] Reading Location: [place] [id number] Laureen MONZON IMG MRI PROCEDURES Fi nal Result * eGFR (12/15/2024 4:04 AM DESKTOP ARCHITECT) eGFR >90 >=60 mL/min/1. 73 m2 Comment: Interpretive Data Reference Interval Normal >/= 90 mL/min/1.73m2 Mildly decreased* 60 - 89 mL/min/1.73m2 Mildly to moderately decreased 45 - 59 mL/min/1.73m2 Moderately to severely decreased 30 - 44 mL/min/1.73m2 Severely decreased 15 - 29 mL/min/1.73m2 Kidney Failure < 15 mL/min/1.73m2 *Relative to young adult level Estimated glomerular [...] interpretive data was last reviewed 2021. Blood 12/15/2024 4:04 AM DESKTOP ARCHITECT 12/15/2024 4:17 AM DESKTOP ARCHITECT Kayla Escobar MD LAB BLOOD ORDERABLES Rosie l Result [facility] [place]) 1 [facility] [place] [address] 64 * (ABNORMAL) Differential, auto (12/15/2024 4:04 AM DESKTOP ARCHITECT) Neutrophil abs 7.7(H) 1.5 - 6.5 K/cumm Imm gran abs 0.1 0.0 - 0.1 K/cumm [facility] ([place]) Lymphocyte abs 2.2 0.8 - 3.3 K/cumm [facility] ([place]) Monocyte abs 1.0(H) 0.2 - 0.8 K/cumm [facility] ([place]) Eosinophil abs 0.2 0.0 - 0.5 K/cumm [facility] ([place]) Basophil abs 0.0 0.0 - 0.1 K/cumm [facility] ([place]) Neutrophil pct 68.7 % [facility] ([place] Comment: Interpretive Data Percent cell count reference ranges are not reported, since discordance with absolute values may lead to misinterpretation of CBC data. Current Interpretive Data was last revised on 2018. Imm gran pct 0.4 % [facility] ([place]) Comment: Interpretive Data Percent cell count reference ranges are not reported, since discordance with absolute values may lead to misinterpretation of CBC data. Current Interpretive Data was last revised on 2018. Lymphocyte pct 19.4 % [facility] ([place] Comment: Interpretive Data Percent cell count reference ranges are not reported, since discordance with absolute values may lead to misinterpretation of CBC data. Current Interpretive Data was last revised on 2018. Monocyte pct 9.1 % [facility] ([place]) Comment: Interpretive Data Percent cell count reference ranges are not reported, since discordance with absolute values may lead to misinterpretation of CBC data. Current Interpretive Data was last revised on 2018. Eosinophil pct 2.1 % [facility] ([place] Comment: Interpretive Data Percent cell count reference ranges are not reported, since discordance with absolute values may lead to misinterpretation of CBC data. Current Interpretive Data was last revised on 2018. Basophil pct 0.3 % [facility] ([place]) Comment: Interpretive Data Percent cell count reference ranges are not reported, since discordance with absolute values may lead to misinterpretation of CBC data. Current Interpretive Data was last revised on 2018. Blood 12/15/2024 4:04 AM DESKTOP ARCHITECT 12/15/2024 4:17 AM DESKTOP ARCHITECT Kayla Escobar MD LAB BLOOD ORDERABLES Rosie l Result [facility] ([place] 1 [facility] [place] [address] * (ABNORMAL) CBC with auto differential (12/15/2024 4:04 AM DESKTOP ARCHITECT) WBC 11.3(H) 3.8 - 9.9 K/cumm Hgb 11.2(L) 11.9 - 15.5 g/dL [facility] Hct 34.4(L) 35.6 - 45.5 % [facility] ([place]) Plt 283 150 - 400 K/cumm [facility] ([place]) MPV 8.8(L) 9.1 - 12.3 fL [facility] ([place]) RBC 3.73(L) 3.90 - 5.20 M/cumm [facility] ([place]) MCV 92.2 81.3 - 96.4 fL [facility] ([place]) MCH 30.0 27.1 - 33.3 pg [facility] ([place]) MCHC 32.6 32.3 - 35.7 g/dL [facility] ([place]) RDW CV 13.2 11.1 - 14.9 % [facility] ([place]) RDW SD 44.2 35.7 - 48.1 fL [facility] ([place]) NRBC abs 0.00 0.00 - 0.01 K/cumm [facility] ([place]) Blood 12/15/2024 4:04 AM DESKTOP ARCHITECT 12/15/2024 4:17 AM DESKTOP ARCHITECT Kayla Escobar MD LAB BLOOD ORDERABLES Rosie barnes Result Performing Organization Address City/[facility]/ZIP Co de Phone Number [facility] ([place]) [address] Department [place] [address] * (ABNORMAL) Comprehensive metabolic panel (12/15/2024 4:04 AM DESKTOP ARCHITECT) Sodium 137 135 - 145 mmol/L Potassium, pl 3.3 3.3 - 4.9 mmol/L [facility] ([place]) Chloride 101 97 - 110 mmol/L [facility] ([place]) CO2 24 22 - 32 mmol/L [facility] ([place]) Anion gap 11 2 - 15 mmol/L [facility] ([place]) BUN 8 6 - 25 mg/dL [facility]) Creatinine 0.61 0.60 - 1.10 mg/dL [facility]) Glucose 116 70 - 199 mg/dL [facility] ([place]) Comment: Interpretive Data Fasting glucose >/= 126 mg/dl is diagnostic for diabetes. Fasting is defined as no caloric intake [...] interpretive data was last revised 2022. Calcium 9.4 8.5 - 10.3 mg/dL [facility]) Bilirubin, total 0.3 0.1 - 1.2 mg/dL [facility] ([place]) Protein, pl 6.4(L) 6.5 - 8.5 g/dL [facility] ([place]) Albumin 3.0(L) 3.5 - 5.0 g/dL [facility] ([place]) Alk phos 76 40 - 130 Units/L [facility] ([place]) ALT 13 7 - 45 Units/L [facility]) AST 12 10 - 45 Units/L [facility] ([place]) Blood 12/15/2024 4:04 AM DESKTOP ARCHITECT 12/15/2024 4:17 AM DESKTOP ARCHITECT Kayla Escobar MD LAB BLOOD ORDERABLES Rosie l Result [facility] ([place]) 1 [facility] Department [place] [address] * Urinalysis reflex to microscopic and culture Urine (12/14/2024 3:13 PM DESKTOP ARCHITECT) Color, ur Yellow Yellow Clarity, ur Clear Clear [facility] ([place]) Specific gravity, ur 1.008 1.003 - 1.030 [facility] ([place]) pH, urine 6.5 [facility] ([place]) Comment: Interpretive Data U rine pH is affected by diet, medications, systemic acid-base disturbances, and renal tubular function. pH may affect urinary stone formation. For example, urine pH below 6.0 may help reduce the tendency for calcium phosphate stones and pH greater than 6.0 may reduce the tendency for uric acid stone formation. Source: [facility] [place] Current Interpretive Data was last revised on 2017 Protein, ur ql Negative Negative [facility] ([place]) Glucose, ur ql Negative Negative [facility] ([place]) Ketones, ur Negative Negative [facility] ([place]) Bilirubin, ur Negative Negative [facility] ([place]) Blood, ur Negative Negative [facility] ([place]) Urobilinogen, ur <2.0 <2.0 mg/dL [facility] ([place]) Nitrite, ur Negative Negative [facility] ([place]) Leukocyte esterase, ur Negative Negative [facility] ([place]) UA reflex comment Reflex conditions for microscopic UA and culture not met. [facility] ([place]) Urine 12/14/2024 3:13 PM DESKTOP ARCHITECT 12/14/2024 3:19 PM DESKTOP ARCHITECT us Kayla Escobar MD LAB MICROBIOLOGY - GENERA L ORDERABLES Final Result [facility] ([place]) 1 [facility] [place] [address] * CT Hip Right WO Contrast (12/14/2024 2:12 PM DESKTOP ARCHITECT) Anatomical Region Laterality Modality Lower Extremities Right Computed Tomog nargis 12/14/2024 2:22 PM DESKTOP ARCHITECT Narrative 12/14/2024 2:34 PM DESKTOP ARCHITECT EXAM DESCRIPTION: CT HIP RIGHT WO CONTRAST REASON FOR STUDY: hip fx R hip pain since yesterday TECHNIQUE: CT scan of the right hip was performed without intravenous contrast. Reconstructed coronal and sagittal MPR images reviewed. Automated exposure control was used as a dose optimization technique for this examination. COMPARISON: 12/14/2024 FINDINGS: There is mild osteopenia. There is a subtle cortical irregularity and lucency involving the right femoral neck corresponding, which raises the concern for minimally displaced minimally impacted right femoral subcapital fracture (axial image 35, coronal image 78). There are degenerative changes right hip with joint space narrowing, mild spurring, and minimal sclerosis. The visualized soft tissues are acutely grossly unremarkable. IMPRESSION: Subtle cortical irregularity and lucency involving the right femoral neck, which remains concerning for minimally displaced minimally impacted right femoral subcapital fracture. The necessity of further evaluation with MRI can be determined clinically. THIS IS AN ELECTRONICALLY VERIFIED FINAL REPORT 12/14/2024 2:34 PM - Electronically signed by Dilan Massey D.O. PS: PS Report ID: [id number] Reading Location: [id number] Procedure Note Dilan Massey DO - 12/14/2024 EXAM DESCRIPTION: CT HIP RIGHT WO CONTRAST REASON FOR STUDY: hip fx R hip pain since yesterday TECHNIQUE: CT scan of the right hip was performed without intravenous contrast. Reconstructed coronal and sagittal MPR images reviewed.Automated exposure control was used as a dose optimization technique for this examination. COMPARISON: 12/14/2024 FINDINGS: There is mild osteopenia. There is a subtle cortical irregularity andlucency involving the right femoral neck corresponding, which raises the concernfor minimally displaced minimally impacted right femoral subcapital fracture (axial image 35, coronal image 78). There are degenerative changes righthip with joint space narrowing, mild spurring, and minimal sclerosis. The visualized soft tissues are acutely grossly unremarkable. IMPRESSION: Subtle cortical irregularity and lucency involving the right femoralneck, which remains concerning for minimally displaced minimally impacted right femoral subcapital fracture. The necessity of further evaluation with MRIcan be determined clinically. THIS IS AN ELECTRONICALLY VERIFIED FINAL REPORT 12/14/2024 2:34 PM - Electronically signed by Dilan Massey D.O. PS: PS Report ID: [id number] Reading Location: [id number] Kayla Escobar MD [facility] CT PROCEDURES Final R esult * XR Hip Right 2 or 3 Views W Pelvis (12/14/2024 11:14 AM DESKTOP ARCHITECT) Anatomical Region Laterality Modality Lower Extremities, Hip, Pelvis Right C omputed Radiography 12/14/2024 11:4 8 AM DESKTOP ARCHITECT Narrative 12/14/2024 11:54 AM DESKTOP ARCHITECT EXAM DESCRIPTION: XR HIP RIGHT 2 OR 3 VIEWS W PELVIS REASON FOR STUDY: fx Pt states went to physical therapy and began complaining of R hip pain. Unsure of any new falls. Per ems, facility states took xray of R hip and noted a fracture. TECHNIQUE: Single frontal view of the pelvis, coned-down frontal and cross-table lateral view of the right hip was obtained. COMPARISON: No direct comparison is available. Relevant portions of the whole-body PET-CT dated 08/26/2024. FINDINGS: Cross-table lateral radiograph is severely limited by imaging technique. The patient is rotated. There is a right femoral neck/subcapital fracture. Fxgwh-xsokwzu-pfvr-left bilateral hip joint degenerative changes. There are pelvic phleboliths. IMPRESSION: Right subcapital hip fracture. Consider further evaluation with CT. THIS IS AN ELECTRONICALLY VERIFIED FINAL REPORT 12/14/2024 11:54 AM - Electronically signed by Alexis Vital D.O. AP: AP Report ID: [id number] Reading Location: [id number] Procedure Note Alexis Vital, DO - 12/14/2024 EXAM DESCRIPTION: XR HIP RIGHT 2 OR 3 VIEWS W PELVIS REASON FOR STUDY: fx Pt states went to physical therapy and began complaining of R hip pain.Unsure of any new falls. Per ems, facility states took xray of R hip and noted a fracture. TECHNIQUE: Single frontal view of the pelvis, coned-down frontal and cross-table lateral view of the right hip was obtained. COMPARISON: No direct comparison is available. Relevant portions of the whole-body PET-CT dated 08/26/2024. FINDINGS: Cross-table lateral radiograph is severely limited by imaging technique.The patient is rotated. There is a right femoral neck/subcapital fracture. Amplj-uxzlpdo-sysz-left bilateral hip joint degenerative changes. Thereare pelvic phleboliths. IMPRESSION: Right subcapital hip fracture. Consider further evaluation with CT. THIS IS AN ELECTRONICALLY VERIFIED FINAL REPORT 12/14/2024 11:54 AM - Electronically signed by Alexis Vital D.O. AP: AP Report ID: [id number] Reading Location: [id number] us Kayla Escobar MD IMG XR PROCEDURES Final R esult * Influenza A/B, RSV, and COVID-19 PCR Nasopharyngeal (12/14/2024 10:40 AM DESKTOP ARCHITECT) COVID-19 RNA Negative Negative Influenza A RNA Negative Negative [facility]) Influenza B RNA Negative Negative [facility]) RSV RNA Negative Negative [facility] ([place]) Comment: Interpretive data: Testing performed by [facility]. This test is performed using the SHAPE Xpert Xpress CoV-2/Flu/RSV plus assay. This is a multiplex, real- time reverse transcriptase PCR assay intended for the qualitative detection of nucleic acid from SARS-CoV-2, influenza A, influenza B, and respiratory syncytial virus. This assay has been cleared by the [place] Food and Drug administration. The performance characteristics have been verified by the [facility]. Results must be considered in the clinical context, and a negative result does not rule out infection. Interpretive Data last revised 2023 Nasopharyngeal 12/14/2024 10 :40 AM DESKTOP ARCHITECT 12/14/2024 10:48 AM DESKTOP ARCHITECT Narrative [facility] ([place]) - 12/14/2024 11:26 AM DESKTOP ARCHITECT Is the Patient experiencing symptoms consistent with COVID?->Unknown us Kayla Escobar MD LAB MICROBIOLOGY - GENERA L ORDERABLES Final Result Performing Organization Address [facility] Co de Phone Number [facility] ([place]) 1 [facility] [place] [address] * ECG 12 lead (12/14/2024 10:34 AM DESKTOP ARCHITECT) 12/14/2024 10:3 4 AM DESKTOP ARCHITECT Narrative [facility] - 12/14/2024 11:34 AM DESKTOP ARCHITECT Vent Rate: 84 bpm RR Interval: 713 msec CO Interval: 136 msec QRS Duration: 101 msec QT Interval: 367 msec QTC Interval: 408 msec P-R-T [place]: 99 - 53 - 41 degrees IMPRESSION: Baseline artifact, probable SINUS RHYTHM POSSIBLE INFERIOR MYOCARDIAL INFARCTION , PROBABLY OLD [30 ms Q WAVE IN II/aVF] BORDERLINE ECG Recommend repeat EKG with stable baseline for accurate rhythm assessment Electronically Signed By: Darian Villaseñor MD us Kayla Escobar MD ECG ORDERABLES Final Res ult Performing Organization Address [facility] Co de Phone Number [facility] [employer] [facility] * Sepsis Lactate w/ Reflex (12/14/2024 10:33 AM DESKTOP ARCHITECT) Sepsis Lactate 1.1 0.7 - 2.0 mmol/L Blood 12/14/2024 10:3 3 AM DESKTOP ARCHITECT 12/14/2024 10:47 AM DESKTOP ARCHITECT us Kayla Escobar MD LAB BLOOD ORDERABLES Rosie l Result Performing Organization Address City/[facility]/ZIP Co de Phone Number [facility] ([place]) 1 [facility] [place] [address] * eGFR (12/14/2024 10:33 AM DESKTOP ARCHITECT) eGFR >90 >=60 mL/min/1. 73 m2 Comment: Interpretive Data Reference Interval Normal >/= 90 mL/min/1.73m2 Mildly decreased* 60 - 89 mL/min/1.73m2 Mildly to moderately decreased 45 - 59 mL/min/1.73m2 Moderately to severely decreased 30 - 44 mL/min/1.73m2 Severely decreased 15 - 29 mL/min/1.73m2 Kidney Failure < 15 mL/min/1.73m2 *Relative to young adult level Estimated glomerular [...] interpretive data was last reviewed 2021. Blood 12/14/2024 10:3 3 AM DESKTOP ARCHITECT 12/14/2024 10:47 AM DESKTOP ARCHITECT us Kayla Escobar MD LAB BLOOD ORDERABLES Rosie barnes Result [facility] ([place]) 1 [facility] [place] [address] * (ABNORMAL) Differential, auto (12/14/2024 10:33 AM DESKTOP ARCHITECT) Neutrophil abs 7.6(H) 1.5 - 6.5 K/cumm Imm gran abs 0.0 0.0 - 0.1 K/cumm [facility] ([place]) Lymphocyte abs 2.2 0.8 - 3.3 K/cumm [facility] ([place]) Monocyte abs 0.8 0.2 - 0.8 K/cumm [facility] ([place]) Eosinophil abs 0.2 0.0 - 0.5 K/cumm [facility] ([place]) Basophil abs 0.1 0.0 - 0.1 K/cumm [facility] ([place]) Neutrophil pct 69.6 % [facility] ([place]) Comment: Interpretive Data Percent cell count reference ranges are not reported, since discordance with absolute values may lead to misinterpretation of CBC data. Current Interpretive Data was last revised on 2018. Imm gran pct 0.3 % [facility] ([place]) Comment: Interpretive Data Percent cell count reference ranges are not reported, since discordance with absolute values may lead to misinterpretation of CBC data. Current Interpretive Data was last revised on 2018. Lymphocyte pct 20.1 % [facility] ([place]) Comment: Interpretive Data Percent cell count reference ranges are not reported, since discordance with absolute values may lead to misinterpretation of CBC data. Current Interpretive Data was last revised on 2018. Monocyte pct 7.4 % [facility] ([place]) Comment: Interpretive Data Percent cell count reference ranges are not reported, since discordance with absolute values may lead to misinterpretation of CBC data. Current Interpretive Data was last revised on 2018. Eosinophil pct 2.1 % [facility] ([place]) Comment: Interpretive Data Percent cell count reference ranges are not reported, since discordance with absolute values may lead to misinterpretation of CBC data. Current Interpretive Data was last revised on 2018. Basophil pct 0.5 % [facility] ([place]) Comment: Interpretive Data Percent cell count reference ranges are not reported, since discordance with absolute values may lead to misinterpretation of CBC data. Current Interpretive Data was last revised on 2018. Blood 12/14/2024 10:3 3 AM DESKTOP ARCHITECT 12/14/2024 10:47 AM DESKTOP ARCHITECT us Kayla Escobar MD LAB BLOOD ORDERABLES Rosie barnes Result [facility] ([place]) 1 [facility] Department of Laboratories [place], [place] [id number] * (ABNORMAL) CBC with auto differential (12/14/2024 10:33 AM DESKTOP ARCHITECT) WBC 10.8(H) 3.8 - 9.9 K/cumm Hgb 12.0 11.9 - 15.5 g/dL [facility] ([place]) Hct 37.0 35.6 - 45.5 % [facility] ([place]) Plt 302 150 - 400 K/cumm [facility] ([place]) MPV 9.0(L) 9.1 - 12.3 fL [facility] RBC 3.97 3.90 - 5.20 M/cumm [facility] ([place]) MCV 93.2 81.3 - 96.4 fL [facility] MCH 30.2 27.1 - 33.3 pg [facility] ([place]) MCHC 32.4 32.3 - 35.7 g/dL [facility] RDW CV 13.2 11.1 - 14.9 % [facility] RDW SD 44.9 35.7 - 48.1 fL [facility] NRBC abs 0.00 0.00 - 0.01 K/cumm [facility] ([place]) Blood 12/14/2024 10:3 3 AM DESKTOP ARCHITECT 12/14/2024 10:47 AM DESKTOP ARCHITECT us Kayla Escobar MD LAB BLOOD ORDERABLES Rosie barnes Result [facility] ([place]) 1 [facility] [place] [address] * (ABNORMAL) Comprehensive metabolic panel (12/14/2024 10:33 AM DESKTOP ARCHITECT) Sodium 135 135 - 145 mmol/L Potassium, pl 4.8 3.3 - 4.9 mmol/L [facility] ([place]) Comment:Moderately Hemolyzed Specimen. Results may be affected. Chloride 101 97 - 110 mmol/L [facility] CO2 26 22 - 32 mmol/L [facility]) Anion gap 8 2 - 15 mmol/L [facility] BUN 11 6 - 25 mg/dL [facility] ([place]) Creatinine 0.63 0.60 - 1.10 mg/dL [facility] Glucose 132 70 - 199 mg/dL [facility] ([place]) Comment: Interpretive Data Fasting glucose >/= 126 mg/dl is diagnostic for diabetes. Fasting is defined as no caloric intake [...] 2022. Calcium 9.9 8.5 - 10.3 mg/dL [facility] ([place]) Bilirubin, total 0.4 0.1 - 1.2 mg/dL [facility] ([place]) Protein, pl 7.1 6.5 - 8.5 g/dL [facility] ([place]) Albumin 3.1(L) 3.5 - 5.0 g/dL [facility] ([place]) Alk phos 80 40 - 130 Units/L [facility] ([place]) ALT 18 7 - 45 Units/L [facility] ([place]) Comment: Hemolysis present. Results may be affected. Moderately Hemolyzed Specimen AST 24 10 - 45 Units/L [facility] ([place]) Comment: Hemolysis present. Results may be affected. Moderately Hemolyzed Specimen Blood 12/14/2024 10:3 3 AM DESKTOP ARCHITECT 12/14/2024 10:47 AM DESKTOP ARCHITECT Kayla Escobar MD LAB BLOOD ORDERABLES Rosie barnes Result MANUELA KRUGER ([place]) 1 [facility] [place] [address] * Hepatitis C antibody Blood (10/02/2024 8:28 PM DESKTOP ARCHITECT) Hep C Ab Nonreactive Nonreactive Comment:Antibodies to HCV no t detected. Does NOT exclude the possibility of recent exposure to HCV. Current interpretive data was last revised on 22 Blood 10/02/2024 8:28 PM DESKTOP ARCHITECT 10/02/2024 9:25 PM DESKTOP ARCHITECT us Moreno Wan MD LAB MICROBIOLOGY - GENERAL DAJosé PARISI Final Result MANEULA MONIQUE [facility] Department [place] [address] * Diagnostic Mammogram Bilateral W Mohsen (06/10/2024 2:19 PM CDT) Anatomical Region Laterality Modality Breast Bilateral Mammography 06/10/2024 3:51 PM CDT Narrative 06/10/2024 4:05 PM CDT EXAM DESCRIPTION: DIAGNOSTIC MAMMOGRAM BILATERAL W MOHSEN REASON FOR STUDY: 74-year-old female presents for evaluation of a reported palpable lump in her right breast, location of which is unspecified. Both the patient and her daughter deny any known palpable lump in either breast or other current breast complaint. Reviewing the [facility] chart in [facility], no note specifying the location of the reported lump could be found. TECHNIQUE: CC and MLO views of the bilateral breasts were obtained with digital technique using breast tomosynthesis with C view. COMPARISON: Mammograms dated 07/14/2022, 08/13/2018, and 03/23/2017 FINDINGS: DENSITY: There are scattered areas of fibroglandular density. MAMMOGRAM FINDINGS: There are multiple small scattered similar appearing round and oval circumscribed masses in both breasts. There are no suspicious microcalcifications or architectural distortion associated with any of these masses. The majority of these masses have increased in size from prior mammograms. However, based on their similar morphology, multiplicity, and bilaterality, these masses are considered to be benign, favored to represent benign cysts or other benign entities. No new suspicious masses, suspicious microcalcifications, or other suspicious findings are identified in either breast. IMPRESSION: 1. Multiple similar appearing small round and oval circumscribed masses in both breasts are most consistent with benign entities (i.e. cysts or other benign masses) based on their morphology, multiplicity, and bilaterality. The site of the patient's reported palpable right breast lump has not been specified, and both the patient and her daughter deny any known palpable lump or other current breast complaint. Clinical follow-up and monthly breast self physical examination are recommended. If there is a specific location of the reported palpable breast lump, the patient could return for repeat diagnostic evaluation with the site of concern specified on the study order. Otherwise, annual screening mammography to be performed in 1 year is recommended. 2. No definite new suspicious finding in either breast on mammogram. BIRADS: 2 Benign findings. I discussed these findings and recommendations with patient at the time of the examination. THIS IS AN ELECTRONICALLY VERIFIED FINAL REPORT 06/10/2024 4:05 PM - Electronically signed by Ulises Hernandez M.D. MD: Report ID: [id number] Reading Location: [facility] Corazon Humphrey SHIPPING PROCESSOR IMG MAMMO PROCEDURES Final Result from Last 3 Months or Most Recently Relevant to Health Maintenance Insurance * Guarantor: Birgit Stern Account Type Relation to Patient Date of Phone Billing Address Personal/Family Self 1950 [address] [place] [address] [facility] MEDIC[facility] * Guarantor: Birgit Stern Account Type Relation to Patient Date of Phone Billing Address Personal/Family Self 1950 [address] [place] [address] [employer] MEDICARE * Guarantor: IrmaBirgit rascon Account Type Relation to Patient Date of Phone Billing Address Personal/Family Self 1950 [address] [place] [address] Advance Directives For more information, please contact: [phone] * LIMITED - No CPR (Latest Code Status on File) Date Activated Date Inactivated Comments 12/14/2024 3:46 PM 12/19/2024 9:42 PM Question Answer Comments Provide aggressive medical m anagement before a full cardiopulmonary arrest occurs. Use antibiotics, IV Fluids, and medical treatment unless specifically selected below: No intubation Discussed with the following attending physician : brenda Dumas * Full Code Date Activated Date Inactivated Comments 09/29/2024 5:10 AM 10/10/2024 10:51 PM * Full Code Date Activated Date Inactivated Comments 06/23/2024 5:52 PM 06/28/2024 6:18 PM * Full Code Date Activated Date Inactivated Comments 03/14/2024 4:39 PM 03/16/2024 12:35 AM * Full Code Date Activated Date Inactivated Comments 03/14/2024 2:40 PM 03/14/2024 4:39 PM Care Teams Staff Command And Control Officer Relationship Specialty Start Date End Date Darcy Reddy NP PCP - General Family Medicine 11/29/21 Javi Limon MD [address] [place] [address] [place] [id number] Consulting Physician Pulmonary Disease 06/26/24
--- OUTSIDE RECORDS SUMMARY | 2025-01-31 17:42 | XMS_ITS | Clinical Summary ---
Author Organization [facility] Address [address] [place] [id number] Care Team Providers Care Health And Social Care Teacher Name Role Phone Corazon Humphrey [facility] Primary Care Provider Social History Tobacco Use Types Packs/Day Years [...] 2016 Dexa Scan (General) 2016 Pneumococcal Vaccine: 50+ Ye ars (1 of 1 - PCV) 2016 COVID-19 Vaccine ( - 2023-2 5 season) 2024 RSV Immunization or 60+ Years (1 - 1-dose 75+ series) 2026 Meningococcal B Vaccine Aged Out No l onger eligible based on patient's age to complete this topic Meningococcal Vaccine Aged Out No bria marshal eligible based on patient's age to complete this topic RSV Immunizations Under 20 Months Aged Out No longer eligible based on patient's age to complete this topic Insurance [employer] Care Teams Health And Social Care Teacher Relationship Specialty Start Date End Date Corazon Humphrey FNP [address] [phone] PCP - General NURSE PRACTITIONER 10/23/23
--- OUTSIDE RECORDS SUMMARY | 2025-01-31 17:42 | XMS_ITS | Encounter Summary ---
Author Organization [facility] Address Formerly [facility] [place] [address] Care Team Providers Care Felt Machine Mechanic Name Role Phone Corazon Humphrey Primary Care Provider Encounter Details Date Type Department Care Team (Late st Contact Info) Description 08/01/[address] [facility] [address] [place] [address] Kayode Henry MD [address] [place], [place] [address] Social History Tobacco Use Types Packs/Day Years [...] on filedocumented in this encounter Care Teams Felt Machine Mechanic Relationship Specialty Start Date End Date Corazon Humphrey FNP [address] [phone] PCP - General NURSE PRACTITIONER 10/23/23 documented as of this encounter
--- OUTSIDE RECORDS SUMMARY | 2025-01-31 17:42 | XMS_ITS | Clinical Summary ---
Author Organization [facility] [place] [facility] Address [address] [place] [address] Care Team Providers Care Editor Name Role Phone Darcy Reddy NP Primary Care Provider + [phone] Javi Limon MD Unavailable [phone] Allergies Active Allergy Reactions Criticality Noted Date [...] (When Walking) Wheeled Walker 1 each 06/26/20 Active montelukast (SINGULAIR) 10 mg tabletIndications: Seasonal Allergic Rhinitis Take 1 tablet (10 mg total) by mouth daily 30 tablet 07/15/20 Active polyethylene glycol (MIRALAX) 17 gram packetIndications: constipation Take 1 packet (17 g total) by mouth daily 07/15/20 Active senna-docusate (PERICOLACE) 8.6-50 mgIndications:Slow transit constipation [...] by mouth daily with dinner 10/10/20 Active ondansetron ODT (ZOFRAN-ODT) 4 mg disintegrating tabletIndications: Nausea and Vomiting Take 1 tablet (4 mg total) by mouth every 6 (six) hours as needed for nausea or vomiting 10/10/20 Active zinc sulfate (ZINCATE) 50 mg zinc (220 mg) capsule Take 1 capsule (220 mg total) by mouth daily Active loperamide (IMODIUM A-D) 2 mg tablet Take 1 tablet (2 mg total) by mouth every 8 (eight) hours as needed for diarrhea Active ymepvosf-qot-pyffx acid-vit K 400-80 mcg capsule Take 1 [...] 10/04/2024 Assessment & Plan (10/09/2024 6:43 PM MAJOR ACCOUNT REPRESENTATIVE): See fever for more information No more O2 requirement Urinary retention 10/01/2024 Assessment & Plan (10/05/2024 6:12 PM MAJOR ACCOUNT REPRESENTATIVE): Possibly related to psychotropics vs poor mobility - Straight cath 09/30 x 1 - Servin placed 10/01 for PVR > 400 ml - Pass voiding trial on 10/03. Remove servin. Discharge planning issues 09/30/2024 Assessment & Plan (10/10/2024 10:44 AM MAJOR ACCOUNT REPRESENTATIVE): Daughter Bekah Rader expresses concern about functional decline over the past several year/months. Patient reportedly has not been adequately caring for herself (e.g., not bathing) at her [facility]. Daughter is open to the possibility of [...] 09/29/2024 Assessment & Plan (10/09/2024 6:47 PM MAJOR ACCOUNT REPRESENTATIVE): She experienced acute onset confusion the day [...] 09/29/2024 Assessment & Plan (10/09/2024 6:44 PM MAJOR ACCOUNT REPRESENTATIVE): She was recently diagnosed with acute bilateral [...] 09/29/2024 Assessment & Plan (09/29/2024 6:27 AM MAJOR ACCOUNT REPRESENTATIVE): Chronic diastolic dysfunction noted on TTE in 06/2024. Appears euvolemic. Continue home maintenance Lasix 40 mg daily Fever 09/29/2024 Assessment & Plan (10/09/2024 6:43 PM MAJOR ACCOUNT REPRESENTATIVE): She underwent an ambulatory bronchoscopy on 09/28 [...] of schizophrenia. Patient follows with psychiatry at [facility]. Patient was noted by family that she [...] risk for the stabilization. Patient follows at [facility]. Assessment & Plan (07/01/2024 8:34 AM CDT): [...] 06/23/2024 Assessment & Plan (10/09/2024 6:53 PM MAJOR ACCOUNT REPRESENTATIVE): She is being followed by pulmonology for [...] 06/23/2024 Assessment & Plan (09/29/2024 6:27 AM MAJOR ACCOUNT REPRESENTATIVE): Continue home statin Assessment & Plan (07/15/2024 [...] 06/23/2024 Assessment & Plan (10/05/2024 6:03 PM MAJOR ACCOUNT REPRESENTATIVE): Not currently in exacerbation. - Psychiatry was consulted- Risperdal consta 25mg IM q2 weeks (next dose to be given 10/07/24), benztropine from scheduled to PRN, stop lithium, stop oral risperidone, continue lamotrigine 100mg daily/quetiapine 200mg qHS/ sertraline 50mg. - FU outpatient psychiatry Acute hypoxic respiratory failure 06/23/2024 Primary hypertension 03/15/2024 Assessment & Plan (09/29/2024 6:27 AM MAJOR ACCOUNT REPRESENTATIVE): Continue home amlodipine, carvedilol Assessment & Plan [...] 10/01/2024 Assessment & Plan (10/03/2024 12:08 PM MAJOR ACCOUNT REPRESENTATIVE): Baseline 0.9-1, up to 1.16 on 10/01. Does not meet RINKU criteria yet. Poor oral intake, limited urine production (not oliguric) with bladder scans overnight showing only ~300 ml in the bladder. - Stable around 1-1.1 Encephalopathy 10/01/2024 10/01/2024 Hypoxia 09/29/2024 10/04/2024 Assessment & Plan (09/30/2024 12:12 PM MAJOR ACCOUNT REPRESENTATIVE): Requiring 2L O2 in the ED to maintain oxygenation > 90%. Per ED nursing, desaturation seems to occur while patient is in deep sleep, possibly representing DAYNE. - saturating 98% on 1L NC. Wean to RA and spot check Chest pain 03/20/2024 07/01/2024 Chest pain due to GERD 03/14/202407/01 Encounters Date Type Department Care Team Description 12/19/2024 5:42 PM MAJOR ACCOUNT REPRESENTATIVE - 12/19/2024 11:59 PM MAJOR ACCOUNT REPRESENTATIVE Hospital Encounter [facility] Emergency, Room R Discharge Disposition: Discharge to home or self care 12/14/2024 10:25 AM MAJOR ACCOUNT REPRESENTATIVE - 12/19/2024 5:36 PM MAJOR ACCOUNT REPRESENTATIVE Hospital Encounter [facility] [address] [place] [id number] Kayla Escobar MD Nations, Matthew Austin, DO Kheirkhahan, Nazanin, MD Closed right hip fracture, initial encounter (HCC) (Primary Dx); Dementia, unspecified dementia severity, unspecified dementia type, unspecified whether behavioral, psychotic, or mood disturbance or anxiety (HCC); Cyst of left ovary Discharge Disposition: Discharge to intermediate facility from Last 3 Months Medical History Medical [...] drink = 0.6 oz pur e alcohol) [facility] Utilities Answer Date Recorded In the past 12 months has [employer], gas, oil, or water [employer] threatened to shut off services in your home? No 12/15/2024 Social Connection and Isolation Panel [NHANES] A nswer Date Recorded In a typical week, how many times do you talk on the phone with family, friends, or neighbors? Patient declined 12/15/2024 How often do you get togethe r with friends or relatives? Patient declined 12/15/2024 How often do you attend zoroastrian or zoroastrianism serv ices? Patient declined 12/15/2024 Do you belong to any clubs o r organizations such as zoroastrian groups, unions, fraternal or athletic groups, or [...] any time in the past 12 m [facility], were you homeless or living in a m[facility] (including now)? Patient declined 12/15/2024 Personal Safety Answer Date Recorded Have you ever been in or are you currently in a harmful physical or emotional relationship or is someone making you feel afraid or unsafe? Patient unable to answer 12/14/2024 Comments No Sex and Gender Information Value Date Recorded Sex Assigned at Not on file Legal Sex Female 1:18 AM MAJOR ACCOUNT REPRESENTATIVE Gender Identity Not on file Sexual Orientation Not on file Obstetrics History Last Filed Vital Signs Vital Sign Reading Time Taken Comments Blood Pressure 113/58 12/19/2024 11:00 AM MAJOR ACCOUNT REPRESENTATIVE Pulse 92 12/19/2024 11:00 AM MAJOR ACCOUNT REPRESENTATIVE Temperature 36.7 C (98.1 F) 12/19/2024 11:00 AM MAJOR ACCOUNT REPRESENTATIVE Respiratory Rate 16 12/19/2024 11:0 0 AM MAJOR ACCOUNT REPRESENTATIVE Oxygen Saturation 92% 12/19/2024 11: 00 AM MAJOR ACCOUNT REPRESENTATIVE Inhaled Oxygen Concentration - - Weight 61.2 kg (134 lb 14.7 oz) 12/14/2024 8:12 PM MAJOR ACCOUNT REPRESENTATIVE Height 152.4 cm (5') 12/14/2024 8:12 PM MAJOR ACCOUNT REPRESENTATIVE Body Mass Index 26.35 12/14/2024 8:12 PM MAJOR ACCOUNT REPRESENTATIVE Plan of Treatment Health Maintenance Due Date Last Done Comments Colon Cancer Screening-Colonoscopy 1950 Depression Screening 1950 Hepatitis B Screening 1969 Well Visit 65+ 2016 Osteoporosis Screening-Bone Density Scan 07/08/2024 07/08/2022, 07/08/2022, 01/06/2018, Additional history exists Breast Cancer Screening-Mammogram 06/10/2025 06/10/2024, 07/14/2022, 07/14/2022, Additional history exists Fall Risk Assessment 12/19/2025 12/19/2024 DTaP/Tdap/Td Vaccine (3 - Td or Tdap) 07/08/2027 07/08/2017, 07/07/2017 Pneumococcal vaccine 65+ Completed 019, 09/03/2018, 07/08/2017, Additional history exists Zoster Vaccine Completed 09/07/2019, 07/04/2019 Influenza Vaccine Completed 09/13/2024, , 09/03/2018, Additional history exists Hepatitis C Screening Completed 10/02/2024 Procedures Procedure Name Priority Date/Time Associated Diagnosis Comments EGFR Routine 12/17/2024 9:55 AM MAJOR ACCOUNT REPRESENTATIVE CBC WITHOUT DIFFERENTIAL Routine 12/17/2024 9:55 AM MAJOR ACCOUNT REPRESENTATIVE BASIC METABOLIC PANEL Routine 12/17/2024 9:55 AM MAJOR ACCOUNT REPRESENTATIVE URINALYSIS, MICROSCOPIC ONLY STAT 12/16/2024 2:46 PM MAJOR ACCOUNT REPRESENTATIVE URINE CULTURE STAT 12/16/2024 2:46 PM MAJOR ACCOUNT REPRESENTATIVE URINALYSIS AND REFLEX TO MICROSCOPIC AND CULTURE STAT 12/16/2024 2:46 PM MAJOR ACCOUNT REPRESENTATIVE CT HEAD WO CONTRAST ED Urgent/IP Urgent 12/15/2024 3:42 PM MAJOR ACCOUNT REPRESENTATIVE XR CHEST 1 VIEW ED Urgent/IP Urgent 12/15/2024 3:26 PM MAJOR ACCOUNT REPRESENTATIVE MRI HIP RIGHT WO CONTRAST ED Urgent/IP Urgent 12/15/2024 6:57 AM MAJOR ACCOUNT REPRESENTATIVE EGFR Routine 12/15/2024 4:04 AM MAJOR ACCOUNT REPRESENTATIVE DIFFERENTIAL AUTO Routine 12/15/2024 4:0 4 AM MAJOR ACCOUNT REPRESENTATIVE COMPREHENSIVE METABOLIC PANEL Routine 12/15/2024 4:04 AM MAJOR ACCOUNT REPRESENTATIVE CBC WITH AUTO DIFFERENTIAL Routine 12/15/2024 4:04 AM MAJOR ACCOUNT REPRESENTATIVE URINALYSIS AND REFLEX TO MICROSCOPIC AND CULTURE STAT 12/14/2024 3:13 PM MAJOR ACCOUNT REPRESENTATIVE CT HIP RIGHT WO CONTRAST ED 12/14/2024 2:12 PM MAJOR ACCOUNT REPRESENTATIVE XR HIP RIGHT W PELVIS 2 OR 3 VIEWS ED 12/14/2024 11:14 AM MAJOR ACCOUNT REPRESENTATIVE INFLUENZA A/B, RSV, AND COVID-19 PCR STAT 12/14/2024 10:40 AM MAJOR ACCOUNT REPRESENTATIVE ECG 12-LEAD STAT 12/14/2024 10:34 AM MAJOR ACCOUNT REPRESENTATIVE EGFR STAT 12/14/2024 10:33 AM MAJOR ACCOUNT REPRESENTATIVE DIFFERENTIAL AUTO STAT 12/14/2024 10: 33 AM MAJOR ACCOUNT REPRESENTATIVE SEPSIS LACTATE WITH REFLEX STAT 12/14/2024 10:33 AM MAJOR ACCOUNT REPRESENTATIVE COMPREHENSIVE METABOLIC PANEL STAT 12/14/2024 10:33 AM MAJOR ACCOUNT REPRESENTATIVE CBC WITH AUTO DIFFERENTIAL STAT 12/14/2024 10:33 AM MAJOR ACCOUNT REPRESENTATIVE HEPATITIS C ANTIBODY Routine 10/02/2024 8:28 PM MAJOR ACCOUNT REPRESENTATIVE DIAGNOSTIC MAMMOGRAM BILATERAL W MOHSEN Schedule Routine, Read Routine (OP Routine) 06/10/2024 2:19 PM CDT Mass of right breast, unspecified quadrant from Last 3 Months or Most Recently Relevant to Health Maintenance Results * eGFR (12/17/2024 9:55 AM MAJOR ACCOUNT REPRESENTATIVE) eGFR >90 >=60 mL/min/1. 73 m2 Comment: [...] last reviewed 2021. Blood 12/17/2024 9:55 AM MAJOR ACCOUNT REPRESENTATIVE 12/17/2024 10:03 AM MAJOR ACCOUNT REPRESENTATIVE us Eli Brasher MD LAB BLOOD ORDERABLES Rosie l Result [facility] ([place]) 1 [facility] [place] [address] * (ABNORMAL) CBC without differential (12/17/2024 9:55 AM MAJOR ACCOUNT REPRESENTATIVE) [facility] WBC 9.5 3.8 - 9.9 K/cumm Hgb 10.8(L) 11.9 - 15.5 g/dL [facility] Hct 34.3(L) 35.6 - 45.5 % [facility] ([place]) Plt 266 150 - 400 K/cumm [facility] ([place]) MPV 9.1 9.1 - 12.3 fL [facility] ([place]) RBC 3.59(L) 3.90 - 5.20 M/cumm [facility] ([place]) MCV 95.5 81.3 - 96.4 fL [facility] MCH 30.1 27.1 - 33.3 pg [facility] MCHC 31.5(L) 32.3 - 35.7 g/dL [facility] RDW CV 13.1 11.1 - 14.9 % [facility] RDW SD 45.6 35.7 - 48.1 fL [facility] NRBC abs 0.00 0.00 - 0.01 K/cumm [facility] Blood 12/17/2024 9:55 AM MAJOR ACCOUNT REPRESENTATIVE 12/17/2024 10:03 AM MAJOR ACCOUNT REPRESENTATIVE us Eli Brasher MD LAB BLOOD ORDERABLES Rosie barnes Result [facility] ([place]) 1 [facility] Department [place] [address] * (ABNORMAL) Basic metabolic panel (12/17/2024 9:55 AM MAJOR ACCOUNT REPRESENTATIVE) [facility] Sodium 136 135 - 145 mmol/L Potassium, pl 3.3 3.3 - 4.9 mmol/L [facility] Chloride 101 97 - 110 mmol/L [facility]) CO2 24 22 - 32 mmol/L [facility] ([place]) Anion gap 12 2 - 15 mmol/L [facility] ([place]) BUN 9 6 - 25 mg/dL [facility] ([place]) Creatinine 0.48(L) 0.60 - 1.10 mg/dL [facility] ([place]) Glucose 139 70 - 199 mg/dL [facility] ([place]) Comment: Interpretive Data Fasting glucose >/= [...] 2022. Calcium 9.5 8.5 - 10.3 mg/dL [facility] ([place]) Blood 12/17/2024 9:55 AM MAJOR ACCOUNT REPRESENTATIVE 12/17/2024 10:03 AM MAJOR ACCOUNT REPRESENTATIVE us Eli Brasher MD LAB BLOOD ORDERABLES Rosie barnes [facility] ([place]) 1 [facility] Department [place] [address] * (ABNORMAL) Urinalysis reflex to microscopic and culture Urine (12/16/2024 2:46 PM MAJOR ACCOUNT REPRESENTATIVE) Color, ur [place] Clarity, ur Turbid(A) Clear [facility] ([place]) Specific gravity, ur 1.014 1.003 - 1.030 [facility] ([place]) pH, urine 6.5 [facility] ([place]) Comment: Interpretive Data U rine pH is affected by diet, medications, systemic acid-base disturbances, and renal tubular function. pH may affect urinary stone formation. For example, urine pH below 6.0 may help reduce the tendency for calcium phosphate stones and pH greater than 6.0 may reduce the tendency for uric acid stone formation. Source: [facility] Current Interpretive Data was last revised on 2017 Protein, ur ql 3+(A) Negative [facility] ([place]) Glucose, ur ql Negative Negative [facility] ([place]) Ketones, ur Negative Negative [facility] ([place]) Bilirubin, ur Negative Negative [facility] ([place]) Blood, ur 2+(A) Negative [facility] ([place]) Urobilinogen, ur <2.0 <2.0 mg/dL [facility] ([place]) Nitrite, ur Positive(A) Negative [facility] ([place]) Leukocyte esterase, ur 4+(A) Negative [facility] ([place]) UA reflex comment Reflex to microscopic UA will be performed. [facility] ([place]) Urine 12/16/2024 2:46 PM MAJOR ACCOUNT REPRESENTATIVE 12/16/2024 2:49 PM MAJOR ACCOUNT REPRESENTATIVE Jami Schumacher [employer] LAB MICROBIOLOGY - GENERAL ORDERABLES Final Result Performing Organization Address [facility] Co de Phone Number [facility] ([place]) 1 [facility] Department [place] [address] * (ABNORMAL) Urinalysis, microscopic only (12/16/2024 2:46 PM MAJOR ACCOUNT REPRESENTATIVE) WBC, ur >50(A) 0 - 5 /HPF RBC, ur >50(A) 0 - 2 /HPF [facility] ([place]) Epithelial cells, squamous, ur 11-20(A) 0 - 5 /HPF [facility] ([place]) Comment:Suggestive of contam ination. Consider recollection by clean catch. Mucous, ur Present(A) [facility] ([place]) Hyaline casts, ur >50(A) 0 - 10 /LPF [facility] ([place]) Culture Reflex Comment Reflex to urine culture will be performed. [facility] ([place]) Urine 12/16/2024 2:46 PM MAJOR ACCOUNT REPRESENTATIVE 12/16/2024 2:49 PM MAJOR ACCOUNT REPRESENTATIVE Jami Schumacher NP LAB URINE ORDERABLE S Final Result Performing Organization Address [facility]/ZIP Co de Phone Number [facility] ([place]) 1 [facility] Department [place] [address] * (ABNORMAL) Urine culture Urine (12/16/2024 2:46 PM MAJOR ACCOUNT REPRESENTATIVE) Report Final Report: Greater than or equal to 100,000 colonies/mL of Proteus mirabilis Greater than or equal to 100,000 colonies/mL of Escherichia coli (.) Comment:Testing performed by : [facility], [address] [place]., [address] Organism PROTEUS MIRABILIS [facility] ([place]) Organism ESCHERICHIA COLI [facility] ([place]) Urine 12/16/2024 2:46 PM MAJOR ACCOUNT REPRESENTATIVE 12/16/2024 6:50 PM MAJOR ACCOUNT REPRESENTATIVE Narrative [facility] ([place]) - 12/18/2024 10:09 AM MAJOR ACCOUNT REPRESENTATIVE Urine culture reflexed based upon urinalysis results. Testing performed by [facility] ([phone]) Organism Antibiotic Method Susceptibility Proteus mirabilis Ampicillin [...] INTERPRETATION Susceptible Escherichia coli Cefdinir INTERPRETATION Susceptible Jamicarlo Glezlle Endy MIRELES LAB MICROBIOLOGY - GENERAL ORDERABLES Final Result [facility] [place] 1 [facility] [place] [address] * CT Head WO Contrast (12/15/2024 3:42 PM MAJOR ACCOUNT REPRESENTATIVE) Anatomical Region Laterality Modality Head and Neck N/A Computed Tomogra phy 12/15/2024 4:01 PM MAJOR ACCOUNT REPRESENTATIVE Narrative 12/15/2024 4:11 PM MAJOR ACCOUNT REPRESENTATIVE EXAM DESCRIPTION: CT HEAD WO CONTRAST REASON [...] Hetal Harley M.D. LC: CESAR Report ID: [id number] Reading Location: [id number] Procedure Note Tracy Harley MD - 12/15/2024 [...] 4:11 PM - Electronically signed by Hetal GUERRERO: CESAR Report ID: [id number] Reading Location: [id number] Jami Schumacher NP IMG CT PROCEDURES F inal Result * XR CHEST 1 VIEW PORTABLE (12/15/2024 3:26 PM MAJOR ACCOUNT REPRESENTATIVE) Anatomical Region Laterality Modality Body, Chest N/A Computed Radiogr aphy 12/15/2024 3:56 PM MAJOR ACCOUNT REPRESENTATIVE Narrative 12/15/2024 4:01 PM MAJOR ACCOUNT REPRESENTATIVE EXAM DESCRIPTION: XR CHEST 1 VIEW REASON [...] 4:01 PM - Electronically signed by Hetal GUERRERO: CESRA Report ID: [id number] Reading Location: [id number] Procedure Note Tracy Harley MD - 12/15/2024 [...] Hetal Harley M.D. LC: CESAR Report ID: [id number] Reading Location: [id number] Jami Schumacher NP IMG XR PROCEDURES F inal Result * MRI Hip Right WO Contrast (12/15/2024 6:57 AM MAJOR ACCOUNT REPRESENTATIVE) Anatomical Region Laterality Modality Lower Extremities Right Magnetic Reson ance 12/15/2024 9:52 AM MAJOR ACCOUNT REPRESENTATIVE Narrative 12/15/2024 10:18 AM MAJOR ACCOUNT REPRESENTATIVE EXAM DESCRIPTION: MRI HIP RIGHT WO CONTRAST [...] is degenerative fraying of the superolateral acetabulum. Ewbv-zk-ldomjjwn right hip chondrosis is present, greatest posteriorly. [...] MR evidence of a right hip fracture. Errc-ih-zjpdpres right hip chondrosis with degenerative fraying of [...] Emanuel Smith M.D. MF: GABRIELE Report ID: [id number] Reading Location: [id number] Procedure Note Emanuel Smith MD - 12/15/2024 [...] is degenerative fraying of the superolateral acetabulum. Venz-wa-sytkliky right hip chondrosis is present, greatest posteriorly. [...] MR evidence of a right hip fracture. Oqcu-sx-jkefkakf right hip chondrosis with degenerative fraying of [...] Emanuel Smith M.D. MF: GABRIELE Report ID: [id number] Reading Location: [id number] us Laureen MONZON IMG MRI PROCEDURES Fi nal Result * eGFR (12/15/2024 4:04 AM MAJOR ACCOUNT REPRESENTATIVE) eGFR >90 >=60 mL/min/1. 73 m2 Comment: [...] last reviewed 2021. Blood 12/15/2024 4:04 AM MAJOR ACCOUNT REPRESENTATIVE 12/15/2024 4:17 AM MAJOR ACCOUNT REPRESENTATIVE us Kayla Escobar MD LAB BLOOD ORDERABLES Rosie l Result [facility] ([place]) 1 [facility] Department of Laboratories [place], [place] [address] * (ABNORMAL) Differential, auto (12/15/2024 4:04 AM MAJOR ACCOUNT REPRESENTATIVE) Neutrophil abs 7.7(H) 1.5 - 6.5 K/cumm Imm gran abs 0.1 0.0 - 0.1 K/cumm [facility] ([place]) Lymphocyte abs 2.2 0.8 - 3.3 K/cumm [facility] ([place]) Monocyte abs 1.0(H) 0.2 - 0.8 K/cumm [facility] ([place]) Eosinophil abs 0.2 0.0 - 0.5 K/cumm [facility] ([place]) Basophil abs 0.0 0.0 - 0.1 K/cumm [facility] ([place]) Neutrophil pct 68.7 % [facility] ([place]) Comment: Interpretive Data Percent cell count reference ranges are not reported, since discordance with absolute values may lead to misinterpretation of CBC data. Current Interpretive Data was last revised on 2018. Imm gran pct 0.4 % [facility] ([place]) Comment: Interpretive Data Percent cell count reference ranges are not reported, since discordance with absolute values may lead to misinterpretation of CBC data. Current Interpretive Data was last revised on 2018. Lymphocyte pct 19.4 % [facility] ([place]) Comment: Interpretive Data Percent cell count reference ranges are not reported, since discordance with absolute values may lead to misinterpretation of CBC data. Current Interpretive Data was last revised on 2018. Monocyte pct 9.1 % [facility] ([place]) Comment: Interpretive Data Percent cell [...] 2018. Basophil pct 0.3 % [facility] ([place]) Comment: Interpretive Data Percent cell count reference ranges are not reported, since discordance with absolute values may lead to misinterpretation of CBC data. Current Interpretive Data was last revised on 2018. Blood 12/15/2024 4:04 AM MAJOR ACCOUNT REPRESENTATIVE 12/15/2024 4:17 AM MAJOR ACCOUNT REPRESENTATIVE us Kayla Escobar MD LAB BLOOD ORDERABLES Rosie barnes Result [facility] ([place]) 1 [facility] Department [place] [address] * (ABNORMAL) CBC with auto differential (12/15/2024 4:04 AM MAJOR ACCOUNT REPRESENTATIVE) WBC 11.3(H) 3.8 - 9.9 K/cumm Hgb 11.2(L) 11.9 - 15.5 g/dL [facility] ([place]) Hct 34.4(L) 35.6 - 45.5 % [...] - 0.01 K/cumm [facility] ([place]) Blood 12/15/2024 4:04 AM MAJOR ACCOUNT REPRESENTATIVE 12/15/2024 4:17 AM MAJOR ACCOUNT REPRESENTATIVE us Kayla Escobar MD LAB BLOOD ORDERABLES Rosie barnes Result [facility] ([place]) 1 [facility] Department of Laboratories [place], [place] [id number] * (ABNORMAL) Comprehensive metabolic panel (12/15/2024 4:04 AM MAJOR ACCOUNT REPRESENTATIVE) Sodium 137 135 - 145 mmol/L Potassium, [...] [facility] ([place]) Blood 12/15/2024 4:04 AM MAJOR ACCOUNT REPRESENTATIVE 12/15/2024 4:17 AM MAJOR ACCOUNT REPRESENTATIVE Kayla Escobar MD LAB BLOOD ORDERABLES Rosie barnes Result [facility] ([place]) 1 [facility] Department [place] [address] * Urinalysis reflex to microscopic and culture Urine (12/14/2024 3:13 PM MAJOR ACCOUNT REPRESENTATIVE) Color, ur Yellow [place] Clarity, ur Clear Clear [facility] ([place]) Specific gravity, ur 1.008 1.003 - [...] tendency for uric acid stone formation. Source: [facility] Current Interpretive Data was last revised on [...] [facility] ([place]) Urine 12/14/2024 3:13 PM MAJOR ACCOUNT REPRESENTATIVE 12/14/2024 3:19 PM MAJOR ACCOUNT REPRESENTATIVE us Kayla Escobar MD LAB MICROBIOLOGY - GENERA L ORDERABLES Final Result [facility] ([place]) 1 [facility] [place] [address] * CT Hip Right WO Contrast (12/14/2024 2:12 PM MAJOR ACCOUNT REPRESENTATIVE) Anatomical Region Laterality Modality Lower Extremities Right Computed Tomog nargis 12/14/2024 2:22 PM MAJOR ACCOUNT REPRESENTATIVE Narrative 12/14/2024 2:34 PM MAJOR ACCOUNT REPRESENTATIVE EXAM DESCRIPTION: CT HIP RIGHT WO CONTRAST [...] Dilan Massey D.O. PS: PS Report ID: [id number] Reading Location: [id number] Procedure Note Dilan Massey DO - 12/14/2024 [...] Dilan Massey D.O. PS: PS Report ID: [id number] Reading Location: [id number] Kayla Escobar MD [facility] CT PROCEDURES Final R esult * XR Hip Right 2 or 3 Views W Pelvis (12/14/2024 11:14 AM MAJOR ACCOUNT REPRESENTATIVE) Anatomical Region Laterality Modality Lower Extremities, Hip, Pelvis Right C omputed Radiography 12/14/2024 11:4 8 AM MAJOR ACCOUNT REPRESENTATIVE Narrative 12/14/2024 11:54 AM MAJOR ACCOUNT REPRESENTATIVE EXAM DESCRIPTION: XR HIP RIGHT 2 OR [...] There is a right femoral neck/subcapital fracture. Fylji-aryrwsl-jlcm-left bilateral hip joint degenerative changes. There are pelvic phleboliths. IMPRESSION: Right subcapital hip fracture. Consider further evaluation with CT. THIS IS AN ELECTRONICALLY VERIFIED FINAL REPORT 12/14/2024 11:54 AM - Electronically signed by Alexis Vital D.O. AP: AP Report ID: [id number] Reading Location: [id number] Procedure Note Alexis Vital, DO - 12/14/2024 [...] There is a right femoral neck/subcapital fracture. Vavmw-otaaocw-kvii-left bilateral hip joint degenerative changes. Thereare pelvic phleboliths. IMPRESSION: Right subcapital hip fracture. Consider further evaluation with CT. THIS IS AN ELECTRONICALLY VERIFIED FINAL REPORT 12/14/2024 11:54 AM - Electronically signed by Alexis Vital D.O. AP: AP Report ID: [id number] Reading Location: [id number] Kayla Escobar MD IMG XR PROCEDURES Final R esult * Influenza A/B, RSV, and COVID-19 PCR Nasopharyngeal (12/14/2024 10:40 AM MAJOR ACCOUNT REPRESENTATIVE) COVID-19 RNA Negative Negative Influenza A RNA Negative Negative [facility]) Influenza B RNA Negative Negative [facility]) RSV RNA Negative Negative [facility]) Comment: Interpretive data: Testing performed by [facility]. This test is performed using the [employer] The[employer] Xpert Xpress CoV-2/Flu/RSV plus assay. This is a multiplex, real- time reverse transcriptase PCR assay intended for the qualitative detection of nucleic acid from SARS-CoV-2, influenza A, influenza B, and respiratory syncytial virus. This assay has been cleared by the [place] Food and Drug administration. The performance characteristics have been verified by the [facility]. Results must be considered in the clinical context, and a negative result does not rule out infection. Interpretive Data last revised 2023 Nasopharyngeal 12/14/2024 10 :40 AM MAJOR ACCOUNT REPRESENTATIVE 12/14/2024 10:48 AM MAJOR ACCOUNT REPRESENTATIVE Narrative [facility] - 12/14/2024 11:26 AM MAJOR ACCOUNT REPRESENTATIVE Is the Patient experiencing symptoms consistent with COVID?->Unknown Kayla Escobar MD LAB MICROBIOLOGY - GENERA L ORDERABLES Final Result [facility] 1 [facility] Department of Laboratories [place], [place] [id number] * ECG 12 lead (12/14/2024 10:34 AM MAJOR ACCOUNT REPRESENTATIVE) 12/14/2024 10:3 4 AM MAJOR ACCOUNT REPRESENTATIVE Narrative [facility] - 12/14/2024 11:34 AM MAJOR ACCOUNT REPRESENTATIVE Vent Rate: 84 bpm RR Interval: 713 msec [place] Interval: 136 msec QRS Duration: 101 msec QT Interval: 367 msec QTC Interval: 408 msec P-R-T [place]: 99 - 53 - 41 degrees IMPRESSION: Baseline artifact, probable SINUS RHYTHM POSSIBLE INFERIOR MYOCARDIAL INFARCTION , PROBABLY OLD [30 ms Q WAVE IN II/aVF] BORDERLINE ECG Recommend repeat EKG with stable baseline for accurate rhythm assessment Electronically Signed By: Darian Villaseñor MD Kayla Escobar MD ECG ORDERABLES Final Res ult Performing Organization Address City/[facility]/ZIP Co de Phone Number [facility] * Sepsis Lactate w/ Reflex (12/14/2024 10:33 AM MAJOR ACCOUNT REPRESENTATIVE) Sepsis Lactate 1.1 0.7 - 2.0 mmol/L Blood 12/14/2024 10:3 3 AM MAJOR ACCOUNT REPRESENTATIVE 12/14/2024 10:47 AM MAJOR ACCOUNT REPRESENTATIVE Kayla Escobar MD LAB BLOOD ORDERABLES Rosie l Result Performing Organization Address [facility] Co de Phone Number [facility] ([place] 1 [facility] Department [place] [address] * eGFR (12/14/2024 10:33 AM MAJOR ACCOUNT REPRESENTATIVE) eGFR >90 >=60 mL/min/1. 73 m2 Comment: [...] reviewed 2021. Blood 12/14/2024 10:3 3 AM MAJOR ACCOUNT REPRESENTATIVE 12/14/2024 10:47 AM MAJOR ACCOUNT REPRESENTATIVE Kayla Escobar MD LAB BLOOD ORDERABLES Rosie barnes Result [facility] ([place]) 1 [facility] [place] [address] * (ABNORMAL) Differential, auto (12/14/2024 10:33 AM MAJOR ACCOUNT REPRESENTATIVE) Neutrophil abs 7.6(H) 1.5 - 6.5 K/cumm Imm gran abs 0.0 0.0 - 0.1 K/cumm [facility]) Lymphocyte abs 2.2 0.8 - 3.3 K/cumm [facility] ([place]) Monocyte abs 0.8 0.2 - 0.8 K/cumm [facility] ([place]) Eosinophil abs 0.2 0.0 - 0.5 K/cumm [facility] ([place]) Basophil abs 0.1 0.0 - 0.1 K/cumm [facility] ([place]) Neutrophil pct 69.6 % [facility] ([place]) Comment: Interpretive Data Percent cell count reference ranges are not reported, since discordance with absolute values may lead to misinterpretation of CBC data. Current Interpretive Data was last revised on 2018. Imm gran pct 0.3 % [facility] ([place]) Comment: Interpretive Data Percent cell count reference [...] revised on 2018. Monocyte pct 7.4 % [facility] ([place]) Comment: Interpretive Data Percent cell [...] revised on 2018. Basophil pct 0.5 % [facility]) Comment: Interpretive Data Percent cell count reference ranges are not reported, since discordance with absolute values may lead to misinterpretation of CBC data. Current Interpretive Data was last revised on 2018. Blood 12/14/2024 10:3 3 AM MAJOR ACCOUNT REPRESENTATIVE 12/14/2024 10:47 AM MAJOR ACCOUNT REPRESENTATIVE Kayla Escobar MD LAB BLOOD ORDERABLES Rosie barnes Result [facility] ([place] 1 [facility] [place] [address] * (ABNORMAL) CBC with auto differential (12/14/2024 10:33 AM MAJOR ACCOUNT REPRESENTATIVE) WBC 10.8(H) 3.8 - 9.9 K/cumm Hgb 12.0 11.9 - 15.5 g/dL [facility] Hct 37.0 35.6 - 45.5 % [facility] Plt 302 150 - 400 K/cumm [facility]) MPV 9.0(L) 9.1 - 12.3 fL [facility] RBC 3.97 3.90 - 5.20 M/cumm [facility]) MCV 93.2 81.3 - 96.4 fL [facility]) MCH 30.2 27.1 - 33.3 pg [facility]) MCHC 32.4 32.3 - 35.7 g/dL [facility]) RDW CV 13.2 11.1 - 14.9 % [facility] RDW SD 44.9 35.7 - 48.1 fL [facility]) NRBC abs 0.00 0.00 - 0.01 K/cumm [facility]) Blood 12/14/2024 10:3 3 AM MAJOR ACCOUNT REPRESENTATIVE 12/14/2024 10:47 AM MAJOR ACCOUNT REPRESENTATIVE Kayla Escobar MD LAB BLOOD ORDERABLES Rosie barnes Result [facility] 1 [facility] [place] [address] * (ABNORMAL) Comprehensive metabolic panel (12/14/2024 10:33 AM MAJOR ACCOUNT REPRESENTATIVE) Sodium 135 135 - 145 mmol/L Potassium, pl 4.8 3.3 - 4.9 mmol/L [facility] Comment:Moderately Hemolyzed Specimen. Results may be affected. Chloride 101 97 - 110 mmol/L [facility] CO2 26 22 - 32 mmol/L [facility] Anion gap 8 2 - 15 mmol/L [facility] BUN 11 6 - 25 mg/dL [facility] Creatinine 0.63 0.60 - 1.10 mg/dL [facility] Glucose 132 70 - 199 mg/dL [facility] [...] Hemolyzed Specimen Blood 12/14/2024 10:3 3 AM MAJOR ACCOUNT REPRESENTATIVE 12/14/2024 10:47 AM MAJOR ACCOUNT REPRESENTATIVE Kayla Escobar MD LAB BLOOD ORDERABLES Rosie l Result [facility] 1 [facility] [place] [address] * Hepatitis C antibody Blood (10/02/2024 8:28 PM MAJOR ACCOUNT REPRESENTATIVE) Hep C Ab Nonreactive Nonreactive Comment:Antibodies to HCV no t detected. Does NOT exclude the possibility of recent exposure to HCV. Current interpretive data was last revised on 22 Blood 10/02/2024 8:28 PM MAJOR ACCOUNT REPRESENTATIVE 10/02/2024 9:25 PM MAJOR ACCOUNT REPRESENTATIVE Moreno Wan MD LAB MICROBIOLOGY - GENERAL ORDJosé PARISI Final Result Performing Organization Address City/[facility]/ZIP Co de Phone Number [facility] Department [place] [address] * Diagnostic Mammogram Bilateral W Mohsen (06/10/2024 [...] breast complaint. Reviewing the patient's chart in [facility], no note specifying the location [...] PM - Electronically signed by Ulises Hernandez M.D., MD: Report ID: [id number] Reading Location: [facility] Corazon Humphrey [employer] MA[employer] IMG MAMMO PROCEDURES Final Result from Last 3 Months or Most Recently Relevant to Health Maintenance Insurance * Guarantor: Birgit Stern Account Type Relation to Patient Date of Phone Billing Address Personal/Family Self [address] [place] [address] [employer] [facility] Address: [address] [address] [address] [place] [address] [place] [address] * Guarantor: Birgit Stern Account Type Relation to Patient Date of Phone Billing Address Personal/Family Self 1950 [address] [place] [address] Advance Directives For more information, please contact: [phone] * LIMITED - No CPR (Latest Code [...] 2:40 PM 03/14/2024 4:39 PM Care Teams Editor Relationship Specialty Start Date End Date Darcy Reddy NP PCP - General Family Medicine 11/29/21 Javi Limon MD [address] [place] [address] [place] [id number] Consulting Physician Pulmonary Disease 06/26/24
--- OUTSIDE RECORDS SUMMARY | 2025-01-31 17:42 | XMS_ITS | Data Portability ---
Author Organization [facility], [employer] Address [address] [place] [address] Care Team Providers Care Tricot Knitter Name Role Phone BHUMI BROOKS Dehydrator Tender RAYA HANEY Primary Care Provider [phone] Assessment Encounter Date Assessment Date Assessment LastModified by Organization Details LastModified Time 07/11/2019 07/11/2019 Education was provided on healthy nutrition, including a diet rich in fruits and vegetables, minimizing simple carbohydrates, salt, and saturated fats. Encouraged regular cardiovascular exercise such as walking at least 30 minutes daily, 5 times per week. Not available 07/11/2019 15:19:03 01/26/2020 01/26/2020 Education was provided on healthy nutrition, including a diet rich in fruits and vegetables, minimizing simple carbohydrates, salt, and saturated fats. Encouraged regular cardiovascular exercise such as walking at least 30 minutes daily, 5 times per week. Not available 01/26/2020 16:34:17 03/26/2020 03/26/2020 Patient presente d to office today for their Medicare Annual Wellness Visit. Education was provided on healthy nutrition, including a diet rich in fruits and vegetables, minimizing simple carbohydrates, salt, and saturated fats. Encouraged regular cardiovascular exercise such as walking at least 30 minutes daily, 5 times per week. Emphasized preventive health measures and educated pt on fall prevention and community-based lifestyle interventions to help reduce health risks and promote healthy living. Education was provided on healthy nutrition, including a diet rich in fruits and vegetables, minimizing simple carbohydrates, salt, and saturated fats. Encouraged regular cardiovascular exercise such as walking at least 30 minutes daily, 5 times per week. [facility] Not available 03/26/2020 15:24:29 Plan of Treatment Reminders Order Date Submit Date Provider Last Modified By Organization Details Last Modified Time Details Appointments None recorded. Lab CMP, serum or plasma 2019 DAPHNE Not available 0 12:38:21 CBC 2019 [facility]NE Not available 0 12:38:20 TSH, serum or plasma 2019 D[facility]NE Not available 0 12:38:22 vitamin D, 25-hydroxy , total, serum 2019 [facility] Not available 0 12:38:22 microalbum in/creatin ine, mass ratio, urine 2019 [facility] Not available 0 15:37:41 CBC w/ auto diff 2019 [facility] Not available 0 15:37:43 phosphorus , serum or plasma 2019 D[facility]NE Not available 0 15:37:40 PTH (parathyro id hormone), intact + calcium, serum or plasma 2019 [facility] Not available 0 15:37:42 uric acid, serum or plasma 2019 [facility] Not available 0 15:37:44 lipid panel w/ direct LDL, serum 2019 [facility] Not available 0 15:37:43 CMP, serum or plasma 2019 020 [facility] Not available 0 15:37:42 vitamin D, 25-hydroxy , total, serum 2019 020 [facility] Not available 0 15:37:41 hsv (1+2) igg Ab, serum 2019 020 lcallison Not available 0 08:58:14 CBC w/ auto diff 2019 020 [facility] Not available 0 12:14:34 phosphorus , serum or plasma 2019 020 [facility] Not available 0 12:14:36 PTH (parathyro id hormone), intact + calcium, serum or plasma 2019 020 [facility] Not available 0 17:07:31 uric acid, serum or plasma 2019 D[facility]NE Not available 0 12:14:36 vitamin D, 25-hydroxy , total, serum 2019 [facility] Not available 0 12:14:37 lipid panel w/ direct LDL, serum 2019 [facility] Not available 0 17:07:34 CMP, serum or plasma 2019 D[facility] Not available 0 12:14:35 microalbum in/creatin ine, mass ratio, urine 2019 [facility] Not available 0 12:14:37 microalbum in/creatin ine, mass ratio, urine 2018 019 [facility] Not available 9 03:08:24 CBC w/ auto diff 2018 019 [facility] Not available 9 03:08:21 phosphorus , serum or plasma 2018 019 [facility] Not available 9 03:08:21 PTH (parathyro id hormone), intact + calcium, serum or plasma 2018 019 [facility] Not available 9 03:08:22 uric acid, serum or plasma 2018 019 [facility] Not available 9 03:08:23 lipid panel w/ direct LDL, serum 2018 019 [facility] Not available 9 03:08:23 CMP, serum or plasma 2018 [facility] Not available 9 03:08:25 vitamin D, 25-hydroxy , total, serum 2018 019 [facility] Not available 9 03:08:20 vitamin D, 25-hydroxy , total, serum 2018 [facility] Not available 9 03:08:19 Referral physical therapist referral 2019 020 erick [facility], [address], [address], [place], [address], 0 08:45:43 orthopedic referral 2019 020 erick Grayson MD, [address] [facility] , [address], [place], [address], 0 08:45:44 physical therapist referral 2019 ryne [facility], [address], [address], [place], [address], 0 09:13:53 physical therapist referral 2018 019 ryne [facility], [address], [address], [place], [address], 9 08:46:16 physical therapist referral 2018 019 ryne [facility], [address], [address], [place], [address], 9 08:46:18 physical therapist referral 2018 019 [facility], [address], [address], [place], [address], 9 08:46:17 physical therapist referral 2018 019 [facility], [address], [address], [place], [address], 9 08:46:17 neurologis t referral 2018 019 ryne [facility], [address] [facility], [address], [place], [address], 9 09:03:11 Procedures None recorded. Surgeries None recorded. Imaging MAMMO, screening, digital, bilateral 2019 ATHENAFAX Not available 0 15:51:05 XR, shoulder, 2 or more view 2019 [facility]), [address], [address], [place], [address], 0 08:43:53 MAMMO, screening, digital, bilateral 2019 ATHENAFAX Not available 0 17:15:32 [facility] 2018 [facility], [address], [place], [address], 9 11:04:25 MAMMO, screening, digital, bilateral 2018 019 ATHENAFAX Not available 9 03:25:23 Medication Orders Tylenol Extra Strength 500 mg tablet 2019 INTERFACE [facility] #[id number], [address], [place], [id number], 0 17:11:46 fluticason e propionate 50 mcg/actuat ion nasal spray,susp ension 2019 INTERFACE [facility] #55948, [address], [place], [id number], 0 15:37:43 montelukas t 10 mg tablet 2019 INTERFACE [facility] #96684, [address] [facility], [place], [place], [id number], 0 15:37:44 pregabalin 50 mg capsule 2019 [facility]FACE [facility]008, [address], [place], [id number], 0 15:37:50 amlodipine 5 mg tablet 2019 pc[facility], [address], [place], [id number], 0 07:49:45 omeprazole 40 mg capsule,de layed release 2019 INTERFACE [facility]92181, [address], [place], [id number], 0 15:37:43 atorvastat in 20 mg tablet 2019 INTERFACE [facility]16649, [address], [place], [id number], 0 15:37:45 fluticason e propionate 50 mcg/actuat ion nasal spray,susp ension 2019 020 [facility]FACE [facility]89136, [address], [place], [id number], 0 17:07:32 montelukas t 10 mg tablet 2019 020 INTERFACE [facility] #57161, [address], [place], [id number], 0 17:07:24 omeprazole 40 mg capsule,de layed release 2019 020 INTERFACE [facility] #04495, [address] [place], [place], [id number], 0 17:07:20 atorvastat in 20 mg tablet 2019 020 INTERFACE [facility] #18149, [address], [place], [place], [id number], 0 17:07:21 amlodipine 5 mg tablet 2019 020 [address] [facility], [address], [place], [place], [id number], 0 07:49:45 fluticason e propionate 50 mcg/actuat ion nasal spray,susp ension 2018 019 INTERFACE [facility]260[facility], [address], [place], [place], [id number], 9 15:41:54 montelukas t 10 mg tablet 2018 019 INTERFACE [facility]90241, [address] , [place], [place], [id number], 9 15:41:50 amlodipine 5 mg tablet 2018 019 [address]24752, [address] , [place], [place], [id number], 0 07:49:45 famotidine 20 mg tablet 2018 019 [address]28395, [address] , [place], [place], [id number], 0 15:29:11 atorvastat in 20 mg tablet 2018 019 INTERFACE [facility]52767, [address] , [place], [place], [id number], 9 15:41:54 Amitiza 24 mcg capsule 2018 019 [address] [facility]40543, [address] , [place], [place], [id number], 0 19:10:11 Patient TargetsNo targets recorded. Patient Instructions Encounter Date Encounter Id Patient Instructions Last Modified By Organization Details Last Modified Time 07/11/2019 [id number] advance directiv e education Not available 07/11/2019 15:41:41 dash diet: care instructions Not available 07/11/2019 15:41:42 When You Want to Lose Weight: Care Instructions Not available 07/11/2019 15:41:42 advised to lose weight Not available 07/11/2019 15:41:42 01/26/2020 [id number] advance directiv e education Not available 01/26/2020 17:07:13 When You Want to Lose Weight: Care Instructions Not available 01/26/2020 17:07:13 advised to lose weight Not available 01/26/2020 17:07:14 dash diet: care instructions Not available 01/26/2020 17:07:14 I spent 23 minut e face to face time with this patient (> 50% spent on counseling), explaining the test result and counseling patient on pt's medical conditions. Not available 01/26/2020 17:08:57 03/26/2020 [id number] advance directiv e education Not available 03/26/2020 15:37:34 dash diet: care instructions Not available 03/26/2020 15:37:33 medicare preventive services guide Not available 03/26/2020 15:37:33 advance care planning: care instructions Not available 03/26/2020 15:37:33 When You Want to Lose Weight: Care Instructions Not available 03/26/2020 15:37:34 advised to lose weight Not available 03/26/2020 15:37:34 Discussed and explained advance directives such as standard forms to the {{patient caregiv er patient and caregiver}}. Face to face discussion lasted for a duration of ___ minutes. [email or web address] Not available 03/26/2020 14:28:32 08/09/2020 [id number] broken collarbone: care instructions [email or web address] Not available 08/09/2020 17:11:33 collarbone fracture: rehab exercises [email or web address] Not available 08/09/2020 17:11:33 Reason for Referral Physical Therapist Referral for Neck pain Referring Physician: Raya Haney [facility], Encounter Date: 07/11/2019 Physical Therapist Referral for Thoracic back pain Referring Physician: Raya Haney [facility], Encounter Date: 07/11/2019 Physical Therapist Referral for Ataxia Referring Physician: Raya Haney [facility], Encounter Date: 07/11/2019 Physical Therapist Referral for Low back pain Referring Physician: Raya Haney [facility], Encounter Date: 07/11/2019 Neurologist Referral for Gilberto galindo Referring Physician: Raya Haney [facility], Encounter Date: 07/11/2019 Physical Therapist Referral for Pain of right shoulder joint Referring Physician: Raya Haney [facility], Encounter Date: 06/20/2020 Physical Therapist Referral for Fracture of clavicle Referring Physician: Efra Castillo [facility], Encounter Date: 08/09/2020 Orthopedic Referral for Frac ture of clavicle Referring Physician: Efra Castillo [facility], Encounter Date: 08/09/2020 Results Created Date Observation Date Name Description Value Unit Range Abnormal Flag Note LastModifiedBy Organization Detail LastModifiedTime 07/12/20 19 07/12/2019 colton kirby am Rate & Rhythm Not Available [facility], [facility] [address], [place], [address], 07/11/2019 15:23:10 07/12/20 19 07/12/2019 colton kirby am QRS Not Available [email or web address] [facility], [facility] [address], [place], [address], 07/11/2019 15:23:10 07/12/20 19 07/12/2019 colton kirby am MO Interval Not Available [facility] [employer], [facility] [address], [place], [address], 07/11/2019 15:23:10 09/24/07/12/2019 elect rocar diogr am QRS Duration Not Available [facility], [facility] [address], [place], [address], 07/11/2019 15:23:10 07/12/20 19 07/12/2019 elect rocar diogr am QT Interval Not Available [facility], [facility] [address], [place], [address], 07/11/2019 15:23:10 07/12/20 19 07/12/2019 elect rocar diogr am Change from Previous EKG? Not Available [facility], [facility] [address], [place], [address], 07/11/2019 15:23:10 07/12/20 19 07/12/2019 elect rocar diogr am Date of Last EKG Not Available [facility], [facility] [address], [place], [address], 07/11/2019 15:23:10 02/06/20 20 02/06/2020 CBC w/ auto diff white blood cell count 6.1 thous and/u L 3.5-10 .0 Not Available [address], [address], 02/07/2020 12:14:34 02/06/20 20 02/06/2020 CBC w/ auto diff red blood cell count 4.5 peter on/uL 3.5-5. 5 Not Available [address], [address], 02/07/2020 12:14:34 02/06/2002/06/2020 CBC w/ auto diff hemoglobin 13.5 g/dL 11.5-1 6.5 Not Available [address], [address], 02/07/2020 12:14:34 02/06/20 20 02/06/2020 CBC w/ auto diff hematocrit 42 % 35-55 Not Available [facility] [place] [address] [place], [address], 02/07/2020 12:14:34 02/06/20 20 02/06/2020 CBC w/ auto diff MCH 30 pg 25-35 Not Available [facility] [place] [address] [place], [address], 02/07/2020 12:14:34 02/06/20 20 02/06/2020 CBC w/ auto diff MCHC 32 g/dL 31-38 Not Available [facility] [place] [address] [place], [address], 02/07/2020 12:14:34 02/06/20 20 02/06/2020 CBC w/ auto diff MCV 94 fL 75-100 Not Available [facility] [place] [address] [place], [address], 02/07/2020 12:14:34 02/06/20 20 02/06/2020 CBC w/ auto diff RDW-CV 13 % 11-15 Not Available [facility] [place] [address] [place], [address], 02/07/2020 12:14:34 02/06/20 20 02/06/2020 CBC w/ auto diff neutrophils% 53.6 % Not Available [facility] [place] [address] [place], [address], 02/07/2020 12:14:34 02/06/20 20 02/06/2020 CBC w/ auto diff lymphocytes% 31.8 % Not Available [facility] [place] [address] [place], [address], 02/07/2020 12:14:34 02/06/20 20 02/06/2020 CBC w/ auto diff monocytes% 10.8 % Not Available [facility] [place] [address] [place], [address], 02/07/2020 12:14:34 02/06/20 20 02/06/2020 CBC w/ auto diff eosinophil % 3.0 % 0.0-7. 0 Not Available [place] [address] [address] [place], [address], 02/07/2020 12:14:34 02/06/2002/06/2020 CBC w/ auto diff basophil % 0.5 % 0.0-3. 0 Not Available [place] [address] [address] [place], [address], 02/07/2020 12:14:34 02/06/2002/06/2020 CBC w/ auto diff absolute neutrophils 3.3 cells /uL 1.5-7. 8 Not Available [place] [address] [place], [address], 02/07/2020 12:14:34 02/06/2002/06/2020 CBC w/ auto diff absolute lymphocytes 1.94 cells /uL 0.85-3 .90 Not Available [place] [address] [address] [place], [address], 02/07/2020 12:14:34 02/06/2002/06/2020 CBC w/ auto diff absolute monocytes 0.7 cells /uL 0.2-1. 0 Not Available [facility] [place] [address] [place], [address], 02/07/2020 12:14:34 02/06/2002/06/2020 CBC w/ auto diff absolute eosinophils 0.2 cells /uL 0.0-0. 5 Not Available [facility] [place] [address] [address] [place], [address], 02/07/2020 12:14:34 02/06/2002/06/2020 CBC w/ auto diff absolute basophils 0.0 cells /uL 0.0-0. 2 Not Available [facility] [place] [address] [place], [address], 02/07/2020 12:14:34 02/06/2002/06/2020 CBC w/ auto diff platelet count 294 thous and/u L 100-40 0 Testi ng Perfo rmed at: [facility] [address], [address] [place] [address] Phone : [phone] Fax: Not Available [place] [address] [place], [address], 02/07/2020 12:14:34 02/06/20 20 02/06/2020 CMP, serum or plasm a glucose 93 mg/dL 74-99 Not Available [place] [address] [place], [address], 02/07/2020 12:14:35 02/06/20 20 02/06/2020 CMP, serum or plasm a urea nitrogen, blood (BUN) 13 mg/dL 8-23 Not Available [place] [address] [place], [address], 02/07/2020 12:14:35 02/06/20 20 02/06/2020 CMP, serum or plasm a total bilirubin 0.3 mg/dL 0.0-1. 2 Not Available [place] [address] [place], [address], 02/07/2020 12:14:35 02/06/20 20 02/06/2020 CMP, serum or plasm a total protein 7.1 g/dL 6.6-8. 7 Not Available [place] [address] [place], [address], 02/07/2020 12:14:35 02/06/20 20 02/06/2020 CMP, serum or plasm a alanine aminotransfe rase (ALT) 23 U/L 0-33 Not Available [place] [address] [place], [address], 02/07/2020 12:14:35 02/06/20 20 02/06/2020 CMP, serum or plasm a alkaline phosphatase 83 U/L 40-130 Not Available [facility] [place] [address] [place], [address], 02/07/2020 12:14:35 02/06/20 20 02/06/2020 CMP, serum or plasm a aspartate aminotransfe rase (AST) 20 U/L 0-32 Not Available [place] [address] [place], [address], 02/07/2020 12:14:35 02/06/20 20 02/06/2020 CMP, serum or plasm a calcium 9.9 mg/dL 8.6-10 .2 Not Available [facility] [place] [address] [place], [address], 02/07/2020 12:14:35 02/06/20 20 02/06/2020 CMP, serum or plasm a albumin 4.4 g/dL 3.5-5. 2 Not Available [place] [address] [place], [address], 02/07/2020 12:14:35 02/06/20 20 02/06/2020 CMP, serum or plasm a CO2 26 mmol/ L 23-31 Not Available [facility] [place] [address] [place], [address], 02/07/2020 12:14:35 02/06/20 20 02/06/2020 CMP, serum or plasm a creatinine, serum 0.8 mg/dL 0.5-0. 9 Not Available [facility] [place] [address] [place], [address], 02/07/2020 12:14:35 02/06/20 20 02/06/2020 CMP, serum or plasm a sodium, serum 141 mmol/ L 136-14 5 Not Available [place] [address] [place], [address], 02/07/2020 12:14:35 02/06/20 20 02/06/2020 CMP, serum or plasm a potassium, serum 4.1 mmol/ L 3.5-5. 1 Not Available [facility] [place] [address] [place], [address], 02/07/2020 12:14:35 02/06/20 20 02/06/2020 CMP, serum or plasm a chloride, serum 102 mmol/ L 98-107 Not Available [facility] [place] [address] [place], [address], 02/07/2020 12:14:35 02/06/20 20 02/06/2020 CMP, serum or plasm a eGFR 78 >59 Persi stent reduc tion for 3 month s or more in an eGFR <60 mL/mi n/1.7 3 m2 defin es CKD. Patie nts with eGFR value s>/=6 0 mL/mi n/1.7 3 m2 may also have CKD if evide nce of persi stent protu niuri a is prese nt. Addit ional infor ana power may be found at www.k doqi. org. Not Available [facility] [place] [address] [place], [address], 02/07/2020 12:14:35 02/06/20 20 02/06/2020 lipid panel , serum trigylceride s 129 mg/dL 0-150 Not Available [place] [address] [place], [address], 02/07/2020 12:14:35 02/06/20 20 02/06/2020 lipid panel , serum cholesterol 119 mg/dL 0-200 Not Available [facility] [place] [address] [place], [address], 02/07/2020 12:14:35 02/06/20 20 02/06/2020 lipid panel , serum uhdl 51 mg/dL 45-65 Not Available [facility] [place] [address] [place], [address], 02/07/2020 12:14:35 02/06/20 20 02/06/2020 lipid panel , serum LDL, calculated 42 mg/dL 0-100 Not Available [facility] [address] [place], [address], 02/07/2020 12:14:35 02/06/20 20 02/06/2020 lipid panel , serum LDL/HDL ratio 1 mg/dL 0-5 Not Available [place] [address] [place], [address], 02/07/2020 12:14:35 02/06/20 20 02/06/2020 lipid panel , serum VLDL 25.8 mg/dL 5.0-40 .0 Not Available [place] [address] [place], [address], 02/07/2020 12:14:35 02/06/20 20 02/06/2020 lipid panel , serum cholesterol/ HDL ratio 2.33 0.00-5 .00 Not Available [place] [address] [place], [address], 02/07/2020 12:14:35 02/06/20 20 02/06/2020 PTH (para thyro id hormo ne), intac t, serum or plasm a PTH 23.9 pg/mL 15.0-6 5.0 Not Available [place] [address] [place], [address], 02/07/2020 12:14:36 02/06/20 20 02/06/2020 phosp horus , serum or plasm a phosphorus, serum 3.7 mg/dL 2.5-4. 5 Not Available [place] [address] [place], [address], 02/07/2020 12:14:36 02/06/2002/06/2020 uric acid, serum or plasm a uric acid, serum 5.3 mg/dL 2.4-5. 7 Not Available [place] [address] [place], [address], 02/07/2020 12:14:36 02/06/20 20 02/06/2020 vitam in D, 25-hy droxy , total , serum vitamin D 42.5 NG/mL 30.0-9 6.0 Defic ient: <=20 ng/mL Insuf ficie nt: 21-29 ng/mL Suffi cient : >=30 ng/mL Testi ng Perfo rmed at: [facility] [place], [facility] [address], [address] [place] [address] Phone : [phone] Fax: Not Available [place] [address] [address] [place], [address], 02/07/2020 12:14:37 02/06/20 20 02/06/2020 micro album in/cr eatin ine, mass ratio , urine urine microalbumin 4 mg/L 0-30 Not Available [place] [address] [place], [address], 02/07/2020 12:14:37 02/06/20 20 02/06/2020 micro album in/cr eatin ine, mass ratio , urine urine creatinine 99.79 Not Available [place] [address] [address] [place], [address], 02/07/2020 12:14:37 02/06/20 20 02/06/2020 micro album in/cr eatin ine, mass ratio , urine urine microalbumin /creatinine ratio 4 mg/g_ creat inine 0-30 Not Available [place] [address] [place], [address], 02/07/2020 12:14:37 02/06/20 20 02/06/2020 hsv (1+2) igg Ab, serum hsv-1 Ab: 48.30 index Not Available [place] [address] [place], [address], 02/09/2020 11:13:26 02/06/20 20 02/06/2020 hsv (1+2) igg Ab, serum hsv-1 IgG antibody Positi ve negati ve abnormal Not Available [place] [address] [place], [address], 02/09/2020 11:13:26 02/06/20 20 02/06/2020 hsv (1+2) igg Ab, serum hsv-2 Ab: 0.09 index Not Available [place] [address] [place], [address], 02/09/2020 11:13:26 02/06/20 20 02/06/2020 hsv (1+2) igg Ab, serum hsv-2 IgG antibody Negati ve negati ve Comme nt for HSV 1/2 IGG SUBTY PE HSV-1 /HSV- 2 IgG Inter preti ve Range s: Negat thanh: 0.00 - 0.90 Index Equiv ocal: 0.91 - 1.09 Index Posit thanh: >= 1.10 Index Ameri can Esote wandy [facility] [address] [place] [facility] [address] Labor atory Direc tor: Pa Gerber M.D. CLIA# [id number] Not Available [facility] [place] [address] [place], [address], 02/09/2020 11:13:26 08/09/20 20 08/09/2020 CBC white blood cell count 7.4 thous and/u L 3.5-10 .0 Not Available [facility] [place] [address] [place], [address], 08/10/2020 12:38:20 08/09/20 20 08/09/2020 CBC red blood cell count 4.6 peter on/uL 3.5-5. 5 Not Available [facility] [place] [address] [place], [address], 08/10/2020 12:38:20 08/09/20 20 08/09/2020 CBC hemoglobin 14.0 g/dL 11.5-1 6.5 Not Available [facility] [place] [address] [place], [address], 08/10/2020 12:38:20 08/09/20 20 08/09/2020 CBC hematocrit 43 % 35-55 Not Avail able [place] [address] [address] [place], [address], 08/10/2020 12:38:20 08/09/20 20 08/09/2020 CBC MCH 31 pg 25-35 Not Available [place] [address] [address] [place], [address], 08/10/2020 12:38:20 08/09/20 20 08/09/2020 CBC MCHC 32 g/dL 31-38 Not Available [place] [address] [address] [place], [address], 08/10/2020 12:38:20 08/09/2008/09/2020 CBC MCV 95 fL 75-100 Not Available [place] [address] [place], [address], 08/10/2020 12:38:20 08/09/2008/09/2020 CBC RDW-CV 13 % 11-15 Not Available [place] [address] [place], [address], 08/10/2020 12:38:20 08/09/20 20 08/09/2020 CBC platelet count 336 thous and/u L 100-40 0 Testi ng Perfo rmed at: [facility] [facility], [address] [place] [address] Phone : Fax: Not Available [place] [address] [address] [place], [address], 08/10/2020 12:38:20 08/09/2008/09/2020 CMP, serum or plasm a glucose 98 mg/dL 74-99 Not Available [place] [address] [place], [address], 08/10/2020 12:38:21 08/09/2008/09/2020 CMP, serum or plasm a urea nitrogen, blood (BUN) 11 mg/dL 8-23 Not Available [facility] [place] [address] [place], [address], 08/10/2020 12:38:21 08/09/2008/09/2020 CMP, serum or plasm a total bilirubin 0.3 mg/dL 0.0-1. 2 Not Available [facility] [place] [address] [place], [address], 08/10/2020 12:38:21 08/09/2008/09/2020 CMP, serum or plasm a total protein 7.3 g/dL 6.6-8. 7 Not Available [facility] [place] [address] [place], [address], 08/10/2020 12:38:21 08/09/2008/09/2020 CMP, serum or plasm a alanine aminotransfe rase (ALT) 17 U/L 0-33 Not Available [facility] [place] [address] [place], [address], 08/10/2020 12:38:21 08/09/2008/09/2020 CMP, serum or plasm a alkaline phosphatase 100 U/L 40-130 Not Available [facility] [place] [address] [place], [address], 08/10/2020 12:38:21 08/09/2008/09/2020 CMP, serum or plasm a aspartate aminotransfe rase (AST) 15 U/L 0-32 Not Available [facility] [place] [address] [place], [address], 08/10/2020 12:38:21 08/09/2008/09/2020 CMP, serum or plasm a calcium 10.2 mg/dL 8.6-10 .2 Not Available [facility] [place] [address] [place], [address], 08/10/2020 12:38:21 08/09/2008/09/2020 CMP, serum or plasm a albumin 4.3 g/dL 3.5-5. 2 Not Available [facility] [place] [address] [address] [place], [address], 08/10/2020 12:38:21 08/09/2008/09/2020 CMP, serum or plasm a CO2 27 mmol/ L 23-31 Not Available [facility] [place] [address] [address] [place], [address], 08/10/2020 12:38:21 08/09/2008/09/2020 CMP, serum or plasm a creatinine, serum 0.8 mg/dL 0.5-0. 9 Not Available [facility] [place] [address] [place], [address], 08/10/2020 12:38:21 08/09/2008/09/2020 CMP, serum or plasm a sodium, serum 139 mmol/ L 136-14 5 Not Available [facility] [place] [address] [address] [place], [address], 08/10/2020 12:38:21 08/09/2008/09/2020 CMP, serum or plasm a potassium, serum 4.3 mmol/ L 3.5-5. 1 Not Available [facility] [place] [address] [address] [place], [address], 08/10/2020 12:38:21 08/09/2008/09/2020 CMP, serum or plasm a chloride, serum 102 mmol/ L 98-107 Not Available [facility] [place] [address] [address] [place], [address], 08/10/2020 12:38:21 08/09/2008/09/2020 CMP, serum or plasm a eGFR 76 >59 Persi stent reduc tion for 3 month s or more in an eGFR <60 mL/mi n/1.7 3 m2 defin es CKD. Patie nts with eGFR value s>/=6 0 mL/mi n/1.7 3 m2 may also have CKD if evide nce of persi stent protu niuri a is prese nt. Addit ional infor ana power may be found at www.k doqi. org. Not Available [facility] [address] [place], [address], 08/10/2020 12:38:21 08/09/20 20 08/09/2020 TSH, serum or plasm a TSH 1.37 ??IU/ mL 0.27-4 .20 Not Available [facility] [place] [address] [place], [address], 08/10/2020 12:38:22 08/09/2008/09/2020 vitam in D, 25-hy droxy , total , serum vitamin D 39.0 NG/mL 30.0-9 6.0 Defic ient: <=20 ng/mL Insuf ficie nt: 21-29 ng/mL Suffi cient : >=30 ng/mL Not Available [facility] [address] [place], [address], 08/10/2020 12:38:22 06/16/20 19 06/15/2019 MRI, brain , w/o contr ast No observ ation record ed. [facility] [address] [place] [address] [address], [place], [address], 07/11/2019 15:36:41 07/11/20 19 XR, thora cic spine No observ ation record ed. [facility] [address] [place] [address] [address], [place], [address], 07/11/2019 15:36:41 07/11/20 19 XR, lumba r spine No observ ation record ed. [facility] [address] [place] [address] [address], [place], [address], 07/11/2019 15:36:41 07/11/20 19 XR, thora cic spine No observ ation record ed. [facility] [address], [place], [address], 07/11/2019 15:36:41 07/11/20 19 elect florence diogr am No observ ation record ed. [email or web address] Not Available 2018 10:46:48 03/27/20 20 03/26/2020 bone densi ty No observ ation record ed. [email or web address] Not Available 2019 12:18:51 05/11/20 20 05/10/2020 XR, shoul regi, 2 or more view No observ ation record ed. [email or web address] [facility] [address], [place], [address], 05/22/2020 15:10:52 08/03/20 20 08/03/2020 XR, shoul regi, 2 or more view No observ ation record ed. [email or web address] Not Available 2019 17:05:30 08/23/20 20 08/22/2020 XR, clavi thelma No observ ation record ed. [email or web address] Not Available 2019 23:20:47 05/16/20 21 05/15/2021 MAMMO , scree tadeo, bilat eral No observ ation record ed. [facility] [address], [place], [address], 06/05/2021 09:55:56 Result Notes None recorded. Problems Name Problem SNOMED Code Status Onset Date Resolution Date Notes Provider Name and Address Organization Details Recorded Time Bipolar affective disorder, currently depressed, moderate 310363886 Active Raya Haney MD [address], [place], [address], [facility] 9 15:29:39 Gastroesop hageal reflux disease 706204903 Josh Haney MD [address], [place], [address], [facility] 9 15:29:39 Hyperlipid emia 40867447 Josh Haney MD [address], [place], [address], [facility] 9 15:29:39 Allergic rhinitis 85673618 Josh Haney MD [address], [place], [address], [facility] 9 15:29:39 Pain in eye 66717800 Josh Haney MD [address], [place], [address], [facility] 9 15:29:39 Ataxia 80303205 Josh Haney MD [address], [place], [address], [facility] 9 15:29:39 Solitary nodule of lung 833773097 Active recheck CT of chest 02/21/2016 Raya Haney MD [address], [place], [address], [facility] 9 15:29:39 Benign hypertensi on [id number] Josh Haney MD [address], [place], [address], [facility] 9 15:29:39 Chronic renal impairment Josh Haney MD [address], [place], [address], [facility] 9 15:29:39 Non-toxic nodular goiter [id number] Josh Haney MD [address], [place], [address], [facility] 9 15:29:39 Osteopenia 959218238 Josh Haney MD [address], [place], [address], [facility] 9 15:29:39 Scar 892655369 Active left breast Raya Haney MD [address], [place], [address], [facility] 9 15:29:39 Osteoarthr itis 344701235 Active bilateral hips Raya Haney MD [address], [place], [address], [facility] 9 15:29:39 Interverte bral disc disorder 26075389 Active Raya Haney MD [address], [place], [address], [facility] 9 15:29:39 Iron deficiency anemia 91351498 Active Raya Haney MD [address], [place], [address], [facility] 9 15:29:39 Problem Notes None recorded. Procedures Surgical History Date Name Laterality Status Provider Name and Address Organization Details Recorded Time 0 Joint Injection completed Raya Haney MD [address], [place], [address], [facility] 06/20/2020 16:39:15 8 Date of Last Mammogram completed [facility] 01/06/2019 18:18:07 8 Date of Last Pap Smear completed [facility] 01/06/2019 16:43:51 6 Date of Last Colonoscopy completed [facility] 07/08/2017 14:48:28 Imaging Results Imaging Date Name Status LastModified by Organization Details LastModified Time 06/15/2019 MRI, brain, w/o contrast completed [facility] [address], [place], [id number], 07/11/2019 15:36:41 07/11/2019 XR, thoracic spine completed [facility] [address], [place], [id number], 07/11/2019 15:36:41 07/11/2019 XR, lumbar spine completed [facility] [address], [place], [id number], 07/11/2019 15:36:41 07/11/2019 XR, thoracic spine completed [facility] [address], [place], [address], 07/11/2019 15:36:41 07/11/2019 electrocardiogram completed [email or web address] Informa tion not available 07/12/2019 10:46:48 03/26/2020 bone density completed Information not available 03/27/2020 12:18:51 05/10/2020 XR, shoulder, 2 or more view completed [email or web address] [address], [place], [address], 05/22/2020 15:10:52 08/03/2020 XR, shoulder, 2 or more view completed Information not available 08/09/2020 17:05:30 08/22/2020 XR, clavicle completed Information not available 08/23/2020 23:20:47 05/15/2021 MAMMO, screening, bilateral completed [facility] [address], [place], [address], 06/05/2021 09:55:56 Procedure Notes None recorded. Medical Equipment None Reported. Allergies No known drug allergies Medications Name Sig Start Date Stop Date Status Note LastModified by Organization Details LastModified Time amoxicill in 500 mg capsule 07/09 completed Not Available Not Available Not Available lamotrigi ne 150 mg tablet TK 1 T PO BID active Not Available Not Available No t Available azelastin e 0.05 % eye drops 1 drop each eye twice a day; must see Eye Doctor immediat tammy if any eye pain or visual changes. 08/06 completed -- pt advised on 01/26/20 that this needs to be from her eye doctor; pt agrees Not Available Not Available Not Available atorvasta tin 20 mg tablet TK 1 T PO QD active Not Available Not Available No t Available lamotrigi ne 200 mg tablet active Not Available Not Available Not Available polyethyl tommy glycol 3350 17 gram oral powder packet MIX AND DRINK 1 PACKET BY MOUTH DAILY DIRECTED 01/06 completed -- doing well w/ Amitiza now Not Available Not Available Not Available azithromy bill 250 mg tablet 1 drop each eye every day 07/30 completed Not Available Not Available Not Available hydrocodo ne 5 mg-acetam inophen 325 mg tablet TK 1 T PO Q 4 TO 6 H. U WITH CAUTION AND DO NOT DRIVE WHILE TAKING THIS MEDICATI ON IT OMARI 08/09 completed Not Available Not Available Not Available prednison e 20 mg tablet Take 3 tablets every day by oral route in the morning. 07/30 completed Not Available Not Available Not Available hydroxyzi ne HCl 50 mg tablet TAKE 1 TABLET BY MOUTH FOUR TIMES DAILY NEEDED active Not Available Not Available No t Available acetamino phen 300 mg-codein e 30 mg tablet 07/09 completed Not Available Not Available Not Available fenofibra te micronize d 67 mg capsule TAKE 1 CAPSULE BY MOUTH DAILY active Pt is on Atorvast atin. No fibrate is needed Not Available Not Available Not Available amlodipin e 5 mg tablet TK 1 T PO QAM 08/06 completed -- on 10 mg now Not Available Not Available Not Available valacyclo vir 500 mg tablet TAKE 1 TABLET BY MOUTH THREE TIMES DAILY. FOLLOW IN CLINIC IF SYMPTOMS PERSISTS IN 2 WEEKS active Not Available Not Available No t Available peg-elect rolyte solution 420 gram oral solution 07/30 completed Not Available Not Available Not Available omeprazol e 40 mg capsule,d elayed release TK 1 C PO QD active Not Available Not Available No t Available tramadol 50 mg tablet 1 tab once up to 2 times a day as needed; can cause drowsine ss 07/09 completed Not Available Not Available Not Available famotidin e 20 mg tablet TAKE 1 TABLET BY MOUTH TWICE DAILY 03/26 completed -- on Omeporaz ole now Not Available Not Available Not Available prednisol one acetate 1 % eye drops,wendi pension 01/06 completed Not Available Not Available Not Available gabapenti n 800 mg tablet TAKE 1 TABLET BY MOUTH EVERY 12 HOURS active Not Available Not Available No t Available ciproflox acin 0.3 % eye drops 07/30 completed Not Available Not Available Not Available Proctozon e-HC 2.5 % topical cream perineal applicato r 01/06 completed Not Available Not Available Not Available amlodipin e 10 mg tablet Take by oral route for 90 days. active Not Available Not Available No t Available cephalexi n 500 mg capsule 03/18 completed Not Available Not Available Not Available pantopraz ole 40 mg tablet,de layed release TAKE 1 TABLET BY MOUTH DAILY AT 4 PM OR 1-2 HOURS PRIOR TO SUPPER active Not Available Not Available No t Available erythromy blil 5 mg/gram (0.5 %) eye ointment 07/30 completed Not Available Not Available Not Available tobramyci n 0.3 % eye drops INSTILL 1 DROP INTO AFFECTED EYE(S) BY OPHTHALM IC ROUTE EVERY 4 HOURS 07/30 completed Not Available Not Available Not Available gabapenti n 300 mg capsule TAKE 1 CAPSULE BY MOUTH THREE TIMES DAILY 06/15 completed Not Available Not Available Not Available sertralin e 25 mg tablet TAKE 1 TABLET BY MOUTH AT 1.30PM EVERY DAY active Not Available Not Available No t Available monteluka st 10 mg tablet TK 1 T PO QD active Not Available Not Available No t Available gabapenti n 100 mg capsule TAKE 1 CAPSULE BY MOUTH TWICE DAILY 06/15 completed Not Available Not Available Not Available azelastin e 137 mcg (0.1 %) nasal spray USE 2 SPRAYS IN EACH NOSTRIL TWICE DAILY 08/06 completed Not Available Not Available Not Available cefdinir 300 mg capsule 01/06 completed Not Available Not Available Not Available fluticaso ne propionat e 50 mcg/actua tion nasal spray,wendi pension USE 2 SPRAYS IN EACH NOSTRIL EVERY DAY active Not Available Not Available No t Available lamotrigi ne 100 mg tablet Take 1 tablet every day by oral route for 30 days. 08/06 completed -- on 150 mg bid now Not Available Not Available Not Available amoxicill in 875 mg-potass ium clavulana te 125 mg tablet 02/12 completed Not Available Not Available Not Available Tylenol Extra Strength 500 mg tablet Take 1 tablet every 8 hours by oral route around the clock for 90 days. 2019 active Not Available Not Available Not Avai lable Pneumovax -23 25 mcg/0.5 mL injection syringe ADM 0.5ML IM UTD 08/06 completed Not Available Not Available Not Available rosuvasta tin 10 mg tablet 02/12 completed - changed to Atorvast atin bc of formular y Not Available Not Available Not Available Boostrix Tdap 2.5 Lf unit-8 mcg-5 Lf/0.5 mL intramusc ular syringe 01/06 completed Not Available Not Available Not Available pregabali n 50 mg capsule 1 tab q12hr; can cause dizzines s, drowsine ss, coordina tion problem. active Not Available Not Available No t Available Amitiza 24 mcg capsule Take 1 capsule twice a day by oral rout 01/23 completed Not Available Not Available Not Available quetiapin e ER 300 mg tablet,ex tended release 24 hr TK 1 T PO QD HS active Not Available Not Available No t Available quetiapin e ER 200 mg tablet,ex tended release 24 hr TAKE 1 TABLET BY MOUTH AT 6.30PM EVERY DAY active Not Available Not Available No t Available quetiapin e ER 50 mg tablet,ex tended release 24 hr TK 2 TS PO QD HS active Not Available Not Available No t Available Shingrix (PF) 50 mcg/0.5 mL intramusc ular suspensio n, kit 01/23 completed Not Available Not Available Not Available Fluzone High-Dose 2019-20 (PF) 180 mcg/0.5 mL intramusc ular syringe ADM 0.5ML IM UTD 08/06 completed Not Available Not Available Not Available Vitals Date Recorded Body height Heart rate Respiratory rate Body temperature Body mass index (BMI) Body weight Systolic blood pressure Diastolic blood pressure Provider Name and Address Organization Details Last Updated DateTime 9 157.48 cm 75 /min 16 /min 97.2 [degF] 25.6 kg/m2 72287.9 3 g 111 mm[Hg] 67 mm[Hg] [facility] 9 15:02:40 Date Recorded Body height Respiratory rate Body temperature Heart rate Body mass index (BMI) Body weight Systolic blood pressure Diastolic blood pressure Provider Name and Address Organization Details Last Updated DateTime 0 157.48 cm 16 /min 97.7 [degF] 78 /min 26 kg/m2 01405.1 2 g 137 mm[Hg] 70 mm[Hg] [facility] 0 14:38:28 Date Recorded Body height Respiratory rate Heart rate Body temperature Systolic blood pressure Diastolic blood pressure Provider Name and Address Organization Details Last Updated DateTime 0 157.48 cm 16 /min 94 /min 97.9 [degF] 150 mm[Hg] 75 mm[Hg] Ginazoya Bestison [facility] 0 15:41:52 Date Recorded Body height Respiratory rate Body temperature Provider Name and Address Organization Details Last Updated DateTime 08/09/2020 157.48 cm 16 /min 97 [degF] AJAY COVINGTON [facility] 08/09/2020 16:48:15 Date Recorded Heart rate Systolic blood pressure Diastolic blood pressure Provider Name and Address Organization Details Last Updated DateTime 08/09/2020 86 /min 138 mm[Hg] 82 mm[Hg] Efra Castillo MD [address], [place], [address], [facility] 08/09/2020 17:04:49 Social History Question Answer Notes LastModified by Organizat ion Details LastModified Time Tobacco Smoking Status Former Smoker [facility] 15:00:30 What Is Your Level Of Alcohol Consumption? Occasional Red Wine Information not available 09/08/2018 What Is Your Level Of Caffeine Consumption? Heavy Information not available 09/08/2018 How Much Tobacco Do You Chew? None [email or web address] Information not available 10/28/2018 In The 14 Days Before Symptom Onset, Have You Had Close Contact With A Laboratory-confir med COVID-19 While That Case Was Ill? No Information not available 03/26/2020 In The 14 Days Before Symptom Onset, Have You Had Close Contact With A Person Who Is Under Investigation For COVID-19 While That Person Was Ill? No Information not available 03/26/2020 Have You Been To An Area Known To Be High Risk For COVID-19? No Information not available 03/26/2020 Do You Or Have You Ever Used E-cigarettes Or Vape? Never Used Electronic Cigarettes Information not available 03/26/2020 What Is Your Occupation? Retired Information not available 09/08/2018 Live Alone Or With Others? With Others Information not available 09/08/2018 Marital Status Informatio n not available 09/08/2018 What Was The Date Of Your Most Recent Tobacco Screening? 03/26/2020 Information not available 03/26/2020 At What Age Did You Start Smoking Tobacco? 46 Information not available 09/08/2018 Do You Or Have You Ever Used Smokeless Tobacco? Never Used Smokeless Tobacco Information not available 03/26/2020 How Much Tobacco Do You Smoke? 0.25 PPD Information not available 09/08/2018 Sex: Unknown Functional Status None recorded. Mental Status None recorded. Family History Nothing Reported Notes:No family history of c ancer, heart disease, early deaths, or diabetes Medical History Condition Response Coronary Artery Disease N Other N Gout N Kidney Stones N Blood Diseases N Hyperthyroidism N Breast Cancer N Blood Transfusion N COPD N Depression N Lung Disease N Hypothyroidism N Defects or Inherited Disease N Developmental or Behavioral Disorders N Breast Problem N Difficulty Swallowing N Anesthesia Complications N Meniere's disease N Anxiety Disorder N Muscle, Joint, or Bone Problems N Obesity N Vision or Eye Problems N Arthritis N Polyps N Infertility N Mental Disorder N Cancer N Varicosities N Stroke N Endometriosis N Bladder or Kidney Problems N High Cholesterol N Liver Disease N Fibromyalgia N Headaches N Kidney Disease N Allergies/Hayfever N Heart Problems N Ear or Hearing Problems N Hospitalizations N Thyroid Problems N GI Problems N ADD/ADHD N Skin Problems N Eating Disorder N Anemia N MRSA exposure N Constipation N Mental Illness N Ovarian Cancer N Diabetes N Bedwetting N Seizures/Epilepsy N Tuberculosis N AIDS/HIV N Congestive Heart Failure (CHF) N Eczema N Diverticulitis N Abuse/Domestic Violence N Asthma N Reflux/GERD N Hepatitis N Heart Disease N Pulmonary Embolism N Pre-Eclampsia N Hypertension N Chronic Ear Infections N Osteoporosis N Chicken Pox N Autism Spectrum Disorder (ASD) N Thrombophilias N Gynecological History Statement/Question Response Date of Last Pap Smear 04/18/2018 Date of Last Mammogram 08/13/2018 Date of Last Colonoscopy 04/03/2016 Obstetrics History GPAL:G 0 P 0 0 0 0 Immunizations Vaccine Type Date Status Note Provider Nam e and Address Organization Details Recorded Time Tdap 7 completed Raya Haney MD [address], [place], [address], [facility] 09/09/2019 15:29:33 Influenza, split virus, quadrivalent, preservative 7 completed Raya Haney MD [address], [place], [address], [facility] 09/09/2019 15:29:33 Pneumococcal conjugate PCV 13 7 completed Raya Haney MD [address], [place], [address], [facility] 09/09/2019 15:29:33 Influenza, high-dose, trivalent, PF 9 completed Raya Haney MD [address], [place], [address], [facility] 09/09/2019 15:29:33 zoster recombinant 9 completed Raya Haney MD [address], [place], [address], [facility] 09/09/2019 15:29:33 zoster recombinant 9 completed Raya Haney MD [address], [place], [address], [facility] 09/09/2019 15:29:33 pneumococcal polysaccharide PPV23 9 completed Raya Haney MD [address], [place], [address], [facility] 09/09/2019 15:29:33 Influenza, split virus, trivalent, preservative 6 completed Not Available [facility] 11/05/2019 02:27:20 Past Encounters Encounter ID Performer Location Encounter Start Date Encounter Closed Date Diagnosis/Indication Diagnosis SNOMED-CT Code Diagnosis ICD10 Code Diagnosis Note [id number] Raya Haney MD [facility], [facility] [address] [place] [address] 02/22/2016 13:00:45 02/22/2016 14:57:40 Non-toxic nodular goiter 530640099 E04.9 -- pt follows Dr Field. Bipolar af fective disorder, currently depressed, moderate 111521191 F31.30 -- no flares or mood symptoms. Gastroesop hageal reflux disease 074114312 K21.9 -- discontinu e Pantoprazo le b/c of risk for kidney failure and dementia (mother & sister had dementia). Chronic re nal impairment 421738426 N18.9 -- labs to be done on 05/14/16 Osteopenia 786145926 M85 .80 -- lab to be done on 05/14/16 Solitary n odule of lung 958278679 R91.1 -- recheck CT scan of chest on 06/25/16 Hyperlipidemia 06265468 E78.5 Iron defic iency anemia 86208165 D50.9 Benign ess ential hypertension 4016114 I10 -- BP controlled . Foot pain 99226373 M79.6 [id number] Raya Haney MD [facility] [address] [place] [address] 03/12/2016 14:25:08 03/12/2016 15:52:30 Renal impairment 069768790 N28.9 -- check chem 7 within 7 days from 03/12/16 Pain in toe 744813642 M7 9.675 (4th MTP) -- Order uric acid level to be done within 7 days from 03/12/16 Arthropath y of lumbar facet joint 687845341 M46.96 (Worst at L2-L3 left facet joint) -- patient also had bulging disc; currently patient is doing well without decompensa tion. [id number] Raya Haney MD [facility] [address] [place] [address] 07/30/2016 14:49:01 07/30/2016 16:18:06 Bipolar affective disorder, currently depressed, moderate 386255285 F31.30 -- no flares or mood symptoms. Chronic re nal impairment 947210215 N18.9 -- labs to be done on 09/16/16 Non-toxic nodular goiter 257464643 E04.9 -- pt follows Dr Field-- labs to be done on 09/16/16 Gastroesop hageal reflux disease 915199279 K21.9 -- discontinu e Pantoprazo le b/c of risk for kidney failure and dementia (mother & sister had dementia). Osteopenia 607713000 M85 .80 -- recheck vit D level Myalgia/my ositis - multiple 214369700 M79.1 -- lab to be done on 09/16/16 Benign ess ential hypertension 9183747 I10 -- labs to be done on 09/16/16 Swelling of eyelid 74016 7004 R22.0 -- resolved without visual changes or any pain/disco mfort. [id number] Raya Haney MD [facility] [address] [place] [address] 11/24/2016 18:07:59 11/24/2016 20:21:27 Screening for cancer 62285315 Z12.9 Benign ess ential hypertension 7945448 I10 -- recheck lab(s) within 7 days from 11/24/16 Chronic re nal impairment 200222112 N18.9 -- labs to be done on 09/16/16 Non-toxic nodular goiter 454477225 E04.9 -- pt follows Dr Field-- labs to be done on 09/16/16 Gastroesop hageal reflux disease 302568670 K21.9 -- discontinu e Pantoprazo le b/c of risk for kidney failure and dementia (mother & sister had dementia). Osteopenia 959740689 M85 .80 -- recheck vit D level Myalgia/my ositis - multiple 071459004 M79.1 -- lab to be done on 09/16/16 Bipolar af fective disorder, currently depressed, moderate 195575825 F31.30 -- no flares or mood symptoms. Arthropath y of lumbar facet joint 130775169 M46.96 (Worst at L2-L3 left facet joint) -- patient also had bulging disc; currently patient is doing well without decompensa tion. Advance di rective discussed with patient 619915024 Z71.89 Viral screening 86460587 4 Z11.59 Screening for osteoporosis 092980095 Z13.820 and he is alsoBecaus e [facility] did something to hisOut of vitamin B3 that are vitamin D-- last DEXA was 11/09/14 Active or passive immunization 750833101 Z23 Body mass index 25-29 - overweight 945456452 Z68.29 -- Advise weight loss; patient gained 16 pounds since her last visit -- Patient his BMI today is 28.3 (idealisti c in 20-25) Hyperlipidemia 73079746 E78.5 Allergic rhinitis 238929 04 J30.9 Constipation 63391971 K5 9.04 [id number] Raya Haney MD [facility] [address] [place] [address] 07/08/2017 14:44:23 07/08/2017 15:57:22 Adult health examination 614379122 Z00.00 Benign ess ential hypertension 1607752 I10 -- recheck lab(s) on 08/12/17 Hyperlipidemia 51422515 E78.5 -- recheck lab(s) on 08/12/17 Chronic re nal impairment 713211410 N18.9 -- recheck lab(s) on 08/12/17 Non-toxic nodular goiter 335197287 E04.9 -- pt follows Dr Field-- recheck lab(s) on 08/12/17 Gastroesop hageal reflux disease 292754207 K21.9 -- discontinu e Pantoprazo le b/c of risk for kidney failure and dementia (mother & sister had dementia). Osteopenia 365269921 M85 .80 -- recheck lab(s) on 08/12/17 Arthropath y of lumbar facet joint 139713674 M46.96 (Worst at L2-L3 left facet joint) -- patient also had bulging disc; currently patient is doing well without decompensa tion. Myalgia/my ositis - multiple 195673566 M79.1 -- recheck lab(s) on 08/12/17 Bipolar af fective disorder, currently depressed, moderate 955826967 F31.30 -- no flares or mood symptoms. Body mass index 25-29 - overweight 245210562 Z68.29 -- Advise weight loss; patient lost 9 # since her last visit -- Patient his BMI today is 26.7 (idealisti c in -) Allergic rhinitis 917137 04 J30.9 Constipation 85573785 K5 9.04 Advance di rective discussed with patient 810612071 Z71.89 Viral screening 02524434 4 Z11.59 -- Hepatitis C antibodies nonreactiv e on 02/10/17 Screening for osteoporosis 486604657 Z13.820 -- last DEXA was 11/09/14 Active or passive immunization 889561604 Z23 Screening for malignant neoplasm of colon 153201637 Z12.11 --- Patient had a normal screening colonoscop y with gastroente rologist Dr. Noel Schmidt on 04/03/16 Screening for malignant neoplasm of breast 155928111 Z12.31 -- mammogram last done on 03/23/17 Screening for malignant neoplasm of cervix 380682908 Z12.4 -- pt reports she had a normal WINDOWS ARCHITECT by Dr Meño Pantoja in May 2018 [id number] Raya Haney MD [facility], [facility] [address] [place] [address] 01/06/2018 15:20:49 01/06/2018 18:05:49 Benign essential hypertension 7410945 I10 -- recheck lab(s) on 07/08/18 Hyperlipidemia 42833142 E78.5 -- recheck lab(s) on 07/08/18 Chronic re nal impairment 136976615 N18.9 -- recheck lab(s) on 07/08/18 Non-toxic nodular goiter 987419319 E04.9 -- pt follows Dr Field-- recheck lab(s) on 07/08/18 Gastroesop hageal reflux disease 148518755 K21.9 -- discontinu e Pantoprazo le b/c of risk for kidney failure and dementia (mother & sister had dementia). Osteopenia 147157530 M85 .80 -- recheck lab(s) on 07/08/18 Arthropath y of lumbar facet joint 945487346 M46.96 (Worst at L2-L3 left facet joint) -- patient also had bulging disc; currently patient is doing well without decompensa tion. Myalgia/my ositis - multiple 149778473 M79.1 -- recheck lab(s) on 07/08/18 Bipolar af fective disorder, currently depressed, moderate 077089667 F31.30 -- no flares or mood symptoms. Body mass index 25-29 - overweight 848695487 Z68.29 -- Advise weight loss; patient gained 10 # since her last visit -- Patient his BMI today is 28.5 (idealisti c in -) Allergic rhinitis 571554 04 J30.9 Constipation 43879176 K5 9.04 Advance di rective discussed with patient 035196985 Z71.89 Viral screening 58484454 4 Z11.59 -- Hepatitis C antibodies nonreactiv e on 02/10/17 Screening for osteoporosis 823185685 Z13.820 -- last DEXA today 01/06/18 Active or passive immunization 790904811 Z23 Screening for malignant neoplasm of colon 931672181 Z12.11 -- He just turned in stool samples today 01/06/18--- Patient had a normal screening colonoscop y with gastroente rologist Dr. Noel Schmidt on 04/03/16 Screening for malignant neoplasm of breast 175885115 Z12.31 -- mammogram last done on 03/23/17 Screening for malignant neoplasm of cervix 829141200 Z12.4 -- pt reports she had a normal WINDOWS ARCHITECT by Dr Meño Pantoja in May 2018 Low back pain 268928456 M54.5 [id number] Raya Haney MD [facility] [address] [place] [address] 07/09/2018 11:47:17 07/09/2018 13:24:16 Adult health examination 171232218 Z00.00 Benign ess ential hypertension 2984944 I10 -- recheck lab(s) on 07/08/18 Hyperlipidemia 88564062 E78.5 -- recheck lab(s) on 07/08/18 Chronic re nal impairment 984237989 N18.9 -- recheck lab(s) on 07/08/18 Non-toxic nodular goiter 405312847 E04.9 -- pt follows Dr Field-- recheck lab(s) on 07/08/18 Gastroesop hageal reflux disease 195944947 K21.9 -- discontinu e Pantoprazo le b/c of risk for kidney failure and dementia (mother & sister had dementia). Osteopenia 191902301 M85 .80 (last DEXA was done on 01/06/18) -- recheck lab(s) on 07/08/18 Arthropath y of lumbar facet joint 187589568 M46.96 (Worst at L2-L3 left facet joint) -- patient also had bulging disc; currently patient is doing well without decompensa tion. Myalgia/my ositis - multiple 669132682 M79.1 -- recheck lab(s) on 07/08/18 Bipolar af fective disorder, currently depressed, moderate 291061984 F31.30 (on Lamotrigin e & Quietipine by Dr Sheridan Giang) -- no flares or mood symptoms. Body mass index 25-29 - overweight 033676767 Z68.29 -- Advise weight loss; patient gained 2 # since her last visit -- Patient his BMI today is 28.9 (idealisti c in 20-25) Low back pain 444196030 M54.5 -- doing well and have not taken Tramadol lately Allergic rhinitis 110901 04 J30.9 Constipation 27187208 K5 9.04 Advance di rective discussed with patient 511990524 Z71.89 Viral screening 82341774 4 Z11.59 -- Hepatitis C antibodies nonreactiv e on 02/10/17 Active or passive immunization 633122320 Z23 Screening for malignant neoplasm of colon 728590122 Z12.11 -- stool samples turned in on 01/06/18--- Patient had a normal screening colonoscop y with gastroente rologist Dr. Noel Schmidt on 04/03/16-- saw gen surgeon Dr Vinicio Field on 05/19/18 dx'd pt w/ irritated internal Hermorrhoi ds. Screening for malignant neoplasm of breast 027988776 Z12.31 -- mammogram last done on 03/23/17 Screening for malignant neoplasm of cervix 331595268 Z12.4 -- pt reports she had a normal WINDOWS ARCHITECT by Dr Meño Pantoja in May 2018 Foot pain 43637234 M79.6 71 (left plantar heel) -- pain resolved w/o residuals Glaucoma screening 40059 5009 Z13.5 -- Advised patient to followup with optometris t every year for glaucoma screening [id number] Raya Haney MD [facility] [address] [place] [address] 09/08/2018 16:45:43 09/08/2018 18:28:39 Closed fracture of three ribs 75457255 S22.42XD (left 6th, 7th, & 8th rib on 08/20/18 at [facility]) -- pain much improved-- pt able to take deep breath in & out. [id number] Raya Haney MD [facility] [employer] [facility] [address] [place] [address] 10/28/2018 12:25:05 10/28/2018 14:05:40 Fracture of foot 19047430 S92.902D (right dorsal neck of anterior neck) -- will refer pt to Dr Martin Valle [id number] Raya Haney MD [facility] [address] [place] [address] 01/06/2019 15:34:49 01/06/2019 17:08:56 Benign essential hypertension 6249119 I10 -- recheck lab(s) on 07/08/18-- check EKG today 01/06/19-- check lab(s) within 7 days from today 01/06/19 Hyperlipidemia 39814438 E78.5 -- check lab(s) within 7 days from today 01/06/19 Chronic re nal impairment 017075758 N18.9 -- check lab(s) within 7 days from today 01/06/19 Non-toxic nodular goiter 914116707 E04.9 -- pt follows Dr Field-- check lab(s) within 7 days from today 01/06/19 Gastroesop hageal reflux disease 398505738 K21.9 -- discontinu e Pantoprazo le b/c of risk for kidney failure and dementia (mother & sister had dementia). Osteopenia 572700827 M85 .80 (last DEXA was done on 01/06/18) -- check lab(s) within 7 days from today 01/06/19 Arthropath y of lumbar facet joint 808231117 M46.96 (Worst at L2-L3 left facet joint) -- patient also had bulging disc; currently patient is doing well without decompensa tion. Myalgia/my ositis - multiple 357812837 M79.10 -- check lab(s) within 7 days from today 01/06/19 Bipolar af fective disorder, currently depressed, moderate 871994248 F31.30 (on Lamotrigin e & Quietipine by Dr Sheridan Giang) -- no flares or mood symptoms. Body mass index 25-29 - overweight 205347049 Z68.28 -- Advise weight loss; patient gained 1 # since her last visit -- Patient his BMI today is 28.7 (idealisti c in 20-25) Low back pain 640208873 M54.5 -- doing well and have not taken Tramadol lately Allergic rhinitis 768449 04 J30.9 Constipation 96546946 K5 9.04 Foot pain 82720954 M79.6 71 (left plantar heel) -- pain resolved w/o residuals Advance di rective discussed with patient 359140262 Z71.89 Glaucoma screening 31580 5009 Z13.5 -- Advised patient to followup with optometris t every year for glaucoma screening Viral screening 60984834 4 Z11.59 -- Hepatitis C antibodies nonreactiv e on 02/10/17 Active or passive immunization 353544002 Z23 Screening for malignant neoplasm of colon 322458192 Z12.11 -- stool samples turned in on 01/06/18--- Patient had a normal screening colonoscop y with gastroente rologist Dr. Noel Schmidt on 04/03/16-- saw gen surgeon Dr Vinicio Field on 05/19/18 dx'd pt w/ irritated internal Hermorrhoi ds. Screening for malignant neoplasm of breast 369477712 Z12.31 -- mammogram last done on 03/23/17 Screening for malignant neoplasm of cervix 655335262 Z12.4 -- pt reports she had a normal WINDOWS ARCHITECT by Dr Meño Pantoja in May 2018 [id number] JAQUELIN SORTO [facility] [employer] [address] [place] [address] 06/03/2019 12:14:03 06/03/2019 12:55:13 Neck pain 72758090 M54.2 not so much pain - discomfort due to poor posture Thoracic back pain 40889 8004 M54.6 not so much pain - discomfort due to poor posture Low back pain 503309635 M54.5 Ataxia 39565041 R27.0 as per pt for a while sta elizabeth she drags her feet when she walks -has fallen in past [id number] Raya Haney MD [employer] [address] [place] [address] 07/11/2019 14:22:24 07/11/2019 15:44:11 Neck pain 59390866 M54.2 not so much pain - discomfort due to poor posture-- 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 Thoracic back pain 64652 8004 M54.6 not so much pain - discomfort due to poor posture-- End-plate spurring throughout thoracic levels on 06/15/19 Low back pain 597838971 M54.5 -- doing well and have not taken Tramadol lately-- X-rays show multi-leve l discogenic changes with facet degenerati ve changes on xrays done n 06/16/19 Ataxia 43019364 R27.0 -- no longer falling since visit w/ [employer]BI[employer]ER Jaquelin Benign ess ential hypertension 8154876 I10 -- EKG last done 07/11/19-- check lab(s) on 09/07/19 Hyperlipidemia 76227100 E78.5 -- check lab(s) on 09/07/19 Chronic re nal impairment 821295475 N18.9 -- check lab(s) on 09/07/19 Non-toxic nodular goiter 174989454 E04.9 -- pt follows Dr Field-- TSH 1.48 on 03/07/19 Gastroesop hageal reflux disease 033684982 K21.9 -- discontinu e Pantoprazo le b/c of risk for kidney failure and dementia (mother & sister had dementia). Osteopenia 503453629 M85 .80 (last DEXA was done on 01/06/18)-- check lab(s) on 09/07/19 Arthropath y of lumbar facet joint 367320646 M46.96 (Worst at L2-L3 left facet joint) -- patient also had bulging disc; currently patient is doing well without decompensa tion. Myalgia/my ositis - multiple 226902638 M79.10 -- check lab(s) on 09/07/19 Bipolar af fective disorder, currently depressed, moderate 905487377 F31.30 (on Lamotrigin e & Quietipine by Dr Sheridan Giang) -- no flares or mood symptoms. Body mass index 25-29 - overweight 654399316 Z68.25 -- Advise weight loss; patient lost 7 # since her last visit -- Patient his BMI today is 25.6 (idealisti c in -) Allergic rhinitis 856177 04 J30.9 Constipation 70428498 K5 9.04 Foot pain 57518320 M79.6 71 (left plantar heel) -- pain resolved w/o residuals Advance di rective discussed with patient 570675835 Z71.89 Glaucoma screening 53574 5009 Z13.5 -- Advised patient to followup with optometris t every year for glaucoma screening Viral screening 50618468 4 Z11.59 -- Hepatitis C antibodies nonreactiv e on 02/10/17 Active or passive immunization 529351104 Z23 Screening for malignant neoplasm of colon 854877594 Z12.11 -- stool samples turned in on 01/06/18--- Patient had a normal screening colonoscop y with gastroente rologist Dr. Noel Schmidt on 04/03/16-- saw gen surgeon Dr Vinicio Field on 05/19/18 dx'd pt w/ irritated internal Hermorrhoi ds. Screening for malignant neoplasm of breast 183780828 Z12.31 -- mammogram last done on 08/13/18 Screening for malignant neoplasm of cervix 459480902 Z12.4 -- pt reports she had a normal WINDOWS ARCHITECT by Dr Meño Pantoja in May 2018 [id number] Raya Haney MD [facility] [address] [place] [address] 01/26/2020 16:05:40 01/26/2020 17:11:19 Neck pain 63807083 M54.2 not so much pain - discomfort due to poor posture-- 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-- neck pain spontaneou sly resolved by increasing walking. Thoracic back pain 55344 8004 M54.6 not so much pain - discomfort due to poor posture-- End-plate spurring throughout thoracic levels on 06/15/19-- mid back pain spontaneou sly resolved by increasing walking. Ataxia 45680929 R27.0 -- no longer falling since visit w/ [employer]ER Jaquelin-- pt on 01/26/20 reported this has spontaneou sly resolved w/ increased walking Benign ess ential hypertension 9638173 I10 -- EKG last done 07/11/19-- check lab(s) within 4 weeks from 01/26/20 Hyperlipidemia 89488047 E78.5 -- check lab(s) within 4 weeks from 01/26/20 Chronic re nal impairment 262008069 N18.9 -- check lab(s) within 4 weeks from 01/26/20 Non-toxic nodular goiter 694723655 E04.9 -- pt follows Dr Field-- TSH 1.48 on 03/07/19 Gastroesop hageal reflux disease 600102732 K21.9 -- doing well since changed to Omeprazole since famotidine was not available anymore. Osteopenia 416381400 M85 .80 (last DEXA was done on 01/06/18)-- check lab(s) within 4 weeks from 01/26/20 Arthropath y of lumbar facet joint 422223179 M46.96 (Worst at L2-L3 left facet joint)-- X-rays show multi-leve l discogenic changes with facet degenerati ve changes on xrays done n 06/16/19-- doing well and have not taken Tramadol lately Bipolar af fective disorder, currently depressed, moderate 532554383 F31.30 (on Lamotrigin e & Quietipine by Dr Sheridan Giang) -- no flares or mood symptoms. Body mass index 25-29 - overweight 371059622 Z68.25 -- Advise weight loss -- Patient last BMI was 25.6 (idealisti c in ) Allergic rhinitis 239364 04 J30.9 Constipation 10817939 K5 9.04 -- doing w/ otc Miralax prn. Foot pain 02291006 M79.6 71 (left plantar heel) -- pain resolved w/o residuals Advance di rective discussed with patient 795571776 Z71.89 Glaucoma screening 40409 5009 Z13.5 -- Advised patient to followup with optometris t every year for glaucoma screening Viral screening 05059371 4 Z11.59 -- Hepatitis C antibodies nonreactiv e on 02/10/17 Active or passive immunization 953044056 Z23 -- pt is current on her shots. Screening for malignant neoplasm of colon 008240022 Z12.11 -- stool samples turned in on 01/06/18--- Patient had a normal screening colonoscop y with gastroente rologist Dr. Noel Schmidt on 04/03/16-- saw gen surgeon Dr Vinicio Field on 05/19/18 dx'd pt w/ irritated internal Hermorrhoi ds. Screening for malignant neoplasm of breast 093542106 Z12.31 -- mammogram last done on 08/13/18 Screening for malignant neoplasm of cervix 433697242 Z12.4 -- pt reports she had a normal WINDOWS ARCHITECT by Dr Meño Pantoja in May 2018 Herpes labialis 0483887 B00.1 -- check lab(s) within 4 weeks from 01/26/20 [id number] Raya Haney MD [facility], [facility] [address] [place] [address] 03/26/2020 14:17:40 03/26/2020 15:40:31 Adult health examination 774606623 Z00.00 Pain of ri ght shoulder joint 5422211139 6534250 M25.511 Benign ess ential hypertension 3131962 I10 -- EKG last done 07/11/19-- check lab(s) within 4 weeks from 01/26/20 Hyperlipidemia 71688525 E78.5 -- check lab(s) around 08/07/20 Chronic re nal impairment 408772566 N18.9 -- check lab(s) around 08/07/20 Non-toxic nodular goiter 374091968 E04.9 -- pt follows Dr Field-- check lab(s) around 08/07/20 Gastroesop hageal reflux disease 538196511 K21.9 -- doing well since changed to Omeprazole since famotidine was not available anymore. 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 Thoracic back pain 78642 8004 M54.6 not so much pain - discomfort due to poor posture-- End-plate spurring throughout thoracic levels on 06/15/19-- mid back pain spontaneou sly resolved by increasing walking. Arthropath y of lumbar facet joint 645787924 M46.96 (Worst at L2-L3 left facet joint)-- X-rays show multi-leve l discogenic changes with facet degenerati ve changes on xrays done n 06/16/19-- doing well and have not taken Tramadol lately Bipolar af fective disorder, currently depressed, moderate 726042945 F31.30 (on Lamotrigin e & Quietipine by Dr Sheridan Giang) -- no flares or mood symptoms. Body mass index 25-29 - overweight 454552458 Z68.26 -- Advise weight loss; pt gained 2 # since her last visit -- Patient last BMI was 26 (idealisti c in -) Herpes labialis 0801718 B00.1 (herpes Simplex 1) -- check lab(s) within 4 weeks from 01/26/20 Allergic rhinitis 299119 04 J30.9 Foot pain 44079075 M79.6 71 (left plantar heel) -- pain resolved w/o residuals Advance di rective discussed with patient 113827542 Z71.89 Glaucoma screening 84458 5009 Z13.5 -- Advised patient to followup with optometris t every year for glaucoma screening Active or passive immunization 824706405 Z23 -- pt is current on her shots. Screening for malignant neoplasm of colon 490094026 Z12.11 -- stool samples turned in on 01/06/18--- Patient had a normal screening colonoscop y with gastroente rologist Dr. Noel Schmidt on 04/03/16-- saw gen surgeon Dr Vinicio Field on 05/19/18 dx'd pt w/ irritated internal Hermorrhoi ds. Screening for malignant neoplasm of breast 008168158 Z12.31 -- mammogram last done on 08/13/18 Screening for malignant neoplasm of cervix 127284745 Z12.4 -- pt reports she had a normal WINDOWS ARCHITECT by Dr Meño Pantoja in May 2018 Hepatitis C screening 41 2582582 Z11.59 -- Hepatitis C antibodies nonreactiv e on 02/10/17 [id number] Raya Haney MD [facility] [address] [place] [address] 06/20/2020 15:12:31 06/20/2020 16:44:11 Pain of right shoulder joint 5036414961 1531734 M25.511 -- after informed consent, pt was injected w/ Kenalog 80 mg and Lidocaine 4 cc-- pt tolerated procedure well without any complicati on. Essential hypertension 24604904 I10 previously controlled -- ? stress & concerned about shot-- come in for Nursing BP check in 3 weeks. [id number] Efra Castillo MD [facility] [address] [place] [address] 08/09/2020 16:27:45 08/09/2020 17:13:43 Fracture of clavicle 20050090 S42.034A Multiple bruising 259044 006 T14.8XXA Rt upper chest walleducat ion Benign hypertension 1072 5009 I10 good Osteopenia 821277187 M85 .80 last DEXA 03/26/20 Active or passive immunization 628861916 Z23 Accidental fall 05864637 2 W19.XXXA education , PT Bipolar af fective disorder, currently depressed, moderate 375104992 F31.32 Health Concerns Section Related Observation LastModified by Organization Detai ls LastModified Time None Recorded Concern Status LastModified by Organization Details LastModified Time None Recorded Advance Directives Directive None Recorded Payers Encounter Date Sequence Insurance Name Policy Number Policy Garcia Covered Member ID Garcia Member ID Guarantor Name 07/11/2019 2 [place] Birgit Stern [id number] Birgit Stern 07/11/2019 1 [place] Birgit Soliseau [id number] Birgit Stern 01/26/2020 2 [place] Birgit Soliseamichael [id number] Birgit Soliseau 01/26/2020 1 [place] Birgit Welch Barbeau [id number] Birgit Soliseau 03/26/2020 2 [place] Birgit Soliseau [id number] Birgit Welch Barbeau 03/26/2020 1 [place] Birgit R Barbeau [id number] Birgit Stern 06/20/2020 1 [place] Birgit Stern [id number] Birgit Stern 08/09/2020 2 [place] [facility] [employer] Birgit Stern [id number] Birgit Stern 08/09/2020 1 [place] Birgit Stern [id number] Birgit Stern Notes Date Note Type Note Provider Name and Address Organization Details Recorded Time 07/11/2019 text/html Patient denies a ny headache/chest discomfort or pain/diaphoresis/levon athing problems/nausea/vomi ting/any angina equivalent symptoms/visual changes Raya Haney MD [address] [facility] [address], [place], [address], [facility] 07/11/2019 15:42:07 01/26/2020 text/html Pt states she hooker ving tingling and itching on the outside of her mouth, states it's been going on for over a week. Lesions are now going. No itching or rash now.Comes when stressed. Patient denies any f/c, headache, visual changes/sx, jaw or neck discomfort, chest discomfort/pain, diaphoresis, breathing symptoms/chest tightness, n/v, any angina equivalent symptoms, etc. Raya Haney MD [address] [facility] [address], [place], [address], [facility] 01/26/2020 17:09:14 03/26/2020 text/html Medicare Annual Wellness VisitReported bypatient.Diet and Nutrition:healthy diet; discussed vitamin and supplement use; discussed portion control; discussed maintaining calcium balance; discussed diet improvement Fracture Risk:no recent explained fracture; no sudden unexplained fractures;history of fractures((left wrist Fx at 5th grade from slipping of peas)) Physical Activity:discussed weightbearing activities; discussed exercise habits Depression Risk:never feels sad, empty, or tearful; no loss of interest in activities; no significant changes in weight; no sleep disturbances or insomnia; no agitation; no loss of energy; no feelings of worthlessness or guilt; no thoughts of suicide; no history of depression; no history of mood disorders Orientation:no disorientation to time; no disorientation to date; no disorientation to place Concentration and Memory:no decreased concentrating ability; no memory lapses or loss; does not forget words Speech/Motor difficulties:no speech difficulties; no difficulty expressing formulated concepts; no difficulty with fine manipulative tasks; no difficulty writing/copying; no slowed reaction time; does not knock things over when trying to pick them up Hearing:no loss of hearing Vision:no vision problems Activities of Daily Living:able to bathe with limited or no assistance; able to contol urination and bowels; able to dress with limited or no assistance; able to feed self with limited or no assistance; able to get out of chair or bed with limited or no assistance; able to groom with limited or no assistance; able to toilet with limited or no assistance Instrumental Activities of Daily Living:able to do house work with limited or no assistance; able to grocery shop with limited or no assistance; able to manage medications with limited or no assistance; able to manage money with limited or no assistance; able to prepare meals with limited or no assistance; able to use the phone with limited or no assistance Falls Risk Assessment:no frequent falls while walking; no fall in the past year; no fall since last visit; no dizziness/vertigo Home Safety:no unsafe pallavi hazzards; no unsafe stairs; no unsafe gas appliances; working smoke/CO detectors; use of seatbelts; no vision or hearing loss while driving; no fire arms; good lighting in the home;does not have hand bars in the bathroom/shower Patient denies any headache/chest discomfort or pain/diaphoresis/levon athing problems/nausea/vomi ting/any angina equivalent symptoms/visual changes Raya Haney MD [address] [facility] [address], [place], [address], [facility] 03/26/2020 15:38:38 06/20/2020 text/html Pt comes in for right shoulder injection for DJD and tendonitis. She has no c/o except shoulder pain.Pt denies any f/c or bleeding problems. Patient also denies any jaw or neck discomfort, left arm pain/left arm discomfort, chest discomfort/pain, diaphoresis, breathing symptoms/chest tightness, indigestion sx, n/v, any angina equivalent symptoms, etc. Raya Haney MD [address] [facility] [address], [place], [address], [facility] 06/20/2020 16:40:04 08/09/2020 text/html Hypertension F/UReported bypatient.Medication s:taking medications as directed; no side effects from medication Lifestyle:regular exercise; limiting/avoiding salt; compliant with low salt diet Associated Symptoms:no dizziness; no lightheadedness; no chest pain; no shortness of breath; no palpitations; no edema; no calf pain with exertion; no headache accidental fac , no head injury Efra Castillo MD [address] [facility] [address], [place], [address], [facility] 08/09/2020 17:11:51 OBGyn Episode No OBEpisode recorded.
--- OUTSIDE RECORDS SUMMARY | 2025-01-31 17:43 | XMS_ITS ---
Author Organization [facility] Address [address] [place] [address] Care Team Providers Care Automobile Rental Agent Name Role Phone Danny Bragg Primary Care Provider REASON FOR VISIT [place] refill Medications Medication SIG (Take, Route, Frequency, Duration) Notes Start Date End Date Status [place] Carbonate 150 MG 1 capsule Orall y Twice a day for 30 days Active Social History Sex Assigned At : Social History Observation Description Sex Assigned At Female Encounters Encounter Location Date Provider Diagnosis [address] [place] [address] 06/23/2024 [facility]ly [facility] Plan Of Treatment Medication Medication Name Sig Start Date Stop Date Notes [place] Carbonate 150 MG 1 capsule Orall y Twice a day for 30 days Progress Notes * Birgit STERNDOB:[birth year] (74 yo F)Acc No.[id number]:06/23/2024 Patient: Elzbieta SHAVONNEZeinaBirgit :1950 A ge:74 Y S ex:Female Address:[address] [facility] [address], [address], [place], [address] * Refills Refill [place] Carbonate Capsule, 150 MG, Orally, 60 Capsule, 1 capsule, Twice a day, 30 days, Refills=2 * true * Date: Generated for Opal crocker/Hortensia/eTransmitting on: 0 01/31/2025 05:42 PM CDT
--- OUTSIDE RECORDS SUMMARY | 2025-01-31 17:43 | XMS_ITS ---
Author Organization [facility] Address [address] [place] [address] Care Team Providers Care Chemical Maker Name Role Phone Yemi Dannymelisa Primary Care Provider [phone] Allergies Allergen (clinical drug ingredient) Drug/Non Drug Allergy documented on EMR Reaction Allergy Type Onset Date Status lorazepam Ativan Unknown Drug Allergy Active ziprasidone Geodon Unknown Drug Allergy Activ e REASON FOR VISIT Psych F/U, CSSR Interpretation and Follow UP Plan, Flu Vaccine Administration Medications Medication SIG (Take, Route, Frequency, Duration) Notes Start Date End Date Status Atorvastatin Calcium 10 MG 1 tablet Oral ly Once a day at bedtime Active Aspirin 81 81 MG 1 tablet Orally Once a day Active amLODIPine Besylate 10 MG 1 tablet Orall y Once a day Active [place] Carbonate 150 MG 1 capsule Orall y Twice a day for 30 days Active Carvedilol 3.125 MG 1 tablet with food O rally Twice a day Active Cyanocobalamin 1000 MCG 1 tablet Orally Once a day Active Docusate Sodium 100 MG 1 capsule as need ed Orally Twice a day Active Fluticasone Propionate 50 MCG/ACT 1 spray in each nostril Nasally Once a day Active Fish Oil 1200 MG 1 capsule Orally Thr ee times a day Active Famotidine 20 MG 1 tablet at bedtime as needed Orally Once a day Active Loratadine 10 MG 1 tablet Orally Once a day Active LaMICtal 100 MG 1 tablet Orally Once a day Active Radha-Lanta 200-200-20 MG/5ML 10 mL as needed Orally Four times a day Active Gabapentin 300 MG 1 capsule Orally Onc e a day at bedtime Active Furosemide 40 MG 1 tablet Orally Once a day Active Montelukast Sodium 10 MG 1 tablet Orally Once a day Active valACYclovir HCl 1 GM 1 tablet Orally Ev carter 12 hours as needed Active SEROquel 100 MG 1 tablet Orally Once a day Active Artificial Tears 0.5-0.6 % as directed Ophthalmic Active Vitamin D3 25 MCG (1000 UT) 1 capsule Or ally Once a day Active Sertraline HCl 50 MG 1 tablet Orally Onc e a day for 30 days Active risperiDONE 0.25 MG 1 tablet Orally Twic e a day for 30 days Active risperiDONE ER 25 MG as directed Intramu scular every 14 days for 14 days Active SEROquel 300 MG 1 tablet at bedtime Orally Once a day for 30 days Active Benztropine Mesylate 0.5 MG 1 tablet Ora lly twice a day for 30 days Active traZODone HCl 50 MG 1 tablet at bedtime Orally Once a day for 30 days Active Immunizations Vaccine Route Administration Date Status [...] been since you last smoked? 1-3 months Vital Signs Height 61.5 in 09/13/2024 Blood pressure systolic 142 mm Hg 09/13/20 24 Blood pressure diastolic 82 mm Hg 024 Heart Rate 93 /min 09/13/2024 Oximetry 96 % 09/13/2024 Respiratory Rate 16 /min 09/13/2024 Encounters Encounter Location Date Provider Diagnosis [address] [place] [address] 09/13/2024 Arif Habib Encounter for immunization Z23 and Bipolar disorder F31.9 Assessments Encounter Date Diagnosis (ICD Code) Assessment Notes Treatment Notes Treatment Clinical Notes Section Notes 09/13/2024 Encounter for immunization (ICD-10 - Z23) Ordered per standing orders for administering influenza vaccine to adults. 09/13/2024 Bipolar disorder (ICD-10 - F31.9) Dose of Risperdal was lowered to 0.25 mg BID due to side effects including shakes & shuffling gait. Add Cogentin 0.5 mg BID. Continue other traetment. Side effects disxussed. Supportive treatment provided Plan Of Treatment Medication Medication Name Sig Start Date Stop Date Notes Sertraline HCl 50 MG 1 tablet Orally Onc e a day for 30 days risperiDONE 0.25 MG 1 tablet Orally Twic e a day for 30 days risperiDONE ER 25 MG as directed Intramu scular every 14 days for 14 days SEROquel 300 MG 1 tablet at bedtime Orally Once a day for 30 days Benztropine Mesylate 0.5 MG 1 tablet Ora lly twice a day for 30 days traZODone HCl 50 MG 1 tablet at bedtime Orally Once a day for 30 days Treatment Notes Assessment Notes Bipolar disorder Dose of Risperdal wa s lowered to 0.25 mg BID due to side effects including shakes & shuffling gait. Add Cogentin 0.5 mg BID. Continue other traetment. Side effects disxussed. Supportive treatment provided Next Appt Details Follow Up: 3 Months, Reason: Progress Notes * Birgit STERNDOB:[birth year] (74 yo F)Acc No.[id number]:09/13/2024 Patient: Elzbieta Birgit MARVIN Provider: Madie Bragg :1950 A ge:74 Y S ex:Female Date:09/13/2024 Address:[address] [place] [address], [address] Check In:01:44 PM PATIENT COMPANION Subjective: * Chief Complaints: * 1 . Psych F/U. 2. CSSR Interpretation and Follow UP Plan. 3. Flu Vaccine Administration. * HPI: I nterim History: Emergency room visit Y es , No , No. W as hospitalized?Yes , No , No. Pt came today with assisted living staff. Ptwas inpatient for a week for pulmonary embolism and then went to rehab for 2 weeks. Pt reports doing alright. Denies feeling sad or depressed. But stillfeels tired, low motivated.? M ood stable. Denies depression. Denies SI/HI. Denies hallucination or delusions. Denies manic or hypo manic symptoms. Denies side effects. Pt lives in [facility] assisted living . Pt was inpatient at [facility] Pt was inpatient twice recently due to behavior problem, psychosis. She was previously diagnosed with Bipolar and Schizophrenia. . First diagnosed and admitted in her 40's. No history of suicidal attempt. Inpatient few times. Past Psych: History of several inpatients. Diagnosed with Bipolar with psychotc features in past.? PMH: HTN, Hyperlipidemia,GERD Allergy: AtivanSean Social: Lives in assisted living. Prior to that she was in skilled nursing through [facility] . 23 year old grand Son was murdered in 2020. Family: Non contributory Substance use: None DX: Ramona 1: Bipolar 1 disorder with psychotic features h /o Schizophrenia MSE: Alert,ox4. Mood is pleasant. Affect is appropriate to mood. Denies SI/HI. Denies hallucination or delusions. Denies manic or hypo manic symptoms. Denies side effects. Insight & judgement better. D epression Screening: PHQ-9 L ittle interest or pleasure in doing things N ot at all, F eeling down, depressed, or hopeless N ot at all, T rouble falling or staying asleep, or sleeping too much N ot at all, F eeling tired or having little energy M ore than half the days, P oor appetite or overeating S everal days, F eeling bad about yourself or that you are a failure, or have let yourself or your family down N ot at all, T rouble concentrating on things, such as reading the newspaper or watching television N ot at all, M oving or speaking so slowly that other people could have noticed; or the opposite, being so fidgety or restless that you have been moving around a lot more than usual S everal days, T houghts that you would be better off or of hurting yourself in some way N ot at all, T otal Score 4 , I nterpretation M inimal Depression. S creening: [place] Suicide Severity Rating Scale (LF) D o you want to initiate with S creener form, 1 . Wish to be : Have you wished you were or wished you could go to sleep and not wake up? N o, 2 . Suicidal Thoughts: Have you actually had any thoughts of killing yourself? N o, 6 . Suicide Behaviour: Have you ever done anything,started to do anything, or prepared to end your life? N o, I nterpretation: L ow Risk. C SSRS Interpretation and Follow Up Plan: CSSRS Interpretation and Follow Up Plan. CSSRS Interpretation and Follow Up Plan C SSRS Screen documented using SF Y es, M oderate or High risk requires selection of a follow up plan C SSRS No/Low: intervention not needed at this time. I nfluenza Immunization: Influenza Immunization Screening Questionnaire H as fever or is ill? N o ., H as had influenza immunization in past? N o .., H ad serious reaction to influenza immunization in past N o .., H ad reaction to eggs or egg products? N o .., H ad Guillain-Or[place] Syndrome (GBS)? N o .., H as an allergy to Thimerosal or mercury products? N o .., R esult of clinical decision regarding administering immunization B ased on questionnaire answers, can administer immunization .., V erbal Consent given: Sunita nguyen provided verbal consent. ... R ecipient Category I s the patient a [employer] employee?? .. * Medical History: * Surgical History: D enies Past Surgical History. * Hospitalization/Major Diagno stic Procedure: [facility] , pulmonary embol[facility] 06/2024. * Family History: F ather: , Copd , diagnosed with Lung disease. M other: . S iblings: alive, Brother alcoholic . 1 brother(s) , 1 sister(s) - healthy. 2 son(s) , 1 daughter(s) - healthy. . * [facility] Social History: L iving Arrangement L iving Arrangement: Independent Living , Is this a supportive environment? Yes .. A lcohol Use A lcohol Use Frequency: N ever. I llicit Substance Usage Illicit Substance Usage: N o. E mployment Status E mployment Status: O n Disability. T obacco Use: T obacco Control (Standard) T obacco use: F ormer smoker, H ow long has it been since you last smoked? 1 -3 months. M iscellaneous: M ethod of learning P referred method of learning: R jonnathan,Discussion,Demonstration.? * Medications: T aking Artificial Tears 0.5-0.6 % Solution as directed Ophthalmic , Taking Vitamin D3 25 MCG (1000 UT) Capsule 1 capsule Orally Once a day , Taking valACYclovir HCl 1 GM Tablet 1 tablet Orally Every 12 hours as needed , Taking SEROquel 100 MG Tablet 1 tablet Orally Once a day , Taking Montelukast Sodium 10 MG Tablet 1 tablet Orally Once a day , Taking Loratadine 10 MG Tablet 1 tablet Orally Once a day , Taking LaMICtal 100 MG Tablet 1 tablet Orally Once a day , Taking Radha-Lanta 200-200-20 MG/5ML Suspension 10 mL as needed Orally Four times a day , Taking Gabapentin 300 MG Capsule 1 capsule Orally Once a day at bedtime , Taking Furosemide 40 MG Tablet 1 tablet Orally Once a day , Taking Fluticasone Propionate 50 MCG/ACT Suspension 1 spray in each nostril Nasally Once a day , Taking Fish Oil 1200 MG Capsule 1 capsule Orally Three times a day , Taking Famotidine 20 MG Tablet 1 tablet at bedtime as needed Orally Once a day , Taking Docusate Sodium 100 MG Capsule 1 capsule as needed Orally Twice a day , Taking Cyanocobalamin 1000 MCG Tablet 1 tablet Orally Once a day , Taking Carvedilol 3.125 MG Tablet 1 tablet with food Orally Twice a day , Taking Atorvastatin Calcium 10 MG Tablet 1 tablet Orally Once a day at bedtime , Taking Aspirin 81 81 MG Tablet Delayed Release 1 tablet Orally Once a day , Taking amLODIPine Besylate 10 MG Tablet 1 tablet Orally Once a day , Taking traZODone HCl 50 MG Tablet 1 tablet at bedtime Orally Once a day , Taking Sertraline HCl 50 MG Tablet 1 tablet Orally Once a day , Taking risperiDONE 0.25 MG Tablet 1 tablet Orally Twice a day , Taking risperiDONE ER 25 MG Suspension Reconstituted ER as directed Intramuscular every 14 days , Taking SEROquel 300 MG Tablet 1 tablet at bedtime Orally Once a day , Taking Benztropine Mesylate 0.5 MG Tablet 1 tablet Orally twice a day , Taking [place] Carbonate 150 MG Capsule 1 capsule Orally Twice a day * Allergies: Sean Clay. Objective: * Vitals: I nitials: sw, Ht: 61.5, BP:142/82, HR:93, Oxygen sat %:96, RR:16, Pain scale:0. * Examination: C QM Exceptions: BMI not documented: R dilma: P atient ReasonType of Patient Reason: P atient refused service. Assessment: * Assessment: 1. E ncounter for immunization - Z23 (Primary) 2 . B ipolar disorder - F31.9 Plan: * Treatment: 2. B ipolar disorder Continue traZODone HCl Tablet, 50 MG, 1 tablet at bedtime, Orally, Once a day, 30 days, 30 Tablet, Refills 2; C ontinue Sertraline HCl Tablet, 50 MG, 1 tablet, Orally, Once a day, 30 days, 30 Tablet, Refills 2; D ecrease risperiDONE Tablet, 0.25 MG, 1 tablet, Orally, Twice a day, 30 days, 60 Tablet, Refills 2; C ontinue risperiDONE ER Suspension Reconstituted ER, 25 MG, as directed, Intramuscular, every 14 days, 14 days, 1 Kit, Refills 5; C ontinue SEROquel Tablet, 300 MG, 1 tablet at bedtime, Orally, Once a day, 30 days, 30 Tablet, Refills 2; S tart Benztropine Mesylate Tablet, 0.5 MG, 1 tablet, Orally, twice a day, 30 days, 60 Tablet, Refills 2. Notes: Dose of Risperdal was lowered to 0.25 mg BID due to side effects including shakes & shuffling gait. Add Cogentin 0.5 mg BID. Continue other traetment. Side effects disxussed. Supportive treatment provided * Recommended Wellness and Pre vention Guidelines: * S tatus A lert L ast Done N ext Due A ction Taken N ONCOMPLIANT B reast cancer screening - 1 11/13/2023 - N ONCOMPLIANT C olorectal cancer screening - 1 11/13/2023 - * Immunizations: Influenza, virus vaccine, trivalent, preservative free : 0.5 mL (Route: Intramuscular) given by Holly Mo RN on Left Deltoid * Procedure Codes: C HS07 Flu Vaccine Offered, G0467 [facility] VISIT ESTABLISHED PATIENT, [address] IIV3 VACC NO PRSV 0.5 ML [place], [address] IMMUNIZATION ADMIN * Follow Up: 3 Months * * ENT COMPANION Sign off status: Completed true * Provider: Madie Bragg Date: 11/13/2023 Generated for Opal crocker/Hortensia/eTransmitting on: 0 01/31/2025 05:42 PM CDT History and Physical Notes * HPI (History of Present Illness) Category Sub-Category Detail Notes Category Not es Interim History Was hospitalized Yes , No , No Pt came today with assisted living staff. Ptwas inpatient for a week for pulmonary embolism and then went to rehab for 2 weeks. Pt reports doing alright. Denies feeling sad or depressed. But stillfeels tired, low motivated. Mood stable. Denies depression. Denies SI/HI. Denies hallucination or delusions. Denies manic or hypo manic symptoms. Denies side effects. Pt lives in [facility] assisted living . Pt was inpatient at [facility] Pt was inpatient twice recently due to behavior problem, psychosis. She was previously diagnosed with Bipolar and Schizophrenia. . First diagnosed and admitted in her 40's. No history of suicidal attempt. Inpatient few times. Past Psych: History of several inpatients. Diagnosed with Bipolar with psychotc features in past. PMH: HTN, Hyperlipidemia,GERD Allergy: AtivanSean Social: Lives in assisted living. Prior to that she was in skilled nursing through [facility] . 23 year old grand Son was murdered in 2020. Family: Non contributory Substance use: None DX: Ramona 1: Bipolar 1 disorder with psychotic features h/o Schizophrenia MSE: Alert,ox4. Mood is pleasant. Affect is appropriate to mood. Denies SI/HI. Denies hallucination or delusions. Denies manic or hypo manic symptoms. Denies side effects. Insight & judgement better. Emergency room visit Yes , No , No Depression Screening PHQ-9 Little inte rest or pleasure in doing things: Not at all Feeling down, depressed, or hopeless: No t at all Trouble falling or staying asleep, or sl eeping too much: Not at all Feeling tired or having little energy: M ore than half the days Poor appetite or overeating: Several day s Feeling bad about yourself o r that you are a failure, or have let yourself or your family down: Not at all Trouble concentrating on thi ngs, such as reading the newspaper or watching television: Not at all Moving or speaking so slowly that other people could have noticed; or the opposite, being so fidgety or restless that you have been moving around a lot more than usual: Several days Thoughts that you would be b vickie off or of hurting yourself in some way: Not at all Total Score: 4 Interpretation: Minimal Depression Influenza Immunization Influenza Immuniz ation Screening Questionnaire Has fever or is ill?: No . Has had influenza immunization in past?: No .. Had serious reaction to influenza immuni zation in past: No .. Had reaction to eggs or egg products?: N o .. Had Guillain-Orangeburg Syndrome (GBS)?: No . . Has an allergy to Thimerosal or mercury products?: No .. Result of clinical decision regarding administering immunization: Based on questionnaire answers, can administer immunization .. Verbal Consent given:: Patient provided verbal consent. .. Recipient Category Is the patient a [place] emp loyee?: . Screening [place] Suicide Sev erity Rating Scale (LF) Do you want to initiate with: Screener form 1. Wish to be : Have you wished you were or wished you could go to sleep and not wake up?: No 2. Suicidal Thoughts: Have you actually had any thoughts of killing yourself?: No 6. Suicide Behavior Question: Have you ever done anything,started to do anything, or prepared to end your life?: No Interpretation:: Low Risk Do Not Use CSSRS Interpretation and Follow Up Plan CSSRS Interpretation and Follow Up Plan CSSRS Screen documented using SF: Yes Moderate or High risk requir es selection of a follow up plan: CSSRS No/Low: intervention not needed at this time Examination Category Sub-Category Detail Notes Category Not es CQM Exceptions BMI not documented: Reason:: Patient Reason Type of Patient Reason:: Patient refused service
--- OUTSIDE RECORDS SUMMARY | 2025-01-31 17:43 | XMS_ITS ---
Author Organization [facility] Address [address] [place] [address] Care Team Providers Care Traffic Signal Supervisor Maintenance Name Role Phone Danny Bragg Primary Care Provider REASON FOR VISIT [place] refill Medications Medication SIG (Take, Route, Frequency, Duration) Notes Start Date End Date Status [place] Carbonate 150 MG 1 capsule Orall y Twice a day for 30 days Active Social History Sex Assigned At : Social History Observation Description Sex Assigned At Female Encounters Encounter Location Date Provider Diagnosis [address] [place] [address] 06/24/2024 [facility] Plan Of Treatment Medication Medication Name Sig Start Date Stop Date Notes [place] Carbonate 150 MG 1 capsule Orall y Twice a day for 30 days Progress Notes * Birgit STERNDOB:[birth year] (74 yo F)Acc No.[id number]:06/24/2024 Patient: Elzbieta SHAVONNE Birgit :1950 A ge:74 Y S ex:Female Address:[address] [facility], [address], [place], [address] * Refills Refill [place] Carbonate Capsule, 150 MG, Orally, 60 Capsule, 1 capsule, Twice a day, 30 days, Refills=2 * true * Date: Generated for Opal crocker/Hortensia/eTransmitting on: 0 01/31/2025 05:42 PM CDT
[2025-01-31 17:44] LABS: Basophils Percent Auto 0.1 % (0.2-1.2); Eosinophils Absolute Auto 0.1 K/mm3 (0-0.3); Eosinophils Percent Auto 0.5 % (0-4.4); Hematocrit 32.7 % (37.0-47.0); Hemoglobin 10.3 g/dL (12.0-15.0); Immature Granulocyte Absolute 0.07 K/mm3 (0.00-0.031); Immature Granulocyte Percent A 0.5 % (0-0.5); Lymphocytes Absolute Auto 2.45 K/mm3 (0.9-3.2); Lymphocytes Percent Auto 15.9 % (18.3-44.2); Mean Corpuscular HGB Conc 31.5 g/dl (32-36); Mean Corpuscular Hemoglobin 28.9 pg (26-34); Mean Corpuscular Volume 91.9 fl (80-100); Mean Platelet Volume 8.9 fl (7.4-10.4); Monocytes Absolute Auto 1.4 K/mm3 (0.1-0.6); Monocytes Percent Auto 8.8 % (2.6-8.5); Neutrophils Absolute Auto 11.4 K/mm3 (1.3-6.7); Neutrophils Percent Auto 74.2 % (45.5-73.1); Platelet Count Result 331 k/mm3 (150-375); Red Blood Count 3.56 M/mm3 (4.2-5.4); Red Cell Distribution Width 13.9 % (11.5-14.5); White Blood Count 15.4 K/mm3 (4.5-10.0)
[2025-01-31 17:53] LABS: Add Urine Microscopic? YES; Appearance Urine Clear (Clear); Bacteria Urine None Seen /hpf; Bilirubin Urine Negative (Negative); Blood Urine Negative (Negative); Color Urine Yellow (Yellow); Glucose Urine UA Negative (Negative); Ketones Urine Negative (Negative); Leukocyte Esterase Ur 1+ LEU/UL (Negative); Need Manual Microscopic Reviewed; Nitrate Urine Negative (Negative); Non Pathogenic Casts 0-2; Protein Urine Negative (Negative); RBC Urine 0-2 /hpf (0-2); Specific Grav Ur 1.009 (1.001-1.035); Squamous Epithelial Cell Urine Occasional /hpf (Few); pH Urine 6.5 (5.0-9.0)
[2025-01-31 17:56] LABS: Alanine Aminotransferase 25 U/L (6-35); Albumin Level 3.3 g/dL (3.5-5.1); Alkaline Phosphatase 111 U/L (38-126); Anion Gap 6 mmol/L (4-12); Aspartate Amino Transferase 28 U/L (14-36); Bilirubin,Total 0.6 mg/dL (0.2-1.3); Blood Urea Nitrogen 6 mg/dL (7-17); Calcium 9.1 mg/dL (8.4-10.2); Carbon Dioxide 28 mmol/L (22-30); Chloride 101 mmol/L (98-107); Estimated Glomerular Filt Rate > 60; Glucose 116 mg/dL (65-110); INR 1.1; Partial Thromboplastin Time 32.5 Seconds (22.3-36.8); Potassium 4.2 mmol/L (3.4-5.0); Prothrombin Time 14.4 Seconds (11.1-14.7); Sodium 135 mmol/L (137-145)
[2025-01-31 18:01] VITALS: BP 130/61; RESP 21
--- NOTE | 2025-01-31 18:27 | PC.NURSE ---
This RN attempted to call report to [facility] [phone], Another resident answered the facility phone. This RN asked to speak to a nurse pt states There ain't one 'round so after it kept ringing I answered it .
--- NOTE | 2025-01-31 18:45 | ED_ITS ---
HPI - Altered Mental Status General Chief Complaint: Altered Mental Status Stated Complaint: AMS, low BP per [facility] Time Seen by Provider: 01/31/25 17:32 Related Data Home Medications ?Medication ?Instructions ?Recorded ?Confirmed ?Last Taken ?Type acetaminophen 325 mg tablet 650 mg PO Q6H PRN pain 11/06/24 11/06/24 Unknown History (Tylenol) amlodipine 10 mg tablet (Norvasc) 10 mg PO DAILY 11/06/24 11/06/24 11/05/24 History atorvastatin 40 mg tablet (Lipitor) 40 mg PO HS 11/06/24 11/06/24 Unknown History benztropine 0.5 mg tablet 0.5 mg PO BID 11/06/24 11/06/24 11/05/24 History bisacodyl 10 mg rectal suppository 10 mg RECTAL DAILY PRN constipation 11/06/24 11/06/24 Unknown History carvedilol 3.125 mg tablet 3.125 mg PO BID 11/06/24 11/06/24 11/05/24 History cholecalciferol (vitamin D3) 25 1,000 unit PO DAILY 11/06/24 11/06/24 Unknown History mcg (1,000 unit) capsule cyanocobalamin (vitamin B-12) 1,000 mcg PO DAILY 11/06/24 11/06/24 11/05/24 History 1,000 mcg capsule famotidine 20 mg tablet 20 mg PO DAILY 11/06/24 11/06/24 11/05/24 History furosemide 40 mg tablet 40 mg PO DAILY 11/06/24 11/06/24 Unknown History furosemide 40 mg tablet 40 mg PO DAILY 11/06/24 11/06/24 11/05/24 History gabapentin 300 mg capsule 300 mg PO HS 11/06/24 11/06/24 Unknown History lactulose 10 gram/15 mL oral 30 ml PO PRN 11/06/24 11/06/24 Unknown History solution (Enulose) lamotrigine 100 mg tablet 100 mg PO DAILY 11/06/24 11/06/24 11/05/24 History (Lamictal) loperamide 2 mg tablet 2 mg PO Q8H PRN loose stool 11/06/24 11/06/24 Unknown History (Anti-Diarrheal (loperamide)) loratadine 10 mg tablet 10 mg PO DAILY 11/06/24 11/06/24 Unknown History magnesium citrate 296 ml PO DAILY PRN constipation 11/06/24 11/06/24 Unknown History magnesium hydroxide 400 mg/5 mL 30 ml PO HS PRN constipation 11/06/24 11/06/24 Unknown History oral suspension montelukast 10 mg tablet 10 mg PO DAILY 11/06/24 11/06/24 11/05/24 History multivitamin with minerals-folic 1 tablet PO DAILY 11/06/24 11/06/24 Unknown History acid 0.4 mg tablet ondansetron HCl 4 mg tablet 4 mg PO Q6H PRN nausea and vomiting 11/06/24 11/06/24 Unknown History polyethylene glycol 3350 17 17 g PO DAILY 11/06/24 11/06/24 Unknown History gram/dose oral powder potassium chloride 20 mEq 20 meq PO TID 11/06/24 11/06/24 11/05/24 History tablet,extended release (K-Tab) risperidone 0.25 mg tablet 0.25 mg PO BID 11/06/24 11/06/24 11/05/24 History risperidone microspheres 25 mg/2 25 mg IM Q14D 11/06/24 11/06/24 Unknown History mL intramuscular susp,ext release (Risperdal Consta) rivaroxaban 10 mg tablet 20 mg PO DAILY 11/06/24 11/06/24 11/05/24 History sennosides 8.6 mg-docusate sodium 2 tab-cap PO BID 11/06/24 11/06/24 11/05/24 History 50 mg capsule (Senna Plus) sertraline 50 mg tablet 50 mg PO DAILY 11/06/24 11/06/24 11/05/24 History Allergies Allergy/AdvReac Type Severity Reaction Status Date / Time lorazepam (From Ativan) Allergy Unknown Verified 01/31/25 17:11 ziprasidone (From Geodon) Allergy Unknown Verified 01/31/25 17:11 [facility] Past Medical History Medical History (Updated 01/31/25 @ 18:13 by Rachael Hirsch MD) Acute right hip pain Social History Social History Smoking status: Never smoker Alcohol intake: never Substance use: never Substance use type: does not use Do You Feel Safe in your Home?: Yes Lack of Transportation: No Lack of Food: Never True Current Housing: I Have Housing Concerned About Future Housing: No Difficulty Paying Gas/Electric Bills: No Difficulty Paying for Meds: No Currently Unemployed: No Education: Decline to Answer Difficulty w/ Childcare or Family Care: No Spiritual care concerns: No Course Vital Signs Vital signs: Vital Signs Temperature 98.2 F 01/31/25 16:48 Pulse Rate 100 01/31/25 16:48 Respiratory Rate 16 01/31/25 16:48 Blood Pressure 127/58 L 01/31/25 16:48 Pulse Oximetry 98 01/31/25 16:48 Oxygen Delivery Room Air 01/31/25 16:48 Temperature 98.2 F 01/31/25 16:48 Pulse Rate 99 01/31/25 17:14 Respiratory Rate 16 01/31/25 16:48 Blood Pressure 127/58 L 01/31/25 16:48 Pulse Oximetry 98 01/31/25 17:12 Oxygen Delivery Room Air 01/31/25 17:12 MDM - Altered Mental Status MDM Narrative Medical decision making narrative: 1) Differential diagnosis: Infection, electrolyte abnormality, dementia, schizophrenia 2) Comorbidities: Schizophrenia 3) External notes reviewed: residential paper, admission records 4) History sources independently obtained from: residential, daughter Bekah 5) Discussion of management with: [] 6) Independent interpretation of: EKG on my interpretation very difficult to interpret given the shaking but looks like likely sinus versus possible flutter, rate 99, SC 130, QRS 104, QTC 414, normal axis, no significant ST elevations or depressions 7) Diagnostic tests or therapies considered but not ordered: 8) Social determinants of health: [] 9) Shared decision making: Spoke with daughter over the phone, patient had been drinking Coke which is favored, and then started to are strong which started states it is very different for her, she requested transfer to emergency room. Per daughter, at baseline patient knows her name and that is about it. On my exam she is also alert and answering questions appropriately and is oriented x1, she is denying any complaints. Basic labs including urinalysis obtained without any obvious abnormality other than leukocytosis however this does appear closed her baseline. I did discuss all this with her daughter over the phone, she feels comfortable with the patient going back to the [place] [facility] with follow-up to the doctor there, and coming back if worse. Lab Data 01/31/25 17:36 01/31/25 17:36 Labs: Lab Results 01/31/25 Range/Units 17:36 WBC 15.4 H (4.5-10.0) K/mm3 RBC 3.56 L (4.2-5.4) M/mm3 Hgb 10.3 L (12.0-15.0) g/dL Hct 32.7 L (37.0-47.0) % MCV 91.9 (80-100) fl MCH 28.9 (26-34) pg MCHC 31.5 L (32-36) g/dl RDW 13.9 (11.5-14.5) % Plt Count 331 (150-375) k/mm3 MPV 8.9 (7.4-10.4) fl Immature Gran % (Auto) 0.5 (0-0.5) % Neut % (Auto) 74.2 H (45.5-73.1) % Lymph % (Auto) 15.9 L (18.3-44.2) % [place] % (Auto) 8.8 H (2.6-8.5) % Eos % (Auto) 0.5 (0-4.4) % Baso % (Auto) 0.1 L (0.2-1.2) % Lymph # (Auto) 2.45 (0.9-3.2) K/mm3 Jewell # (Auto) 1.4 H (0.1-0.6) K/mm3 Eos # (Auto) 0.1 (0-0.3) K/mm3 Baso # (Auto) 0.0 (0.0-0.1) K/mm3 Abs Immat Gran (auto) 0.07 H (0.00-0.031) K/mm3 Absolute Neuts (auto) 11.4 H (1.3-6.7) K/mm3 Absolute Nucleated RBC 0.000 (0.0-0.012) K/mm3 Nucleated RBC % 0.0 (0.0-0.2) % PT 14.4 (11.1-14.7) Seconds INR 1.1 APTT 32.5 (22.3-36.8) Seconds Sodium 135 L (137-145) mmol/L Potassium 4.2 (3.4-5.0) mmol/L Chloride 101 (98-107) mmol/L Carbon Dioxide 28 (22-30) mmol/L Anion Gap 6 (4-12) mmol/L BUN 6 L D (7-17) mg/dL Creatinine 0.42 L (0.7-1.0) mg/dL Estim Creat Clear Calc Not Reportable Estimated GFR > 60 (59 - ) Glucose 116 H (65-110) mg/dL Calcium 9.1 (8.4-10.2) mg/dL Total Bilirubin 0.6 (0.2-1.3) mg/dL AST 28 (14-36) U/L ALT 25 (6-35) U/L Alkaline Phosphatase 111 (38-126) U/L Total Protein 7.0 (6.3-8.2) g/dL Albumin 3.3 L (3.5-5.1) g/dL Urine Color Yellow (Yellow) Urine Appearance Clear (Clear) Urine pH 6.5 (5.0-9.0) Ur Specific [place] 1.009 (1.001-1.035) Urine Protein Negative (Negative) mg/dL Urine Glucose (UA) Negative (Negative) mg/dL Urine Ketones Negative (Negative) mg/dL Ur Blood (Man) Negative (Negative) Urine Nitrate Negative (Negative) Urine Bilirubin Negative (Negative) Urine Urobilinogen 1.0 (<2.0) mg/dL Add Ur Microanalysis Reviewed Leukocyte Esterase Rfl 1+ H (Negative) MARGOTH/UL Urine RBC 0-2 (0-2) /hpf Urine WBC 6-10 H (0-3) /hpf Ur Squamous Epith Cells Occasional (Few) /hpf Urine Bacteria None seen /hpf Urine Casts 0-2 Discharge Plan Discharge Clinical Impression: AMS (altered mental status) Patient Disposition: Home Condition: Stable Instructions: General Patient Instructions Additional Instructions: Please follow up with the PCP; you can always return to the ER for any further issues. Patient Language: Citizen [place] Prescriptions: No Action amlodipine [Norvasc] 10 mg tablet 10 mg PO DAILY benztropine 0.5 mg tablet 0.5 mg PO BID carvedilol 3.125 mg tablet 3.125 mg PO BID Rx Instructions: must administer with a meal/food cyanocobalamin (vitamin B-12) 1,000 mcg capsule 1,000 mcg PO DAILY famotidine 20 mg tablet 20 mg PO DAILY furosemide 40 mg tablet 40 mg PO DAILY furosemide 40 mg tablet 40 mg PO DAILY gabapentin 300 mg capsule 300 mg PO HS loratadine 10 mg tablet 10 mg PO DAILY lamotrigine [Lamictal] 100 mg tablet 100 mg PO DAILY montelukast 10 mg tablet 10 mg PO DAILY potassium chloride [K-Tab] 20 mEq tablet extended release 20 meq PO TID risperidone 0.25 mg tablet 0.25 mg PO BID rivaroxaban 10 mg tablet 20 mg PO DAILY Senna Plus 8.6-50 mg capsule 2 tab-cap PO BID sertraline 50 mg tablet 50 mg PO DAILY acetaminophen [Tylenol] 325 mg tablet 650 mg PO Q6H PRN (Reason: pain) atorvastatin [Lipitor] 40 mg tablet 40 mg PO HS bisacodyl 10 mg suppository 10 mg RECTAL DAILY PRN (Reason: constipation) Rx Instructions: if no results from [facility] cholecalciferol (vitamin D3) 25 mcg (1,000 unit) capsule 1,000 unit PO DAILY magnesium citrate Solution 296 ml PO DAILY PRN (Reason: constipation) lactulose [Enulose] 10 gram/15 mL solution 30 ml PO PRN polyethylene glycol 3350 17 gram/dose powder 17 g PO DAILY loperamide [Anti-Diarrheal (loperamide)] 2 mg tablet 2 mg PO Q8H PRN (Reason: loose stool) magnesium hydroxide 400 mg/5 mL suspension 30 ml PO HS PRN (Reason: constipation) multivit with min-folic acid 0.4 mg tablet 1 tablet PO DAILY ondansetron HCl 4 mg tablet 4 mg PO Q6H PRN (Reason: nausea and vomiting) risperidone microspheres [Risperdal Consta] 25 mg/2 mL suspension,extended rel recon 25 mg IM Q14D oxycodone 5 mg tablet 5 mg PO Q6H PRN (Reason: pain) 5 Days Qty: 10 0RF dronabinol 2.5 mg capsule 2.5 mg PO BID 5 Days Qty: 10 0RF Rx Instructions: administer before lunch and evening meal/dinner Follow-up/Referrals: Pendpatricia,Darcy, CHEMICAL LABORATORY CHIEF [Primary Care Provider] -
--- NOTE | 2025-01-31 18:48 | PC.NURSE ---
This RN attempted a second time to call report to [facility] at [facility] [phone], received no answer and unable to leave message
[2025-01-31 19:04] VITALS: BP 135/55; PULSE 106; RESP 16; TEMP 37.1; O2SAT 96
[2025-01-31 19:20] VITALS: BP 128/60; PULSE 102; RESP 20; O2SAT 97
--- NOTE | 2025-01-31 19:26 | PC.NURSE ---
Report called to Vandana pt caregiver at [facility]
== END 2025-01-31 20:40 ==
PROVIDERS: Emergency Medicine; Emergency Provider Emergency Medicine; PCP Nurse Practitioner Family
DX: R41.82 Altered mental status, unspecified (principal); F20.9 Schizophrenia, unspecified; Z79.01 Long term (current) use of anticoagulants; Z79.899 Other long term (current) drug therapy; R94.31 Abnormal electrocardiogram [ECG] [EKG]
CPT/HCPCS: 36415; 80053; 81001; 85025; 85610; 85730; 87086; 93005; 99284